=== PATIENT | male | born 1945 | race Caucasian/White ===

== ENCOUNTER → 2017-03-25 | Outpatient (CLI) | payer BC, OTHER ==
[~2017-03-25] MED LIST: ASPEC81 PO; TIOTCAP INH
[2017-03-25 10:04] LABS: BLOOD UREA NITROGEN 12 mg/dl (7-18); BUN/CREATININE RATIO 16.8 (10-20); CALCIUM 8.8 mg/dl (8.5-10.1); CARBON DIOXIDE 25 mmol/L (21-32); CHLORIDE 96 mmol/L (98-107); CREATININE 0.74 mg/dl (0.60-1.40); GLUCOSE 101 mg/dl (70-99); POTASSIUM 4.1 mmol/L (3.5-5.1); SODIUM 127 mmol/L (136-145)
[2017-03-25 10:09] LABS: CHOLESTEROL 218 mg/dl (0-200); CHOLESTEROL/HDL RATIO 1.8; HDL CHOLESTEROL 118 mg/dl; LDL CHOLESTEROL CALCULATED 93 mg/dl; TRIGLYCERIDES 37 mg/dl (0-150); VERY LOW DENSITY LIPOPROT CALC 7 mg/dl
== END | disposition home or self-care (01) ==
LOC: C.LAB 06:52
PROVIDERS: ATTEND Family Medicine
DX: I10 Essential (primary) hypertension (principal); N40.1 Benign prostatic hyperplasia with lower urinary tract symptoms; N13.8 Other obstructive and reflux uropathy

== ENCOUNTER → 2017-04-08 | Outpatient (CLI) | payer BC ==
[2017-04-08 09:59] LABS: BLOOD UREA NITROGEN 10 mg/dl (7-18); BUN/CREATININE RATIO 13.8 (10-20); CALCIUM 8.9 mg/dl (8.5-10.1); CARBON DIOXIDE 24 mmol/L (21-32); CHLORIDE 96 mmol/L (98-107); CREATININE 0.74 mg/dl (0.60-1.40); GLUCOSE 104 mg/dl (70-99); POTASSIUM 4.2 mmol/L (3.5-5.1); SODIUM 129 mmol/L (136-145)
== END | disposition home or self-care (01) ==
LOC: C.LAB 06:57
PROVIDERS: ATTEND Family Medicine
DX: E87.1 Hypo-osmolality and hyponatremia (principal)

== ENCOUNTER → 2017-04-16 | Outpatient (CLI) | payer BC ==
--- NOTE | 2017-04-16 17:14 | DIAGNOSTIC IMAGING REPORT ---
L UPPER EXT JOINT WITHOUT CLINICAL HISTORY: 71 years-old Male presenting with LEFT SHOULDER PAIN. TECHNIQUE: Multisequence, multiplanar MR imaging of the left shoulder was performed without the use of intravenous contrast. IV contrast: None. COMPARISON: None. FINDINGS: Localizer images: 4.5 cm ovoid T2 hyperintense lesion within the left trapezius. Multilobular minimally complex T2 hyperintense, T1 hypointense lesion within the left trapezius muscle. There is a small focus of an transit T1 hyperintensity inferiorly within this lesion. This measures 4.3 x 3.1 x 3.6 cm. This approaches the acromioclavicular joint. Bony edema noted at the acromioclavicular joint where there is significant degenerative change and inferior bony spurring. Secondary to superior subluxation of the humeral head there is complete effacement of the acromiohumeral interval with contouring of the acromion. Prominent inferior osteophyte at the humeral head in contact with the central glenoid. Extensive articular cartilage abnormality of both the superior glenoid and humeral head. The labrum is diffusely abnormal along the superior, anterior, and inferior portions. Relative preservation of the posterior labrum. Few intra-articular loose bodies may be present. Complete tears of the supraspinatus and infraspinatus tendons with significant retraction. Moderate fatty atrophy of the supraspinatus and severe fatty atrophy of the infraspinatus. Full-thickness tear without retraction of the teres minor suspected with moderate fatty atrophy. Severe fatty atrophy with complete tear of the supraspinatus also suspected. Medial displacement of the long head of the biceps tendon secondary to disruption of the transverse ligament portion of the of scapularis tendon. Short head of biceps tendon intact. Evidence of a small shoulder joint effusion with synovitis. IMPRESSION: 1. Multilobular mildly complex cystic appearing collection within the left trapezius muscle which approaches the left acromioclavicular joint. Differential considerations include ganglion cyst/synovial cyst as well as intramuscular myxoma. This be better evaluated with contrast-enhanced MR. 2. Extensive degenerative change and edema at the acromioclavicular joint. Edema is felt to most likely be degenerative in etiology. 3. Complete rotator cuff tears of the supraspinatus, infraspinatus, and subscapularis with significant atrophy of the muscle bellies. Full-thickness tear of the teres minor also suspected with moderate fatty atrophy of the muscle belly. 4. Superior subluxation of the humeral head, evidence of complete rotator cuff tear. 5. Synovitis with shoulder joint effusion. 6. Displacement of the long head of the biceps tendon. Electronically signed by: Johny Pelayo M.D. 04/16/2017 5:12 PM Dictated Date/Time: 04/16/2017 5:03 PM
== END | disposition home or self-care (01) ==
LOC: C.MRIBC 15:01
PROVIDERS: ATTEND Orthopaedic Surgery Sports Medicine
DX: M25.512 Pain in left shoulder (principal)

== ENCOUNTER → 2017-04-22 | Outpatient (CLI) | payer BC, OTHER ==
[~2017-04-22] MED LIST changes: +AMLO5TAB3 PO; +ASPI81TA28 PO; +CRG3125 PO; +FURO-85 PO; +IBUP1TAB51 PO; +OFLO0.3S OP; +PRED1SUS3 OPL; +SPRIN/30 INH; +TAMS0.4C38 PO; +TRIA1SPR4; +TRMCR515 TOP; +ketorolac
--- NOTE | 2017-04-22 08:51 | DIAGNOSTIC IMAGING REPORT ---
CHEST 2 VIEWS ROUTINE CLINICAL HISTORY: 71 years-old Male presenting with HYPONATREMIA, COPD, ?MASS;E87.1, J44.9. TECHNIQUE: PA and lateral views of the chest were obtained. COMPARISON: 11/26/2010. FINDINGS: Median sternotomy wires and prosthetic aortic valve new from prior. Atherosclerosis of aortic arch. Cardiac silhouette normal in size. Mildly prominent lung markings though no focal infiltrate is apparent. Apparent added density in the lung bases likely overlapping soft tissue structures. Mild bronchial wall thickening suggested. No pleural effusion or pneumothorax. Osseous structures normal. Upper abdomen normal. IMPRESSION: 1. Bronchial wall thickening could suggest congestive change versus bronchitis/bronchiolitis. 2. Given the limitations of radiography, if there is continuing clinical concern for a mass as queried, chest CT should be obtained. 3. Prominent lung markings could relate to underlying chronic lung disease. Electronically signed by: Johny Pelayo M.D. 04/22/2017 8:50 AM Dictated Date/Time: 04/22/2017 8:48 AM
[2017-04-22 09:38] LABS: BLOOD UREA NITROGEN 15 mg/dl (7-18); CALCIUM 9.4 mg/dl (8.5-10.1); CARBON DIOXIDE 25 mmol/L (21-32); CREATININE 0.79 mg/dl (0.60-1.40); GLUCOSE 119 mg/dl (70-99); POTASSIUM 4.4 mmol/L (3.5-5.1); SODIUM 130 mmol/L (136-145)
[2017-04-22 09:41] LABS: OSMOLALITY,URINE 516 mOms/kg (500-800)
[2017-04-22 09:43] LABS: SODIUM RANDOM URINE 80 mEq/L
== END | disposition home or self-care (01) ==
LOC: C.RAD 08:07
PROVIDERS: ATTEND Family Medicine
DX: J98.8 Other specified respiratory disorders (principal); E87.1 Hypo-osmolality and hyponatremia; J44.9 Chronic obstructive pulmonary disease, unspecified

== ENCOUNTER → 2017-07-09 | Outpatient (CLI) | payer BC, OTHER ==
[~2017-07-09] MED LIST changes: -AMLO5TAB3 PO; -ASPI81TA28 PO; -CRG3125 PO; -FURO-85 PO; -IBUP1TAB51 PO; -OFLO0.3S OP; -PRED1SUS3 OPL; -SPRIN/30 INH; -TAMS0.4C38 PO; -TRIA1SPR4; -TRMCR515 TOP; -ketorolac
[2017-07-09 12:20] LABS: BLOOD UREA NITROGEN 15 mg/dl (7-18); CALCIUM 9.2 mg/dl (8.5-10.1); CARBON DIOXIDE 26 mmol/L (21-32); CREATININE 0.77 mg/dl (0.60-1.40); GLUCOSE 93 mg/dl (70-99); SODIUM 133 mmol/L (136-145)
== END | disposition home or self-care (01) ==
LOC: C.LAB 09:46
PROVIDERS: ATTEND Internal Medicine
DX: E87.1 Hypo-osmolality and hyponatremia (principal)

== ENCOUNTER → 2017-07-29 | Day surgery (SDC) | payer BC, OTHER ==
[2017-07-21 07:32] VITALS: Ht 175.3 cm; Wt 79.5 kg
[~2017-07-29] VITALS: Ht 175.3 cm; Wt 79.5 kg
[~2017-07-29] MED LIST changes: +500ML BSS 0.3ML EPI 1:1000PF IRRIG ONE; +ACETAMINOPHEN 325 MG TAB PO PRN; +AMLO-110 PO; +AMVISC PLUS 0.8ML SYRINGE INT OCU ONE; -ASPEC81 PO; +ASPI81TA28 PO; +ATROPINE SULFATE 0.1 MG/ML 5ML SYR IV PRN; +BSS FLUSH ONE; +CRG3125 PO; +ENDOCOAT 0.85ML SYRINGE INT OCU ONE; +EpHEDrine SULFATE INJ 50 MG/ML AMP IV PRN; +EpINEphrine INJ 1MG/ML AMP 1 MG/ML AMP ONE; +FENTANYL CITRATE INJ 50 MCG/1 ML 2 ML VIAL IV PRN; +FURO-85 PO; +LACTATED RINGER'S 1000ML 500 ML IV SCH; +LIDOCAINE 4% OP SOLN DROP CHARGE ONE; +LIDOCAINE 4% OP SOLN DROP CHARGE OPL SCH; +LIDOCAINE HCL 1% MPF 2 ML VIAL ONE; +MIDAZOLAM HCL 1 MG/ML 2ML VIAL ONE; +MIX: 4ML BSS 1ML EPI 1:1000 PF TOP ONE; +MOXIFLOXACIN OPH SOLN PER DROP CHARGE ONE; +OFLO0.3S OP; +ONDANSETRON INJ 2 MG/ML 2 ML VIAL IV PRN; +POVIDONE-IODINE OP SOLN 30 ML BTL ONE; +PRED1SUS3 OPL; +PROPARACAINE 0.5% OP SOLN PER DROP CHARGE OPL SCH; +SPRIN/30 INH; +TAMS0.4C38 PO; -TIOTCAP INH; +TOBRAMYCIN/DEXAMETHASONE OPH OINT PER APPLN CHARGE ONE; +TRIA1SPR4; +TRMCR515 TOP; +ketorolac
--- NOTE | 2017-07-29 06:41 | History & Physical Bridge - SC ---
H&P Re-Evaluation Bridge Note: I have examined the patient, reviewed the History & Physical and in the interval since the performance of the History & Physical I have noted the following changes of clinical significance: No changes noted
[2017-07-29] MEDS: PHENYLEPHRINE HCL 2.5% OP SOLN PER DROP CHARGE OPL SCH ×3 (06:55→07:05)
[2017-07-29] MEDS: TROPICAMIDE 1% OP SOLN PER DROP CHARGE OPL SCH ×3 (06:56→07:06)
[2017-07-29] MEDS: CYCLOPENTOLATE HCL 1% OP SOLN PER DROP CHARGE OPL SCH ×3 (06:57→07:07)
[2017-07-29] MEDS: MOXIFLOXACIN OPH SOLN PER DROP CHARGE OPL SCH ×3 (06:58→07:08)
--- NOTE | 2017-07-29 07:57 | [facility] Post Operative Brief Note ---
Immediate Operative Summary Operative Date Jul 29, 2017. Pre-Operative Diagnosis Left eye cataract Post-Operative Diagnosis Same as preop Procedure(s) Performed Left Cataract Phacoemulsification With Intraocular Lens Implant Surgeon Dr. Feldman Cigar Sorter Surgeon(s) None Estimated Blood Loss 0 mL Findings Consistent with Post-Op Diagnosis Specimens None Anesthesia Type MAC Complication(s) none Disposition Accompanied Pt To Recovery: no Disposition:
--- NOTE | 2017-07-29 07:59 | [facility] Operative Report ---
Operative Report Date of Service Jul 29, 2017. Operative Report DATE OF OPERATION: 07/29/17 PREOPERATIVE DIAGNOSIS: Senile nuclear cataract, left eye POSTOPERATIVE DIAGNOSIS: Senile nuclear cataract, left eye PROCEDURE PERFORMED: Phacoemulsification with intraocular lens implantation, left eye SURGEON: Dr. Bib Feldman ANESTHESIA: Topical with 1% intracameral lidocaine and monitored anesthesia care COMPLICATIONS: None DESCRIPTION OF PROCEDURE: After positively identifying the patient both verbally and by wristband in the preoperative area, the left eye was marked as the operative eye. The patient was then brought back to the operating room by the anesthesia and nursing staff where they were given a drop of Lidocaine and betadine into the operative eye. They were then sterilely prepped and draped in the standard fashion typical for ophthalmic surgery. Steri-strips were placed along the upper eyelids to keep the lashes back, and a lid speculum was placed into the operative eye. At this point, a documented time out was performed with members of the ophthalmology, nursing, and anesthesia staffs all agreeing upon the correct patient, correct location for surgery, correct procedure, and correct type and power of intraocular lens to be implanted. The microscope was then swung into position. First, a paracentesis wound was made using a sideport blade. Then, in sequence, 1% preservative-free lidocaine followed by Endocoat viscoelastic was injected into the anterior chamber. Next , the main incision was made with a keratome blade in triplanar fashion. A sharp cystotome was introduced into the eye and used to create a tear in the anterior capsule, which was directed into a continuous curvilinear capsulorrhexis using Utrata forceps. Hydrodissection was then performed with BSS on a flat-tip cannula. Next, the phacoemulsification handpiece was introduced into the eye and used to remove the nucleus in a [id number] fashion. This was done without complication and then the irrigation-aspiration handpiece was introduced into the eye and used to remove all remaining cortical and epinuclear material. Amvisc was then injected into the anterior chamber as well as into the capsular bag and using the lens injector system, an MX60 20.5 D lens, serial number [id number], and expiration date 10/2019 was injected into the capsular bag and rotated into the correct position. Next, the irrigation- aspiration handpiece was used to remove all remaining Amvisc. BSS was used to hydrate the main wound, and then BSS was injected into the paracentesis site to reach physiologic pressure and then the main wound was checked and found to be watertight. The patient was given drops of Vigamox and Tobradex ointment into the operative eye, and then the surrounding area was cleaned and dried. A clear plastic shield was placed over the eye and the patient was then sat up and taken from the operating room by the anesthesia staff having tolerated the procedure well and suffering no complications. DISPOSITION: The patient was returned to the recovery room in stable condition. I attest to the content of the Intraoperative Record and any orders documented therein. Any exceptions are noted below.
--- NOTE | 2017-07-29 07:59 | Discharge Instructions-SurgCtr ---
Discharge Instructions Date of Service Jul 29, 2017. Visit Reason for Visit: Cataract Left Eye Discharge Discharge Diagnosis / Problem: left cataract Discharge Goals Goal(s): Decrease discomfort, Improve function Activity Recommendations Activity Limitations: as noted below Anesthesia . Post Anesthesia Instructions: If you have had General Anesthesia or IV Sedation: * Do not drive today. * Resume driving when surgeon permits. * Do not make important decisions or sign legal documents today. * Call surgeon for: 1. Temperature elevations greater than 101 degrees F. 2. Uncontrollable pain. 3. Excessive bleeding. 4. Persistent nausea and vomiting. 5. Medication intolerance (nausea, vomiting or rash). * For nausea and vomiting use only clear liquids such as: tea, soda, bouillon until nausea subsides, then gradually increase diet as tolerated. * If you have any concerns or questions, call your surgeon's office. If physician is unavailable and it is an emergency, call 911 or go to the nearest emergency room. . Instructions / Follow-Up Instructions / Follow-Up ACTIVITY RECOMMENDATIONS: * Light activities. * You may walk outside, read, watch television. * You may notice redness on the white part of the eye and some blurry vision - this is normal. MEDICATIONS: Resume previous medications unless instructed otherwise by your surgeon. Start all eye drops at 10 am today: * Eye drops (today): Prednisone - one drop in operative eye every 2 hours while awake Ofloxacin - one drop in operative eye every 2 hours while awake Ketorolac - one drop in operative eye 4 times daily SPECIAL CARE INSTRUCTIONS: * Tape plastic shield over eye to sleep at night. Call your doctor at with any concerns or problems. FOLLOW UP VISIT: Follow-up with Dr Feldman at [facility] as scheduled. Diet Recommendations Home Diet: no limitations Procedures Procedures Performed: Left Cataract Phacoemulsification With Intraocular Lens Implant Pending Studies Studies pending at discharge: no Medical Emergencies . Who to Call and When: Medical Emergencies: If at any time you feel your situation is an emergency, please call 911 immediately. . Non-Emergent Contact Non-Emergency issues call your: Surgeon . . "Provider Documentation" section prepared by Bib Feldman. .
[2017-07-29 08:01] VITALS: TEMP 36.9
[2017-07-29 08:24] VITALS: BP 134/76; PULSE 60; O2SAT 95
--- NOTE | 2017-07-29 08:27 | Anesthesia Progress Nt - [facility] ---
Anesthesia Post Op Note Date & Time Jul 29, 2017 at 08:26 Vital Signs Pain Intensity: 0 Vital Signs Past 12 Hours Date Time Temp Pulse Resp B/P (MAP) Pulse Ox O2 Delivery O2 Flow Rate FiO2 07/29/17 08:24 60 16 134/76 (95) 95 Room Air 07/29/17 08:01 36.9 89 16 124/72 (89) 95 Room Air 07/29/17 06:44 36.8 59 16 130/82 (98) 100 Room Air Notes Mental Status: alert / awake / arousable, participated in evaluation Pt Amnestic to Procedure: No Nausea / Vomiting: adequately controlled Pain: adequately controlled Airway Patency, RR, SpO2: stable & adequate BP & HR: stable & adequate Hydration State: stable & adequate Anesthetic Complications: no major complications apparent Non distressing recall as discussed preop
== END | disposition home or self-care (01) ==
LOC: X.SURG 06:28
PROVIDERS: ATTEND Ophthalmology
DX: H25.12 Age-related nuclear cataract, left eye (principal); F17.210 Nicotine dependence, cigarettes, uncomplicated; I10 Essential (primary) hypertension; I51.9 Heart disease, unspecified; Z79.82 Long term (current) use of aspirin; Z79.899 Other long term (current) drug therapy; Z96.649 Presence of unspecified artificial hip joint; Z95.4 Presence of other heart-valve replacement

== ENCOUNTER → 2017-12-09 | Outpatient (CLI) | payer BC, OTHER ==
[~2017-12-09] MED LIST changes: -500ML BSS 0.3ML EPI 1:1000PF IRRIG ONE; -ACETAMINOPHEN 325 MG TAB PO PRN; -AMLO-110 PO; +AMLO5TAB3 PO; -AMVISC PLUS 0.8ML SYRINGE INT OCU ONE; -ATROPINE SULFATE 0.1 MG/ML 5ML SYR IV PRN; -BSS FLUSH ONE; -ENDOCOAT 0.85ML SYRINGE INT OCU ONE; -EpHEDrine SULFATE INJ 50 MG/ML AMP IV PRN; -EpINEphrine INJ 1MG/ML AMP 1 MG/ML AMP ONE; -FENTANYL CITRATE INJ 50 MCG/1 ML 2 ML VIAL IV PRN; -FURO-85 PO; +IBUP1TAB51 PO; -LACTATED RINGER'S 1000ML 500 ML IV SCH; -LIDOCAINE 4% OP SOLN DROP CHARGE ONE; -LIDOCAINE 4% OP SOLN DROP CHARGE OPL SCH; -LIDOCAINE HCL 1% MPF 2 ML VIAL ONE; -MIDAZOLAM HCL 1 MG/ML 2ML VIAL ONE; -MIX: 4ML BSS 1ML EPI 1:1000 PF TOP ONE; -MOXIFLOXACIN OPH SOLN PER DROP CHARGE ONE; -OFLO0.3S OP; -ONDANSETRON INJ 2 MG/ML 2 ML VIAL IV PRN; -POVIDONE-IODINE OP SOLN 30 ML BTL ONE; -PRED1SUS3 OPL; -PROPARACAINE 0.5% OP SOLN PER DROP CHARGE OPL SCH; -TOBRAMYCIN/DEXAMETHASONE OPH OINT PER APPLN CHARGE ONE; -TRIA1SPR4; -ketorolac
[2017-12-09 11:17] LABS: BASO % 0.6 %; BASO ABS # 0.04 K/uL (0-0.2); EOS % 5.7 %; HEMATOCRIT 40.9 % (42-52); HEMOGLOBIN 14.4 g/dL (14.0-18.0); IG# 0.03 K/uL (0.00-0.02); LYMPH % 19.9 %; LYMPH ABS # 1.39 K/uL (1.2-3.4); MEAN CELL VOLUME 97.4 fL (80-100); MEAN CORPUSCULAR HEMOGLOBIN 34.3 pg (25-34); MEAN CORPUSCULAR HGB CONC 35.2 g/dl (32-36); MEAN PLATELET VOLUME 9.7 fL (7.4-10.4); MONO % 18.2 %; MONO ABS # 1.27 K/uL (0.11-0.59); NEUT % 55.2 %; NEUT ABS # 3.84 K/uL (1.4-6.5); PLATELET COUNT 251 K/uL (130-400); RED CELL DISTRIBUTION WIDTH CV 13.2 % (11.5-14.5); RED CELL DISTRIBUTION WIDTH SD 46.6 fL (36.4-46.3); WHITE BLOOD COUNT 6.97 K/uL (4.8-10.8)
[2017-12-09 11:28] LABS: PTT PATIENT 27.5 SECONDS (21.0-31.0)
--- NOTE | 2017-12-09 11:34 | DIAGNOSTIC IMAGING REPORT ---
TWO VIEW CHEST CLINICAL HISTORY: Preoperative examination. FINDINGS: PA and lateral chest radiographs are compared to study dated 04/22/2017. The PA view is degraded by patient rotation. The patient is status post midline sternotomy and aortic valve surgery. The heart is enlarged and there is atherosclerotic calcification of the thoracic aorta. The pulmonary vasculature is noncongested. Advanced emphysema and chronic interstitial thickening are similar to previous. Apical scarring is observed. No airspace consolidation or pleural effusion is identified. There is no pneumothorax. The skeletal structures are osteopenic. Degenerative change is noted in the shoulders and thoracic spine. IMPRESSION: Cardiomegaly and emphysema with no active disease in the chest. Electronically signed by: Gil Peralta M.D. 12/09/2017 11:33 AM Dictated Date/Time: 12/09/2017 11:31 AM
[2017-12-09 11:54] LABS: BLOOD UREA NITROGEN 12 mg/dl (7-18); CARBON DIOXIDE 26 mmol/L (21-32); CREATININE 0.91 mg/dl (0.60-1.40); GLUCOSE 97 mg/dl (70-99); POTASSIUM 4.7 mmol/L (3.5-5.1); SODIUM 130 mmol/L (136-145)
== END | disposition home or self-care (01) ==
LOC: C.CPL 11:30
PROVIDERS: ATTEND Orthopaedic Surgery Orthopaedic Surgery of the Spine
DX: Z01.810 Encounter for preprocedural cardiovascular examination (principal); Z01.812 Encounter for preprocedural laboratory examination; I51.7 Cardiomegaly; J43.9 Emphysema, unspecified

== ENCOUNTER 2018-09-16 04:50 | Inpatient (IN) ==
--- NOTE | 2018-09-07 16:07 | PAT Medication Instructions ---
Medication Instructions Date of Service September 07, 2018 Home Medications Spiriva with HandiHaler 1 cap INHALATION UD PRN amlodipine 5 mg PO QAM aspirin [Aspirin Low Dose] 81 mg PO QAM carvedilol 3.125 mg PO QAM tamsulosin 0.4 mg PO QAM triamcinolone acetonide 1 applic TOPICAL UD PRN ibuprofen 200 mg PO BID ASK your prescriber and surgeon aspirin [Aspirin Low Dose] 81 mg PO QAM STOP taking 24 hours before surgery triamcinolone acetonide 1 applic TOPICAL UD PRN Take morning of surgery With a small sip of water, OTHERWISE NOTHING TO EAT OR DRINK AFTER MIDNIGHT: Spiriva with HandiHaler 1 cap INHALATION UD PRN (if needed) amlodipine 5 mg PO QAM carvedilol 3.125 mg PO QAM tamsulosin 0.4 mg PO QAM Take evening before surgery Spiriva with HandiHaler 1 cap INHALATION UD PRN (if needed) Other Notes If you have any questions please call us at [phone] or [phone] or [phone] or [phone]
--- NOTE | 2018-09-08 08:44 | Anesthesiology Consultation ---
Date of Service September 08, 2018 Assessment & Plan (1) Encounter for pre-operative examination: CARDIO CLEARANCE (PHILLIP VAZQUEZ PA-C) 09/10 = "Patient remained stable from a cardiac standpoint. ...Based on his functional status without limiting cardiopulmonary symptoms, preserved LV systolic function on today's echocardiogram, appropriate bioprosthetic AVR function, and the fact that he tolerated spine surgery within the past 8 months without cardiac complicationspatient is a low to intermediate but acceptable risk to proceed with surgery as scheduled provided he take his usual doses of Coreg 3.125 mg, amlodipine 5 mg, and aspirin 81 mg a morning of surgery with sips of water. Chart Review Chart Review: Acceptable Risk for Surgery and Patient seen in Pre Admission Testing Teaching & Discussion Instructed NPO after midnight before surgery, except medications with 15 cc of water. Medication instructions provided according to the PAT guidelines. History Surgery Operation Date: 09/16/18 07:00 Proposed Procedures p Right Carotid Endarterectomy with Angioplasty - Mariano Laboy MD Height/Weight Height: 5 ft 9 in Weight: 71.4 kg Allergies Allergy/AdvReac Type Severity Reaction Status Date / Time ibuprofen AdvReac LARGE Verified 09/07/18 08:20 DOSES CAUSE ITCHING AND BLISTERS Unclassified Drugs Allergy Unknown TOBASCO Uncoded 04/28/18 07:07 SAUCE - TOO MUCH OF WILL CAUSE HIVES Medications Home Medications Medication Instructions Recorded Confirmed Last Taken Spiriva with HandiHaler 1 cap INHALATION UD PRN #0 07/21/17 09/07/18 04/27/18 amlodipine 5 mg PO QAM #0 tab 07/21/17 09/07/18 04/27/18 aspirin [Aspirin Low Dose] 81 mg PO QAM #0 07/21/17 09/07/18 04/28/18 02:30 carvedilol 3.125 mg PO QAM #0 07/21/17 09/07/18 04/27/18 tamsulosin 0.4 mg PO QAM #0 cap 07/21/17 09/07/18 04/27/18 triamcinolone acetonide 1 applic TOPICAL UD PRN 30 Days 07/29/17 09/07/18 04/27/18 #30 g ibuprofen 200 mg PO BID 09/07/18 09/07/18 Unknown Past Medical History Medical History CAD (coronary artery disease) Per cardiology 09/10, episode in 2010 with elevated troponins and "probably STEMI." Pt had cath that reportedly showed no significant blockages, though report was not available for cardio review. Carotid artery stenosis Chronic back pain Chronic hyponatremia Chronic obstructive pulmonary disease MILD, DENIES FLARE UPS. FOLLOWS WITH PCP Congenital bicuspid aortic valve s/p AVR 2010 Hypertension LVH (left ventricular hypertrophy) due to hypertensive disease Radiculopathy of lumbar region Spinal stenosis Thoracic ascending aortic aneurysm 4.5 cm per 2016 imaging Exercise / Class Metabolic Activity II 4-5 Yardwork/Stairs/Walk up hill (Denies CP or SOB with 1 FOS, does daily) Past Surgical History Surgical History Fusion of spine LUMBAR FUSION History of aortic valve replacement 2010, FOLLOWS WITH DR. RODNEY History of carpal tunnel release RIGHT History of tonsillectomy History of total hip arthroplasty BILATERAL Hx of bilateral cataract extraction Hx of cardiac catheterization no stents Past Anesthesia History No Hx of Anesthesia Complications and No Family Hx of Anesthesia Complications 01/04/18 LUMBAR FUSION @ [facility]: MAC 3, ETT 8.0, GRADE VIEW I. NO ISSUES NOTED ON RECORD. History of PONV No Hx of PONV and No Hx of Motion Sickness Social History Smoking Status: Current every day smoker tobacco type: cigarettes Smoking cigarettes per day: APPROX 1 PPD Do You Dip or Chew Tobacco: No Hx Alcohol Use: Yes Alcohol type: beer and hard liquor alcohol intake frequency: 0-2 drinks per day Alcohol Intake Frequency Comment: rum and coke 1-3 per day Hx Substance Use: No substance use type: does not use Review of Systems Pt denies any recent chest pain, shortness of breath, palpitations, cough, fever or URI. +runny nose Physical Exam Vital Signs BP: 132/77 P: 69bpm SPO2: 98% RA T: 98.3 R: 12 ENMT Mouth: + dentures and + edentulous; no chipped teeth and no loose teeth Thyromental Distance: > or= 3.5 Finger Breadths (3.5) Mallampati Class: I Neck normal visual inspection and + facial hair (short mustache); neck extension not limited Respiratory normal respiratory effort Auscultation: lungs clear to auscultation bilaterally Cardiovascular Rate/Rhythm: regular rate and regular rhythm (with occasional ectopic beats) Heart Sounds: + murmur (I/ systolic, crisp valve sounds) Vessels: + carotid bruit (R > L ) Testing Electrocardiogram Date: 09/08/18 Unusual P axis, possible ectopic atrial rhythm with PACs at 60bpm. Moderate voltage criteria for LVH, may be normal variant. Nonspecific TWA. No significant change from 12/09/17 EKG. Chest X-Ray Date: 12/09/17 Findings: + NAD and + cardiomegaly Advanced emphysema. Echocardiogram Date: 09/10/18 EF: 55-60% The left ventricular size, wall motion and systolic function are normal. Mild concentric LVH. Grade 2 diastolic dysfunction. Left atrium is mildly dilated. Bioprosthetic aortic valve is well-seated and functions normally. There is moderate to severe mitral annular calcification. There is no mitral valve s tenosis and trace mitral regurgitation. Other Testing 09/17/2015 CTA Thorax Stable dilation of Asc. Aorta at 4.5 cm Laboratory Results 09/08/18 09:02 09/08/18 09:02 Blood Type A Positive 09/08/18 09:02 Antibody Screen NEGATIVE 09/08/18 09:02
[2018-09-08 10:43] LABS: Basophils # (auto) 0.05 K/uL (0-0.2); Basophils % (auto) 0.8 %; Eosinophils # (auto) 0.34 K/uL (0-0.5); Eosinophils % (auto) 5.4 %; Hematocrit (blood only) 40.6 % (42-52); Hemoglobin 14.1 g/dL (14.0-18.0); Immature Granulocytes # (auto) 0.01 K/uL (0.00-0.02); Immature Granulocytes % (auto) 0.2 %; Lymphocytes # (auto) 1.35 K/uL (1.2-3.4); Lymphocytes % (auto) 21.6 %; Mean Corpuscular Hgb Conc 34.7 g/dL (32-36); Mean Corpuscular Volume 97.6 fL (80-100); Mean Platelet Volume 9.5 fL (7.4-10.4); Monocytes # (auto) 0.93 K/uL (0.11-0.59); Monocytes % (auto) 14.9 %; Neutrophils # (auto) 3.58 K/uL (1.4-6.5); Neutrophils % (auto) 57.1 %; Platelet Count 229 K/uL (130-400); RDW Coefficient of Variation 13.1 % (11.5-14.5); RDW Standard Deviation 46.9 fL (36.4-46.3); Red Blood Count 4.16 M/uL (4.7-6.1); White Blood Count 6.26 K/uL (4.8-10.8)
[2018-09-08 10:50] LABS: BUN Creatinine Ratio 17.7 (10-20); Calcium 9.3 mg/dl (8.5-10.1); Creatinine Clr Calc Pharmacy 92.9 ml/min; Est GFR (African American) 108.3; Est GFR (Non-African American) 93.5; Potassium 4.7 mmol/L (3.5-5.1)
[2018-09-16] MEDS ORDERED: LR 15ML/HR IV SCH (06:00)
--- NOTE | 2018-09-16 06:18 | History & Physical Bridge Note ---
Date of Service September 16, 2018 History & Physical Bridge Note I have examined the patient, reviewed the History & Physical and in the interval since the performance of the History & Physical I have noted the following changes of clinical significance: no changes noted pt marked all questions answered SO at bedside
[2018-09-16] MEDS ORDERED: fentaNYL citrate 100 MCG/2 ML VIAL ONE (06:45)
[2018-09-16] MEDS ORDERED: HEPARIN (PORCINE) 1000 UNIT/ML 10 ML (CATH LAB USE ONLY) ONE (06:46)
[2018-09-16] MEDS ORDERED: LIDOCAINE/EPINEPHRINE 1% 20 ML VIAL ONE (06:46)
[2018-09-16] MEDS ORDERED: BACITRACIN INJ 50,000 UNIT VIAL ONE (06:46)
[2018-09-16] MEDS ORDERED: ATROPINE SULFATE 0.1 MG/ML 10ML SYR IV PRN (06:48)
[2018-09-16] MEDS ORDERED: ONDANSETRON INJ 2 MG/ML 2 ML VIAL IV PRN ×2 (06:48→09:16)
[2018-09-16] MEDS ORDERED: ePHEDrine sulfate 50 MG/ML AMP IV PRN (06:48)
[2018-09-16] MEDS ORDERED: fentaNYL citrate 100 MCG/2 ML VIAL IV PRN (06:48)
[2018-09-16] MEDS ORDERED: CEFAZOLIN 250 MG/ML 1 GM VIAL ONE (07:09)
[2018-09-16] MEDS ORDERED: HEPARIN SOD (PORCINE) 1000 UNIT/ML 10 ML VIAL ONE (08:11)
[2018-09-16] MEDS ORDERED: DEXAMETHASONE SOD INJ 4 MG/ML VIAL ONE (08:11)
[2018-09-16] MEDS ORDERED: LIDOCAINE HCL 2% 2 ML VIAL/AMP(20MG/ML) INFIL ONE (08:11)
[2018-09-16] MEDS ORDERED: NITROGLYCERIN 5 MG/ML 10 ML VIAL ONE (08:11)
[2018-09-16] MEDS ORDERED: PROPOFOL IV EMULSION 10 MG/ML 20 ML VIAL IV ONE (08:11)
[2018-09-16] MEDS ORDERED: PHENYLEPHRINE HCL 10 MG/ML VIAL ONE (08:11)
[2018-09-16] MEDS ORDERED: ePHEDrine sulfate 50 MG/ML SYR ONE (08:11)
[2018-09-16] MEDS ORDERED: ONDANSETRON INJ 2 MG/ML 2 ML VIAL ONE (08:11)
[2018-09-16] MEDS ORDERED: ROCURONIUM BROMIDE 10 MG/ML 5 ML VIAL ONE (08:11)
[2018-09-16] MEDS ORDERED: PROTAMINE SULFATE 10 MG/ML 5 ML VIAL ONE (08:52)
--- NOTE | 2018-09-16 09:03 | Post Operative Brief Note ---
Immediate Post Op Note v1 Date of Surgery September 16, 2018 Pre & Post Diagnosis Operation Date: 09/16/18 07:00 Pre-Op Diagnosis: Right Carotid Stenosis Post-Op Diagnosis: Right Carotid Stenosis Procedure Operation Date: 09/16/18 07:00 Actual Procedures p Right Carotid Endarterectomy with Angioplasty(Right) - Mariano lubin MD Surgeon Mariano Laboy MD Night Time Babysitter 0 Estimated Blood Loss 150 Findings Consistent with Post-Op Diagnosis Drains Abilio Drain
[2018-09-16] MEDS ORDERED: MoRPHine SULFATE 4 MG/ML 1 ML CARP\\VIAL IV PRN (09:16)
[2018-09-16] MEDS ORDERED: MoRPHine SULFATE 2 MG/ML CARP IV PRN ×2 (09:16)
[2018-09-16] MEDS ORDERED: OXYCODONE/ACETAMINOPHEN 5mg/325mg TAB PO PRN ×2 (09:25)
[2018-09-16] MEDS ORDERED: ALBUTEROL HFA INHALER 8.5 GM ONE (09:26)
[2018-09-16] MEDS ORDERED: NITROGLYCERIN/D5W 100MCG/ML 250 ML IV SCH (09:30)
--- NOTE | 2018-09-16 09:39 | Operative Report ---
Post Operative Report Pre & Post Diagnosis Operation Date: 09/16/18 07:00 Pre-Op Diagnosis: Right Carotid Stenosis Post-Op Diagnosis: Right Carotid Stenosis Procedure Operation Date: 09/16/18 07:00 Actual Procedures p Right Carotid Endarterectomy with Angioplasty(Right) - Mariano Laboy MD The patient was brought into the operating theater general endotracheal ane sthesia roll placed underneath the shoulders right neck and chest was prepped with an scrub solution properly draped systemic antibiotics given a timeout was had patient was identified 1% Xylocaine with epinephrine was used to infiltrate anterior of the sternocleido's muscle and incision was made about 3 inches long deepened to subcutaneous tissue staying medial to the edge of the sternocleido's muscle some prominent subcutaneous veins were doubly ligated with 2-0 silk were able then to identify the facial vein that was low riding mobilized that doubly ligated and divided dissected down the carotid and common carotid came in first significant amount of scar tissue appreciated in the area we were able then encircle it with a vessel loop loosely we were doing this the patient actually became bradycardic we are well away from the carotid body or bifurcation we at this point continue dissection cephalad to the point that we needed to enlarge the incision the corroborant carotid body was quite thickened significant amount of disease was appreciated the superior thyroid was encircled with 2 oh Eder tied with silk external thyroid of the external carotid was then encircled with a vessel loop the hypoglossal nerve was identified and avoided on the disease extended approximately an inch or so from the bifurcation we able to identify the internal carotid which was free of any systemic disease in these by her dissection prior minimal moving around the carotid body we injected lidocaine in the area we never had any further problems with bradycardia the suspensory ligament was divided ligated with 2-0 silk systemic heparinization was given with 8000 units of heparin allowed to effect approximately 5 minutes while he waited for that we prepped on the side a bovine graft for a patch we clamped the internal carotid first then the external and the common arteriotomy in the common carotid was made prior to opening up the carotid artery the vessel loop was encircled loosely around the common and the internal carotid into space and the possibility may need a shunt at the carotid once open was extended up to the internal carotid area prior to that with significant hardening and very near total occlusion of the internal carotid at its takeoff plane of dissection circular fibers were obtained just the bifurcation where we able to elevate and develop an endarterectomy site and did an inversion endarterectomy for the external carotid and the internal carotid went on a taper quite nicely I took the bulldog clamp off the internal carotid actually had a significant backbleeding therefore at this point I elected not to shunt the endarterectomy site was checked for any loose debris and appeared quite free we flushed the common external this point the bovine patch was brought onto the field and we started your anastomosis or lay down at the toe where our initial sutures need to be replaced which we did with another 6 oh was brought up and parachuted down circumferentially we held the patch loosely by stay sutures of 5-0 silk on both side we continued circumferentially to tied to suture the graft the graft prior to completely closing down we were able to place a Ishaan and a 4 bakes dilator taken off the bulldog clamp and the internal carotid passing dilator without any problem actually excellent backbleeding was appreciated we control the backbleeding with a DeBakey forcep we flushed out the common external and then suctioned out the endarterectomy site and tied down the the patch few bleeders were all circumferentially were identified on the suture line and they were individually be sutured with 6-0 Prolene suture once the area appears satisfactory we had opened up the external carotid no further bleeding was appreciated along the past and the common carotid was open again hemostasis was satisfactory and less the internal carotid was open was able to check distal to the total of the patch and it appeared to be free of any thrill the operative site was checked hemostasis appeared slightly oozing therefore I reverted reversed with 25 mg of protamine a Abilio drain was brought in with the 2 heads of sternocleido and placed along carotid enterectomy side wound was closed with 2-0 Vicryl interrupted sutures aureliano for skin edges dressing was applied procedure was tolerated well by the patient estimated blood loss 150 cc he woke up neurologically intact addendumCat THOMSON present throughout the procedure helped with the exposure traction suture manipulation and wound closure Surgeon Mariano Laboy MD Engagement Quality Consultant 0 Estimated Blood Loss 150 Findings Consistent with Post-Op Diagnosis Specimens plaque Description of Procedure merda I attest to the content of the Intraoperative Record and any orders documented therein. Any exceptions are noted below.
--- NOTE | 2018-09-16 09:58 | Anesthesiology Progress Note ---
Date of Service September 16, 2018 Anesthesia Post Procedure Vital Signs Vital Signs: Temp Pulse Pulse Resp BP BP BP 09/16/18 09:46 64 15 126/64 09/16/18 09:45 62 16 09/16/18 09:41 63 14 09/16/18 09:40 64 15 131/70 09/16/18 09:35 63 17 129/70 09/16/18 09:30 63 9 L 131/71 09/16/18 09:26 68 16 118/76 09/16/18 09:20 61 9 L 128/68 09/16/18 09:16 98.2 F 71 16 128/73 121/46 L 09/16/18 05:30 98.2 F 69 20 110/73 Pulse Ox 09/16/18 09:46 94 09/16/18 09:45 91 09/16/18 09:41 92 09/16/18 09:40 93 09/16/18 09:35 98 09/16/18 09:30 96 09/16/18 09:26 98 09/16/18 09:20 97 09/16/18 09:16 97 09/16/18 05:30 98 Transfer of Care Handoff Completed per policy Notes Mental Status: alert / awake / arousable and participated in evaluation Patient Amnestic to Procedure: Yes Nausea / Vomiting: adequately controlled Pain: adequately controlled Airway Patency, RR, SpO2: stable & adequate BP & HR: stable & adequate Hydration State: stable & adequate Anesthetic Complications: no major complications apparent and Pt Satisfied with anesthetic care
--- NOTE | 2018-09-16 11:43 | Critical Care Consultation ---
Date of Consultation September 16, 2018 Assessment & Plan (1) Admitted to intensive care unit: Reason Critically Ill: s/p Right Carotid Endarterectomy with Angioplasty NEURO ICU CAM NEGATIVE No other acute concerns CV HTN Cont on Amlodipine Has been normotensive CAD Cont on ASA 81, Carvedilol 3.125 mg daily RESP COPD Cont Spiriva No other acute concerns at present Sating well on 2L NC, will try RA trials ABD/GI Tolerating Liquid Diet No other acute concerns at present RENAL/ Sodium 133 Cont IVF with LR No other concerns for lytes at present Will cont trend with daily labs BPH Cont Tamsulosin .4mg Daily ID No concern for infectious etiology at present Cont trend fever curve HEME Stable H/H. No acute concerns Cont trend daily DVT Prophylaxis: Heparin, SCD's Full Code Dispo: ICU. Likely D/C home tomorrow Supervising Physician Co-Signing Physician Notes Dr. Stevenson was resident physician during care of patient. I separately evaluated patient for clayton portions of the history and the exam. I was present during the critical portion of medical decision making, and I discussed the case with the resident. I generally agree with the findings and plan. Patient without complaints, anticipate routine postoperative course. History of Present Illness Attending Physician: Mariano Laboy MD 72 y/o M with PMH COPD, CAD, HTN, Chronic Back Pain , and 4.5 cm Thoracic Ascending Aortic Aneurysm s/p Aortic Valve replacement (2010) presents to ICU s/p Right Carotid Endarterectomy with Angioplasty 09/16. At present, pt denies any CP, SOB, dyspnea, palpitations, syncope or near syncope feelings. No other acute concerns or complaints. Allergies Allergy/AdvReac Type Severity Reaction Status Date / Time ibuprofen AdvReac LARGE Verified 09/16/18 05:28 DOSES CAUSE ITCHING AND BLISTERS Unclassified Drugs Allergy Unknown TOBASCO Uncoded 09/16/18 05:28 SAUCE - TOO MUCH OF WILL CAUSE HIVES Home Medications Home Medications Medication Instructions Recorded Confirmed Type Spiriva with HandiHaler 1 cap INHALATION UD PRN #0 07/21/17 09/16/18 History amlodipine 5 mg PO QAM #0 tab 07/21/17 09/16/18 History aspirin [Aspirin Low Dose] 81 mg PO QAM #0 07/21/17 09/16/18 History carvedilol 3.125 mg PO QAM #0 07/21/17 09/16/18 History tamsulosin 0.4 mg PO QAM #0 cap 07/21/17 09/16/18 History triamcinolone acetonide 1 applic TOPICAL UD PRN 30 Days 07/29/17 09/16/18 History #30 g ibuprofen 200 mg PO BID 09/07/18 09/16/18 History Patient History Medical History CAD (coronary artery disease) Per cardiology 09/10, episode in 2010 with elevated troponins and "probably STEMI." Pt had cath that reportedly showed no significant blockages, though report was not available for cardio review. Carotid artery stenosis Chronic back pain Chronic hyponatremia Chronic obstructive pulmonary disease MILD, DENIES FLARE UPS. FOLLOWS WITH PCP Congenital bicuspid aortic valve s/p AVR 2010 Hypertension LVH (left ventricular hypertrophy) due to hypertensive disease Radiculopathy of lumbar region Spinal stenosis Thoracic ascending aortic aneurysm 4.5 cm per 2015 imaging Surgical History Fusion of spine LUMBAR FUSION History of aortic valve replacement 2010, FOLLOWS WITH DR. RODNEY History of carpal tunnel release RIGHT History of tonsillectomy History of total hip arthroplasty BILATERAL Hx of bilateral cataract extraction Hx of cardiac catheterization no stents Social History Preferred Language: British Communication Ability: Effective Animal Care Assistant Required: No Beliefs That Will Affect Care: None Current Living Situation: Spouse Other Information That Helps Us Care for You: No Feels Safe at Home: Yes Safety Concerns: Feels Safe At This Time Smoking Status: Current every day smoker Tobacco Type: cigarettes Cigarettes Per Day: APPROX 1 PPD Do You Dip or Chew Tobacco: No Second Hand Exposure: No Tobacco Cessation Education Requested by Patient: No Hx Alcohol Use: Yes Alcohol type: beer and hard liquor Hx Substance Use: No Review of Systems Review of Systems: All systems reviewed & are unremarkable except as noted in HPI & below Physical Exam 2 Constitutional: WD/WN, vitals as above Eyes: PERRL, conjunctivae normal, anicteric sclerae ENMT: external ear and nose normal, oropharynx normal Neck: Bandage on R side, nondraining Respiratory: normal respiratory effort, lungs clear to auscultation Cardiovascular: RRR, no murmur, no edema Gastrointestinal (Abdomen): normal bowel sounds, soft, nontender, no hepatospl enomegaly Skin: no rashes, warm and dry Psychiatric: A+Ox3, euthymic affect Results & Data Vital Signs (Past 12 Hours) Vital Signs Temp Pulse Pulse Resp BP BP BP 09/16/18 11:01 66 14 134/75 09/16/18 11:00 62 21 09/16/18 10:55 67 15 131/86 09/16/18 10:50 67 18 130/74 09/16/18 10:45 65 17 139/74 09/16/18 10:40 63 12 130/67 09/16/18 10:35 62 18 133/74 09/16/18 10:30 64 16 138/71 09/16/18 10:25 63 16 139/73 09/16/18 10:20 65 16 139/92 09/16/18 10:15 62 15 141/76 H 09/16/18 10:13 64 16 124/80 09/16/18 10:11 57 L 12 09/16/18 10:10 64 18 09/16/18 10:06 67 13 129/74 09/16/18 10:05 63 23 09/16/18 10:01 64 15 122/71 09/16/18 10:00 63 19 09/16/18 09:55 36.8 C 63 16 123/78 09/16/18 09:51 63 14 123/71 09/16/18 09:50 61 18 09/16/18 09:46 64 15 126/64 09/16/18 09:45 62 16 09/16/18 09:41 63 14 09/16/18 09:40 64 15 131/70 09/16/18 09:35 63 17 129/70 09/16/18 09:30 63 9 L 131/71 09/16/18 09:26 68 16 118/76 09/16/18 09:20 61 9 L 128/68 09/16/18 09:16 36.8 C 71 16 128/73 121/46 L 09/16/18 05:30 36.8 C 69 20 110/73 Pulse Ox 09/16/18 11:01 94 09/16/18 11:00 94 09/16/18 10:55 93 09/16/18 10:50 96 09/16/18 10:45 96 09/16/18 10:40 95 09/16/18 10:35 93 09/16/18 10:30 93 09/16/18 10:25 95 09/16/18 10:20 94 09/16/18 10:15 93 09/16/18 10:13 94 09/16/18 10:11 94 09/16/18 10:10 91 09/16/18 10:06 94 09/16/18 10:05 95 09/16/18 10:01 93 09/16/18 10:00 94 09/16/18 09:55 95 09/16/18 09:51 95 09/16/18 09:50 95 09/16/18 09:46 94 09/16/18 09:45 91 09/16/18 09:41 92 09/16/18 09:40 93 09/16/18 09:35 98 09/16/18 09:30 96 09/16/18 09:26 98 09/16/18 09:20 97 09/16/18 09:16 97 09/16/18 05:30 98 Medications Administered Current Inpatient Medications Amlodipine Besylate (Norvasc) 5 mg PO QAM [facility] Stop: 10/17/18 08:59 Carvedilol (Coreg) 3.125 mg PO QAM [facility] Stop: 10/17/18 08:59 Heparin Sodium (Porcine) (Heparin Sodium (Porcine)) 5,000 units SQ Q8 [facility] Stop: 10/16/18 13:59 Lactated Ringer's (Lr) 1,000 mls @ 15 mls/hr IV .Q24H [facility] Stop: 09/17/18 05:59 Last Infusion: 09/16/18 06:57 Dose: Infused Documented by: Lactated Ringer's (Lr) 1,000 mls @ 100 mls/hr IV .Q10H [facility] Stop: 10/16/18 11:14 Nitroglycerin/Dextrose (Nitroglycerin/D5w 100 Mcg/Ml) 250 mls @ 0 mls/hr IV .Q0M [facility]; Protocol Stop: 10/16/18 09:29 Morphine Sulfate (Morphine Sulfate) 2 mg IV Q3H PRN PRN Reason: MODERATE Pain (Scale 4,5,6) Stop: 09/30/18 09:15 Morphine Sulfate (Morphine Sulfate) 3 mg IV Q3H PRN PRN Reason: SEVERE Pain (Scale 7,8,9,10) Stop: 09/30/18 09:15 Morphine Sulfate (Morphine Sulfate) 1 mg IV Q3H PRN PRN Reason: MILD Pain (Scale 1,2,3) Stop: 09/30/18 09:15 Ondansetron HCl (Zofran) 4 mg IV Q4H PRN PRN Reason: Nausea And Vomiting Stop: 10/16/18 09:15 Oxycodone/Acetaminophen (Percocet 5mg/325mg) 2 tab PO Q4H PRN PRN Reason: Pain (scale 6-10) Stop: 09/19/18 09:24 Oxycodone/Acetaminophen (Percocet 5mg/325mg) 1 tab PO Q4H PRN PRN Reason: Pain (scale 1-5) Stop: 09/19/18 09:24 Tamsulosin HCl (Flomax) [facility] [place] Stop: 10/17/18 08:59 Resident Activity Tracking Resident Involvement: Resident Care Provided Care Provided: Adult Hospital Medicine
[2018-09-16 12:04] LABS: Basophils # (auto) 0.01 K/uL (0-0.2); Basophils % (auto) 0.1 %; Eosinophils # (auto) 0.01 K/uL (0-0.5); Eosinophils % (auto) 0.1 %; Hematocrit (blood only) 39.9 % (42-52); Hemoglobin 14.4 g/dL (14.0-18.0); Immature Granulocytes # (auto) 0.03 K/uL (0.00-0.02); Immature Granulocytes % (auto) 0.2 %; Lymphocytes # (auto) 0.42 K/uL (1.2-3.4); Lymphocytes % (auto) 3.5 %; Mean Corpuscular Hgb Conc 36.1 g/dL (32-36); Mean Corpuscular Volume 95.5 fL (80-100); Mean Platelet Volume 9.5 fL (7.4-10.4); Monocytes # (auto) 0.41 K/uL (0.11-0.59); Monocytes % (auto) 3.4 %; Neutrophils # (auto) 11.13 K/uL (1.4-6.5); Neutrophils % (auto) 92.7 %; Platelet Count 200 K/uL (130-400); RDW Standard Deviation 45.2 fL (36.4-46.3); Red Blood Count 4.18 M/uL (4.7-6.1); White Blood Count 12.01 K/uL (4.8-10.8)
[2018-09-16 12:13] LABS: Prothrombin Time 10.4 Seconds (9.0-12.0)
[2018-09-16 12:24] LABS: BUN Creatinine Ratio 14.4 (10-20); Calcium 8.4 mg/dl (8.5-10.1); Creatinine Clr Calc Pharmacy 106.4 ml/min; Est GFR (African American) 116.5; Est GFR (Non-African American) 100.5
[2018-09-16] MEDS: LACTATED RINGER'S 1,000 ML IV SCH ×2 (12:54→21:13)
[2018-09-16] MEDS: HEPARIN SOD 5,000 UNIT/0.5 ML VIAL SQ SCH ×2 (15:06→21:13)
[2018-09-17] MEDS: HEPARIN SOD 5,000 UNIT/0.5 ML VIAL SQ SCH (05:03)
--- NOTE | 2018-09-17 07:26 | Surgery Progress Note ---
Date of Service September 17, 2018 Assessment & Plan (1) Carotid stenosis: POD 1 CEA BP stable grover removed seen with ok for d/c Subjective no complaints, tolerating diet, voiding ok Physical Exam Neck: incision clean, dry, minimal grover drainage, NV intact Results & Data Vital Signs (Past 12 Hours) Vital Signs Temp Pulse Pulse Resp BP BP Pulse Ox 09/17/18 06:00 64 16 153/83 H 155/69 H 97 09/17/18 05:00 66 12 142/98 H 163/73 H 97 09/17/18 04:00 36.7 C 65 19 152/80 H 152/65 H 93 09/17/18 03:00 64 20 146/74 H 158/68 H 96 09/17/18 02:00 65 19 173/105 H 151/68 H 97 09/17/18 01:00 63 16 147/75 H 142/58 H 100 09/17/18 00:00 36.6 C 66 15 148/70 H 147/61 H 98 09/16/18 23:14 63 09/16/18 23:00 69 17 148/70 H 146/58 H 97 09/16/18 22:00 66 18 138/71 131/54 L 93 09/16/18 21:00 71 16 132/70 128/51 L 96 09/16/18 20:00 36.9 C 71 18 130/70 127/55 L 92
[2018-09-17] MEDS: LACTATED RINGER'S 1,000 ML IV SCH (07:45)
--- NOTE | 2018-09-17 07:54 | Critical Care Progress Note ---
Date of Service September 17, 2018 Assessment & Plan (1) Admitted to intensive care unit: Reason Critically Ill: s/p Right Carotid Endarterectomy with Angioplasty NEURO ICU CAM NEGATIVE No other acute concerns CV HTN Cont on Amlodipine Has been normotensive CAD Cont on ASA 81, Carvedilol 3.125 mg, Atorvastatin 40 mg daily RESP COPD Cont Spiriva No other acute concerns at present Sating well on RA ABD/GI Tolerating Heart Healthy Diet No other acute concerns at present RENAL/ No concerns for lytes at present BPH Cont Tamsulosin .4mg Daily ID No concern for infectious etiology at present Cont trend fever curve HEME Stable H/H. No acute concerns DVT Prophylaxis: Heparin, SCD's Full Code Dispo: Stable for D/C home today Supervising Physician Co-Signing Physician Notes Dr. Stevenson was resident physician during care of patient. I separately evaluated patient for clayton portions of the history and the exam. I was present during the critical portion of medical decision making, and I discussed the case with the resident. I generally agree with the findings and plan. Patient stable for discharge home per general surgery Subjective 72 y/o M found in bed this AM in NAD. Reports no acute overnight events. Denies any pain. Ready for d/c. Tolerating PO intake. No issues voiding. No other acute concerns or complaints. F/u appt with Dr. Laboy has been made already. Review of Systems Review of Systems: All systems reviewed & are unremarkable except as noted in HPI & below Physical Exam Constitutional: WD/WN, vitals as above Eyes: PERRL, conjunctivae normal, anicteric sclerae ENMT: external ear and nose normal, oropharynx normal Neck: R sided aureliano in place, intact, nondraining Respiratory: normal respiratory effort, lungs clear to auscultation Cardiovascular: RRR, no murmur, no edema Gastrointestinal (Abdomen): normal bowel sounds, soft, nontender, no hepatosplenomegaly Skin: no rashes, warm and dry Psychiatric: A+Ox3, euthymic affect Results & Data Vital Signs (Past 12 Hours) Vital Signs Temp Pulse Pulse Resp BP BP Pulse Ox 09/17/18 07:50 36.7 C 64 16 153/83 H 155/69 H 97 09/17/18 06:00 64 16 153/83 H 155/69 H 97 09/17/18 05:00 66 12 142/98 H 163/73 H 97 09/17/18 04:00 36.7 C 65 19 152/80 H 152/65 H 93 09/17/18 03:00 64 20 146/74 H 158/68 H 96 09/17/18 02:00 65 19 173/105 H 151/68 H 97 09/17/18 01:00 63 16 147/75 H 142/58 H 100 09/17/18 00:00 36.6 C 66 15 148/70 H 147/61 H 98 09/16/18 23:14 63 09/16/18 23:00 69 17 148/70 H 146/58 H 97 09/16/18 22:00 66 18 138/71 131/54 L 93 09/16/18 21:00 71 16 132/70 128/51 L 96 09/16/18 20:00 36.9 C 71 18 130/70 127/55 L 92 Laboratory Results Laboratory Results - last 24 hr 09/16/18 09/16/18 09/16/18 11:30 11:53 11:55 WBC RBC Hgb Hct MCV MCH MCHC RDW Std Deviation RDW Coeff of Telma Plt Count MPV Immature Gran % (Auto) Neut % (Auto) Lymph % (Auto) [place] % (Auto) Eos % (Auto) Baso % (Auto) Immature Gran # (Auto) Neut # (Auto) Lymph # (Auto) [place] # (Auto) Eos # (Auto) Baso # (Auto) PT 10.4 INR 1.0 Sodium Potassium Chloride Carbon Dioxide Anion Gap BUN Creatinine Est Cr Clr Drug Dosing Est GFR ( Amer) Est GFR (Non-Af Amer) BUN/Creatinine Ratio Glucose POC Glucose 100 H Calcium Nasal Screen MRSA (PCR) Negative Hepatitis C Ab Screen 09/16/18 09/16/18 09/16/18 11:57 11:57 19:26 WBC 12.01 H RBC 4.18 L Hgb 14.4 Hct 39.9 L MCV 95.5 MCH 34.4 H MCHC 36.1 H RDW Std Deviation 45.2 RDW Coeff of Telma 13.0 Plt Count 200 MPV 9.5 Immature Gran % (Auto) 0.2 Neut % (Auto) 92.7 Lymph % (Auto) 3.5 [place] % (Auto) 3.4 Eos % (Auto) 0.1 Baso % (Auto) 0.1 Immature Gran # (Auto) 0.03 H Neut # (Auto) 11.13 H Lymph # (Auto) 0.42 L [place] # (Auto) 0.41 Eos # (Auto) 0.01 Baso # (Auto) 0.01 PT INR Sodium 133 L Potassium 4.0 Chloride 102 Carbon Dioxide 24 Anion Gap 7.0 BUN 9 Creatinine 0.62 Est Cr Clr Drug Dosing 106.4 Est GFR ( Amer) 116.5 Est GFR (Non-Af Amer) 100.5 BUN/Creatinine Ratio 14.4 Glucose 104 H POC Glucose 141 H Calcium 8.4 L Nasal Screen MRSA (PCR) Hepatitis C Ab Screen 09/17/18 09/17/18 04:13 04:16 WBC RBC Hgb Hct MCV MCH MCHC RDW Std Deviation RDW Coeff of Telma Plt Count MPV Immature Gran % (Auto) Neut % (Auto) Lymph % (Auto) [place] % (Auto) Eos % (Auto) Baso % (Auto) Immature Gran # (Auto) Neut # (Auto) Lymph # (Auto) [place] # (Auto) Eos # (Auto) Baso # (Auto) PT INR Sodium Potassium Chloride Carbon Dioxide Anion Gap BUN Creatinine Est Cr Clr Drug Dosing Est GFR ( Amer) Est GFR (Non-Af Amer) BUN/Creatinine Ratio Glucose POC Glucose 116 H Calcium Nasal Screen MRSA (PCR) Hepatitis C Ab Screen Neg Medications Administered Current Inpatient Medications [facility] [place]: 10/17/18 08:59 Last Admin: 09/17/18 08:17 Dose: 5 mg Documented by: Atorvastatin Calcium (Lipitor) 40 mg PO QAM [facility] Stop: 10/17/18 08:59 Last Admin: 09/17/18 08:18 Dose: Not Given Documented by: Carvedilol (Coreg) [facility] [place]: 10/17/18 08:59 Last Admin: 09/17/18 08:17 Dose: 3.125 mg Documented by: Heparin Sodium (Porcine) (Heparin Sodium (Porcine)) 5,000 units SQ Q8 [facility] Stop: 10/16/18 13:59 Last Admin: 09/17/18 05:03 Dose: 5,000 units Documented by: Lactated Ringer's (Lr) 1,000 mls @ 100 mls/hr IV .Q10H [facility] Stop: 10/16/18 11:14 Last Infusion: 09/17/18 07:45 Dose: Infused Documented by: Nitroglycerin/Dextrose (Nitroglycerin/D5w 100 Mcg/Ml) 250 mls @ 0 mls/hr IV .Q0M [facility]; Protocol Stop: 10/16/18 09:29 Morphine Sulfate (Morphine Sulfate) 2 mg IV Q3H PRN PRN Reason: MODERATE Pain (Scale 4,5,6) Stop: 09/30/18 09:15 Morphine Sulfate (Morphine Sulfate) 3 mg IV Q3H PRN PRN Reason: SEVERE Pain (Scale 7,8,9,10) Stop: 09/30/18 09:15 Morphine Sulfate (Morphine Sulfate) 1 mg IV Q3H PRN PRN Reason: MILD Pain (Scale 1,2,3) Stop: 09/30/18 09:15 Ondansetron HCl (Zofran) 4 mg IV Q4H PRN PRN Reason: Nausea And Vomiting Stop: 10/16/18 09:15 Oxycodone/Acetaminophen (Percocet 5mg/325mg) 2 tab PO Q4H PRN PRN Reason: Pain (scale 6-10) Stop: 09/19/18 09:24 Oxycodone/Acetaminophen (Percocet 5mg/325mg) 1 tab PO Q4H PRN PRN Reason: Pain (scale 1-5) Stop: 09/19/18 09:24 Tamsulosin HCl (Flomax) [facility] [place]: 10/17/18 08:59 Last Admin: 09/17/18 08:17 Dose: 0.4 mg Documented by: Resident Activity Tracking Resident Involvement: Resident Care Provided Care Provided: Adult Hospital Medicine
[2018-09-17] MEDS ORDERED: TAMSULOSIN HCL 0.4 MG CAP PO SCH (09:00)
[2018-09-17] MEDS ORDERED: CARVEDILOL 3.125 MG TAB PO SCH (09:00)
[2018-09-17] MEDS ORDERED: ATORVASTATIN 40 MG TAB PO SCH (09:00)
[2018-09-17] MEDS ORDERED: AMLODIPINE BESYLATE 5 MG TAB PO SCH (09:00)
--- NOTE | 2018-09-17 09:31 | Anesthesiology Progress Note ---
Date of Service September 17, 2018 Anesthesia Post Procedure Vital Signs Vital Signs: Temp Pulse Pulse Resp BP BP BP 09/17/18 08:02 76 23 09/17/18 08:01 77 23 135/78 09/17/18 08:00 75 23 150/88 H 09/17/18 07:50 36.7 C 64 16 153/83 H 155/69 H 09/17/18 07:00 72 33 H 150/88 H 09/17/18 06:00 64 16 153/83 H 155/69 H 09/17/18 05:00 66 12 142/98 H 163/73 H 09/17/18 04:00 36.7 C 65 19 152/80 H 152/65 H 09/17/18 03:00 64 20 146/74 H 158/68 H 09/17/18 02:00 65 19 173/105 H 151/68 H 09/17/18 01:00 63 16 147/75 H 142/58 H 09/17/18 00:00 36.6 C 66 15 148/70 H 147/61 H 09/16/18 23:14 63 09/16/18 23:00 69 17 148/70 H 146/58 H 09/16/18 22:00 66 18 138/71 131/54 L 09/16/18 21:00 71 16 132/70 128/51 L 09/16/18 20:00 36.9 C 71 18 130/70 127/55 L 09/16/18 19:00 74 16 123/75 129/59 L 09/16/18 18:00 72 18 140/76 09/16/18 17:30 77 25 H 09/16/18 17:00 81 24 142/86 H 09/16/18 16:30 36.7 C 70 24 09/16/18 16:00 72 17 136/72 09/16/18 15:30 69 12 09/16/18 15:00 68 22 132/75 09/16/18 14:45 66 21 09/16/18 14:30 71 22 09/16/18 14:00 66 18 121/75 09/16/18 13:00 67 17 140/73 09/16/18 12:00 70 19 124/78 09/16/18 11:52 66 17 129/78 09/16/18 11:05 36.9 C 67 17 135/74 05 11:01 66 14 134/75 09/16/18 11:00 62 21 09/16/18 10:55 67 15 131/86 09/16/18 10:50 67 18 130/74 05 10:45 65 17 139/74 09/16/18 10:40 63 12 130/67 09/16/18 10:35 62 18 133/74 09/16/18 10:30 64 16 138/71 09/16/18 10:25 63 16 139/73 09/16/18 10:20 65 16 139/92 09/16/18 10:15 62 15 141/76 H 09/16/18 10:13 64 16 124/80 09/16/18 10:11 57 L 12 09/16/18 10:10 64 18 09/16/18 10:06 67 13 129/74 09/16/18 10:05 63 23 09/16/18 10:01 64 15 122/71 09/16/18 10:00 63 19 09/16/18 09:55 36.8 C 63 16 123/78 09/16/18 09:51 63 14 123/71 09/16/18 09:50 61 18 09/16/18 09:46 64 15 126/64 09/16/18 09:45 62 16 09/16/18 09:41 63 14 09/16/18 09:40 64 15 131/70 09/16/18 09:35 63 17 129/70 Pulse Ox 09/17/18 08:02 09/17/18 08:01 09/17/18 08:00 94 09/17/18 07:50 97 09/17/18 07:00 93 09/17/18 06:00 97 09/17/18 05:00 97 09/17/18 04:00 93 09/17/18 03:00 96 09/17/18 02:00 97 09/17/18 01:00 100 09/17/18 00:00 98 09/16/18 23:14 09/16/18 23:00 97 09/16/18 22:00 93 09/16/18 21:00 96 09/16/18 20:00 92 09/16/18 19:00 95 09/16/18 18:00 96 09/16/18 17:30 96 09/16/18 17:00 94 09/16/18 16:30 96 09/16/18 16:00 95 09/16/18 15:30 96 09/16/18 15:00 98 09/16/18 14:45 97 09/16/18 14:30 95 09/16/18 14:00 94 09/16/18 13:00 95 09/16/18 12:00 96 09/16/18 11:52 93 09/16/18 11:05 94 09/16/18 11:01 94 09/16/18 11:00 94 09/16/18 10:55 93 09/16/18 10:50 96 09/16/18 10:45 96 09/16/18 10:40 95 09/16/18 10:35 93 09/16/18 10:30 93 09/16/18 10:25 95 09/16/18 10:20 94 09/16/18 10:15 93 09/16/18 10:13 94 09/16/18 10:11 94 09/16/18 10:10 91 09/16/18 10:06 94 09/16/18 10:05 95 09/16/18 10:01 93 09/16/18 10:00 94 09/16/18 09:55 95 09/16/18 09:51 95 09/16/18 09:50 95 09/16/18 09:46 94 09/16/18 09:45 91 09/16/18 09:41 92 09/16/18 09:40 93 09/16/18 09:35 98 Pain Intensity Right Neck: Pain Intensity: 1 Notes Mental Status: alert / awake / arousable Patient Amnestic to Procedure: Yes Nausea / Vomiting: adequately controlled Pain: adequately controlled Airway Patency, RR, SpO2: stable & adequate BP & HR: stable & adequate Hydration State: stable & adequate Anesthetic Complications: no major complications apparent
--- NOTE | 2018-09-17 14:03 | Discharge Summary ---
Date of Service September 17, 2018 Principal Diagnosis Right carotid stenosis Discharge Exam Neck incision clean and dry Neurologic PERRL, EOMI, accommodation nl, no face palsy, no dysarthria Discharge Data Allergies Allergy/AdvReac Type Severity Reaction Status Date / Time ibuprofen AdvReac LARGE Verified 09/16/18 05:28 DOSES CAUSE ITCHING AND BLISTERS Unclassified Drugs Allergy Unknown TOBASCO Uncoded 09/16/18 05:28 SAUCE - TOO MUCH OF WILL CAUSE HIVES Consultations 09/16/18 09:25 Consult Sewing Supervisor Routine Procedures Performed Operation Date: 09/16/18 07:00 Actual Procedures p Right Carotid Endarterectomy with Angioplasty(Right) - Mariano Laboy MD Ordered Studies 09/16/18 06:16 US guide vascular access Stat Hospital Course (1) Carotid stenosis: 72 y/o male with right carotid stenosis taken to the operating room for endarterectomy. The procedure was well-tolerated, he was transferred to ICU for routine monitoring. His blood pressure remained stable overnight. [place] drain was removed the next morning. Neurovascular exam remained normal. He was stable for discharge on POD 1. Total Time Total Time Spent Total Time Spent (In Minutes): 15 Discharge Plan Discharge Items Patient Disposition: Home - Self-Care Reason For Visit: Carotid Stenosis Discharge Diagnosis: carotid endarterectomy Discharge Goals: Improve disease control Activity: As commented below Bathing: No limitations Driving/Machine Use Comment: Do not drive for 1 week Non-emergency contact: Surgeon Call non-emergency contact if: you have any medication questions, your pain is not controlled, you have a fever, your temperature is above 101.5 and your wound has increased drainage Follow-up/Referrals: Mariano Laboy MD [Surgeon] - (In 1 week, call if you do not have an appt) PCP,NO [Primary Care Provider] - Diet: Regular Addtl Provider Instructions: Resume all home meidcations Prescriptions: New oxycodone-acetaminophen [Percocet] 5-325 mg tablet 1 - 2 tab PO Q4H PRN (Reason: pain) Qty: 10 RF: 0 Continued amlodipine 5 mg Tablet 5 mg PO QAM Qty: 0 RF: 0 aspirin [Aspirin Low Dose] 81 mg Tablet,Delayed Release (Dr/Ec) 81 mg PO QAM Qty: 0 RF: 0 carvedilol 3.125 mg Tablet 3.125 mg PO QAM Qty: 0 RF: 0 Spiriva with HandiHaler 18 mcg Capsule, W/Inhalation Device 1 cap INHALATION UD PRN (Reason: SOB) Qty: 0 RF: 0 tamsulosin 0.4 mg Capsule 0.4 mg PO QAM Qty: 0 RF: 0 triamcinolone acetonide 0.1 % Ointment 1 applic TOPICAL UD PRN (Reason: ANKLES) 30 Days Qty: 30 RF: 0 ibuprofen 200 mg Capsule 200 mg PO BID RF: 0 Stand-Alone Forms: [facility] Discharge Orders: Discharge Order (Routine); Ordered 09/17/18 Ordered By: Jordan Lemons Jr Admission Data Admit Date/Time: 09/16/18 09:18 Attending Provider: Mariano Laboy Admit Provider: Mariano Laboy Primary Care Provider: PCP,NO Other Providers: Gil Lezama ; Al Davenport ; Kevin Haley ; Tesfaye Murrieta ; Consuelo Paula ; Allen Tucker ; Bryce Ballesteros ; Adrian Dowling ; Jack Reyes ; Mekhi Chris ; Ronald Moreira Service: Surgical Services Other Interventions: Discharge Summary Assessment (RN) Last Done: 09/17/18 07:50 DC Date/Time DO NOT enter until pt leaves facility: 09/17/18 09:33
== END 2018-09-17 09:33 | disposition home or self-care (01) | DRG 39 ==
LOC: ASU 04:50 → 1E 09:18

== ENCOUNTER 2018-11-04 04:54 | Inpatient (IN) ==
--- NOTE | 2018-11-01 14:14 | Anesthesiology Consultation ---
Date of Service November 01, 2018 Assessment & Plan (1) Encounter for pre-operative examination: S/P L CEA 09/16 = MAC #3, ETT 7.5, grade view II, atraumatic DVL x 1. Pt kait down to HR 20. Atropine 2.5mg given. Surgeon aware, case stopped. Dr Geller called to room. HR increased 50-60s. Surgery continued. At case end, 6 puffs albuterol given via ETT. Moving all extremeties. Tongue slightly to R, following commands. Suctioned, extubated. Transferred to ICU for routine observation. Procedure well-tolerated, vitals stable. Chart Review Chart Review: Acceptable Risk for Surgery and Patient NOT seen in Pre Admission Testing History Surgery Operation Date: 11/04/18 11:45 Proposed Procedures p Left Carotid Endarterectomy - Mariano Laboy MD Height/Weight Height: 5 ft 9 in Weight: 71.4 kg Allergies Allergy/AdvReac Type Severity Reaction Status Date / Time ibuprofen AdvReac LARGE Verified 09/16/18 05:28 DOSES CAUSE ITCHING AND BLISTERS Unclassified Drugs Allergy Unknown TOBASCO Uncoded 09/16/18 05:28 SAUCE - TOO MUCH OF WILL CAUSE HIVES Medications Home Medications Medication Instructions Recorded Confirmed Last Taken Spiriva with HandiHaler 1 cap INHALATION UD PRN #0 07/21/17 09/16/18 09/02/18 amlodipine 5 mg PO QAM #0 tab 07/21/17 09/16/18 09/16/18 02:45 aspirin [Aspirin Low Dose] 81 mg PO QAM #0 07/21/17 09/16/18 09/16/18 03:45 carvedilol 3.125 mg PO QAM #0 07/21/17 09/16/18 09/16/18 03:45 tamsulosin 0.4 mg PO QAM #0 cap 07/21/17 09/16/18 09/16/18 03:45 triamcinolone acetonide 1 applic TOPICAL UD PRN 30 Days 07/29/17 09/16/18 09/02/18 #30 g ibuprofen 200 mg PO BID 09/07/18 09/16/18 09/15/18 11:00 oxycodone-acetaminophen [Percocet] 1 - 2 tab PO Q4H PRN #10 tab 09/17/18 Unknown Past Medical History Medical History CAD (coronary artery disease) Per cardiology 09/10, episode in 2010 with elevated troponins and "probably STEMI." Pt had cath that reportedly showed no significant blockages, though r eport was not available for cardio review. Carotid artery stenosis s/p R CEA 09/16/18 Chronic back pain Chronic hyponatremia Chronic obstructive pulmonary disease MILD, DENIES FLARE UPS. FOLLOWS WITH PCP Congenital bicuspid aortic valve s/p AVR 2010 Hypertension LVH (left ventricular hypertrophy) due to hypertensive disease Radiculopathy of lumbar region Spinal stenosis Thoracic ascending aortic aneurysm 4.5 cm per 2016 imaging Past Surgical History Surgical History Fusion of spine LUMBAR FUSION H/O carotid endarterectomy 09/16/18 [facility] History of aortic valve replacement 2010, FOLLOWS WITH DR. RODNEY History of carpal tunnel release RIGHT History of tonsillectomy History of total hip arthroplasty BILATERAL Hx of bilateral cataract extraction Hx of cardiac catheterization no stents Past Anesthesia History L CEA 09/16 = MAC #3, ETT 7.5, grade view II, atraumatic DVL x 1. Pt kait down to HR 20. Atropine 2.5mg given. Surgeon aware, case stopped. Dr Geller called to room. HR increased 50-60s. Surgery continued. At case end, 6 puffs albuterol given via ETT. Moving all extremeties. Tongue slightly to R, following commands. Suctioned, extubated. Social History Smoking Status: Current every day smoker tobacco type: cigarettes Smoking cigarettes per day: APPROX 1 PPD Hx Alcohol Use: Yes Alcohol type: beer and hard liquor alcohol intake frequency: 0-2 drinks per day Hx Substance Use: No substance use type: does not use Testing Laboratory Results 10/27/18 WBC: 6.89 H/H: 13.9/40.2 PLATELETS: 214 SODIUM: 133 POTASSIUM: 3.7 CHLORIDE: 100 CO2: 26 BUN: 14 CREATININE: 0.76 GLUCOSE: 119 Electrocardiogram Date: 09/08/18 Unusual P axis, possible ectopic atrial rhythm with PACs at 60bpm. Moderate voltage criteria for LVH, may be normal variant. Nonspecific TWA. No significant change from 12/09/17 EKG. Chest X-Ray Date: 12/09/17 Findings: + NAD and + cardiomegaly Advanced emphysema. Echocardiogram Date: 09/10/18 EF: 55-60% The left ventricular size, wall motion and systolic function are normal. Mild concentric LVH. Grade 2 diastolic dysfunction. Left atrium is mildly dilated. Bioprosthetic aortic valve is well-seated and functions normally. There is moderate to severe mitral annular calcification. There is no mitral valve stenosis and trace mitral regurgitation. Other Testing 09/17/2015 CTA Thorax Stable dilation of Asc. Aorta at 4.5 cm
[2018-11-04] MEDS ORDERED: LR 15ML/HR IV SCH (06:00)
[2018-11-04] MEDS ORDERED: DEXAMETHASONE SOD INJ 4 MG/ML VIAL ONE (06:13)
[2018-11-04] MEDS ORDERED: ROCURONIUM BROMIDE 10 MG/ML 5 ML VIAL ONE (06:13)
[2018-11-04] MEDS ORDERED: GLYCOPYRROLATE 0.2 MG/ML VIAL ONE ×2 (06:13→07:43)
[2018-11-04] MEDS ORDERED: ONDANSETRON INJ 2 MG/ML 2 ML VIAL ONE (06:13)
[2018-11-04] MEDS ORDERED: NEOSTIGMINE METHYLSULFATE 5 MG/5 ML SYR ONE (06:13)
[2018-11-04] MEDS ORDERED: LIDOCAINE HCL 2% 2 ML VIAL/AMP(20MG/ML) INFIL ONE (06:13)
[2018-11-04] MEDS ORDERED: PROPOFOL IV EMULSION 10 MG/ML 20 ML VIAL IV ONE (06:13)
[2018-11-04] MEDS ORDERED: fentaNYL citrate 100 MCG/2 ML VIAL ONE (06:13)
--- NOTE | 2018-11-04 06:14 | History & Physical Bridge Note ---
Date of Service November 04, 2018 History & Physical Bridge Note I have examined the patient, reviewed the History & Physical and in the interval since the performance of the History & Physical I have noted the following changes of clinical significance: no changes noted SO at bedside all questions answered pt marked admit order written
[2018-11-04] MEDS ORDERED: HEPARIN (PORCINE) 1000 UNIT/ML 10 ML (CATH LAB USE ONLY) ONE (06:34)
[2018-11-04] MEDS ORDERED: LIDOCAINE/EPINEPHRINE 1% 20 ML VIAL ONE (06:34)
[2018-11-04] MEDS ORDERED: BACITRACIN INJ 50,000 UNIT VIAL ONE (06:35)
[2018-11-04] MEDS ORDERED: CEFAZOLIN 250 MG/ML 1 GM VIAL ONE (07:20)
[2018-11-04] MEDS ORDERED: CEFAZOLIN 2000MG 2,000 MG/15 ML SYR IV ONE (07:44)
[2018-11-04] MEDS ORDERED: NITROGLYCERIN/D5W 100 MCG/ML BTL ONE (07:58)
[2018-11-04] MEDS ORDERED: HEPARIN SOD (PORCINE) 1000 UNIT/ML 10 ML VIAL ONE (07:58)
[2018-11-04] MEDS ORDERED: PHENYLEPHRINE HCL 10 MG/ML VIAL ONE (07:58)
[2018-11-04] MEDS ORDERED: PROTAMINE SULFATE 10 MG/ML 5 ML VIAL ONE (08:46)
[2018-11-04] MEDS ORDERED: ATROPINE SULFATE 0.1 MG/ML 10ML SYR IV PRN (08:53)
[2018-11-04] MEDS ORDERED: HYDROmorphone INJ 1 MG/ML SYRINGE IV PRN (08:53)
[2018-11-04] MEDS ORDERED: ONDANSETRON INJ 2 MG/ML 2 ML VIAL IV PRN (08:53)
[2018-11-04] MEDS ORDERED: LABETALOL HCL IV 5 MG/ML 20ML IV PRN (08:53)
--- NOTE | 2018-11-04 08:56 | Post Operative Brief Note ---
Immediate Post Op Note v1 Date of Surgery November 04, 2018 Pre & Post Diagnosis Operation Date: 11/04/18 07:00 Pre-Op Diagnosis: Left Carotid Stenosis Post-Op Diagnosis: Left Carotid Stenosis Procedure Operation Date: 11/04/18 07:00 Actual Procedures p Left Carotid Endarterectomy(Left) - Mariano Laboy MD Surgeon Mariano Laboy MD Women'S Ministry Director B Cristo THOMSON Estimated Blood Loss 50 Findings Consistent with Post-Op Diagnosis Drains [place] Drain
--- NOTE | 2018-11-04 09:33 | Operative Report ---
Post Operative Report Pre & Post Diagnosis Operation Date: 11/04/18 07:00 Pre-Op Diagnosis: Left Carotid Stenosis Post-Op Diagnosis: Left Carotid Stenosis Procedure Operation Date: 11/04/18 07:00 Actual Procedures p Left Carotid Endarterectomy with Bovine Patch(Left) - Mariano Laboy MD The patient was brought into the operating theater under general endotracheal anesthesia supine position roll points transversely beneath the shoulders had rotated to the right systemic antibiotics given left neck and upper chest was prepped Betadine solution and prep and properly draped a timeout was had patient identified 1% Xylocaine with epi was used to infiltrate the subcu anterior to the sternocleidomastoid muscle and incision was made about 3 inches long deepened through subcutaneous tissue retracting the sternocleido's laterally dissecting down retracting the internal jugular laterally on the carotid, carotid was encountered first and was encircled loosely with a vessel loop dissection was carried out more cephalad where the facial vein was identified divided doubly ligated the internal carotid the external carotid was visualized first inferior thyroid artery was encircled with 2-0 silk Eder the external carotid was elevated over vessel loop dissection internal carotid was taking up actually most of disease is right at the takeoff of this we dissected up higher the plane dissection was very well-defined and located in the end of disease we identified the hypoglossal nerve actually was some difficulty identifying since patient bifurcation was low in the hypoglossal was a very high once we identified we encircled that with a vessel loop. This point systemic antibiotics was given with 8000 units of heparin while we are waiting for the effects of the heparin we divided the suspensory ligament and doubly ligated we prepped the bovine patch once sufficient heparinization effect was about 5 minutes was taken with clamped the internal carotid first with a bulldog clamp and the external common with a regular clamp and arteriotomy common carotid was made extending up towards the internal which we could not really find any true lumen for the Robbins scissors once we broke through the lesion was well- circumscribed and probably within a centimeter and a half from the takeoff of the internal carotid the rest the plane of dissection was easily beyond that we can see it intima there was free of any disease we started on the circular fibers to completing an endarterectomy and started in the common carotid there is an inversion endarterectomy the external carotid then to get up the internal carotid where the plaque came off nicely and the inflow was adherent took off the bed bulldog clamp and the patient had almost pulsatile backbleeding. We at this point and flushed the common carotid and the external irrigated the operative site free of any debris the patch was brought on the field we parachuted down the toe circumferentially went around we used some stay sutures on the patch and on the vessel I had a 5:00 and 9 o'clock position to try to keep the patch from pain to tight when we are doing the medial aspect of the patch the suture broke therefore we continue with another suture and tied the 2 ends together similarly we controlled on the other side. The suture also broke on approximately the 5 o'clock position we had enough length at that we instrument time once we get finished it prior to taken down the patch we placed the bakes dilator #4 went into the internal carotid area control of backbleeding which was excellent with a DeBakey forcep and we flush the external and the common suction was placed in the operative field and suctioned out the endarterectomy site the suture was tied we then put a few more interrupted basurto ture proximally and distal to the suture that we have not to we have placed the external carotid clamp there was really no bleeding from the suture line any significant I placed 25-gauge needle in the patch to free any trap there we took the common carotid clamp off and there was one small suture bleed that we controlled with another interrupted 6-0 Prolene suture flow was reestablished to the internal carotid without any difficulty there was no bruits appreciated distal to the patch heparin was reversed with 40 mg of protamine which by the time that was completed the area of quite hemostatic and then elected to drain the endarterectomy OpSite with 1/4 inch Rosalia drain was brought into the field with between the 2 heads of sternocleido attached to skin edge with 2-0 silk the wound was closed multiple layer 302 0 Vicryl aureliano for skin edges dressing was applied procedure was tolerated well by the patient estimated blood loss 50 cc at the end of procedure the patient was alert and neurologically intact pollyendNader THOMSON was present throughout the procedure and help with exposure traction on suture wound closure Surgeon Mariano Laboy MD Capacitor Assembler Garrett THOMSON Estimated Blood Loss 50 Findings Consistent with Post-Op Diagnosis Specimens plaque left car Description of Procedure viola I attest to the content of the Intraoperative Record and any orders documented therein. Any exceptions are noted below.
--- NOTE | 2018-11-04 10:04 | Anesthesiology Progress Note ---
Date of Service November 04, 2018 Anesthesia Post Procedure Vital Signs Vital Signs: Temp Pulse Pulse Resp BP BP Pulse Ox 11/04/18 09:50 36.7 C 66 19 133/59 L 142/75 H 92 11/04/18 09:40 61 16 131/58 L 134/72 95 11/04/18 09:30 63 16 137/59 L 135/72 94 11/04/18 09:20 36.2 C L 83 18 160/85 H 94 11/04/18 05:34 36.6 C 68 20 138/76 95 Transfer of Care Handoff Completed per policy Notes Mental Status: alert / awake / arousable Patient Amnestic to Procedure: Yes Nausea / Vomiting: adequately controlled Pain: adequately controlled Airway Patency, RR, SpO2: stable & adequate BP & HR: stable & adequate Hydration State: stable & adequate Anesthetic Complications: no major complications apparent
[2018-11-04] MEDS ORDERED: ACETAMINOPHEN 325 MG TAB PO PRN (10:31)
[2018-11-04] MEDS ORDERED: TIOTROPIUM BROMIDE 5 PUFF/90 MCG INH INH PRN (10:31)
[2018-11-04] MEDS ORDERED: MoRPHine SULFATE 2 MG/ML CARP IV PRN (10:31)
[2018-11-04] MEDS: NITROGLYCERIN/D5W 100MCG/ML 250 ML IV SCH (15:10)
[2018-11-04] MEDS: LACTATED RINGER'S 1,000 ML IV SCH (15:17)
[2018-11-04] MEDS ORDERED: LABETALOL HCL IV 5 MG/ML 20ML IV STA (17:50)
--- NOTE | 2018-11-04 19:16 | Critical Care Consultation ---
Date of Consultation November 04, 2018 Assessment & Plan (1) Carotid stenosis: Reason Critically Ill: 73-year-old male presents postoperatively from the OR for left carotid endarterectomy. Neuro - [facility] ICU: Negative Carotid stenosisstatus post left carotid endarterectomy 11/04, right carotid en darterectomy 09/12 -Continue ASA and statin therapy -Monitor site for swelling/erythema routinely -Routine neuro exam -Continue BP monitoring with a line -Follow with surgical team for recs Cardiac - HTNcontinue amlodipine and Coreg -Maintain normotension, monitor with diana CADcontinue ASA and statin Respiratory - COPDcontinue home Spiriva Maintains oxygen saturation on room air GI - Tolerating heart healthy diet RENAL/LYTES - Stable, monitor with routine BMPs\ Continue IVF with LR - Voids without issue, continue tamsulosin ENDO - Euglycemic, ICU hyperglycemia protocol HEME - EBL 50 mL from surgery H&H stable, routine CBCs ID - No suspected infection LINES/IV ACCESS - PIVs, arterial line DVT PROPHYLAXIS - SCDs, hold anticoagulation considering recent surgery I have personally spent 35 minutes of critical care time in the direct management of this patient. This is a life/limb threatening event. This includes time spent evaluating patient, direct bedside care, chart review, placing orders, interpretation of diagnostic studies, discussion with consultants, patient, and family members, as well as other required patient management activities. This time is exclusive of all separately billable procedures, and teaching time and separate from and in addition to any other critical care service time. Thank you for allowing us to participate in the care of this patient. Please refer to my attending physician's documentation for any further recommendations. (2) COPD (chronic obstructive pulmonary disease): (3) Admitted to intensive care unit: (4) CAD (coronary artery disease): (5) Hypertension: Supervising Physician Co-Signing Physician Notes I agree with the evaluation and assessment of Nevin GAINES History of Present Illness Attending Physician: Mariano Laboy MD History of Present Illness Mr. Jeter is a 73-year-old male with past medical history COPD, CAD, hypertension, chronic back pain, AVR, and bilateral carotid stenosis with previous right carotid endarterectomy 09/12 who now presents postoperatively for left carotid endarterectomy. Patient reports mild pain and stiffness at surgical site with movement. He denies changes in mentation or vision, dizziness or lightheadedness, chest pain, palpitations, shortness of breath, wheezing, nausea vomiting, muscle weakness. Patient is sitting in chair and appears appropriate and comfortable. He reports that he has walked 2 laps around the ICU and has eaten at this time. He denies pain or difficulty with swallowing and diet was advanced. There is no notable swelling or erythema at surgical site and incision appears approximated. Patient will remain in ICU overnight considering postoperative status with multiple comorbidities. Allergies Allergy/AdvReac Type Severity Reaction Status Date / Time ibuprofen AdvReac Intermediate LARGE Verified 11/04/18 05:27 DOSES CAUSE ITCHING AND BLISTERS Unclassified Drugs Allergy Mild TOBASCO Uncoded 11/04/18 05:27 SAUCE - TOO MUCH OF WILL CAUSE HIVES Home Medications Home Medications Medication Instructions Recorded Confirmed Type Spiriva with HandiHaler 1 cap INHALATION UD PRN #0 07/21/17 11/04/18 History amlodipine 5 mg PO QAM #0 tab 07/21/17 11/04/18 History aspirin [Aspirin Low Dose] 81 mg PO QAM #0 07/21/17 11/04/18 History carvedilol 3.125 mg PO QAM #0 07/21/17 11/04/18 History tamsulosin 0.4 mg PO QAM #0 cap 07/21/17 11/04/18 History triamcinolone acetonide 1 applic TOPICAL UD PRN 30 Days 07/29/17 11/04/18 History #30 g ibuprofen 200 mg PO BID PRN 09/07/18 11/04/18 History oxycodone-acetaminophen [Percocet] 1 - 2 tab PO Q4H PRN #10 tab 09/17/18 11/04/18 Rx atorvastatin 40 mg PO PM 11/01/18 11/04/18 History oxycodone-acetaminophen [Percocet] 1 - 2 tab PO Q4H PRN #10 tab 11/05/18 Rx Patient History Social History Preferred Language: [place] Communication Ability: Effective 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 Beliefs That Will Affect Care: None Current Living Situation: Spouse Other Information That Helps Us Care for You: No Feels Safe at Home: Yes Safety Concerns: Feels Safe At This Time Smoking Status: Current every day smoker Tobacco Type: cigarettes Cigarettes Per Day: APPROX 1 PPD Do You Dip or Chew Tobacco: No Second Hand Exposure: No Tobacco Cessation Education Requested by Patient: No Hx Alcohol Use: Yes Alcohol type: beer and hard liquor Hx Substance Use: No Review of Systems Review of Systems: All systems reviewed & are unremarkable except as noted in HPI & below Physical Exam Constitutional: WD/WN, vitals as above Eyes: PERRL, conjunctivae normal, anicteric sclerae ENMT: external ear and nose normal, oropharynx normal Neck: trachea midline, no thyromegaly Surgical incision of the left anterior neck appears well approximated with aureliano and Abilio drain Respiratory: normal respiratory effort, lungs clear to auscultation no labored breathing Cardiovascular: RRR, no murmur, no edema Rate/Rhythm: regular rate and regular rhythm Gastrointestinal (Abdomen): normal bowel sounds, soft, nontender, no hepatos plenomegaly Skin: no rashes, warm and dry Neurologic: PERRL, EOMI, accommodation nl, no face palsy, no dysarthria Psychiatric: A+Ox3, euthymic affect Genitourinary: Voids without hesitancy Results & Data Vital Signs (Past 12 Hours) Vital Signs Temp Pulse Pulse Resp BP BP BP 11/04/18 18:00 87 17 179/104 H 11/04/18 17:46 79 20 168/94 H 11/04/18 17:13 105 H 21 160/114 H 11/04/18 17:00 87 20 11/04/18 16:39 78 16 174/107 H 11/04/18 16:01 100 H 19 172/145 H 11/04/18 16:00 36.6 C 80 21 11/04/18 15:01 73 18 137/104 H 11/04/18 15:00 75 18 11/04/18 14:01 78 16 154/107 H 11/04/18 14:00 77 21 11/04/18 13:00 77 15 148/85 H 11/04/18 12:24 81 16 132/75 11/04/18 12:02 78 15 132/75 11/04/18 12:00 82 17 11/04/18 11:00 67 16 143/86 H 11/04/18 10:30 36.6 C 67 13 11/04/18 10:25 65 17 11/04/18 10:24 69 16 120/77 11/04/18 10:10 60 16 128/55 L 124/74 11/04/18 10:00 63 19 131/58 L 120/74 11/04/18 09:50 36.7 C 66 19 133/59 L 142/75 H 11/04/18 09:40 61 16 131/58 L 134/72 11/04/18 09:30 63 16 137/59 L 135/72 11/04/18 09:20 36.2 C L 83 18 160/85 H Pulse Ox 11/04/18 18:00 96 11/04/18 17:46 95 11/04/18 17:13 94 11/04/18 17:00 94 11/04/18 16:39 97 11/04/18 16:01 93 11/04/18 16:00 94 11/04/18 15:01 92 11/04/18 15:00 93 11/04/18 14:01 92 11/04/18 14:00 92 11/04/18 13:00 97 11/04/18 12:24 96 11/04/18 12:02 96 11/04/18 12:00 96 11/04/18 11:00 95 11/04/18 10:30 92 11/04/18 10:25 89 L 11/04/18 10:24 11/04/18 10:10 94 11/04/18 10:00 93 11/04/18 09:50 92 11/04/18 09:40 95 11/04/18 09:30 94 11/04/18 09:20 94 PG Care Time/CCT Total # of Minutes Spent Total Time Spent with Patient: Total time spent is greater than 50% in coordination of care (as documented) at patient's floor/unit and/or counseling patient: Critical Care Time: Yes Total Critical Care Time: 35
[2018-11-04] MEDS ORDERED: ATORVASTATIN 40 MG TAB PO SCH (21:00)
[2018-11-04] MEDS: OXYCODONE/ACETAMINOPHEN 5mg/325mg TAB PO PRN (21:28)
[2018-11-05] MEDS: LACTATED RINGER'S 1,000 ML IV SCH (03:38)
[2018-11-05 04:51] LABS: Basophils # (auto) 0.02 K/uL (0-0.2); Basophils % (auto) 0.2 %; Eosinophils # (auto) 0.02 K/uL (0-0.5); Eosinophils % (auto) 0.2 %; Hematocrit (blood only) 39.4 % (42-52); Immature Granulocytes # (auto) 0.04 K/uL (0.00-0.02); Immature Granulocytes % (auto) 0.3 %; Lymphocytes # (auto) 1.47 K/uL (1.2-3.4); Lymphocytes % (auto) 11.5 %; Mean Corpuscular Hgb Conc 35.5 g/dL (32-36); Mean Corpuscular Volume 96.1 fL (80-100); Mean Platelet Volume 9.6 fL (7.4-10.4); Monocytes # (auto) 1.54 K/uL (0.11-0.59); Neutrophils # (auto) 9.71 K/uL (1.4-6.5); Neutrophils % (auto) 75.8 %; Platelet Count 199 K/uL (130-400); RDW Coefficient of Variation 12.7 % (11.5-14.5); RDW Standard Deviation 44.5 fL (36.4-46.3)
[2018-11-05 05:18] LABS: BUN Creatinine Ratio 11.5 (10-20); Calcium 8.7 mg/dl (8.5-10.1); Creatinine Clr Calc Pharmacy 105.7 ml/min; Est GFR (African American) 116.5; Est GFR (Non-African American) 100.5; Potassium 3.8 mmol/L (3.5-5.1)
[2018-11-05] MEDS: NITROGLYCERIN/D5W 100MCG/ML 250 ML IV SCH (07:24)
[2018-11-05] MEDS: OXYCODONE/ACETAMINOPHEN 5mg/325mg TAB PO PRN (07:26)
--- NOTE | 2018-11-05 07:56 | Surgery Progress Note ---
Date of Service November 05, 2018 Assessment & Plan (1) Carotid stenosis: POD 1 left CEA BP 140s overnight, 168 this AM will recheck after morning meds, likely d/c later Subjective no complaints, ready to go home Physical Exam Neck: minimal grover drainage, incision dry, tongue midline, neuro intact Results & Data Vital Signs (Past 12 Hours) Vital Signs Temp Pulse Resp BP Pulse Ox 11/05/18 06:00 77 20 168/94 H 94 11/05/18 04:00 36.8 C 66 15 140/68 97 11/05/18 02:00 67 17 143/77 H 96 11/05/18 00:00 36.8 C 67 14 147/77 H 97 11/04/18 22:00 69 14 148/84 H 98 11/04/18 20:00 36.7 C 66 17 154/78 H 95
--- NOTE | 2018-11-05 08:23 | Critical Care Progress Note ---
Date of Service November 05, 2018 Assessment & Plan (1) Admitted to intensive care unit: Reason Critically Ill: 73-year-old male presents postoperatively from the OR for left carotid endarterectomy. Neuro - [facility] ICU: Negative -No acute concerns Carotid stenosisstatus post left carotid endarterectomy 11/04, right carotid endarterectomy 09/12 -Continue ASA and statin therapy -Monitor site for swelling/erythema routinely -Routine neuro exam -Follow with surgical team for recs Cardiac - -HTNcontinue amlodipine and Coreg -CADcontinue ASA and statin Respiratory - -COPDcontinue home Spiriva -Maintains oxygen saturation on room air GI - -Tolerating heart healthy diet RENAL/LYTES - -Stable, monitor with routine BMPs -dc'd IVF - -Voids without issue, continue tamsulosin ENDO - -Euglycemic, ICU hyperglycemia protocol HEME - -EBL 50 mL from surgery -H&H stable, no concern for acute bleeding ID - No concern for infectious etiology LINES/IV ACCESS - PIVs, arterial line removed DVT PROPHYLAXIS- SCDs, hold anticoagulation considering recent surgery Full Code Dispo: Stable for d/c home today Supervising Physician Co-Signing Physician Notes Dr. Stevenson was resident physician during care of patient. I separately evaluated patient for [place] portions of the history and the exam. I was present during the critical portion of medical decision making, and I discussed the case with the resident. I generally agree with the findings and plan. Patient was discussed in multidisciplinary rounds, seen by general surgery and discharge later today. Subjective 73 y/o M found in bed this AM resting comfortably in NAD. No reported acute overnight events. Tolerating PO intake. No issues voiding. Denies pain. Ready for d/c home today. No other acute concerns or complaints. Review of Systems Review of Systems: All systems reviewed & are unremarkable except as noted in HPI & below Physical Exam Constitutional: WD/WN, vitals as above Eyes: PERRL, conjunctivae normal, anicteric sclerae Neck: surgical incision of L anterior neck intact with aureliano, no d/c Respiratory: normal respiratory effort, lungs clear to auscultation Cardiovascular: RRR, no murmur, no edema Gastrointestinal (Abdomen): normal bowel sounds, soft, nontender, no hepatosplenomegaly Skin: no rashes, warm and dry Psychiatric: A+Ox3, euthymic affect Results & Data Vital Signs (Past 12 Hours) Vital Signs Temp Pulse Resp BP Pulse Ox 11/05/18 08:00 36.8 C 11/05/18 06:00 77 20 168/94 H 94 11/05/18 04:00 36.8 C 66 15 140/68 97 11/05/18 02:00 67 17 143/77 H 96 11/05/18 00:00 36.8 C 67 14 147/77 H 97 11/04/18 22:00 69 14 148/84 H 98 Laboratory Results Laboratory Results - last 24 hr 11/04/18 11/04/18 11/05/18 11:12 22:24 04:41 WBC 12.80 H RBC 4.10 L Hgb 14.0 Hct 39.4 L MCV 96.1 MCH 34.1 H MCHC 35.5 RDW Std Deviation 44.5 RDW Coeff of Telma 12.7 Plt Count 199 MPV 9.6 Immature Gran % (Auto) 0.3 Neut % (Auto) 75.8 Lymph % (Auto) 11.5 [place] % (Auto) 12.0 Eos % (Auto) 0.2 Baso % (Auto) 0.2 Immature Gran # (Auto) 0.04 H Neut # (Auto) 9.71 H Lymph # (Auto) 1.47 [place] # (Auto) 1.54 H Eos # (Auto) 0.02 Baso # (Auto) 0.02 Sodium Potassium Chloride Carbon Dioxide Anion Gap BUN Creatinine Est Cr Clr Drug Dosing Est GFR ( Amer) Est GFR (Non-Af Amer) BUN/Creatinine Ratio Glucose POC Glucose 132 H Calcium Nasal Screen MRSA (PCR) Negative 11/05/18 04:41 WBC RBC Hgb Hct MCV MCH MCHC RDW Std Deviation RDW Coeff of Telma Plt Count MPV Immature Gran % (Auto) Neut % (Auto) Lymph % (Auto) [place] % (Auto) Eos % (Auto) Baso % (Auto) Immature Gran # (Auto) Neut # (Auto) Lymph # (Auto) [place] # (Auto) Eos # (Auto) Baso # (Auto) Sodium 129 L Potassium 3.8 Chloride 97 L Carbon Dioxide 26 Anion Gap 6.0 BUN 7 Creatinine 0.61 Est Cr Clr Drug Dosing 105.7 Est GFR ( Amer) 116.5 Est GFR (Non-Af Amer) 100.5 BUN/Creatinine Ratio 11.5 Glucose 107 H POC Glucose Calcium 8.7 Nasal Screen MRSA (PCR) Medications Administered Current Inpatient Medications Acetaminophen (Tylenol) 650 mg PO Q4H PRN PRN Reason: Mild Pain, Tem>101, Headache Stop: 12/04/18 10:30 Amlodipine Besylate ([facility]) [facility] Stop[facility] 12/05/18 08:59 Last Admin: 11/05/18 07:27 Dose: 5 mg Documented by: Aspirin (Ecotrin Ectab) 81 [facility] Stop: 12/05/18 08:59 Last Admin: 11/05/18 07:27 Dose: 81 mg Documented by: Atorvastatin Calcium (Lipitor) 40 mg PO PM COUNTS INCLUDE 234 BEDS AT [facility] Stop: 12/04/18 20:59 Last Admin: 11/04/18 19:54 Dose: 40 mg Documented by: Carvedilol (Coreg) 3.125 [facility] Stop: 12/05/18 08:59 Last Admin: 11/05/18 07:27 Dose: 3.125 mg Documented by: Nitroglycerin/Dextrose (Nitroglycerin/D5w 100 Mcg/Ml) 250 mls @ 3 mls/hr IV .Q24H COUNTS INCLUDE 234 BEDS AT THE [facility]; Protocol Stop: 12/04/18 10:30 Last Admin: 11/05/18 07:24 Dose: Not Given Documented by: Morphine Sulfate (Morphine Sulfate) 2 mg IV Q1H PRN PRN Reason: Pain Stop: 11/18/18 10:30 Oxycodone/Acetaminophen (Percocet 5mg/325mg) 1 tab PO Q4H PRN PRN Reason: Pain Stop: 11/18/18 10:30 Last Admin: 11/05/18 07:26 Dose: 1 tab Documented by: Tamsulosin HCl (Flomax) 0.4 mg [facility] Stop: 12/05/18 08:59 Last Admin: 11/05/18 07:27 Dose: 0.4 mg Documented by: Tiotropium [place] (Spiriva) 1 puffs INH UD PRN PRN Reason: Shortness Of Breath Stop: 12/04/18 10:30 Resident Activity Tracking Resident Involvement: Resident Care Provided Care Provided: Adult [facility]
[2018-11-05] MEDS ORDERED: CARVEDILOL 3.125 MG TAB PO SCH (09:00)
[2018-11-05] MEDS ORDERED: TAMSULOSIN HCL 0.4 MG CAP PO SCH (09:00)
[2018-11-05] MEDS ORDERED: AMLODIPINE BESYLATE 5 MG TAB PO SCH (09:00)
[2018-11-05] MEDS ORDERED: ASPIRIN 81 MG ECTAB PO SCH (09:00)
--- NOTE | 2018-11-05 14:18 | Anesthesiology Progress Note ---
Date of Service November 05, 2018 Anesthesia Post Procedure Vital Signs Vital Signs: Temp Pulse Pulse Resp BP BP BP 11/05/18 12:00 36.8 C 70 18 143/84 H 11/05/18 11:00 68 19 126/72 11/05/18 10:11 69 20 133/79 11/05/18 09:00 69 18 121/79 11/05/18 08:23 36.8 C 81 17 147/93 H 123/97 11/05/18 08:00 36.8 C 81 17 147/93 H 123/97 11/05/18 07:00 79 17 150/73 H 11/05/18 06:00 77 20 168/94 H 11/05/18 04:00 36.8 C 66 15 140/68 11/05/18 02:00 67 17 143/77 H 11/05/18 00:00 36.8 C 67 14 147/77 H 11/04/18 22:00 69 14 148/84 H 11/04/18 20:00 36.7 C 66 17 154/78 H 11/04/18 18:00 87 17 179/104 H 11/04/18 17:46 79 20 168/94 H 11/04/18 17:13 105 H 21 160/114 H 11/04/18 17:00 87 20 11/04/18 16:39 78 16 174/107 H 11/04/18 16:01 100 H 19 172/145 H 11/04/18 16:00 36.6 C 80 21 11/04/18 15:01 73 18 137/104 H 11/04/18 15:00 75 18 Pulse Ox 11/05/18 12:00 95 11/05/18 11:00 94 11/05/18 10:11 93 11/05/18 09:00 95 11/05/18 08:23 93 11/05/18 08:00 93 11/05/18 07:00 93 11/05/18 06:00 94 11/05/18 04:00 97 11/05/18 02:00 96 11/05/18 00:00 97 11/04/18 22:00 98 11/04/18 20:00 95 11/04/18 18:00 96 11/04/18 17:46 95 11/04/18 17:13 94 11/04/18 17:00 94 11/04/18 16:39 97 11/04/18 16:01 93 11/04/18 16:00 94 11/04/18 15:01 92 11/04/18 15:00 93 Notes Mental Status: alert / awake / arousable Patient Amnestic to Procedure: Yes Nausea / Vomiting: adequately controlled Pain: adequately controlled Airway Patency, RR, SpO2: stable & adequate BP & HR: stable & adequate Hydration State: stable & adequate Anesthetic Complications: no major complications apparent and Pt Satisfied with anesthetic care
--- NOTE | 2018-11-09 09:31 | Discharge Summary ---
Date of Service November 09, 2018 Principal Diagnosis Left carotid stenosis Discharge Exam Neck incision clean and dry Neurologic PERRL, EOMI, accommodation nl, no face palsy, no dysarthria Discharge Data Allergies Allergy/AdvReac Type Severity Reaction Status Date / Time ibuprofen AdvReac Intermediate LARGE Verified 11/04/18 05:27 DOSES CAUSE ITCHING AND BLISTERS Unclassified Drugs Allergy Mild TOBASCO Uncoded 11/04/18 05:27 SAUCE - TOO MUCH OF WILL CAUSE HIVES Consultations 11/04/18 10:31 Consult Military Police Officer Routine Procedures Performed Operation Date: 11/04/18 07:00 Actual Procedures p Left Carotid Endarterectomy with Bovine Patch(Left) - Mariano Laboy MD Hospital Course (1) Carotid stenosis: 73 y/o male with left carotid stenosis was taken to the OR for endarterectomy. The procedure was well tolerated and he was transferred to ICU routinely for blood pressure monitoring. His BP remained stable overnight. He was tolerating diet and did not have any neurologic deficits. [place] drain was removed from the incision and he was stable for discharge. Total Time Total Time Spent Total Time Spent (In Minutes): 15 Discharge Plan Discharge Items Patient Disposition: Home - Self-Care Reason For Visit: Carotid Stenosis Discharge Diagnosis: carotid endarterectomy Discharge Goals: Improve disease control Activity: As commented below Bathing: No limitations Driving/Machine Use Comment: no driving for 1 week Non-emergency contact: Surgeon Call non-emergency contact if: you have any medication questions, your pain is not controlled, you have a fever, your temperature is above 101.5, your wound has increased redness and your wound has increased drainage Follow-up/Referrals: Mariano Laboy MD [Surgeon] - (in 1 week as planned, call if you have any questions) Jordan Resendiz MD [Primary Care Provider] - Diet: Regular Addtl Provider Instructions: Prescriptions: New oxycodone-acetaminophen [Percocet] 5-325 mg tablet 1 - 2 tab PO Q4H PRN (Reason: pain) Qty: 10 RF: 0 Continued amlodipine 5 mg Tablet 5 mg PO QAM Qty: 0 RF: 0 aspirin [Aspirin Low Dose] 81 mg Tablet,Delayed Release (Dr/Ec) 81 mg PO QAM Qty: 0 RF: 0 carvedilol 3.125 mg Tablet 3.125 mg PO QAM Qty: 0 RF: 0 Spiriva with HandiHaler 18 mcg Capsule, W/Inhalation Device 1 cap INHALATION UD PRN (Reason: SOB) Qty: 0 RF: 0 tamsulosin 0.4 mg Capsule 0.4 mg PO QAM Qty: 0 RF: 0 triamcinolone acetonide 0.1 % Ointment 1 applic TOPICAL UD PRN (Reason: ANKLES) 30 Days Qty: 30 RF: 0 ibuprofen 200 mg Capsule 200 mg PO BID PRN (Reason: Pain) RF: 0 oxycodone-acetaminophen [Percocet] 5-325 mg tablet 1 - 2 tab PO Q4H PRN (Reason: pain) Qty: 10 RF: 0 atorvastatin 40 mg Tablet 40 mg PO PM RF: 0 Stand-Alone Forms: [facility], [facility]–1983 Discharge Orders: Discharge Order (Routine); Ordered 11/05/18 Ordered By: Jordan Lemons Jr Admission Data Admit Date/Time: 11/04/18 09:11 Attending Provider: Mariano Laboy Admit Provider: Mariano Laboy Primary Care Provider: Jordan Resendiz Other Providers: Al Davenport Service: Intensive Care Unit Other Interventions: Discharge Summary Assessment (RN) Last Done: 11/05/18 08:23 DC Date/Time DO NOT enter until pt leaves facility: 11/05/18 13:49
== END 2018-11-05 13:49 | disposition home or self-care (01) | DRG 39 ==
LOC: ASU 04:54 → 1E 09:11

== ENCOUNTER 2024-04-07 16:25 | Inpatient (IN) ==
--- NOTE | 2024-04-07 17:00 | Emergency Department Note ---
Impression & Plan Fluid overload, A-fib, Anticoagulant long-term use ED Provider Note Provider: Papa Roque MD CHIEF COMPLAINT: Swelling HISTORY OF PRESENT ILLNESS: Patient is a 78-year-old gentleman past medical history of CAD, A-fib on Eliquis, hypertension, COPD, aortic valve replacement, and fall December. T8 compression fracture due to rib fractures presenting here referred from the outpatient office today. Patient states over the last about 6 weeks has had increased swelling starting in his feet and now worsening up through the groin and abdomen and his left arm. No new falls. Denies significant chest pain but still a little bit of back pain. Has had some dyspnea on exertion but denies feeling particular short of breath at rest. Sleeping through the downstairs in a recliner. No use of diuretics.. Has been eating and drinking okay. No fevers reported or congestion. Went to her primary care doctor's office today and referred here with concerns for fluid overload. Has not had episode like this in the past. Denies syncope. States compliance with his home medication including Eliquis. PAST MEDICAL HISTORY: As noted above MEDICATIONS: Occasions includes Eliquis SOCIAL HISTORY:lives at home with PHYSICAL EXAM: GENERAL: alert and oriented in no acute distress on stretcher, daughters at bedside. Head: normocephalic and atraumatic EYES: No injection, discharge or icterus. EOMI. NECK: Trachea midline. ENT: Mucous membranes pink and moist. LUNGS: Airway patent. No retractions slight tachypnea/work of breathing. Breath sounds diminished in the bases with crackles. HEART: Irregular rate and rhythm. No chest wall tenderness ABDOMEN: Soft and non-tender, without guarding or rebound. No evidence of edema of the pelvis and scrotum on exam without erythremia. SKIN: Acyanotic some scattered contusions of the upper extremities, warm, dry. Duoneb on sacral decub noted. EXTREMITIES: 3+ edema the bilateral lower extremities through the thighs; these are mildly tender but not red, weeping, or with wound noted. LUE with 2+ swelling but non tender. RUE without noteable swelling. NEUROLOGICAL: No focal deficits. No aphasia. No facial droop or slurred speech. Normal strength and tone in the extremities. Sensation to gross touch normal. EK bpm atrial fibrillation. No ST segment elevation with her lateral T wave inversions. CONTINUOUS CARDIAC MONITORING: was ordered and showed a heart rate of 90s-110s bpm in atrial fibrillation Patient's laboratory studies and imaging reviewed. Differential includes Reactive airway disease, pneumonia, pneumothorax, COPD, CHF, infections, cardiac ischemia, pulmonary embolism, musculoskeletal, gastrointestinal, as well as other pathologies. IMPRESSION/MEDICAL DECISION MAKING: Patient is anticoagulated secondary. Does not seem to be in significant RVR. If you have are noted to chest pain. Had an event during the fall several months ago but none since. Doing well and had a question fluid overload. X-ray obtained as well as BNP is in blood work. 15 deep vertebrae that are reasonable and anticoagulation will. No large open wounds notable for bili of 1 extremities with some contusion in the emergency room patient had a small sacral decubitus ulcer. No fevers reported. Doubt this represents COVID flu RSV. Not currently on treatment with diuretics. 1 view chest x-ray here evidence of significant bilateral pulmonary edema as well as some effusion. CBC here without significant anemia or leukocytosis. Normal platelet count. No significant electrolyte abnormality signs of acute renal dysfunction. No concerning transaminitis. Troponin mildly elevated 121 with a BNP of over 3000. Seems grossly fluid overloaded. Does not seem to be in A-fib RVR. Given an IV dose of Lasix here. Respiratory viral panel negative. Discussed with patient and daughter's findings of fluid overload. Given the significant amount shortness of breath he is having with his shortness of breath with exertion, discussed doing for monitor diuresis. Again started on IV Lasix here today. Patient agreeable to stay for further care here in the hospitalist team was contacted. DIAGNOSIS: Fluid overload, pulmonary edema, atrial fibrillation with long-term anticoagulation DISPOSITION: Hospitalist will evaluate Patient was agreeable with this plan. Past Med/Surg History Problem List (Updated 04/07/24 @ 20:58 by Pietro Eddy DO) Acute heart failure with mildly reduced ejection fraction (HFmrEF, 41-49%) HFrEF (heart failure with reduced ejection fraction) CHF exacerbation Anticoagulant long-term use (Acute) A-fib (Acute) Fluid overload (Acute) Compression fracture of T8 vertebra Cardiomyopathy Thoracic ascending aortic aneurysm 4.5 cm per 2016 imaging Atrial fibrillation (Chronic) History of aortic valve replacement 2010, FOLLOWS WITH DR. RODNEY Allergic rhinitis (Chronic) Carotid artery stenosis (Chronic) s/p R CEA 09/16/18 CAD (coronary artery disease) (Chronic) Per cardiology 09/10, episode in 2010 with elevated troponins and "probably STEMI." Pt had cath that reportedly showed no significant blockages, though report was not available for cardio review. Hypercholesterolemia (Chronic) Hypertension (Chronic) COPD (chronic obstructive pulmonary disease) (Chronic) Medical History PAF (paroxysmal atrial fibrillation) Congenital bicuspid aortic valve s/p AVR 2010 LVH (left ventricular hypertrophy) due to hypertensive disease Chronic hyponatremia Radiculopathy of lumbar region Spinal stenosis Chronic back pain Hypertension Chronic obstructive pulmonary disease MILD, DENIES FLARE UPS. FOLLOWS WITH PCP Surgical History History of lumbar fusion H/O carotid endarterectomy (11/04/18) H/O carotid endarterectomy Fusion of spine Hx of cardiac catheterization Hx of bilateral cataract extraction History of total hip arthroplasty History of carpal tunnel release History of tonsillectomy Family History Brother Prostate cancer Father Myocardial infarction Other Cancer No family history of adverse response to anesthesia No family history of bleeding disorder Denies family history of Ovarian cancer Breast cancer Colorectal cancer Social History Smoking Status: Current every day smoker Tobacco Type: Cigarettes Age Started Using Tobacco: 18; packs per day: 0.5; Cigarettes Per Day: 3/4th pack a day; Second Hand Exposure: No; Do You Dip or Chew Tobacco: No; Hx Alcohol Use: Yes Alcohol type: hard liquor Alcohol Intake Frequency: 4 or More x per/Week Hx Substance Use: No Preferred Language: Malay Communication Ability: Effective Visual Impairment: No Limitations Hearing Ability: Use of Hearing Aid Hydraulic Press Tender Required: No Beliefs That Will Affect Care: None marital status: Current Living Situation: Spouse 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[employer] 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 Safe at Home: Yes Childhood Exposure to Second-Hand Smoke: Yes Diet: regular Diet Comment: regular Dental Care, Regularly: No Physical Activity Frequency: Does not Exercise Seatbelt Use: always Sunscreen Use: No Assistive Devices: Cane, Denture - Upper, Denture - Lower and Walker Allergies Allergies Allergy/AdvReac Type Severity Reaction Status Date / Time bee venom protein (honey bee) Allergy Severe swelling Verified 04/07/24 15:32 ibuprofen AdvReac Intermediate LARGE Verified 04/07/24 15:32 DOSES CAUSE ITCHING AND BLISTERS Unclassified Drugs Allergy Mild TOBASCO Uncoded 04/07/24 15:32 SAUCE - TOO MUCH OF WILL CAUSE HIVES Home Meds Home Medications Medication Instructions Recorded Confirmed mecobalamin (vitamin B12) 1,000 1,000 mcg sublingual QAM 09/30/21 04/07/24 mcg disintegrating tablet,sublingual oxycodone 5 mg tablet 5 mg PO Q4H PRN pain 02/08/24 04/07/24 atorvastatin 40 mg tablet 40 mg PO QAM 04/07/24 04/07/24 fluticasone 250 mcg-salmeterol 50 1 ea inhalation BID 04/07/24 04/07/24 mcg/dose blistr powdr for inhalation Previous Rx's Medication Instructions Recorded triamcinolone acetonide 0.1 % 1 applic topical UD PRN ANKLES 30 12/01/23 topical ointment days #30 grams tamsulosin 0.4 mg capsule 0.4 mg PO QAM #90 caps 01/13/24 carvedilol 6.25 mg tablet 6.25 mg PO BID #180 tabs 02/11/24 apixaban 5 mg tablet 5 mg PO BID #180 tabs 03/07/24 Results & Data (ED) Vital Signs Vital Signs - 24 hr 04/07/24 16:30 04/07/24 16:43 04/07/24 16:43 Pulse Rate Pulse Rate [Apical] 94 H Pulse Rate from SpO2 Sensor Pulse Rhythm [Apical] Regular Pulse Strength [Apical] Normal Respiratory Rate 18 24 Respiratory Effort / Characteristics Non-Labored Respiratory Depth Normal Blood Pressure 94/63 L Blood Pressure [Right Arm] 96/70 L Blood Pressure Mean 73 Blood Pressure Mean [Right Arm] 78 Pulse Oximetry 95 Oxygen Delivery Method Room Air Room Air Sepsis Recent Fever Within 48 Hours No Sepsis New/Unexplained Change in Mental Status N/A Sepsis Action Taken by Nursing No Action Required 04/07/24 18:25 04/07/24 19:02 04/07/24 20:11 Pulse Rate 100 H 91 H Pulse Rate [Apical] 90 Pulse Rate from SpO2 Sensor 109 H Pulse Rhythm [Apical] Irregular Pulse Strength [Apical] Respiratory Rate 22 19 20 Respiratory Effort / Characteristics Non-Labored Respiratory Depth Normal Blood Pressure 106/86 119/87 Blood Pressure [Right Arm] 115/82 Blood Pressure Mean 95 97 Blood Pressure Mean [Right Arm] 93 Pulse Oximetry 92 91 95 Oxygen Delivery Method Room Air Sepsis Recent Fever Within 48 Hours Sepsis New/Unexplained Change in Mental Status Sepsis Action Taken by Nursing Laboratory Data 04/07/24 17:00 04/07/24 17:00 Lab Results 04/07/24 04/07/24 04/07/24 Range/Units 16:50 17:00 18:43 WBC 7.45 (4.8-10.8) K/ul RBC 4.40 L (4.70-6.10) M/uL Hgb 15.0 (14.0-18.0) g/dl Hct 46.1 (42.0-52.0) % MCV 104.8 H (80.0-100.0) fL MCH 34.1 H (25.0-34.0) pg MCHC 32.5 (32.0-36.0) g/dL RDW Std Deviation 56.2 H (36.4-46.3) fL RDW Coeff of Telma 14.6 H (11.5-14.5) % Plt Count 135 (130-400) K/uL MPV 10.3 (9.4-12.4) fL Immature Gran % (Auto) 0.4 % Neut % (Auto) 68.0 % Lymph % (Auto) 21.3 % Hemphill % (Auto) 9.1 % Eos % (Auto) 0.5 % Baso % (Auto) 0.7 % Neut # (Auto) 5.06 (1.40-6.50) K/uL Lymph # (Auto) 1.59 (1.20-3.40) K/uL Hemphill # (Auto) 0.68 H (0.11-0.59) K/uL Eos # (Auto) 0.04 (0.00-0.50) K/uL Baso # (Auto) 0.05 (0.00-0.20) K/uL Immature Gran # (Auto) 0.03 (0.01-0.20) K/uL PT 12.4 H (9.0-12.0) Seconds INR 1.2 H (0.9-1.1) APTT 32 H (21-31) Seconds PTT Ratio 1.2 Sodium 135 L (136-145) mmol/L Potassium 4.1 (3.5-5.1) mmol/L Chloride 101 (98-107) mmol/L Carbon Dioxide 25 (21-32) mmol/L Anion Gap 9 (3-11) BUN 17 (6-23) mg/dl Creatinine 0.93 (0.6-1.4) mg/dl Est Cr Clr Drug Dosing 66.8 ml/min eGFR 85.10 BUN/Creatinine Ratio 18.3 (10-20) Glucose 74 (70-99(Fasting)) mg/dl Calcium 8.9 (8.6-10.3) mg/dl Magnesium 1.8 (1.7-2.4) mg/dl Total Bilirubin 0.8 (0.2-1.0) mg/dl AST 25 (13-39) U/L ALT 14 (7-52) U/L Alkaline Phosphatase 111 H (34-104) U/L Troponin I High Sens 121.7 H* 107.6 H* (0-20) pg/ml B-Natriuretic Peptide 3081 H (0-100) pg/ml Total Protein 7.3 (6.0-8.3) gm/dl Albumin 3.4 (3.4-5.0) gm/dl Globulin 3.9 (2.5-4.0) gm/dl Albumin/Globulin Ratio 0.9 (0.9-2) Adenovirus (PCR) Not Detected (NotDetected) B. pertussis DNA (PCR) Not Detected (NotDetected) B.parapertussis DNA PCR Not Detected (NotDetected) C. pneumoniae DNA (PCR) Not Detected (NotDetected) Coronavirus OC43 (PCR) Not Detected (NotDetected) Coronavirus HKU1 (PCR) Not Detected (NotDetected) Coronavirus 229E (PCR) Not Detected (NotDetected) SARS-CoV-2 (PCR) Not Detected (NotDetected) Coronavirus NL63 (PCR) Not Detected (NotDetected) Human Metapneumovir PCR Not Detected (NotDetected) Influenza Type A (PCR) Not Detected (NotDetected) Influenza Type B (PCR) Not Detected (NotDetected) M. pneumoniae (PCR) Not Detected (NotDetected) Parainfluenza 1 (PCR) Not Detected (NotDetected) Parainfluenza 2 (PCR) Not Detected (NotDetected) Parainfluenza 3 (PCR) Not Detected (NotDetected) Parainfluenza 4 (PCR) Not Detected (NotDetected) RSV (PCR) Not Detected (NotDetected) Entero/Rhino (PCR) Not Detected (NotDetected) Administered Medications Acetaminophen (Acetaminophen 325 Mg Tab) 650 mg PO Q4H PRN PRN Reason: Pain or Fever Stop: 05/07/24 22:41 Last Admin: 04/07/24 23:08 Dose: 650 mg Documented By: CRISS Apixaban (Apixaban 5 Mg Tablet) 5 mg PO BID [facility] Stop: 05/07/24 22:41 Last Admin: 04/07/24 23:10 Dose: Not Given Documented By: CRISS Carvedilol (Carvedilol 6.25 Mg Tab) 6.25 mg PO BID [facility] Stop: 05/07/24 22:41 Last Admin: 04/07/24 23:09 Dose: 6.25 mg Documented By: CRISS Discontinued Medications Furosemide (Furosemide 40 Mg/4 Ml Vial) 40 mg IV ONE ONE Stop: 04/07/24 17:45 Last Admin: 04/07/24 17:59 Dose: 40 mg Documented By: HB Imaging Data Radiologist's Impression: Chest X-Ray 04/07/24 16:36 EXAM: Radiograph of the Chest 1 View INDICATION: Dyspnea. TECHNIQUE: Frontal view of the chest. COMPARISON: 01/16/2024 FINDINGS: Lungs and pleural spaces: Worsening CHF on fibrosis with increasing confluent infiltrates in the lung bases and small pleural effusions. No pneumothorax. Heart: Stable large cardiac shadow. Mediastinum: Normal contour. Bones/joints: No fracture, erosion or dislocation. Soft tissues: No abnormality noted. No radiopaque foreign body noted. Upper abdomen: No abnormality noted. IMPRESSION: 1. Worsening CHF on fibrosis. 2. Increased basilar infiltrates which could reflect pneumonia, mucous plugging and compressive atelectasis. ACT 112: Negative or not required by law. Electronically signed by Rachel Collazo 04-07-2024 5:56 PM Discharge Plan Visit Data Chief Complaint: Abnormal Labs/Diagnostic Testing Stated Complaint: RETAINING FLUID, CHEST XRAY, LABS ED Provider: Papa Roque Discharge Problem: Fluid overload, A-fib, Anticoagulant long-term use Patient Disposition: Being Evaluated by Hospitalist Discharge Instructions Interventions: ED Discharge Assessment Last Done: 04/07/24 22:14
[2024-04-07 17:17] LABS: Basophils # (auto) 0.05 K/uL (0.00-0.20); Basophils % (auto) 0.7 %; Eosinophils # (auto) 0.04 K/uL (0.00-0.50); Eosinophils % (auto) 0.5 %; Hematocrit (blood only) 46.1 % (42.0-52.0); Immature Granulocytes # (auto) 0.03 K/uL (0.01-0.20); Immature Granulocytes % (auto) 0.4 %; Lymphocytes # (auto) 1.59 K/uL (1.20-3.40); Lymphocytes % (auto) 21.3 %; Mean Corpuscular Hemoglobin 34.1 pg (25.0-34.0); Mean Corpuscular Hgb Conc 32.5 g/dL (32.0-36.0); Mean Corpuscular Volume 104.8 fL (80.0-100.0); Mean Platelet Volume 10.3 fL (9.4-12.4); Monocytes # (auto) 0.68 K/uL (0.11-0.59); Monocytes % (auto) 9.1 %; Neutrophils # (auto) 5.06 K/uL (1.40-6.50); Platelet Count 135 K/uL (130-400); RDW Coefficient of Variation 14.6 % (11.5-14.5); RDW Standard Deviation 56.2 fL (36.4-46.3); White Blood Count 7.45 K/ul (4.8-10.8)
[2024-04-07 17:33] LABS: Albumin Globulin Ratio 0.9 (0.9-2); Albumin Level 3.4 gm/dl (3.4-5.0); BUN Creatinine Ratio 18.3 (10-20); Bilirubin,Total 0.8 mg/dl (0.2-1.0); Calcium 8.9 mg/dl (8.6-10.3); Creatinine Clr Calc Pharmacy 66.8 ml/min; Globulin 3.9 gm/dl (2.5-4.0); Magnesium 1.8 mg/dl (1.7-2.4); Potassium 4.1 mmol/L (3.5-5.1); Total Protein 7.3 gm/dl (6.0-8.3)
[2024-04-07 17:42] LABS: Troponin I High Sensitivity 121.7 pg/ml (0-20)
[2024-04-07 17:47] LABS: INR 1.2 (0.9-1.1); Partial Thromboplastin Ratio 1.2; Partial Thromboplastin Time 32 Seconds (21-31); Prothrombin Time 12.4 Seconds (9.0-12.0)
[2024-04-07 17:59] LABS: Adenovirus PCR Not Detected (NotDetected); Bordetella parapertussis PCR Not Detected (NotDetected); Bordetella pertussis PCR Not Detected (NotDetected); Chlamydia pneumoniae PCR Not Detected (NotDetected); Coronavirus 229E PCR Not Detected (NotDetected); Coronavirus CoV-2 (COVID19)PCR Not Detected (NotDetected); Coronavirus HKU1 PCR Not Detected (NotDetected); Coronavirus NL63 PCR Not Detected (NotDetected); Coronavirus OC43PCR Not Detected (NotDetected); Human Metapneumovirus PCR Not Detected (NotDetected); Influenza A PCR Not Detected (NotDetected); Influenza B PCR Not Detected (NotDetected); Mycoplasma pneumoniae PCR Not Detected (NotDetected); Parainfluenza Virus 1 PCR Not Detected (NotDetected); Parainfluenza Virus 2 PCR Not Detected (NotDetected); Parainfluenza Virus 3 PCR Not Detected (NotDetected); Parainfluenza Virus 4 PCR Not Detected (NotDetected); Respiratory Syncytial VirusPCR Not Detected (NotDetected); Rhinovirus/Enterovirus PCR Not Detected (NotDetected)
[2024-04-07] MEDS: FUROSEMIDE 40 MG/4 ML VIAL IV ONE (17:59)
--- NOTE | 2024-04-07 18:09 | XRay Report ---
EXAM: Radiograph of the Chest 1 View INDICATION: Dyspnea. TECHNIQUE: Frontal view of the chest. COMPARISON: 01/16/2024 FINDINGS: Lungs and pleural spaces: Worsening CHF on fibrosis with increasing confluent infiltrates in the lung bases and small pleural effusions. No pneumothorax. Heart: Stable large cardiac shadow. Mediastinum: Normal contour. Bones/joints: No fracture, erosion or dislocation. Soft tissues: No abnormality noted. No radiopaque foreign body noted. Upper abdomen: No abnormality noted. IMPRESSION: 1. Worsening CHF on fibrosis. 2. Increased basilar infiltrates which could reflect pneumonia, mucous plugging and compressive atelectasis. ACT 112: Negative or not required by law. Electronically signed by Rachel Collazo 04-07-2024 5:56 PM
--- NOTE | 2024-04-07 18:16 | History & Physical Report ---
Date of Service April 07, 2024 Assessment & Plan (1) A-fib: (2) Fluid overload: (3) CAD (coronary artery disease): (4) Acute heart failure with mildly reduced ejection fraction (HFmrEF, 41-49%): Plan Acute heart failure with mildly reduced EF/fluid overload - Patient with increased peripheral edema, SOB on exertion, and weight gain for past 5-6 weeks - CXR:Worsening CHF/fibrosis, basilar infiltrates and small pleural effusions - BNP: 3081; aortic valve replacement reported to be well seated in Echo 10/2023, Echo 12/2023: EF ->40-44%; significant RV systolic dysfunction - IV Lasix 40mg x1 given in ED - Daily weights, strict I/Os - Salt restricted diet - HF potentially due to consistent A-fib with RVR; has been on Eliquis anticoagulation daily for the past 4 weeks - Continue Lasix 40mg IV Qam Paroxysmal A-fib/CAD - Per cardiology 09/10, episode in 2010 with elevated troponin and "probable STEMI." Pt had cath that reportedly showed no significant blockages, though report was not available for cardio review. - EKG: A-fib with RVR, T-wave abnormality potential lateral ischemia - High sensitivity troponin: 121.7 peak -> 107.6 - No acute chest symptoms - Continue home medications Eliquis 5mg and carvedilol 6.25 mg PO BID COPD - Continue Fluticasone propion-salmeterol inhaler therapy - Goal O2 saturation: 88-92%, supplement if desats History of Present Illness Primary Care Provider: Parish Link, III, YAMINI Goss Steffany is a 78 y/o M with a past medical history of CAD,p. a-fib on eliquis, COPD, HTN, Fall in January arriving in the ED after being seen by his primary care provider where he was found to be in an acute CHF exacerbation with volume overload and 34 pound weight gain in the past 1.5 months. Patient recently sustained a fall in December and had L. ribs 6-10 fracture, pneumothorax, T8 compression fracture and T12 spinal epidural hematoma, non compressive. Patient was life flighted to [facility] [place] the time from [facility] due to desaturations in the 60s only improved to 80 on 15L via non-rebreather mask. Patient progressed well and was transitioned to acute rehabilitation for 1 week, and then moved home with PT home services and nursing services. Today patient endorses shortness of breath, weight gain, and lower extremity edema worsened in the past 5-6 weeks. Patient complains of increased swelling primarily, and feels that his SOB at rest has been stable, but when exerting himself the SOB has worsened. Patient does endorse long smoking history, with approximately 1/2 pack daily for the past 40 years. No chest pain, palpitations, chest tightness, cough, wheeze, abdominal pain, nausea, vomiting, dizziness, blurred vision, Allergies Allergy/AdvReac Type Severity Reaction Status Date / Time bee venom protein (honey bee) Allergy Severe swelling Verified 04/07/24 15:32 ibuprofen AdvReac Intermediate LARGE Verified 04/07/24 15:32 DOSES CAUSE ITCHING AND BLISTERS Unclassified Drugs Allergy Mild TOBASCO Uncoded 04/07/24 15:32 SAUCE - TOO MUCH OF WILL CAUSE HIVES Home Medications Medication Instructions Recorded Confirmed Type mecobalamin (vitamin B12) 1,000 1,000 mcg sublingual QAM 09/30/21 04/07/24 History mcg disintegrating tablet,sublingual triamcinolone acetonide 0.1 % 1 applic topical UD PRN ANKLES 30 12/01/23 04/07/24 Rx topical ointment days #30 grams tamsulosin 0.4 mg capsule 0.4 mg PO QAM #90 caps 01/13/24 04/07/24 Rx oxycodone 5 mg tablet 5 mg PO Q4H PRN pain 02/08/24 04/07/24 History carvedilol 6.25 mg tablet 6.25 mg PO BID #180 tabs 02/11/24 04/07/24 Rx apixaban 5 mg tablet 5 mg PO BID #180 tabs 03/07/24 04/07/24 Rx atorvastatin 40 mg tablet 40 mg PO QAM 04/07/24 04/07/24 History fluticasone 250 mcg-salmeterol 50 1 ea inhalation BID 04/07/24 04/07/24 History mcg/dose blistr powdr for inhalation Past Med/Surg History Problem List (Updated 04/08/24 @ 12:18 by Noah Blount MD) Hypotension S/P aortic valve replacement with bioprosthetic valve (2010) PAF (paroxysmal atrial fibrillation) Acute heart failure with mildly reduced ejection fraction (HFmrEF, 41-49%) HFrEF (heart failure with reduced ejection fraction) CHF exacerbation Anticoagulant long-term use (Acute) A-fib (Acute) Fluid overload (Acute) Compression fracture of T8 vertebra Cardiomyopathy Thoracic ascending aortic aneurysm 4.5 cm per 2016 imaging Atrial fibrillation (Chronic) Allergic rhinitis (Chronic) CAD (coronary artery disease) (Chronic) Per cardiology 09/10, episode in 2010 with elevated troponins and "probably STEMI." Pt had cath that reportedly showed no significant blockages, though report was not available for cardio review. Hypercholesterolemia (Chronic) Hypertension (Chronic) COPD (chronic obstructive pulmonary disease) (Chronic) Medical History (Updated 04/08/24 @ 12:18 by Noah Blount MD) Carotid artery stenosis s/p R CEA 09/16/18 Congenital bicuspid aortic valve s/p AVR 2010 LVH (left ventricular hypertrophy) due to hypertensive disease Chronic hyponatremia Radiculopathy of lumbar region Spinal stenosis Chronic back pain Hypertension Chronic obstructive pulmonary disease MILD, DENIES FLARE UPS. FOLLOWS WITH PCP Surgical History (Updated 04/08/24 @ 12:18 by Noah Blount MD) History of lumbar fusion H/O carotid endarterectomy (11/04/18) Left Carotid Endarterectomy with Bovine Patch(Left) - Mariano Laboy MD 11/04/18 H/O carotid endarterectomy 09/16/18 [facility] Fusion of spine LUMBAR FUSION Hx of cardiac catheterization no stents Hx of bilateral cataract extraction History of total hip arthroplasty BILATERAL History of carpal tunnel release RIGHT History of tonsillectomy Family History Brother Prostate cancer Father Myocardial infarction Other Cancer No family history of adverse response to anesthesia No family history of bleeding disorder Denies family history of Ovarian cancer Breast cancer Colorectal cancer Social History Smoking Status: Current every day smoker Tobacco Type: Cigarettes Age Started Using Tobacco: 18; packs per day: 0.5; Cigarettes Per Day: 3/4th pack a day; Second Hand Exposure: No; Do You Dip or Chew Tobacco: No; Hx Alcohol Use: Yes Alcohol type: hard liquor Alcohol Intake Frequency: 4 or More x per/Week Hx Substance Use: No Preferred Language: Hungarian Communication Ability: Effective Visual Impairment: No Limitations Hearing Ability: Use of Hearing Aid Polishing Pad Mounter Required: No Beliefs That Will Affect Care: None marital status: Current Living Situation: Spouse 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 Skin: warm, dry, intact HEENT: NC/AT, anicteric sclera, conjunctiva without injection, moist mucus membranes. Heart: +S1/S2, regular, no m/r/g Lungs: equal air entry bilaterally, no rales/rhonchi/wheezes Abd: +BS, soft, NT/ND Ext: warm, no clubbing/cyanosis or edema, Pedrito's neg. Neuro: nonfocal, speech intact, no facial droop, moving all extremities. Results & Data Results & Data Vital Signs (Past 12 Hours) Vital Signs Pulse Resp BP BP Pulse Ox O2 Del Method 04/07/24 16:43 Room Air 04/07/24 16:43 94 H 24 96/70 L 95 Room Air 04/07/24 16:30 18 94/63 L Supervising Physician Co-Signing Physician Notes I personally saw and examined the patient. I independently reviewed the labs, EKG, imaging, problem list, medication list, past medical history and family history. I verified all clayton points and agree with Dr Pietro Eddy DO with the following exceptions and/or additions: 78 year old male presents to the ER with shortness of breath and bilateral leg swelling O/E HS increased rate, irregular rhythm, no murmurs, Chest bibasal crackles, no wheezing, Abdo SNT A/P Acute HFmrEF - Suspect due to uncontrolled atrial fibrillation which he appears to have been in for some time. Likely would do better in NSR and on anticoa gulation for the last 4 weeks consistently but will defer decision regarding better rate control vs. rhythm to cardiology, Lasix 40mg IV daily, Strict I&Os, daily weights Resident Activity Tracking Resident Involvement: Resident Care Provided Care Provided: Adult Hospital Medicine (3) CAD (coronary artery disease) Associated angina: without angina Coronary Disease-Associated Artery/Lesion type: [place] artery [place] vs. transplanted heart: [place] heart Qualified Code(s): I25.10 - Atherosclerotic heart disease of [place] coronary artery without angina pectoris
--- NOTE | 2024-04-07 21:36 | Billing Data ---
Date of Service April 07, 2024 Coding Level of Care Code 70578 INT INP/OBS CARE
[2024-04-07 21:59] LABS: Appearance Urine Clear (Clear); Bacteria Urine Automated None Seen (None Seen); Bilirubin Urine Negative (Negative); Blood Urine Negative (Negative); Color Urine Yellow; Epithelial Cell Urine Auto 0-2 /hpf (0-2); Glucose Urine UA Negative (Negative); Ketones Urine Negative (Negative); Leukocyte Esterase Urine Negative (Negative); Nitrite Urine Negative (Negative); Protein Urine Trace (Negative); RBC Urine Automated 0-2 /hpf (0-2); Specific Gravity Urine 1.008 (1.000-1.030); Urobilinogen Urine Negative (Negative); WBC Urine Automated 0-5 /hpf (0-5)
[2024-04-07 22:31] LABS: Creatinine Urine Random 23.4 mg/dl; Protein Creatinine Ratio Urine 1.2 (0-0.2); Total Protein Urine Random 28.7 mg/dl (0-11.9)
[2024-04-07] MEDS: ACETAMINOPHEN 325 MG TAB PO PRN (23:08)
[2024-04-07] MEDS: carvediloL 6.25 MG TAB PO SCH (23:09)
[2024-04-07] MEDS: APIXABAN 5 MG TABLET PO SCH (23:10)
[2024-04-07] MEDS: oxyCODONE HCL IR 5 MG TAB (IMMEDIATE RELEASE) PO STA (23:27)
--- NOTE | 2024-04-08 07:52 | Hospitalist Progress Note ---
Date of Service April 08, 2024 Assessment & Plan (1) Acute heart failure with mildly reduced ejection fraction (HFmrEF, 41-49%): (2) PAF (paroxysmal atrial fibrillation): (3) Fluid overload: (4) CAD (coronary artery disease): (5) COPD (chronic obstructive pulmonary disease): Plan 78 y/o man with HFmEF and PAF, bioprosthetic AVR, CAD admitted with heart failure exacerbation Acute on chronic HFmEF, right sided heart failure, anasarca 12/2023: EF ->40-44%; significant RV systolic dysfunction Paroxysmal Afib, Afib with RVR - rates 90-125 overnight CAD - angiogram 2010 nonobstructive by secondhand report. Carotid stenosis. 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, reviewed last outpatient notes 01/2024 Ongoing tobacco smoking - counseled cessation 04/08 and he is precontemplative. ordered prn nicotine patch CXR suggestive of pulmonary fibrosis - Continue Fluticasone-salmeterol inhaler therapy - Goal O2 saturation: 88-92% DVT ppx - continue apixaban Admission and Anticipated Discharge Date Admission Date: April 07, 2024 Subjective remains severely edematous, states peeing a lot, shortness of breath is "okay" maybe slightly better has no intention to quit smoking Physical Exam 2 Physical Exam: PHYSICAL EXAMINATION Last 24h vital signs reviewed, see documentation in flowsheet General: comfortable appearing, no distress, sitting in bed awake HEENT: Normocephalic, atraumatic, pupils round and equal, sclerae anicteric, no conjunctival injection, moist mucus membranes Lungs: Normal respiratory effort, nonlabored. bilateral wheezing and fine crackles Heart: irregularly irregular, systolic murmur Abdomen: Soft, nontender, nondistended. Bowel sounds present. Extremities: Warm, dry, well-perfused. anasarca x 4 extremities, left upper extremity more than right upper extremity Neuro: Alert and oriented x 4, face symmetric, moves 4 extremities well Psych: Normal affect and behavior Results & Data Results & Data Vital Signs (Past 12 Hours) Vital Signs Temp Pulse Pulse Resp BP BP BP 04/08/24 07:40 98.1 F 106 H 20 106/66 04/08/24 02:42 97.7 F 112 H 17 131/99 04/07/24 23:17 98.1 F 119 H 17 122/98 04/07/24 22:43 98.1 F 125 H 22 122/98 04/07/24 22:33 107 H 04/07/24 22:30 04/07/24 22:00 90 22 97/63 L 04/07/24 22:00 127 H 04/07/24 20:30 107 H 14 114/82 04/07/24 20:11 91 H 20 119/87 Pulse Ox O2 Del Method O2 Flow Rate 04/08/24 07:40 90 Nasal Cannula 3 04/08/24 02:42 97 Nasal Cannula 2.0 04/07/24 23:17 94 Room Air 2.0 04/07/24 22:43 95 Nasal Cannula 2 04/07/24 22:33 04/07/24 22:30 Nasal Cannula 2 04/07/24 22:00 95 Room Air 04/07/24 22:00 04/07/24 20:30 90 04/07/24 20:11 95 Laboratory Results 04/07/24 17:00 04/08/24 08:03 PG Care Time/CCT Total # of Minutes Spent Total Time Spent with Patient: Total time spent is greater than 50% in coordination of care (as documented) at patient's floor/unit and/or counseling patient: Coding Level of Care Code 91688 SUB INP/OBS CARE 3/50MIN Diagnoses Acute heart failure with mildly reduced ejection fraction (HFmrEF, 41-49%) I50.21 PAF (paroxysmal atrial fibrillation) I48.0 Fluid overload E87.70 Coronary artery disease involving [place] coronary artery of [place] heart without angina pectoris I25.10 Associated angina: without angina Coronary Disease-Associated Artery/Lesion type: [place] artery [place] vs. transplanted heart: [place] heart Chronic obstructive pulmonary disease, unspecified COPD type J44.9 COPD type: unspecified COPD (4) CAD (coronary artery disease) Associated angina: without angina Coronary Disease-Associated Artery/Lesion type: [place] artery [place] vs. transplanted heart: [place] heart Qualified Code(s): I25.10 - Atherosclerotic heart disease of [place] coronary artery without angina pectoris (5) COPD (chronic obstructive pulmonary disease) COPD type: unspecified COPD Qualified Code(s): J44.9 - Chronic obstructive pulmonary disease, unspecified
[2024-04-08] MEDS: FUROSEMIDE 40 MG/4 ML VIAL IV ONE (07:55)
[2024-04-08] MEDS: ATORVASTATIN 40 MG TAB PO SCH (07:59)
[2024-04-08] MEDS: TAMSULOSIN HCL 0.4 MG CAP PO SCH (07:59)
[2024-04-08] MEDS: FLUTICASONE/VILANTEROL 100/25MCG 14 PUFFS/INHALER INH SCH (08:02)
--- NOTE | 2024-04-08 08:49 | Electrocardiogram Report ---
Test Reason : Blood Pressure : */* mmHG Vent. Rate : 108 BPM Atrial Rate : * BPM P-R Int : * ms QRS Dur : 100 ms QT Int : 348 ms P-R-T Axes : * -14 187 degrees QTcB Int : 466 ms Atrial fibrillation with rapid ventricular response Incomplete right bundle branch block Diffuse Nonspecific T wave abnormality Abnormal ECG When compared with ECG of 16-Jan-2024 16:58, No significant change Confirmed by Noah Blount ([id number]) on 04/08/2024 8:49:07 AM Referred By: [facility] Confirmed By: Noah Blount
[2024-04-08 08:57] LABS: Calcium 8.2 mg/dl (8.6-10.3); Creatinine Clr Calc Pharmacy 66.1 ml/min; Magnesium 1.7 mg/dl (1.7-2.4); Potassium 3.7 mmol/L (3.5-5.1)
[2024-04-08] MEDS ORDERED: NICOTINE 21 MG/24 HR TDSY TD PRN (10:24)
[2024-04-08] MEDS: MAGNESIUM SULFATE / D5W 1 GM/100 ML BAG IV SCH (11:15)
[2024-04-08] MEDS: POTASSIUM CHLORIDE CRTAB 20 MEQ TABCR PO SCH (11:19)
--- NOTE | 2024-04-08 12:20 | Cardiology Consultation ---
Date of Consultation April 08, 2024 Assessment & Plan (1) Acute heart failure with mildly reduced ejection fraction (HFmrEF, 41-49%): (2) Hypotension: (3) PAF (paroxysmal atrial fibrillation): (4) S/P aortic valve replacement with bioprosthetic valve: (5) CAD (coronary artery disease): (6) Cardiomyopathy: Plan 78-year-old man with complex cardiac history admitted with HFmrEF and atrial tachydysrhythmia. Clinically he is volume overloaded but he is not significantly distressed, given borderline hypotension would slow the rate of diuresis by decreasing IV furosemide to once daily and would discontinue his carvedilol. In place of carvedilol would initiate metoprolol to tartrate 25 mg p.o. every 8 hours for rate control, will have less hypotensive effect but would put hold orders for rate less than 60 bpm or SBP less than 90 mmHg. Rhythm is not persistent atrial fibrillation, but appears to be sinus with runs of atrial fibrillation or atrial tachycardia. Nonetheless, rate control and anticoagulation would be management for either. Continue apixaban for anticoagulation. His CAD was nonobstructive at remote cath, minimal but flat troponin curve and lack of anginal type symptoms weighs against ongoing myocardial ischemia. Treatment is optimization of hemodynamics and volume unloading. His bioprosthetic aortic valve was functioning well on echocardiogram earlier this year, no indication of dysfunction currently. Dr. Hastings will be covering the weekend, please contact him if patient's clinical status changes or additional cardiology questions arise. History of Present Illness Reason for Consultation: afib, CHF Requesting Physician: Lashay Sanders MD Attending Physician: Lashay Sanders MD History of Present Illness 78-year-old man followed by Dr. Rivas with CAD (nonobstructive by cath 2010), bioprosthetic AVR 2010, paroxysmal atrial fibrillation (apixaban/carvedilol), mildly dilated ascending aorta (4.3 cm 2023), cerebrovascular disease (bilateral endarterectomy 2018), who presents with mild congestive heart failure and atrial fibrillation with rapid ventricular response. Patient sustained a major fall December 2023 with multiple rib fractures, spinal epidural hematoma, life flighted to [facility], spent time at rehab hospital, ultimately home with home health services. He was seen by his PCP [facility] for a wellness visit and found to have evidence of congestive heart failure and tachycardia, sent to ER and admitted. He has noted decreased exercise tolerance, significant weight gain weight gain (over 30 pounds), and progressive leg edema. No orthopnea or PND. No chest pain, subjective palpitations, orthostatic lightheadedness, presyncope, or syncope. At the time my evaluation this morning he was comfortable. He slept well last night. He denied any current dyspnea, chest pain, or palpitations. Telemetry shows periods of sinus rhythm with multiple and sustained atrial runs/atrial fibrillation vs atrial tachycardia. Heart rate varies between 80 to 130 bpm. Allergies Allergy/AdvReac Type Severity Reaction Status Date / Time bee venom protein (honey bee) Allergy Severe swelling Verified 04/07/24 15:32 ibuprofen AdvReac Intermediate LARGE Verified 04/07/24 15:32 DOSES CAUSE ITCHING AND BLISTERS Unclassified Drugs Allergy Mild TOBASCO Uncoded 04/07/24 15:32 SAUCE - TOO MUCH OF WILL CAUSE HIVES Home Medications Medication Instructions Recorded Confirmed Type mecobalamin (vitamin B12) 1,000 1,000 mcg sublingual QAM 09/30/21 04/07/24 History mcg disintegrating tablet,sublingual triamcinolone acetonide 0.1 % 1 applic topical UD PRN ANKLES 30 12/01/23 04/07/24 Rx topical ointment days #30 grams tamsulosin 0.4 mg capsule 0.4 mg PO QAM #90 caps 01/13/24 04/07/24 Rx oxycodone 5 mg tablet 5 mg PO Q4H PRN pain 02/08/24 04/07/24 History carvedilol 6.25 mg tablet 6.25 mg PO BID #180 tabs 02/11/24 04/07/24 Rx apixaban 5 mg tablet 5 mg PO BID #180 tabs 03/07/24 04/07/24 Rx atorvastatin 40 mg tablet 40 mg PO QAM 04/07/24 04/07/24 History fluticasone 250 mcg-salmeterol 50 1 ea inhalation BID 04/07/24 04/07/24 History mcg/dose blistr powdr for inhalation Patient History Medical History (Updated 04/08/24 @ 12:18 by Noah Blount MD) Carotid artery stenosis s/p R CEA 09/16/18 Congenital bicuspid aortic valve s/p AVR 2010 LVH (left ventricular hypertrophy) due to hypertensive disease Chronic hyponatremia Radiculopathy of lumbar region Spinal stenosis Chronic back pain Hypertension Chronic obstructive pulmonary disease MILD, DENIES FLARE UPS. FOLLOWS WITH PCP Surgical History (Updated 04/08/24 @ 12:18 by Noah Blount MD) History of lumbar fusion H/O carotid endarterectomy (11/04/18) Left Carotid Endarterectomy with Bovine Patch(Left) - Mariano Laboy MD 11/04/18 H/O carotid endarterectomy 09/16/18 [facility] Fusion of spine LUMBAR FUSION Hx of cardiac catheterization no stents Hx of bilateral cataract extraction History of total hip arthroplasty BILATERAL History of carpal tunnel release RIGHT History of tonsillectomy Family History Brother Prostate cancer Father Myocardial infarction Other Cancer No family history of adverse response to anesthesia No family history of bleeding disorder Denies family history of Ovarian cancer Breast cancer Colorectal cancer Social History Smoking Status: Current every day smoker Tobacco Type: Cigarettes Age Started Using Tobacco: 18; packs per day: 0.5; Cigarettes Per Day: 3/4th pack a day; Second Hand Exposure: No; Do You Dip or Chew Tobacco: No; Hx Alcohol Use: Yes Alcohol type: hard liquor Alcohol Intake Frequency: 4 or More x per/Week Hx Substance Use: No Preferred Language: Albanian Communication Ability: Effective Visual Impairment: No Limitations Hearing Ability: Use of Hearing Aid Software Test Manager Required: No Beliefs That Will Affect Care: None marital status: Current Living Situation: Spouse current occupational status: retired current occupation: [employer] Feels Safe at Home: Yes Childhood Exposure to Second-Hand Smoke: Yes Diet: regular Diet Comment: regular Dental Care, Regularly: No Physical Activity Frequency: Does not Exercise Seatbelt Use: always Sunscreen Use: No Assistive Devices: Cane, Denture - Upper, Denture - Lower and Walker Physical Exam Physical Exam: Elderly white male who appears quite comfortable. Afebrile. BP 95/53 mmHg. Pulse 100 bpm and irregular. Respirations 18 unlabored. Skin: no ecchymoses or generalized lesions. HEENT: unremarkable. Neck: JVP just above the clavicle at 90 degrees, no carotid bruits. Lungs: Mildly decreased breath sounds but generally clear. Cardiac:ir regular rhythm, normal S1-2, no murmur. Abdomen: benign. Extremities: 1-2+ pretibial edema, pulses intact. Neurologic: normal affect and conversation, nonfocal. Results & Data Laboratory Results Normal CBC. Normal electrolytes (potassium 3.7, magnesium 1.7), BUN 16, creatinine 0.94. Troponin 121 and 107. Diagnostic Findings Chest x-ray showed chronic fibrotic changes with superimposed basilar infiltrates and increased vasculature consistent with mild congestion. Echocardiogram done at [facility] December 2023 showed mildly reduced LVEF (40-44%) with large septal/inferior/posterior wall motion areas of hypokinesis. Some RV dysfunction was suggested but visualization was limited. Echocardiogram October 2023 showed EF 40% with mild global hypokinesis, normal gradient for bioprosthetic valve, mild to moderate mitral regurgitation mildly dilated ascending aorta (4.3 cm). PG Care Time/CCT Total # of Minutes Spent Total Time Spent with Patient: Total time spent is greater than 50% in coordination of care (as documented) at patient's floor/unit and/or counseling patient: Coding Level of Care Code 73812 IN/OBS CONSULT LVL 5,80M Diagnoses Acute heart failure with mildly reduced ejection fraction (HFmrEF, 41-49%) I50.21 Hypotension I95.9 PAF (paroxysmal atrial fibrillation) I48.0 S/P aortic valve replacement with bioprosthetic valve Z95.3 Coronary artery disease involving [place] coronary artery of [place] heart without angina pectoris I25.10 Associated angina: without angina Coronary Disease-Associated Artery/Lesion type: [place] artery [place] vs. transplanted heart: [place] heart Cardiomyopathy, unspecified type I42.9 Cardiomyopathy type: unspecified (5) CAD (coronary artery disease) Associated angina: without angina Coronary Disease-Associated Artery/Lesion type: [place] artery [place] vs. transplanted heart: [place] heart Qualified Code(s): I25.10 - Atherosclerotic heart disease of [place] coronary artery without angina pectoris (6) Cardiomyopathy Cardiomyopathy type: unspecified Qualified Code(s): I42.9 - Cardiomyopathy, unspecified
[2024-04-08] MEDS ORDERED: FUROSEMIDE 40 MG/4 ML VIAL IV SCH (17:00)
[2024-04-08] MEDS: METOPROLOL TARTRATE 25 MG TAB PO SCH (19:50)
[2024-04-09 07:39] LABS: BUN Creatinine Ratio 17.4 (10-20); Calcium 8.2 mg/dl (8.6-10.3); Creatinine Clr Calc Pharmacy 67.3 ml/min
[2024-04-09] MEDS: FUROSEMIDE 40 MG/4 ML VIAL IV SCH (08:58)
--- NOTE | 2024-04-09 13:58 | Hospitalist Progress Note ---
<Statement entered by Lashay Sanders MD - 04/09/24 16:04> I have reviewed vital signs, chart notes, labs and imaging. I have also discussed the management of the patient with the LUPE and I agree with the exam findings documented in the history and physical examination and the documented assessment and plan unless otherwise stated below. Making slow progress but remains volume overloaded will benefit from continued active diuresis with IV Lasix Date of Service April 09, 2024 Assessment & Plan (1) Acute heart failure with mildly reduced ejection fraction (HFmrEF, 41-49%): Plan: Acute heart failure with mildly reduced EF/fluid overload - Patient with increased peripheral edema, SOB on exertion, and weight gain for past 5-6 weeks. He reports a 34 lb weight gain over the past few months. - CXR:Worsening CHF/fibrosis, basilar infiltrates and small pleural effusions - BNP: 3081; aortic valve replacement reported to be well seated in Echo 10/2023, Echo 12/2023: EF ->40-44%; significant RV systolic dysfunction - IV Lasix 40mg x1 given in ED - Daily weights, strict I/Os - Salt restricted diet - HF potentially due to consistent A-fib with RVR; has been on Eliquis anticoagulation daily for the past 4 weeks - Cardiology consult - appreciate recs. IV lasix once daily and d/c carvedilol. Initiate metoprolol tartrate 25mg PO q8 hours - hold for rate less than 60 or SBP less than 90mmhg. Continue apixaban. - Narciso CRUZ (2) A-fib: Plan: Paroxysmal A-fib/CAD - Per cardiology 09/10, episode in 2010 with elevated troponin and "probable STEMI." Pt had cath that reportedly showed no significant blockages, though report was not available for cardio review. - EKG: A-fib with RVR, T-wave abnormality potential lateral ischemia - High sensitivity troponin: 121.7 peak -> 107.6 - No acute chest symptoms - Continue home medications Eliquis 5mg and metoprolol per cardiology. (3) Fluid overload: Plan: See #1 (4) CAD (coronary artery disease): (5) COPD (chronic obstructive pulmonary disease): Plan: COPD COPD, followed by Dr. Lawson - [facility] Ongoing tobacco smoking Prn nicotine patch CXR suggestive of pulmonary fibrosis - Continue Fluticasone-salmeterol inhaler therapy - Goal O2 saturation: 88-92% Plan DVT ppx - continue apixaban Admission and Anticipated Discharge Date Admission Date: April 07, 2024 Subjective Wolfgang reports that he is feeling well today. He continues with severe edema, denies shortness of breath today. States he would like to go home when ready. Review of Systems Constitutional: no fever and no chills Respiratory: no cough and no dyspnea Cardiovascular: + edema; no chest pain Gastrointestinal: no abdominal pain, no nausea and no vomiting Genitourinary: no difficulty urinating Physical Exam Constitutional: no acute distress Respiratory: normal respiratory effort; no respiratory distress Auscultation: + diminished lung sounds (bilateral bases) Cardiovascular: Rate/Rhythm: regular rate and regular rhythm Extremities: + edema (Bilateral lower extremities, L upper extremity. ) Gastrointestinal (Abdomen): Inspection/Auscultation: normal bowel sounds Percussion/Palpation: abdomen soft; abdomen nontender Psychiatric: A+Ox3, euthymic affect Results & Data Results & Data Vital Signs (Past 12 Hours) Vital Signs Temp Pulse Pulse Resp BP BP Pulse Ox 04/09/24 11:14 36.5 C 63 18 107/69 93 04/09/24 08:56 18 93 04/09/24 08:55 04/09/24 07:08 36.5 C 98 H 16 105/74 90 04/09/24 06:10 82 110/67 04/09/24 05:12 98 H 04/09/24 03:25 36.6 C 98 H 18 104/63 92 O2 Del Method O2 Flow Rate 04/09/24 11:14 Nasal Cannula 5 04/09/24 08:56 Nasal Cannula 5 04/09/24 08:55 Nasal Cannula 04/09/24 07:08 Nasal Cannula 5 04/09/24 06:10 04/09/24 05:12 04/09/24 03:25 Nasal Cannula 5 PG Care Time/CCT Total # of Minutes Spent Total Time Spent with Patient: Total time spent is greater than 50% in coordination of care (as documented) at patient's floor/unit and/or counseling patient: Coding [place] [address] SUB INP/OBS CARE 2/35MIN Patient Type Established History Expanded Problem Focused Exam Expanded Problem Focused Medical Decision Making Moderate Complexity Diagnoses Acute heart failure with mildly reduced ejection fraction (HFmrEF, 41-49%) I50.21 A-fib I48.91 Fluid overload E87.70 Coronary artery disease involving [place] coronary artery of [place] heart without angina pectoris I25.10 Coronary Disease-Associated Artery/Lesion type: [place] artery [place] vs. transplanted heart: [place] heart Associated angina: without angina Chronic obstructive pulmonary disease, unspecified COPD type J44.9 COPD type: unspecified COPD (4) CAD (coronary artery disease) Coronary Disease-Associated Artery/Lesion type: [place] artery [place] vs. transplanted heart: [place] heart Associated angina: without angina Qualified Code(s): I25.10 - Atherosclerotic heart disease of [place] coronary artery without angina pectoris (5) COPD (chronic obstructive pulmonary disease) COPD type: unspecified COPD Qualified Code(s): J44.9 - Chronic obstructive pulmonary disease, unspecified
[2024-04-09 17:38] LABS: BUN Creatinine Ratio 16.3 (10-20); Creatinine Clr Calc Pharmacy 59.5 ml/min; Magnesium 1.9 mg/dl (1.7-2.4); Potassium 4.2 mmol/L (3.5-5.1)
--- NOTE | 2024-04-09 18:19 | Communication Note ---
Date of Service: April 09, 2024 Wolfgang's RN made me aware of a 12 beat run of vtach and then another 3 beat run, patient was feeling well and asymptomatic. BMP and Mag repeated, no si gnificant changes, Mag WNL. Instructed to continue to monitor.
[2024-04-10 06:22] LABS: BUN Creatinine Ratio 20.9 (10-20); Calcium 8.1 mg/dl (8.6-10.3); Creatinine Clr Calc Pharmacy 70.6 ml/min; Magnesium 1.9 mg/dl (1.7-2.4); Potassium 4.2 mmol/L (3.5-5.1)
--- NOTE | 2024-04-10 10:38 | XRay Report ---
XR chest 1V portable CLINICAL HISTORY: CHF exacerbation, chest congestion COMPARISON STUDY: Chest CT January 16, 2024. Chest radiograph April 07, 2024. FINDINGS: Status post median sternotomy and aortic valve replacement. Cardiomegaly is again noted. Th ere is no pneumothorax. Pulmonary edema has slightly progressed. Small bilateral pleural effusions nolen ve slightly increased. Bibasilar opacities have also increased. There is underlying emphysema. Severe degenerative changes within the shoulders are incidentally noted. IMPRESSION: 1. Cardiomegaly with progression of pulmonary edema and small bilateral pleural effusions. 2. Increase in associated bibasilar opacities. 3. Emphysema. ACT 112: Negative or not required by law. Electronically signed by: Ritesh Osorio M.D. 04/10/2024 10:36 AM
--- NOTE | 2024-04-10 12:44 | Hospitalist Progress Note ---
<Statement entered by Lashay Sanders MD - 04/10/24 16:52> I have reviewed vital signs, chart notes, labs and imaging. I have personally seen, evaluated and examined the patient. I have also discussed the management of the patient with the LUPE and I agree with the exam findings documented in the history and physical examination and the documented assessment and plan unless otherwise stated below. Mr. Ibrahim remains fluid overloaded with coarse sounds and wheezing bilaterally on lung exam, JVD D and significant lower extremity edema all the way up to his thighs this morning mildly hypotensive heart rates up in the 120s, reviewed with Dr. Espino thinks this is MAT rather than A-fib reduce metoprolol to 25 mg twice daily, split furosemide to 20 mg IV twice d aily, starting spironolactone in a.m., heart failure program referral made Date of Service April 10, 2024 Assessment & Plan (1) Acute heart failure with mildly reduced ejection fraction (HFmrEF, 41-49%): Plan: Acute heart failure with mildly reduced EF/fluid overload - CXR repeated today: cardiomegaly with progression of pulmonary edema and small bilateral pleural effusions, increase in associated bibasilar opacities, emphysema. - BNP: 3081; aortic valve replacement reported to be well seated in Echo 10/2023, Echo 12/2023: EF ->40-44%; significant RV systolic dysfunction - IV Lasix 20mg BID - Daily weights, strict I/Os - Salt restricted diet - HF potentially due to consistent A-fib with RVR; has been on Eliquis anticoagulation daily for the past 4 weeks - Cardiology consult: Significantly hypervolemic on exam. Continue diuresis. Would try to attain at least 1-2 net negative fluid balance per day. Start spironolactone 25 mg daily tomorrow. Consider SGLT2 inhibitor if no contraindication. If blood pressure allows after further diuresis, suggest Entresto. On discharge, recommend metoprolol succinate in place of metoprolol tartrate. Recommend heart failure program. Low-sodium diet, less than 2000 mg daily. Daily weights and strict I's and O's while hospitalized. - Narciso CRUZ (2) A-fib: Plan: Paroxysmal A-fib/CAD - Per cardiology 09/10, episode in 2010 with elevated troponin and "probable STEMI." Pt had cath that reportedly showed no significant blockages, though report was not available for cardio review. - EKG: A-fib with RVR, T-wave abnormality potential lateral ischemia - High sensitivity troponin: 121.7 peak -> 107.6 - No acute chest symptoms - Continue home medications Eliquis 5mg - Cardiology consult: Multifocal atrial tachycardia: Based on telemetry reviewed today, there are multiple P wave morphologies, suggesting multifocal atrial tachycardia. He has significant lung disease and therefore is at risk of such. No obvious atrial fibrillation noted on my review but rather multifocal atrial tachycardia or simply sinus rhythm with frequent PACs and atrial runs. Increase metoprolol to 25 mg twice daily. According to records, he has a history of A-fib and is on anticoagulation therapy. 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 (3) Fluid overload: Plan: See #1 (4) CAD (coronary artery disease): (5) COPD (chronic obstructive pulmonary disease): Plan: COPD, followed by Dr. Lulu Han's [facility] Ongoing tobacco smoking Prn nicotine patch CXR suggestive of pulmonary fibrosis - Continue Fluticasone-salmeterol inhaler therapy - Goal O2 saturation: 88-92% (6) Chronic back pain: Plan: Take Oxycodone sparingly when outpatient. [place] 5/325 mg x1. Plan DVT ppx - continue apixaban Admission and Anticipated Discharge Date Admission Date: April 07, 2024 Subjective Wolfgang reports that he is feeling well today. He continues with severe edema, denies shortness of breath today. States he would like to go home when ready. His wifes birthday is on Thursday, and he would like to be with her for that. Reports swelling continues to improve. Review of Systems Constitutional: no fever and no chills Respiratory: no cough and no dyspnea Cardiovascular: + edema; no chest pain Gastrointestinal: no abdominal pain, no nausea and no vomiting Genitourinary: no difficulty urinating Physical Exam Constitutional: no acute distress Respiratory: normal respiratory effort; no respiratory distress Cardiovascular: Rate/Rhythm: regular rate and regular rhythm Vessels: + JVD Extremities: + edema (Bilateral lower extremities, L upper extremity. ) Gastrointestinal (Abdomen): Inspection/Auscultation: normal bowel sounds Percussion/Palpation: abdomen soft; abdomen nontender Psychiatric: A+Ox3, euthymic affect Results & Data Results & Data Vital Signs (Past 12 Hours) Vital Signs Temp Pulse Pulse Resp BP BP Pulse Ox 04/10/24 11:36 36.8 C 61 20 92/60 L 94 04/10/24 09:42 04/10/24 08:38 36.4 C L 120 H 20 98/70 L 91 04/10/24 07:26 115 H 04/10/24 06:12 75 110/62 04/10/24 02:51 36.7 C 92 H 20 119/84 92 O2 Del Method O2 Flow Rate 04/10/24 11:36 Nasal Cannula 5 04/10/24 09:42 Nasal Cannula 4.5 04/10/24 08:38 Nasal Cannula 5 04/10/24 07:26 04/10/24 06:12 04/10/24 02:51 Nasal Cannula 5 Diagnostic Findings Chest X-Ray 04/10/24 09:46 XR chest 1V portable CLINICAL HISTORY: CHF exacerbation, chest congestion COMPARISON STUDY: Chest CT January 16, 2024. Chest radiograph April 07, 2024. FINDINGS: Status post median sternotomy and aortic valve replacement. Cardiomegaly is again noted. There is no pneumothorax. Pulmonary edema has slightly progressed. Small bilateral pleural effusions have slightly increased. Bibasilar opacities have also increased. There is underlying emphysema. Severe degenerative changes within the shoulders are incidentally noted. IMPRESSION: 1. Cardiomegaly with progression of pulmonary edema and small bilateral pleural effusions. 2. Increase in associated bibasilar opacities. 3. Emphysema. ACT 112: Negative or not required by law. Electronically signed by: Ritesh Osorio M.D. 04/10/2024 10:36 AM PG Care Time/CCT Total # of Minutes Spent Total Time Spent with Patient: Total time spent is greater than 50% in coordination of care (as documented) at patient's floor/unit and/or counseling patient: Coding [place] [address] SUB INP/OBS CARE 2/35MIN Patient Type Established Medical Decision Making Moderate Complexity Diagnoses Acute heart failure with mildly reduced ejection fraction (HFmrEF, 41-49%) I50.21 A-fib I48.91 Fluid overload E87.70 Coronary artery disease involving [place] coronary artery of [place] heart without angina pectoris I25.10 Associated angina: without angina Coronary Disease-Associated Artery/Lesion type: [place] artery [place] vs. transplanted heart: [place] heart Chronic obstructive pulmonary disease, unspecified COPD type J44.9 COPD type: unspecified COPD Chronic back pain M54.9; G89.29 (4) CAD (coronary artery disease) Associated angina: without angina Coronary Disease-Associated Artery/Lesion type: [place] artery [place] vs. transplanted heart: [place] heart Qualified Code(s): I25.10 - Atherosclerotic heart disease of [place] coronary artery without angina pectoris (5) COPD (chronic obstructive pulmonary disease) COPD type: unspecified COPD Qualified Code(s): J44.9 - Chronic obstructive pulmonary disease, unspecified
[2024-04-10] MEDS: HYDROCODONE/ACETAMOPHEN 5/325MG TAB PO ONE (13:09)
--- NOTE | 2024-04-10 13:28 | Cardiology Progress Note ---
Date of Service April 10, 2024 Assessment & Plan (1) Acute heart failure with mildly reduced ejection fraction (HFmrEF, 41-49%): (2) S/P aortic valve replacement with bioprosthetic valve: (3) Anticoagulant long-term use: (4) Multifocal atrial tachycardia: (5) Cardiomyopathy: (6) CAD (coronary artery disease): (7) PAF (paroxysmal atrial fibrillation): (8) Thoracic ascending aortic aneurysm: Plan ASSESSMENT/PLAN: 1. Acute heart failure with mildly reduced EF: Significantly hypervolemic on exam. Continue diuresis. Would try to attain at least 1-2 net negative fluid balance per day. Start spironolactone 25 mg daily tomorrow. Consider SGLT2 inhibitor if no contraindication. If blood pressure allows after further diuresis, suggest Entresto. On discharge, recommend metoprolol succinate in place of metoprolol tartrate. Recommend heart failure program. Low-sodium diet, less than 2000 mg daily. Daily weights and strict I's and O's while hospitalized. 2. Multifocal atrial tachycardia: Based on telemetry reviewed today, there are multiple P wave morphologies, suggesting multifocal atrial tachycardia. He has significant lung disease and therefore is at risk of such. No obvious atrial fibrillation noted on my review but rather multifocal atrial tachycardia or simply sinus rhythm with frequent PACs and atrial runs. Increase metoprolol to 25 mg twice daily. 3. Paroxysmal atrial fibrillation: According to records, he has a history of A- fib and is on anticoagulation therapy. 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 4. Cardiomyopathy: Has had 2 echoes in the past 5 months, both reporting reduced LV systolic function in the 40 to 45% range. Optimize medical therapy. Can consider ischemic evaluation once improved. Continue to follow with Dr. Rivas to help outline his plan of care. 5. CAD: Reportedly nonobstructive. Risk factor modification. 6. Thoracic ascending aortic aneurysm: As per records. Avoid strenuous lifting for which the Valsalva maneuver is required. Continue beta-karol. Annual surveillance. 7. Aortic valve replacement: Underwent bioprosthetic aortic valve replacement in 2010. Has had 2 echoes performed in the previous 5 months. Monitor with surveillance echo annually given that his aortic valve replacement is beyond 10 years. SBE prophylaxis for dental procedures. 8. Disposition: Dr. Rivas will resume his cardiology care tomorrow. Plan of care communicated with Dr. Sanders of the primary hospitalist service. Admission and Anticipated Discharge Date Admission Date: April 07, 2024 Subjective I was asked today by Dr. Sanders of the primary hospitalist service to evaluate Mr. Ibrahim given mild hypotension, elevated heart rates at times, and hypervolemia. He was alone in his hospital room. His breathing has improved. He denies shortness of breath but is on supplemental oxygen. He denies chest pain, syncope, near syncope, or bleeding. He believes that his lower extremity edema is improving. He wishes to be discharged in the next day or so as his 's birthday is on 04/12/2022. Physical Exam Physical Exam: Gen.: No acute distress. Alert. HEENT: Anicteric sclera. Neck: Mild JVD. Cardiac: Regular with frequent ectopy. Normal S1-S2. No murmurs, rubs, or gallops. Pulmonary: Decreased breath sounds, but otherwise clear to auscultation bilaterally without wheezes, rales, or rhonchi. Abdomen: Soft, nontender, nondistended, with normoactive bowel sounds. No bruits noted. Pitting edema noted. Extremities: 2+ radial pulses bilaterally. 2+ bilateral lower extremity pitting edema to the abdomen. No cyanosis. Results & Data Vital Signs (Past 12 Hours) Vital Signs Temp Pulse Pulse Resp BP BP Pulse Ox 04/10/24 11:36 36.8 C 61 20 92/60 L 94 04/10/24 09:42 04/10/24 08:38 36.4 C L 120 H 20 98/70 L 91 04/10/24 07:26 115 H 04/10/24 06:12 75 110/62 04/10/24 02:51 36.7 C 92 H 20 119/84 92 O2 Del Method O2 Flow Rate 04/10/24 11:36 Nasal Cannula 5 04/10/24 09:42 Nasal Cannula 4.5 04/10/24 08:38 Nasal Cannula 5 04/10/24 07:26 04/10/24 06:12 04/10/24 02:51 Nasal Cannula 5 Intake & Output 04/08/24 04/09/24 04/10/24 04/11/24 06:59 06:59 06:59 06:59 Intake Total 900.833 / 900.833 800 / 800 Output Total 650 / 650 1999 / 1949 Balance -650 / -650 -1099.167 / -1099.167 -1150 / -1150 Weight 181 lb 14.102 oz 180 lb 8.937 oz 173 lb 4.533 oz Laboratory Results Laboratory Results - last 24 hr 04/09/24 04/10/24 16:25 05:32 Sodium 134 L 134 L Potassium 4.2 4.2 Chloride 99 100 Carbon Dioxide 30 30 Anion Gap 5 4 BUN 17 18 Creatinine 1.04 0.86 Est Cr Clr Drug Dosing 59.5 70.6 eGFR 74.42 89.74 BUN/Creatinine Ratio 16.3 20.9 H Glucose 113 H 99 Calcium 8.0 L 8.1 L Magnesium 1.9 1.9 Diagnostic Findings Telemetry personally reviewed: P waves are noted, often with at least 3 morphologies, suggesting multifocal atrial tachycardia and when not tachycardic, wandering atrial pacemaker versus sinus rhythm with frequent supraventricular ectopic complexes. Labs reviewed from 04/10/2024 and notable for stable renal function, normal pot assium, mild hyponatremia, normal magnesium. ECG personally reviewed from 04/07/2024: Sinus rhythm with atrial runs versus multifocal atrial tachycardia. Incomplete RBBB. Nonspecific T wave abnorma lity. Echo 01/19/2024: EF 40-44%. Large sized septal, inferior, posterior wall motion abnormality with hypokinesis. Limited echo. Notes reviewed. Medications Administered Current Inpatient Medications Acetaminophen (Acetaminophen 325 Mg Tab) 650 mg PO Q4H PRN PRN Reason: Pain or Fever Stop: 05/07/24 22:41 Last Admin: 04/10/24 12:32 Dose: 650 mg Apixaban (Apixaban 5 Mg Tablet) 5 mg PO BID [facility] Stop: 05/07/24 22:41 Last Admin: 04/10/24 08:12 Dose: 5 mg Atorvastatin Calcium (Atorvastatin 40 Mg Tab) 40 mg PO QAM [facility] Stop: 05/08/24 08:59 Last Admin: 04/10/24 08:12 Dose: 40 mg Carvedilol (Carvedilol 6.25 Mg Tab) 6.25 mg PO BID [facility] Stop: 05/07/24 22:41 Last Admin: 04/08/24 07:59 Dose: 6.25 mg Fluticasone/Vilanterol (Fluticasone/Vilanterol 100/25mcg 14 Puffs/Inhaler) 1 puffs INH DAILY [facility] Stop: 05/08/24 08:59 Last Admin: 04/10/24 08:11 Dose: 1 puffs Furosemide (Furosemide Inj 20 Mg/2 Ml Vial) 20 mg IV [id number] [facility] Stop: 05/10/24 08:59 Metoprolol Tartrate (Metoprolol Tartrate 25 Mg Tab) 12.5 mg PO Q8H [facility] Stop: 05/10/24 12:59 Miscellaneous (Remove Nicoderm Patch) 1 each N/A DAILY@0859 [facility] Stop: 05/09/24 08:58 Last Admin: 04/10/24 08:08 Dose: Not Given Nicotine (Nicotine 21 Mg/24 Hr Tdsy) 1 patch TD QAM PRN PRN Reason: nicotine withdrawal Stop: 05/09/24 08:59 Potassium Chloride (Potassium Chloride Crtab 20 Meq Tabcr) 40 meq PO QAM [facility] Stop: 05/08/24 10:29 Last Admin: 04/10/24 08:12 Dose: 40 meq Tamsulosin HCl (Tamsulosin Hcl 0.4 Mg Cap) 0.4 mg PO QAM [facility] Stop: 05/08/24 08:59 Last Admin: 04/10/24 08:12 Dose: 0.4 mg PG Care Time/CCT Total # of Minutes Spent Total Time Spent with Patient: Total time spent is greater than 50% in coordination of care (as documented) at patient's floor/unit and/or counseling patient: Coding Level of Care Code 32614 SUB INP/OBS CARE 3/50MIN Diagnoses Acute heart failure with mildly reduced ejection fraction (HFmrEF, 41-49%) I5 0.21 S/P aortic valve replacement with bioprosthetic valve Z95.3 Anticoagulant long-term use Z79.01 Multifocal atrial tachycardia I47.19 Cardiomyopathy, unspecified type I42.9 Cardiomyopathy type: unspecified Coronary artery disease involving [place] coronary artery of [place] heart without angina pectoris I25.10 Coronary Disease-Associated Artery/Lesion type: [place] artery [place] vs. transplanted heart: [place] heart Associated angina: without angina PAF (paroxysmal atrial fibrillation) I48.0 Aneurysm of ascending aorta without rupture I71.21 Presence of rupture: without rupture (5) Cardiomyopathy Cardiomyopathy type: unspecified Qualified Code(s): I42.9 - Cardiomyopathy, unspecified (6) CAD (coronary artery disease) Coronary Disease-Associated Artery/Lesion type: [place] artery [place] vs. transplanted heart: [place] heart Associated angina: without angina Qualified Code(s): I25.10 - Atherosclerotic heart disease of [place] coronary artery without angina pectoris (8) Thoracic ascending aortic aneurysm Presence of rupture: without rupture Qualified Code(s): I71.21 - Aneurysm of the ascending aorta, without rupture
[2024-04-10] MEDS: METOPROLOL TARTRATE 25 MG TAB PO SCH ×2 (13:39→22:25)
[2024-04-10] MEDS: MAGNESIUM SULFATE / D5W 1 GM/100 ML BAG IV ONE (21:30)
[2024-04-11 07:28] LABS: BUN Creatinine Ratio 24.7 (10-20); Calcium 8.2 mg/dl (8.6-10.3); Creatinine Clr Calc Pharmacy 78.5 ml/min; Magnesium 1.9 mg/dl (1.7-2.4); Potassium 4.4 mmol/L (3.5-5.1)
[2024-04-11] MEDS: FUROSEMIDE INJ 20 MG/2 ML VIAL IV SCH (07:42)
[2024-04-11] MEDS: SPIRONOLACTONE 25 MG TAB PO SCH (07:43)
--- NOTE | 2024-04-11 17:11 | Hospitalist Progress Note ---
Date of Service April 11, 2024 Assessment & Plan (1) Acute heart failure with mildly reduced ejection fraction (HFmrEF, 41-49%): Plan: Acute heart failure with mildly reduced EF/fluid overload - CXR repeated 04/10: cardiomegaly with progression of pulmonary edema and small bilateral pleural effusions, increase in associated bibasilar opacities, emphysema. - BNP: 3081; aortic valve replacement reported to be well seated in Echo 10/2023, Echo 12/2023: EF ->40-44%; significant RV systolic dysfunction - IV Lasix 20mg BID - spironolactone 25 mg started today - Daily weights, strict I/Os - Salt restricted diet - potassium replacement Remains very volume overloaded 04/11 but diuresis has needed to be very slow because of marginal blood pressures. Down 11# for admission. Will benefit from entresto and SGLT-2 but BP currently too low to tolerate CHF program referral was made (2) A-fib: Plan: Paroxysmal A-fib, MAT, CAD - Per cardiology 09/10, episode in 2010 with elevated troponin and "probable STEMI." Pt had cath that reportedly showed no significant blockages, though report was not available for cardio review. - EKG: A-fib with RVR, T-wave abnormality potential lateral ischemia - High sensitivity troponin: 121.7 peak -> 107.6 - No acute chest symptoms - Continue home medications Eliquis 5mg - Per Dr. Hastings 04/10: "Multifocal atrial tachycardia: Based on telemetry reviewed today, there are multiple P wave morphologies, suggesting multifocal atrial tachycardia. He has significant lung disease and therefore is at risk of such. No obvious atrial fibrillation noted on my review but rather multifocal atrial tachycardia or simply sinus rhythm with frequent PACs and atrial runs. Increase metoprolol to 25 mg twice daily. According to records, he has a history of A-fib and is on anticoagulation therapy. 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 Lawson - [facility] Ongoing tobacco smoking Prn nicotine patch CXR suggestive of pulmonary fibrosis - Continue Fluticasone-salmeterol inhaler therapy - Goal O2 saturation: 88-92% - Probably not in exacerbation, I think this is all heart failure (5) Chronic back pain: Plan: Take Oxycodone sparingly when outpatient. [place] 5/325 mg x1. Plan Mild hyponatremia Na 132 related to CHF and diuretics DVT ppx - continue apixaban Admission and Anticipated Discharge Date Admission Date: April 07, 2024 Subjective shortness of breath unchanged and on 5L O2 edema has improved a lot especially LUE Physical Exam 2 Physical Exam: PHYSICAL EXAMINATION Last 24h vital signs reviewed, see documentation in flowsheet General: awake alert lying in bed HEENT: Normocephalic, atraumatic, pupils round and equal, sclerae anicteric, no conjunctival injection, moist mucus membranes Lungs: normal WOB, bilateral scattered coarse sounds and crackles, diminished both bases Heart: irregularly irregular, systolic murmur, JVP 15cm Abdomen: Soft, nontender, nondistended. Bowel sounds present. Extremities: Warm, dry, well-perfused. anasarca x 4 extremities, left upper extremity more than right upper extremity. LUE especially has improved a lot Neuro: Alert and oriented x 4, face symmetric, moves 4 extremities well Psych: Normal affect and behavior Results & Data Results & Data Vital Signs (Past 12 Hours) Vital Signs Temp Pulse Pulse Resp BP Pulse Ox O2 Del Method 04/11/24 15:24 97.9 F 83 18 98/66 L 90 Nasal Cannula 04/11/24 14:00 127 H 04/11/24 11:30 97.5 F L 76 18 115/59 L 90 Nasal Cannula 04/11/24 07:46 98.1 F 110 H 20 127/83 90 Nasal Cannula 04/11/24 07:15 Nasal Cannula 04/11/24 07:08 107 H O2 Flow Rate 04/11/24 15:24 5 04/11/24 14:00 04/11/24 11:30 5 04/11/24 07:46 5 04/11/24 07:15 5 04/11/24 07:08 Laboratory Results 04/07/24 17:00 04/11/24 06:32 PG Care Time/CCT Total # of Minutes Spent Total Time Spent with Patient: Total time spent is greater than 50% in coordination of care (as documented) at patient's floor/unit and/or counseling patient: Coding Level of Care Code 12795 SUB INP/OBS CARE 2/35MIN Diagnoses Acute heart failure with mildly reduced ejection fraction (HFmrEF, 41-49%) I50.21 A-fib I48.91 Coronary artery disease involving [place] coronary artery of [place] heart without angina pectoris I25.10 Coronary Disease-Associated Artery/Lesion type: [place] artery [place] vs. transplanted heart: [place] heart Associated angina: without angina Chronic obstructive pulmonary disease, unspecified COPD type J44.9 COPD type: unspecified COPD Chronic back pain M54.9; G89.29 (3) CAD (coronary artery disease) Coronary Disease-Associated Artery/Lesion type: [place] artery [place] vs. transplanted heart: [place] heart Associated angina: without angina Qualified Code(s): I25.10 - Atherosclerotic heart disease of [place] coronary artery without angina pectoris (4) COPD (chronic obstructive pulmonary disease) COPD type: unspecified COPD Qualified Code(s): J44.9 - Chronic obstructive pulmonary disease, unspecified
--- NOTE | 2024-04-11 18:38 | Cardiology Progress Note ---
Date of Service April 11, 2024 Assessment & Plan (1) Acute heart failure with mildly reduced ejection fraction (HFmrEF, 41-49%): (2) S/P aortic valve replacement with bioprosthetic valve: (3) Anticoagulant long-term use: (4) Multifocal atrial tachycardia: (5) Cardiomyopathy: (6) CAD (coronary artery disease): (7) PAF (paroxysmal atrial fibrillation): (8) Thoracic ascending aortic aneurysm: Plan ASSESSMENT/PLAN: 1. Acute heart failure with mildly reduced EF: Significantly hypervolemic on exam. Continue diuresis. Would try to attain at least 1-2 net negative fluid balance per day. Continue spironolactone (new). Consider SGLT2 inhibitor if no contraindication. If blood pressure allows after further diuresis, suggest Entresto. On discharge, recommend metoprolol succinate in place of metoprolol tartrate. Recommend heart failure program. Low-sodium diet, less than 2000 mg daily. Daily weights and strict I's and O's while hospitalized. 2. Multifocal atrial tachycardia: Based on telemetry reviewed today, there are multiple P wave morphologies, suggesting multifocal atrial tachycardia. He has significant lung disease and therefore is at risk of such. No obvious atrial fibrillation noted on my review but rather multifocal atrial tachycardia or simply sinus rhythm with frequent PACs and atrial runs. Continue metoprolol to 25 mg twice daily. 3. Paroxysmal atrial fibrillation: According to records, he has a history of A- fib and is on anticoagulation therapy. As per his primary pump rebuilder. 4. Cardiomyopathy: Has had 2 echoes in the past 5 months, both reporting reduced LV systolic function in the 40 to 45% range. Optimize medical therapy. Can consider ischemic evaluation once improved. Continue to follow with Dr. Rivsa to help outline his plan of care. 5. CAD: Reportedly nonobstructive. Risk factor modification. 6. Thoracic ascending aortic aneurysm: As per records. Avoid strenuous lifting for which the Valsalva maneuver is required. Continue beta-karol. Annual surveillance. 7. Aortic valve replacement: Underwent bioprosthetic aortic valve replacement in 2010. Has had 2 echoes performed in the previous 5 months. Monitor with surveillance echo annually given that his aortic valve replacement is beyond 10 years. SBE prophylaxis for dental procedures. 8. Disposition: Dr. Rivas will resume his cardiology care tomorrow (he was unavailable today). Plan of care communicated with Dr. Sanders of the primary hospitalist service. Admission and Anticipated Discharge Date Admission Date: April 07, 2024 Subjective Patient seen earlier this evening. He denies shortness of breath but is still on 5 L of supplemental oxygen. He believes that his edema is improving. He denies chest pain. He denies syncope, near syncope. He was unaccompanied. Physical Exam Physical Exam: Gen.: No acute distress. Alert. HEENT: Anicteric sclera. Neck: Mild JVD. Cardiac: Regular with ectopy. Normal S1-S2. No murmurs, rubs, or gallops. Pulmonary: Decreased breath sounds, but otherwise clear to auscultation bilaterally without wheezes, rales, or rhonchi. Abdomen: Soft, nontender, nondistended, with normoactive bowel sounds. No bruits noted. Extremities: 2+ radial pulses bilaterally. 1+ bilateral lower extremity pitting edema to the hips. No cyanosis. Results & Data Vital Signs (Past 12 Hours) Vital Signs Temp Pulse Pulse Resp BP Pulse Ox O2 Del Method 04/11/24 15:24 36.6 C 83 18 98/66 L 90 Nasal Cannula 04/11/24 14:00 127 H 04/11/24 11:30 36.4 C L 76 18 115/59 L 90 Nasal Cannula 04/11/24 07:46 36.7 C 110 H 20 127/83 90 Nasal Cannula 04/11/24 07:15 Nasal Cannula 04/11/24 07:08 107 H O2 Flow Rate 04/11/24 15:24 5 04/11/24 14:00 04/11/24 11:30 5 04/11/24 07:46 5 04/11/24 07:15 5 04/11/24 07:08 Intake & Output 04/09/24 04/10/24 04/11/24 04/12/24 06:59 06:59 06:59 06:59 Intake Total 900.833 / 900.833 800 / 800 1240 / 1240 480 / 480 Output Total 1999 / 2099 500 / 500 Balance -1099.167 / -1099.167 -1150 / -1150 -860 / -860 -20 / -20 Weight 180 lb 8.937 oz 173 lb 4.533 oz 171 lb 4.787 oz Laboratory Results Laboratory Results - last 24 hr 04/11/24 06:32 Sodium 132 L Potassium 4.4 Chloride 98 Carbon Dioxide 29 Anion Gap 5 BUN 19 Creatinine 0.77 Est Cr Clr Drug Dosing 78.5 eGFR 92.78 BUN/Creatinine Ratio 24.7 H Glucose 96 Calcium 8.2 L Magnesium 1.9 Diagnostic Findings Telemetry personally reviewed: Sinus rhythm with PACs versus multifocal atrial tachycardia at times. Heart rate mostly in the 90s to 100s when telemetry reviewed this morning. Labs reviewed from 04/11/2024: Stable renal function, normal potassium, mild hyponatremia. Medications Administered Current Inpatient Medications Acetaminophen (Acetaminophen 325 Mg Tab) 650 mg PO Q4H PRN PRN Reason: Pain or Fever Stop: 05/07/24 22:41 Last Admin: 04/11/24 08:23 Dose: 650 mg Apixaban (Apixaban 5 Mg Tablet) 5 mg PO BID [facility] Stop: 05/07/24 22:41 Last Admin: 04/11/24 07:41 Dose: 5 mg Atorvastatin Calcium (Atorvastatin 40 Mg Tab) 40 mg PO QAM [facility] Stop: 05/08/24 08:59 Last Admin: 04/11/24 07:42 Dose: 40 mg Fluticasone/Vilanterol (Fluticasone/Vilanterol 100/25mcg 14 Puffs/Inhaler) 1 puffs INH DAILY [facility] Stop: 05/08/24 08:59 Last Admin: 04/11/24 07:42 Dose: 1 puffs Furosemide (Furosemide Inj 20 Mg/2 Ml Vial) 20 mg IV BID17 [facility] Stop: 05/10/24 08:59 Last Admin: 04/11/24 16:56 Dose: 20 mg Metoprolol Tartrate (Metoprolol Tartrate 25 Mg Tab) 25 mg PO BID [facility] Stop: 05/10/24 20:59 Last Admin: 04/11/24 07:44 Dose: 25 mg Miscellaneous (Remove Nicoderm Patch) 1 each N/A DAILY@0859 [facility] Stop: 05/09/24 08:58 Last Admin: 04/11/24 07:41 Dose: Not Given Nicotine (Nicotine 21 Mg/24 Hr Tdsy) 1 patch TD QAM PRN PRN Reason: nicotine withdrawal Stop: 05/09/24 08:59 Potassium Chloride (Potassium Chloride Crtab 20 Meq Tabcr) 40 meq PO QAM [facility] Stop: 05/08/24 10:29 Last Admin: 04/11/24 07:45 Dose: 40 meq Spironolactone (Spironolactone 25 Mg Tab) 25 mg PO QAM [facility] Stop: 05/11/24 08:59 Last Admin: 04/11/24 07:43 Dose: 25 mg Tamsulosin HCl (Tamsulosin Hcl 0.4 Mg Cap) 0.4 mg PO QAM [facility] Stop: 05/08/24 08:59 Last Admin: 04/11/24 07:41 Dose: 0.4 mg PG Care Time/CCT Total # of Minutes Spent Total Time Spent with Patient: Total time spent is greater than 50% in coordination of care (as documented) at patient's floor/unit and/or counseling patient: Coding Level of Care Code 15076 SUB INP/OBS CARE 3/50MIN Diagnoses Acute heart failure with mildly reduced ejection fraction (HFmrEF, 41-49%) I50.21 S/P aortic valve replacement with bioprosthetic valve Z95.3 Anticoagulant long-term use Z79.01 Multifocal atrial tachycardia I47.19 Cardiomyopathy, unspecified type I42.9 Cardiomyopathy type: unspecified Coronary artery disease involving [place] coronary artery of [place] heart without angina pectoris I25.10 Coronary Disease-Associated Artery/Lesion type: [place] artery [place] vs. transplanted heart: [place] heart Associated angina: without angina PAF (paroxysmal atrial fibrillation) I48.0 Aneurysm of ascending aorta without rupture I71.21 Presence of rupture: without rupture (5) Cardiomyopathy Cardiomyopathy type: unspecified Qualified Code(s): I42.9 - Cardiomyopathy, unspecified (6) CAD (coronary artery disease) Coronary Disease-Associated Artery/Lesion type: [place] artery [place] vs. transplanted heart: [place] heart Associated angina: without angina Qualified Code(s): I25.10 - Atherosclerotic heart disease of [place] coronary artery without angina pectoris (8) Thoracic ascending aortic aneurysm Presence of rupture: without rupture Qualified Code(s): I71.21 - Aneurysm of the ascending aorta, without rupture
[2024-04-12 06:58] LABS: BUN Creatinine Ratio 29.9 (10-20); Calcium 8.2 mg/dl (8.6-10.3); Creatinine Clr Calc Pharmacy 89.9 ml/min; Magnesium 1.8 mg/dl (1.7-2.4); Potassium 4.6 mmol/L (3.5-5.1)
--- NOTE | 2024-04-12 15:16 | Hospitalist Progress Note ---
Date of Service April 12, 2024 Assessment & Plan (1) Acute on chronic systolic heart failure: Plan: Echo 10/2023 and Echo 12/2023: EF 40-45% along with significant RV systolic dysfunction remains decompensated despite twice daily IV lasix will give an additional 20mg of IV lasix this evening mild cardiomyopathy 2nd to uncontrolled a.fib? other? AVR on most recent echo shows intact valve function thus valvular disease is not the cause of his cardiomyopathy cont diuresis cont beta karol ideally should be on Entresto but BPs right now will not allow cont aldactone see plans for a.fib Rx appreciate cardiology assistance (2) A-fib: Plan: despite metoprolol BID his rate control remains very poor we do not have much room for titration of metoprolol due to low or low-normal BPs could consider digoxin could consider rhythm control strategy as it appears that his LV dysfunction started in the last year when he developed a.fib I discussed his care with Dr R[place] [facility] [place] plan is to institute amiodarone IV in the hopes of chemical cardioversion to NSR of note - he is on Eliquis chronically and takes such consistently will move patient from med/tele to PCU to start amiodarone bolus/drip cont Eliquis cont BB (3) CAD (coronary artery disease): Plan: cath 2010 (by report) with minimal irregularities? will try to find report in [employer] cont statin cont BB (4) COPD (chronic obstructive pulmonary disease): Plan: followed by Dr. Lulu Han's [facility] Pulmonology Ongoing tobacco smoking Continue Fluticasone-salmeterol inhaler therapy CT chest 12/2023 without PF/ILD (5) Chronic back pain: Plan: Take Oxycodone prn (6) S/P aortic valve replacement with bioprosthetic valve: Plan: last echo 2023 with intact valve function (7) Hyponatremia: Plan: Na today 131 He has hyponatremia chronically in the low 130s dating back to at least 2017 check a TSH in the am check BMP am Plan DVT ppx - continue apixaban BID PT, OT when able left message for pt's daughter, Loli Germain, on her voicemail this evening Admission and Anticipated Discharge Date Admission Date: April 07, 2024 Subjective patient lying in bed comfortably denied dyspnea at rest has had minimal activity today so he can't say if he is dyspneic with moving denies chest pain denies cough was not in good spirits today tele - a.fib, rates consistently >100 Review of Systems Review of Systems: gen - no fevers; eating well cv - no orthopnea; edema of arms/legs improving GI - no nausea/emesis Physical Exam Physical Exam: gen - laying in bed comfortably, NAD neck - JVD to the jaw mouth - MMM heart - irregularly irregular, tachy, s1 s2, no obvious murmur lungs - diffuse fine rales about 1/2 [address] up back, decreased BS bases, no increased work of breathing abd - soft NT ND BS+ ext - <1+ edema b/l legs; edema of arms, modestly worse on left psych - alert, oriented Results & Data Results & Data Vital Signs (Past 12 Hours) Vital Signs Temp Pulse Pulse Resp BP Pulse Ox O2 Del Method 04/12/24 14:49 114 H 04/12/24 11:39 36.9 C 110 H 17 122/87 90 Nasal Cannula 04/12/24 11:33 Nasal Cannula 04/12/24 08:40 36.5 C 110 H 18 131/85 90 Nasal Cannula 04/12/24 04:30 36.8 C 105 H 18 116/86 90 Nasal Cannula O2 Flow Rate 04/12/24 14:49 04/12/24 11:39 5 04/12/24 11:33 5 04/12/24 08:40 5 04/12/24 04:30 5 Laboratory Results Laboratory Results - last 24 hr 04/12/24 05:53 Sodium 131 L Potassium 4.6 Chloride 98 Carbon Dioxide 28 Anion Gap 5 BUN 20 Creatinine 0.67 Est Cr Clr Drug Dosing 89.9 eGFR 96.77 BUN/Creatinine Ratio 29.9 H Glucose 95 Calcium 8.2 L Magnesium 1.8 PG Care Time/CCT Total # of Minutes Spent Total Time Spent with Patient: Total time spent is greater than 50% in coordination of care (as documented) at patient's floor/unit and/or counseling patient: Coding Level of Care Code 28925 SUB INP/OBS CARE 3/50MIN Diagnoses Acute on chronic systolic heart failure I50.23 A-fib I48.91 Coronary artery disease involving [place] coronary artery of [place] heart without angina pectoris I25.10 Associated angina: without angina Coronary Disease-Associated Artery/Lesion type: [place] artery [place] vs. transplanted heart: [place] heart Chronic obstructive pulmonary disease, unspecified COPD type J44.9 COPD type: unspecified COPD Chronic back pain M54.9; G89.29 S/P aortic valve replacement with bioprosthetic valve Z95.3 Hyponatremia E87.1 (3) CAD (coronary artery disease) Associated angina: without angina Coronary Disease-Associated Artery/Lesion type: [place] artery [place] vs. transplanted heart: [place] heart Qualified Code(s): I25.10 - Atherosclerotic heart disease of [place] coronary artery without angina pectoris (4) COPD (chronic obstructive pulmonary disease) COPD type: unspecified COPD Qualified Code(s): J44.9 - Chronic obstructive pulmonary disease, unspecified
--- NOTE | 2024-04-12 15:36 | Cardiology Progress Note ---
Date of Service April 12, 2024 Assessment & Plan (1) PAF (paroxysmal atrial fibrillation): Plan: -Ventricular response remains elevated. -Blood pressure remained limits increasing dose of metoprolol -Would undertake a trial of intravenous amiodarone -Continue Eliquis 5 Mg twice daily. Admission and Anticipated Discharge Date Admission Date: April 07, 2024 Subjective The patient is resting comfortably at bedside chair without complaints of palpitations, dyspnea, or chest pain. Physical Exam Physical Exam: In general is well-developed well-nourished white male in no acute distress. HEENT exam is negative. Neck is supple with full carotid upstrokes. No carotid bruits. No jugular venous distention. Well-healed scar seen bilaterally. Cardiovascular exam reveals an irregularly irregular rhythm. 1/6 basal systolic ejection murmur is noted. No S3. Lungs are clear without rales, rhonchi, or wheezes. Abdomen is soft nontender without bruits. Extremities reveal intact radial artery pulses bilaterally. There is 1-2+ pretibial edema. Results & Data Vital Signs (Past 12 Hours) Vital Signs Temp Pulse Pulse Resp BP Pulse Ox O2 Del Method 04/12/24 14:49 114 H 04/12/24 11:39 36.9 C 110 H 17 122/87 90 Nasal Cannula 04/12/24 11:33 Nasal Cannula 04/12/24 08:40 36.5 C 110 H 18 131/85 90 Nasal Cannula 04/12/24 04:30 36.8 C 105 H 18 116/86 90 Nasal Cannula O2 Flow Rate 04/12/24 14:49 04/12/24 11:39 5 04/12/24 11:33 5 04/12/24 08:40 5 04/12/24 04:30 5 Diagnostic Findings gambling monitor notes atrial fibrillation with a rapid ventricular response. PG Care Time/CCT Total # of Minutes Spent Total Time Spent with Patient: Total time spent is greater than 50% in coordination of care (as documented) at patient's floor/unit and/or counseling patient: Coding Level of Care Code 97918 SUB INP/OBS CARE 3/50MIN Diagnoses PAF (paroxysmal atrial fibrillation) I48.0
[2024-04-12] MEDS: FUROSEMIDE INJ 20 MG/2 ML VIAL IV ONE (17:22)
[2024-04-12] MEDS ORDERED: STAT IV Infusion **Titration per Protocol STA (17:29)
[2024-04-12] MEDS ORDERED: AMIODARONE IV BOLUS & DRIP IV STA (17:29)
[2024-04-12] MEDS: AMIODARONE / D5W 150 MG/100 ML BAG IV ONE (17:56)
[2024-04-12] MEDS ORDERED: 0.2 MICRON FILTER SET 1 EACH IV ONE (18:00)
[2024-04-12] MEDS: AMIODARONE / D5W 360 MG/200 ML BAG IV ONE (18:10)
[2024-04-12] MEDS: AMIODARONE / D5W 360 MG/200 ML BAG IV SCH (23:33)
[2024-04-13 05:55] LABS: HCO3 VBG 29 mmol/L; Oxygen Saturation VBG 89.1 %; PCO2 VBG 45 mmHg (38-50); PO2 VBG 56 mmHg; pH VBG 7.42 (7.36-7.41)
[2024-04-13 06:19] LABS: BUN Creatinine Ratio 26.7 (10-20); Calcium 7.9 mg/dl (8.6-10.3); Creatinine Clr Calc Pharmacy 80.3 ml/min; Potassium 4.6 mmol/L (3.5-5.1)
[2024-04-13 06:34] LABS: Thyroid Stimulating Hormone 11.721 uIu/ml (0.300-4.500)
[2024-04-13 07:09] LABS: T4 Free Thyroxine 1.04 ng/dl (0.61-1.60)
--- NOTE | 2024-04-13 09:42 | CT Scan Report ---
CT chest diagnostic wo con CLINICAL HISTORY: known COPD, resp failure; CHF? ILD/PF? TECHNIQUE: Multidetector row helical CT of the chest was performed. Coronal and sagittal reformations were obtained. Automated dose lowering techniques and/or adjustment according to patient size were u tilized for this exam. CT DOSE: 729.27 mGy.cm Comparison: Comparison is made to CT chest 01/16/2024 FINDINGS: Lungs and pleura: Emphysema is seen with new consolidation. Moderate bilateral pleural effusions are seen with underlying atelectasis. Heart and pericardium: Cardiomegaly is seen with biatrial enlargement. Aortic calcifications are seen . Vessels: Severe atherosclerotic changes in the aorta and coronary arteries. Pulmonary trunk measures 37 mm. Mediastinum and winnie: Mediastinal lymph nodes measure up to 12 mm in diameter. Chest wall and lower neck: Unremarkable. Abdomen: Unremarkable. Bones: Degenerative changes of the thoracic spine. Subacute left rib fractures are seen. IMPRESSION: 1. Moderate bilateral pleural effusions with underlying atelectasis. There is superimposed consolida tion which may represent aspiration, pneumonia, or less likely alveolar edema. Mediastinal lymphadeno raoul is likely reactive. 2. Cardiomegaly and pulmonary hypertension. 3. Emphysema. ACT 112: Negative or not required by law. Electronically signed by: Maco Cleveland M.D. 04/13/2024 9:41 AM
[2024-04-13] MEDS: LEVOTHYROXINE SODIUM 50 MCG TABLET PO SCH (14:54)
[2024-04-13] MEDS: BUMETANIDE 0.5 MG in SYRINGE 0 ML IV SCH (16:53)
--- NOTE | 2024-04-13 19:19 | Hospitalist Progress Note ---
Date of Service April 13, 2024 Assessment & Plan (1) Acute on chronic systolic heart failure: Plan: Echo 10/2023 and Echo 12/2023: EF 40-45% along with significant RV systolic dysfunction cardiomyopathy 2nd to uncontrolled a.fib? other? AVR on most recent echo shows intact valve function thus valvular disease is not the cause of his cardiomyopathy cont diuresis but try bumex 0.5mg BID in [place] of lasix BID cont beta karol ideally should be on Entresto but BPs right now will not allow cont aldactone see plans for a.fib Rx see discussion re: pleural effusions appreciate cardiology assistance (2) A-fib: Plan: rhythm control strategy was pursued yesterday with amiodarone infusion it appears that his LV dysfunction started in the last year when he developed a.fib thus, maintaining NSR may allow LV function to improve he converted to NSR overnight on the amio drip will continue the drip until tomorrow morning, then transition to po amio then cont Eliquis cont BB (3) CAD (coronary artery disease): Plan: cath 2010 (by report) with minimal irregularities? will try to find report in [employer] cont statin cont BB (4) COPD (chronic obstructive pulmonary disease): Plan: followed by Dr. Lulu Han's [facility] Pulmonology Ongoing tobacco smoking Continue Fluticasone-salmeterol inhaler therapy CT chest 12/2023 without PF/ILD CT chest again today without ILD and evidence of CHF wheezing on exam - suspect more so due to pulmonary edema rather than COPD (5) Chronic back pain: Plan: Take Oxycodone prn (6) S/P aortic valve replacement with bioprosthetic valve: Plan: last echo 2023 with intact valve function (7) Hyponatremia: Plan: Na today 129 He has hyponatremia chronically in the low 130s dating back to at least 2017 hypothyroidism, CHF, etc all likely contributing recheck BMP am (8) Hypothyroidism: Plan: patient with normal FT4 but TSH elevated at 11 in light of his cardiac issues and his chronic hyponatremia replacement would likely help him thus, start synthroid 50mcg daily with repeat TSH in 6 weeks as outpatient (9) Pleural effusion: Plan: moderate b/l effusions 2nd to decompensated CHF - as seen on chest CT today these bear watching as we have now been diuresing for nearly a week and his effusions remain poor candidate for intervention given his Eliquis usage [id number] cont to diurese and observe carefully Plan DVT ppx - continue apixaban BID PT, OT updated pt's daughter, Loli Germain, this evening Admission and Anticipated Discharge Date Admission Date: April 07, 2024 Subjective converted to NSR overnight on amiodarone infusion patient lying in bed comfortably during the visit reports minimal cough reports no dyspnea at rest he is mainly concerned about when he might get home anxious to get home has not been out of bed much eating well Review of Systems Review of Systems: cv - no orthopnea; edema continues to improve pulm - no dyspnea at rest Physical Exam Physical Exam: gen - laying in bed comfortably, NAD neck - JVD improved mouth - MMM heart - RRR, s1 s2, no obvious murmur lungs - fine rales bases improved; decreased BS bases remain; no increased work of breathing; + wheezes b/l today abd - soft NT ND BS+ ext - trace-<1+ edema b/l legs; edema of arms, modestly worse on left - again improved psych - alert, oriented Results & Data Results & Data Vital Signs (Past 12 Hours) Vital Signs Temp Pulse Pulse Pulse Resp BP Pulse Ox 04/13/24 15:35 36.9 C 76 18 115/71 94 04/13/24 14:07 66 04/13/24 11:51 36.3 C L 65 18 117/79 93 04/13/24 08:10 86 89 L 04/13/24 08:00 04/13/24 07:48 36.5 C 87 20 108/69 87 L O2 Del Method O2 Flow Rate 04/13/24 15:35 Nasal Cannula 4 04/13/24 14:07 04/13/24 11:51 Nasal Cannula 4 04/13/24 08:10 High Flow Nasal Cannula 7 04/13/24 08:00 High Flow Nasal Cannula 7 04/13/24 07:48 Nasal Cannula 7 Laboratory Results Laboratory Results - last 24 hr 04/13/24 05:45 VBG pH 7.42 H VBG pCO2 45 VBG pO2 56 VBG HCO3 29 VBG O2 Saturation 89.1 VBG Base Excess 4.0 Sodium 129 L Potassium 4.6 Chloride 95 L Carbon Dioxide 30 Anion Gap 4 BUN 20 Creatinine 0.75 Est Cr Clr Drug Dosing 80.3 eGFR 93.53 BUN/Creatinine Ratio 26.7 H Glucose 126 H Calcium 7.9 L TSH 11.721 H Free T4 1.04 PG Care Time/CCT Total # of Minutes Spent Total Time Spent with Patient: Total time spent is greater than 50% in coordination of care (as documented) at patient's floor/unit and/or counseling patient: Coding Level of Care Code 61021 SUB INP/OBS CARE 3/50MIN Diagnoses Acute on chronic systolic heart failure I50.23 A-fib I48.91 Coronary artery disease involving [place] coronary artery of [place] heart without angina pectoris I25.10 Associated angina: without angina Coronary Disease-Associated Artery/Lesion type: [place] artery [place] vs. transplanted heart: [place] heart Chronic obstructive pulmonary disease, unspecified COPD type J44.9 COPD type: unspecified COPD Chronic back pain M54.9; G89.29 S/P aortic valve replacement with bioprosthetic valve Z95.3 Hyponatremia E87.1 Hypothyroidism E03.9 Pleural effusion J90 (3) CAD (coronary artery disease) Associated angina: without angina Coronary Disease-Associated Artery/Lesion type: [place] artery [place] vs. transplanted heart: [place] heart Qualified Code(s): I25.10 - Atherosclerotic heart disease of [place] coronary artery without angina pectoris (4) COPD (chronic obstructive pulmonary disease) COPD type: unspecified COPD Qualified Code(s): J44.9 - Chronic obstructive pulmonary disease, unspecified
[2024-04-14 07:56] LABS: BUN Creatinine Ratio 20.5 (10-20); Calcium 8.4 mg/dl (8.6-10.3); Creatinine Clr Calc Pharmacy 77.8 ml/min; Potassium 4.8 mmol/L (3.5-5.1)
[2024-04-14] MEDS: AMIODARONE 200 MG TAB PO SCH (09:27)
--- NOTE | 2024-04-14 21:02 | Hospitalist Progress Note ---
Date of Service April 14, 2024 Assessment & Plan (1) Acute on chronic systolic heart failure: Plan: Improving Echo 10/2023 and Echo 12/2023: EF 40-45% along with significant RV systolic dysfunction cardiomyopathy 2nd to uncontrolled a.fib? other? AVR on most recent echo shows intact valve function thus valvular disease is not the cause of his cardiomyopathy cont diuresis w/ bumex 0.5mg BID in [place] of lasix BID cont beta karol ideally should be on Entresto but BPs right now will not allow cont aldactone see plans for a.fib Rx see discussion re: pleural effusions appreciate cardiology assistance (2) A-fib: Plan: rhythm control strategy was pursued with amiodarone infusion it appears that his LV dysfunction started in the last year when he developed a.fib thus, maintaining NSR may allow LV function to improve he converted to NSR on the amio drip will stop the drip this am and convert to PO amio 200mg BID cont Eliquis cont BB (3) CAD (coronary artery disease): Plan: cath 2010 (by report) with minimal irregularities? will try to find report in [employer] cont statin cont BB (4) COPD (chronic obstructive pulmonary disease): Plan: followed by Dr. Lulu Han's [facility] Ongoing tobacco smoking Continue Fluticasone-salmeterol inhaler therapy CT chest 12/2023 without PF/ILD CT chest again today without ILD and evidence of CHF wheezing on exam - suspect more so due to pulmonary edema rather than COPD (5) Chronic back pain: Plan: Take Oxycodone prn (6) S/P aortic valve replacement with bioprosthetic valve: Plan: last echo 2023 with intact valve function (7) Hyponatremia: Plan: Na today 129 He has hyponatremia chronically in the low 130s dating back to at least 2017 hypothyroidism, CHF, etc all likely contributing recheck BMP am (8) Hypothyroidism: Plan: patient with normal FT4 but TSH elevated at 11 in light of his cardiac issues and his chronic hyponatremia replacement would likely help him thus, start synthroid 50mcg daily with repeat TSH in 6 weeks as outpatient (9) Pleural effusion: Plan: moderate b/l effusions 2nd to decompensated CHF - as seen on chest CT this admission hopefully these will improve with diuresis poor candidate for intervention given his Eliquis usage observe carefully Plan DVT ppx - continue apixaban BID PT, OT updated pt's daughter, Loli Germain, yesterday evening updated his other daughter at bedside today Admission and Anticipated Discharge Date Admission Date: April 07, 2024 Subjective pt w/o complaints asks when he can go home daughter at bedside denies any dyspnea at rest minimal cough minimal activity outside of the bed; only getting to commode to have BMs, etc encouraged him to work with PT/OT tele overnight; no a.fib; wandering atrial pacemaker, pacs, nsr Review of Systems Review of Systems: CV - no chest pain pulm - no dyspnea; no sputum; some wheezing GI - no N/V/pain Physical Exam Physical Exam: gen - laying in bed comfortably, NAD neck - JVD improved/nearly resolved mouth - MMM heart - RRR, s1 s2, no obvious murmur lungs - fine rales bases - minimal; decreased BS bases; b/l wheezes; no increased work of breathing abd - soft NT ND BS+ ext - NO edema b/l legs; edema of arms, modestly worse on left - resolving psych - alert, oriented Results & Data Results & Data Vital Signs (Past 12 Hours) Vital Signs Temp Pulse Resp BP BP Pulse Ox O2 Del Method 04/14/24 20:04 36.3 C L 89 18 92/58 L 93 High Flow Nasal Cannula 04/14/24 15:37 93/60 L 04/14/24 15:25 36.7 C 81 18 84/53 L 91 Nasal Cannula 04/14/24 11:47 36.2 C L 79 18 107/67 91 Nasal Cannula O2 Flow Rate 04/14/24 20:04 04/14/24 15:37 04/14/24 15:25 6 04/14/24 11:47 8 Laboratory Results Laboratory Results - last 24 hr 04/14/24 04/14/24 05:38 Unknown Sodium 129 L Potassium 4.8 Chloride 94 L Carbon Dioxide 30 Anion Gap 5 BUN 16 Creatinine 0.78 Est Cr Clr Drug Dosing 77.8 eGFR 92.42 BUN/Creatinine Ratio 20.5 H Glucose 92 Calcium 8.4 L Urine Osmolality 554 Ur Random Sodium 105 PG Care Time/CCT Total # of Minutes Spent Total Time Spent with Patient: Total time spent is greater than 50% in coordination of care (as documented) at patient's floor/unit and/or counseling patient: Coding Level of Care Code 85738 SUB INP/OBS CARE MIN Diagnoses Acute on chronic systolic heart failure I50.23 A-fib I48.91 Coronary artery disease involving [place] coronary artery of [place] heart without angina pectoris I25.10 Associated angina: without angina Coronary Disease-Associated Artery/Lesion type: [place] artery [place] vs. transplanted heart: [place] heart Chronic obstructive pulmonary disease, unspecified COPD type J44.9 COPD type: unspecified COPD Chronic back pain M54.9; G89.29 S/P aortic valve replacement with bioprosthetic valve Z95.3 Hyponatremia E87.1 Hypothyroidism E03.9 Pleural effusion J90 (3) CAD (coronary artery disease) Associated angina: without angina Coronary Disease-Associated Artery/Lesion type: [place] artery [place] vs. transplanted heart: [place] heart Qualified Code(s): I25.10 - Atherosclerotic heart disease of [place] coronary artery without angina pectoris (4) COPD (chronic obstructive pulmonary disease) COPD type: unspecified COPD Qualified Code(s): J44.9 - Chronic obstructive pulmonary disease, unspecified
[2024-04-15 06:39] LABS: BUN Creatinine Ratio 21.9 (10-20); Calcium 8.3 mg/dl (8.6-10.3); Creatinine Clr Calc Pharmacy 74.9 ml/min; Magnesium 1.7 mg/dl (1.7-2.4); Potassium 4.3 mmol/L (3.5-5.1)
--- NOTE | 2024-04-15 17:19 | XRay Report ---
EXAM: Radiographs of the Chest 2 Views INDICATION: Hypoxia. TECHNIQUE: Frontal and lateral views of the chest. COMPARISON: 04/13/2024 FINDINGS: Lungs and pleural spaces: Stable diffuse interstitial and airspace infiltrates most confluent in the lung bases with small basilar pleural effusions. No pneumothorax. Heart: Stable large cardiac shadow. Mediastinum: Normal contour. Bones/joints: Degenerative changes noted throughout the spine and both shoulders. No lytic or blastic lesions noted. IMPRESSION: Stable extensive interstitial and airspace infiltrates. Consider CHF and pneumonia. ACT 112: Negative or not required by law. Electronically signed by Rachel Collazo 04-15-2024 5:19 PM
--- NOTE | 2024-04-15 19:23 | Hospitalist Progress Note ---
Date of Service April 15, 2024 Assessment & Plan (1) Acute on chronic systolic heart failure: Plan: Improving Weight is down ~15# since admission BUN & Cr remain stable however, after tonight's bumex dose, place it on hold pending AM labs tomorrow Echo 10/2023 and Echo 12/2023: EF 40-45% along with significant RV systolic dysfunction cardiomyopathy 2nd to uncontrolled a.fib? other? AVR on most recent echo shows intact valve function thus valvular disease is not the cause of his cardiomyopathy cont diuresis w/ bumex 0.5mg BID in [place] of lasix BID cont beta karol ideally should be on Entresto but BPs right now will not allow cont aldactone see plans for a.fib Rx see discussion re: pleural effusions appreciate cardiology assistance (2) A-fib: Plan: rhythm control strategy was pursued with amiodarone infusion it appears that his LV dysfunction started in the last year when he developed a.fib thus, maintaining NSR may allow LV function to improve he converted to NSR on the amio drip and is now on PO amio 200mg BID cont Eliquis cont BB (3) CAD (coronary artery disease): Plan: cath 2010 (by report) with minimal irregularities? will try to find report in [facility] cont statin cont BB (4) COPD (chronic obstructive pulmonary disease): Plan: followed by Dr. Lulu Han's [facility] Pul[facility] Ongoing tobacco smoking Continue Fluticasone-salmeterol inhaler therapy CT chest 12/2023 without PF/ILD CT chest this admission without ILD and evidence of CHF along with mod sized pleural effusions no evidence of COPD exacerbation (5) Chronic back pain: Plan: Take Oxycodone prn (6) S/P aortic valve replacement with bioprosthetic valve: Plan: last echo 2023 with intact valve function (7) Hyponatremia: Plan: Na today 130 & stable He has hyponatremia chronically in the low 130s dating back to at least 2017 hypothyroidism, CHF, etc all likely contributing recheck BMP am for stability (8) Hypothyroidism: Plan: patient with normal FT4 but TSH elevated at 11 in light of his cardiac issues and his chronic hyponatremia replacement would likely help him thus, start synthroid 50mcg daily with repeat TSH in 6 weeks as outpatient (9) Pleural effusion: Plan: moderate b/l effusions 2nd to decompensated CHF - as seen on chest CT this admission hopefully these will improve with diuresis poor candidate for intervention given his Eliquis usage repeat x-ray today - effusions perhaps have decreased in size since prior imaging observe carefully (10) Hypoxia: Plan: thought 2nd to decompensated CHF despite aggressive diuresis he has had no significant change in O2 requirement still requiring 5-7 L NC O2 despite loss of 15# of weight COPD could be contributing ongoing effusions could be contributing will d/w pulmonary tomorrow cont diuresis Plan DVT ppx - continue apixaban BID PT, OT updated pt's daughters (x 2) this week by phone or in person left message for Loli Germain (daughter) this evening on voicemail Admission and Anticipated Discharge Date Admission Date: April 07, 2024 Subjective patient w/o any new complaints again asks about going home denies dyspnea edema of arms improved eating well mild cough only tele - wandering atrial pacemaker/NSR/PACs; no a.fib still requiring 5-7 L NC O2 Review of Systems Review of Systems: cv - no orthopnea, no PND, no cp pulm - no sputum GI - no N/V Physical Exam Physical Exam: gen - laying in bed comfortably, NAD neck - JVD improved but not resolved mouth - MMM heart - RRR, s1 s2, no obvious murmur lungs - fine rales bases; decreased BS bases; b/l wheezes; no increased work of breathing abd - soft NT ND BS+ ext - NO edema b/l legs; no edema RUE; minimal residual edema LUE psych - alert, oriented x 3 Results & Data Results & Data Vital Signs (Past 12 Hours) Vital Signs Temp Pulse Pulse Resp BP BP Pulse Ox 04/15/24 15:29 36.8 C 77 19 97/62 L 94/59 L 91 04/15/24 13:00 72 04/15/24 12:16 36.6 C 69 18 96/65 L 95 04/15/24 08:18 36.6 C 109 H 21 103/68 90 O2 Del Method O2 Flow Rate 04/15/24 15:29 High Flow Nasal Cannula 7 04/15/24 13:00 04/15/24 12:16 Nasal Cannula 7 04/15/24 08:18 Nasal Cannula 7 Laboratory Results Laboratory Results - last 24 hr 04/15/24 05:36 Sodium 130 L Potassium 4.3 Chloride 94 L Carbon Dioxide 33 H Anion Gap 3 BUN 16 Creatinine 0.73 Est Cr Clr Drug Dosing 74.9 eGFR 94.29 BUN/Creatinine Ratio 21.9 H Glucose 96 Calcium 8.3 L Magnesium 1.7 Diagnostic Findings Chest X-Ray 04/15/24 16:23 EXAM: Radiographs of the Chest 2 Views INDICATION: Hypoxia. TECHNIQUE: Frontal and lateral views of the chest. COMPARISON: 04/13/2024 FINDINGS: Lungs and pleural spaces: Stable diffuse interstitial and airspace infiltrates most confluent in the lung bases with small basilar pleural effusions. No pneumothorax. Heart: Stable large cardiac shadow. Mediastinum: Normal contour. Bones/joints: Degenerative changes noted throughout the spine and both shoulders. No lytic or blastic lesions noted. IMPRESSION: Stable extensive interstitial and airspace infiltrates. Consider CHF and pneumonia. ACT 112: Negative or not required by law. Electronically signed by Rachel Collazo 04-15-2024 5:19 PM PG Care Time/CCT Total # of Minutes Spent Total Time Spent with Patient: Total time spent is greater than 50% in coordination of care (as documented) at patient's floor/unit and/or counseling patient: Coding Level of Care Code 96794 SUB INP/OBS CARE 2/35MIN Diagnoses Acute on chronic systolic heart failure I50.23 A-fib I48.91 Coronary artery disease involving [place] coronary artery of [place] heart without angina pectoris I25.10 Associated angina: without angina Coronary Disease-Associated Artery/Lesion type: [place] artery [place] vs. transplanted heart: [place] heart Chronic obstructive pulmonary disease, unspecified COPD type J44.9 COPD type: unspecified COPD Chronic back pain M54.9; G89.29 S/P aortic valve replacement with bioprosthetic valve Z95.3 Hyponatremia E87.1 Hypothyroidism E03.9 Pleural effusion J90 Hypoxia R09.02 (3) CAD (coronary artery disease) Associated angina: without angina Coronary Disease-Associated Artery/Lesion type: [place] artery [place] vs. transplanted heart: [place] heart Qualified Code(s): I25.10 - Atherosclerotic heart disease of [place] coronary artery without angina pectoris (4) COPD (chronic obstructive pulmonary disease) COPD type: unspecified COPD Qualified Code(s): J44.9 - Chronic obstructive pulmonary disease, unspecified
[2024-04-16 07:46] LABS: Hematocrit (blood only) 36.7 % (42.0-52.0); Hemoglobin 12.3 g/dl (14.0-18.0); Mean Corpuscular Hemoglobin 33.2 pg (25.0-34.0); Mean Corpuscular Hgb Conc 33.5 g/dL (32.0-36.0); Mean Corpuscular Volume 98.9 fL (80.0-100.0); Mean Platelet Volume 10.6 fL (9.4-12.4); Platelet Count 141 K/uL (130-400); RDW Coefficient of Variation 13.1 % (11.5-14.5); RDW Standard Deviation 48.1 fL (36.4-46.3); Red Blood Count 3.71 M/uL (4.70-6.10)
[2024-04-16 08:08] LABS: BUN Creatinine Ratio 22.5 (10-20); C Reactive Protein 2.3 mg/dl (0-0.5); Calcium 8.3 mg/dl (8.6-10.3); Creatinine Clr Calc Pharmacy 83.3 ml/min; Potassium 4.3 mmol/L (3.5-5.1)
--- NOTE | 2024-04-16 18:21 | Hospitalist Progress Note ---
Date of Service April 16, 2024 Assessment & Plan (1) Acute on chronic systolic heart failure: Plan: Improving Weight is down ~15# since admission BUN & Cr again stable on BMP today Echo 10/2023 and Echo 12/2023: EF 40-45% along with significant RV systolic dysfun ction cardiomyopathy 2nd to uncontrolled a.fib? other? AVR on most recent echo shows intact valve function thus valvular disease is not the cause of his cardiomyopathy cont diuresis w/ bumex 0.5mg BID in [place] of lasix BID cont beta karol ideally should be on Entresto defer for now cont aldactone see plans for a.fib Rx see discussion re: pleural effusions appreciate cardiology assistance will diurese until we see rise in Creatinine (2) A-fib: Plan: rhythm control strategy was pursued with amiodarone infusion earlier this week it appears that his LV dysfunction started in the last year when he developed a.fib thus, maintaining NSR may allow LV function to improve over time he converted to NSR on the amio drip earlier this week and is now on PO amio 200mg BID cont Eliquis cont BB (3) CAD (coronary artery disease): Plan: cath 2010 (by report) with minimal irregularities? cont statin cont BB (4) COPD (chronic obstructive pulmonary disease): Plan: followed by Dr. Lulu Han's [facility] Ongoing tobacco smoking Continue Fluticasone-salmeterol inhaler therapy CT chest 12/2023 without PF/ILD CT chest this admission without ILD and evidence of CHF along with mod sized pleural effusions no evidence of COPD exacerbation (5) Chronic back pain: Plan: Oxycodone prn (6) S/P aortic valve replacement with bioprosthetic valve: Plan: last echo 2023 with intact valve function (7) Hyponatremia: Plan: Na today 130 -- stable, at baseline He has hyponatremia chronically in the low 130s dating back to at least 2017 hypothyroidism, CHF, etc all likely contributing recheck BMP am for stability (8) Hypothyroidism: Plan: patient with normal FT4 but TSH elevated at 11 in light of his cardiac issues and his chronic hyponatremia replacement would likely help him thus, start synthroid 50mcg daily with repeat TSH in 6 weeks as outpatient (9) Pleural effusion: Plan: moderate b/l effusions 2nd to decompensated CHF - as seen on chest CT this admission hopefully these will improve with diuresis poor candidate for intervention given his Eliquis usage repeat x-ray 04/15 - effusions modestly improved cont diuresis observe (10) Hypoxia: Plan: thought 2nd to decompensated CHF despite aggressive diuresis he has had no significant change in O2 requirement still requiring 5-7 L NC O2 despite loss of 15# of weight I was able to cut him to 4 L with sats of 92% on such cont to wean as tolerating if after diuresis is complete - if he still has O2 requirement - COPD could be contributing cont diuresis will need formal 2-step ambulatory O2 test day of discharge Plan DVT ppx - continue apixaban BID cont PT, OT; I have encouraged him MULTIPLE Times this week to work with PT as he has been quite sedentary during this prolonged stay I am concerned he is not going to be able to be strong enough to return home by report he is his 's primary caregiver but I doubt he could do such at this moment in time updated pt's daughters (x 2) this week by phone or in person Admission and Anticipated Discharge Date Admission Date: April 07, 2024 Subjective was on 7 L NC O2 during the visit I turned him down to 5 L -- sats stayed 92% turned him down to 4 L -- sats stayed 92% he offers no complaints other than wanting to go home denies any dyspnea or other pulmonary symptoms eating well +BM this am has been sitting in the chair today while watching [employer] football game Review of Systems Review of Systems: tele - no a.fib cv - no cp, no orthopnea, LUE edema nearly resolved pulm - minimal cough GI - no abd pain or N/V Physical Exam Physical Exam: gen - laying in recliner chair comfortably, NAD neck - JVD just above the clavicle mouth - MMM heart - irregular, s1 s2, no obvious murmur lungs - fine rales bases only - minimal; decreased BS bases but airation HAS improved last 48 hours; no wheezes today; no increased work of breathing abd - soft NT ND BS+ ext - NO edema b/l legs; LUE edema resolved psych - alert, oriented x 3 Results & Data Results & Data Vital Signs (Past 12 Hours) Vital Signs Temp Pulse Pulse Resp BP Pulse Ox O2 Del Method 04/16/24 15:48 64 04/16/24 15:33 36.5 C 70 19 96/55 L 90 High Flow Nasal Cannula 04/16/24 11:19 36.4 C L 63 19 102/62 90 High Flow Nasal Cannula 04/16/24 08:00 High Flow Nasal Cannula 04/16/24 07:52 36.6 C 113 H 19 117/72 91 High Flow Nasal Cannula O2 Flow Rate 04/16/24 15:48 04/16/24 15:33 7 04/16/24 11:19 7 04/16/24 08:00 7 04/16/24 07:52 7 Laboratory Results Laboratory Results - last 24 hr 04/16/24 07:29 WBC 6.90 RBC 3.71 L Hgb 12.3 L Hct 36.7 L MCV 98.9 MCH 33.2 MCHC 33.5 RDW Std Deviation 48.1 H RDW Coeff of Telma 13.1 Plt Count 141 MPV 10.6 ESR 37 H Sodium 130 L Potassium 4.3 Chloride 93 L Carbon Dioxide 33 H Anion Gap 4 BUN 16 Creatinine 0.71 Est Cr Clr Drug Dosing 83.3 eGFR 95.09 BUN/Creatinine Ratio 22.5 H Glucose 97 Calcium 8.3 L C-Reactive Protein 2.30 H PG Care Time/CCT Total # of Minutes Spent Total Time Spent with Patient: Total time spent is greater than 50% in coordination of care (as documented) at patient's floor/unit and/or counseling patient: Coding Level of Care Code 32731 SUB INP/OBS CARE 2/35MIN Diagnoses Acute on chronic systolic heart failure I50.23 A-fib I48.91 Coronary artery disease involving [place] coronary artery of [place] heart without angina pectoris I25.10 Associated angina: without angina Coronary Disease-Associated Artery/Lesion type: [place] artery [place] vs. transplanted heart: [place] heart Chronic obstructive pulmonary disease, unspecified COPD type J44.9 COPD type: unspecified COPD Chronic back pain M54.9; G89.29 S/P aortic valve replacement with bioprosthetic valve Z95.3 Hyponatremia E87.1 Hypothyroidism E03.9 Pleural effusion J90 Hypoxia R09.02 (3) CAD (coronary artery disease) Associated angina: without angina Coronary Disease-Associated Artery/Lesion type: [place] artery [place] vs. transplanted heart: [place] heart Qualified Code(s): I25.10 - Atherosclerotic heart disease of [place] coronary artery without angina pectoris (4) COPD (chronic obstructive pulmonary disease) COPD type: unspecified COPD Qualified Code(s): J44.9 - Chronic obstructive pulmonary disease, unspecified
[2024-04-17 06:50] LABS: BUN Creatinine Ratio 23.1 (10-20); Calcium 8.3 mg/dl (8.6-10.3); Creatinine Clr Calc Pharmacy 90.9 ml/min; Magnesium 1.7 mg/dl (1.7-2.4); Potassium 4.2 mmol/L (3.5-5.1)
[2024-04-17] MEDS: BUMETANIDE 0.5 MG in SYRINGE 0 ML IV ONE (09:58)
--- NOTE | 2024-04-17 15:59 | Hospitalist Progress Note ---
Date of Service April 17, 2024 Assessment & Plan (1) Acute on chronic systolic heart failure: Plan: Improving about 9kg net negative since admission BUN & Cr again stable on BMP today but UOP has slowed and Na level 128 today Echo 10/2023 and Echo 12/2023: EF 40-45% along with significant RV systolic dysfunction cardiomyopathy 2nd to uncontrolled a.fib? other? AVR on most recent echo shows intact valve function thus valvular disease is not the cause of his cardiomyopathy cont diuresis w/ bumex 0.5mg BID in [place]is[place] of lasix BID did give extra 0.5mg of bumex this am but no significant diuresis from such will stop bumex after today's doses cont beta karol ideally should be on Entresto -- defer for now cont aldactone see plans for a.fib Rx see discussion re: pleural effusions appreciate cardiology assistance may be approaching euvolemia (2) A-fib: Plan: rhythm control strategy was pursued with amiodarone infusion earlier this week it appears that his LV dysfunction started in the last year when he developed a.fib thus, maintaining NSR may allow LV function to improve over time he converted to NSR on the amio drip earlier this week and is now on PO amio 200mg BID cont Eliquis cont BB (3) CAD (coronary artery disease): Plan: cath 2010 at [facility] - I cannot find a report in old or [employer] but old cardiology notes state "no significant blockages" cont statin cont BB (4) COPD (chronic obstructive pulmonary disease): Plan: followed by Dr. Lulu Han's [facility] Pulmonology Ongoing tobacco smoking Continue Fluticasone-salmeterol inhaler therapy CT chest 12/2023 without PF/ILD CT chest this admission without ILD and evidence of CHF along with mod sized pleural effusions no evidence of COPD exacerbation (5) Chronic back pain: Plan: Oxycodone prn (6) S/P aortic valve replacement with bioprosthetic valve: Plan: last echo 2023 with intact valve function 2011 - AVR at [facility] (7) Hyponatremia: Plan: Na today 128 He has hyponatremia chronically in the low 130s dating back to at least 2017 hypothyroidism, CHF, etc all likely contributing recheck BMP am for stability suspect we are close to euvolemia or even slightly volume contracted with dropping Na level (8) Hypothyroidism: Plan: patient with normal FT4 but TSH elevated at 11 in light of his cardiac issues and his chronic hyponatremia replacement would likely help him thus, start synthroid 50mcg daily with repeat TSH in 6 weeks as outpatient (9) Pleural effusion: Plan: moderate b/l effusions 2nd to decompensated CHF - as seen on chest CT this admission hopefully these will improve with diuresis poor candidate for intervention given his Eliquis usage repeat x-ray 04/15 - effusions modestly improved observe (10) Hypoxia: Plan: thought 2nd to decompensated CHF despite aggressive diuresis he has had no significant change in O2 requirement still requiring 5L NC O2 today despite loss of ~15# of weight cont to wean as tolerating if after diuresis is complete - if he still has O2 requirement - COPD could be contributing cont diuresis will need formal 2-step ambulatory O2 test day of discharge Plan DVT ppx - continue apixaban BID cont PT, OT; I have encouraged him MULTIPLE Times this week to work with PT as he has been quite sedentary during this prolonged stay I am concerned he is not going to be able to be strong enough to return home by report he is his 's primary caregiver but I doubt he could do such at this moment in time updated pt's daughters (x 2) this week by phone or in person Admission and Anticipated Discharge Date Admission Date: April 07, 2024 Subjective no events overnight anxious to go home remains on 5 L NC O2 UOP has slowed in the last 12 hours despite diuresis denies all pulmonary symptoms eating/drinking well tele - no a.fib; wandering atrial pacemaker, PACs Review of Systems Review of Systems: cv - no orthopnea; edema x 4 limbs resolved pulm - no dyspnea Physical Exam Physical Exam: gen - laying in bed, NAD neck - JVD just above the clavicle - maybe slightly better mouth - MMM heart - irregular, s1 s2, no murmur lungs - minimal fine rales bases only; decreased BS bases but airation cont to improve ; mild scattered end-exp wheezes; no increased work of breathing abd - soft NT ND BS+ ext - no edema b/l legs; LUE edema resolved; no edema right arm psych - alert, oriented x 3 Results & Data Results & Data Vital Signs (Past 12 Hours) Vital Signs Temp Pulse Resp BP BP Pulse Ox O2 Del Method 04/17/24 15:03 36.6 C 69 19 105/66 91 Nasal Cannula 04/17/24 12:15 Nasal Cannula 04/17/24 11:07 36.7 C 75 20 100/61 90 High Flow Nasal Cannula 04/17/24 10:18 High Flow Nasal Cannula 04/17/24 07:18 36.6 C 73 19 114/71 91 High Flow Nasal Cannula O2 Flow Rate 04/17/24 15:03 5 04/17/24 12:15 5 04/17/24 11:07 5 04/17/24 10:18 5 04/17/24 07:18 5 Laboratory Results Laboratory Results - last 24 hr 04/17/24 06:07 Sodium 128 L Potassium 4.2 Chloride 92 L Carbon Dioxide 33 H Anion Gap 3 BUN 15 Creatinine 0.65 Est Cr Clr Drug Dosing 90.9 eGFR 97.66 BUN/Creatinine Ratio 23.1 H Glucose 95 Calcium 8.3 L Magnesium 1.7 PG Care Time/CCT Total # of Minutes Spent Total Time Spent with Patient: Total time spent is greater than 50% in coordination of care (as documented) at patient's floor/unit and/or counseling patient: Coding Level of Care Code 76973 SUB INP/OBS CARE 2/35MIN Diagnoses Acute on chronic systolic heart failure I50.23 A-fib I48.91 Coronary artery disease involving [place] coronary artery of [place] heart without angina pectoris I25.10 Associated angina: without angina Coronary Disease-Associated Artery/Lesion type: [place] artery [place] vs. transplanted heart: [place] heart Chronic obstructive pulmonary disease, unspecified COPD type J44.9 COPD type: unspecified COPD Chronic back pain M54.9; G89.29 S/P aortic valve replacement with bioprosthetic valve Z95.3 Hyponatremia E87.1 Hypothyroidism E03.9 Pleural effusion J90 Hypoxia R09.02 (3) CAD (coronary artery disease) Associated angina: without angina Coronary Disease-Associated Artery/Lesion type: [place] artery [place] vs. transplanted heart: [place] heart Qualified Code(s): I25.10 - Atherosclerotic heart disease of [place] coronary artery without angina pectoris (4) COPD (chronic obstructive pulmonary disease) COPD type: unspecified COPD Qualified Code(s): J44.9 - Chronic obstructive pulmonary disease, unspecified
[2024-04-18 06:41] LABS: BUN Creatinine Ratio 27.9 (10-20); Calcium 8.5 mg/dl (8.6-10.3); Creatinine Clr Calc Pharmacy 89.6 ml/min
[2024-04-18] MEDS: BUMETANIDE 1 MG in SYRINGE 0 ML IV ONE ×2 (08:59→17:32)
--- NOTE | 2024-04-18 11:18 | Hospitalist Progress Note ---
Date of Service April 18, 2024 Assessment & Plan (1) Acute on chronic systolic heart failure: Plan: Improving, but still with significant O2 requirement (5 to 7 L via NC) about 9-10kg net negative since admission BUN & Cr again stable on BMP today; Na level 128 - was same yesterday Echo 10/2023 and Echo 12/2023: EF 40-45% along with significant RV systolic dysfunction cardiomyopathy 2nd to uncontrolled a.fib? AVR on most recent echo shows intact valve function thus valvular disease is not the cause of his cardiomyopathy cont beta karol ideally should be on Entresto but defer for now cont aldactone see plans for a.fib Rx see discussion re: pleural effusions with respect to diuretics -- try 1mg of bumex this am and 1mg this evening recheck labs in am if labs tomorrow are stable then cont forward with bumex 1mg BID (2) A-fib: Plan: rhythm control strategy was pursued with amiodarone infusion it appears that his LV dysfunction started in the last year when he developed a.fib thus, maintaining NSR may allow LV function to improve over time he converted to NSR on the amio drip last week and is now on PO amio 200mg BID plan 200mg BID x 7-10 days, then perhaps 200mg daily thereafter cont Eliquis cont BB (3) CAD (coronary artery disease): Plan: cath 2010 at [facility] - I cannot find a report in old or new [employer] but old cardiology notes state "no significant blockages" cont statin cont BB (4) COPD (chronic obstructive pulmonary disease): Plan: followed by Dr. Lawson - Priscilla Han's [facility] Pulmonology Ongoing tobacco smoking Is on Fluticasone-salmeterol inhaler therapy at baseline CT chest 12/2023 without PF/ILD CT chest this admission without ILD and evidence of CHF along with mod sized pleural effusions suspect his COPD is contributing to his high NC O2 requirements wheezing has worsened last few days he is coughing and is congested sent sputum cx added duonebs QID added mucinex BID corresponded with Dr Cowart from [facility] Pulm - I have consulted him for any other recs to help with weaning his O2 are effusions large enough to tap? or simply cont diuresis? appreciate his recommendations (5) Chronic back pain: Plan: Oxycodone prn no issues (6) S/P aortic valve replacement with bioprosthetic valve: Plan: last echo 2023 with intact valve function 2010 - AVR at [facility] (7) Hyponatremia: Plan: Na today 128; was 128 yesterday He has hyponatremia chronically in the low 130s dating back to at least 2016 hypothyroidism, CHF, etc all likely contributing recheck BMP am for stability (8) Hypothyroidism: Plan: patient with normal FT4 but TSH elevated at 11 in light of his cardiac issues and his chronic hyponatremia replacement would likely help him thus, started synthroid 50mcg daily with repeat TSH in 6 weeks as outpatient (9) Pleural effusion: Plan: moderate b/l effusions 2nd to decompensated CHF - as seen on chest CT this admission hopefully these will improve with diuresis poor candidate for intervention given his Eliquis usage repeat x-ray 04/15 - effusions modestly improved observe; cont diuresis (10) Hypoxia: Plan: thought 2nd to decompensated CHF despite aggressive diuresis he has had no significant change in O2 requirement still requiring 5-7L NC O2 today despite loss of ~20# of weight since admit cont to wean as tolerated if after diuresis is complete - if he still has O2 requirement - COPD could be contributing cont diuresis will need formal 2-step ambulatory O2 test day of discharge appreciate pulmonary recs from Dr Cowart Plan DVT ppx - continue apixaban BID cont PT, OT; I have encouraged him MULTIPLE Times this week to work with PT as he has been quite sedentary during this prolonged stay I am concerned he is not going to be able to be strong enough to return home by report he is his 's primary caregiver but I doubt he could do such at this moment in time updated pt's daughters (x 2) this week by phone or in person left message for his daughter, Ms Germain, this evening on her voicemail; quickly reviewed care plan, quickly voiced my concerns her father will need rehab post- d/c Admission and Anticipated Discharge Date Admission Date: April 07, 2024 Subjective staff report that early this am his o2 sats were low 80s respiratory called; had to be placed on 7 liters despite the above he had no dyspnea/symptoms patient resting in bed during my visit upset about still being in the hospital during my visit I was able to reduce the O2 to 5 L -- sats stayed about 90% he reports increased cough with sputum production today feels congested tele - no a.fib Review of Systems Review of Systems: gen - no fevers; +weakness cv - no chest pain, no orthopnea; edema resolved pulm - cough, congestion, wheezes - but no dyspnea GI - no abd pain or N/V Physical Exam Physical Exam: gen - laying in bed, NAD neck - JVD just above the clavicle mouth - MMM heart - irregular, s1 s2, no murmur lungs - minimal fine rales bases only; decreased BS bases; exp wheezes b/l; no increased work of breathing; coughing at times during the visit abd - soft NT ND BS+ ext - no edema b/l legs; LUE edema resolved; no edema right arm psych - alert, oriented x 3 Results & Data Results & Data Vital Signs (Past 12 Hours) Vital Signs Temp Pulse Resp BP BP Pulse Ox O2 Del Method 04/18/24 08:04 36.7 C 83 19 100/64 84 L High Flow Nasal Cannula 04/18/24 03:06 36.6 C 70 18 103/65 93 High Flow Nasal Cannula 04/17/24 23:23 36.7 C 59 L 20 100/64 95 High Flow Nasal Cannula O2 Flow Rate 04/18/24 08:04 7 04/18/24 03:06 5 04/17/24 23:23 5 Laboratory Results Laboratory Results - last 24 hr 04/18/24 05:42 Sodium 128 L Potassium 4.0 Chloride 91 L Carbon Dioxide 33 H Anion Gap 4 BUN 17 Creatinine 0.61 Est Cr Clr Drug Dosing 89.6 eGFR 99.55 BUN/Creatinine Ratio 27.9 H Glucose 93 Calcium 8.5 L PG Care Time/CCT Total # of Minutes Spent Total Time Spent with Patient: Total time spent is greater than 50% in coordination of care (as documented) at patient's floor/unit and/or counseling patient: Coding Level of Care Code 20547 SUB INP/OBS CARE 2/35MIN Diagnoses Acute on chronic systolic heart failure I50.23 A-fib I48.91 Coronary artery disease involving [place] coronary artery of [place] heart without angina pectoris I25.10 Associated angina: without angina Coronary Disease-Associated Artery/Lesion type: [place] artery [place] vs. transplanted heart: [place] heart Chronic obstructive pulmonary disease, unspecified COPD type J44.9 COPD type: unspecified COPD Chronic back pain M54.9; G89.29 S/P aortic valve replacement with bioprosthetic valve Z95.3 Hyponatremia E87.1 Hypothyroidism E03.9 Pleural effusion J90 Hypoxia R09.02 (3) CAD (coronary artery disease) Associated angina: without angina Coronary Disease-Associated Artery/Lesion type: [place] artery [place] vs. transplanted heart: [place] heart Qualified Code(s): I25.10 - Atherosclerotic heart disease of [place] coronary artery without angina pectoris (4) COPD (chronic obstructive pulmonary disease) COPD type: unspecified COPD Qualified Code(s): J44.9 - Chronic obstructive pulmonary disease, unspecified
[2024-04-18] MEDS: ALBUT/IPRATROP 3MG/0.5MG NEB 3 ML VIAL NEB SCH (11:32)
[2024-04-18] MEDS ORDERED: ALBUT/IPRATROP 3MG/0.5MG NEB 3 ML VIAL NEB PRN (11:47)
--- NOTE | 2024-04-18 11:50 | Pulmonary Consultation ---
Date of Consultation April 18, 2024 Assessment & Plan (1) Pleural effusion: (2) Acute on chronic systolic heart failure: (3) HFrEF (heart failure with reduced ejection fraction): (4) COPD (chronic obstructive pulmonary disease): COPD type: unspecified COPD Qualified Code(s): J44.9 - Chronic obstructive pulmonary disease, unspecified (5) Acute respiratory failure with hypoxia: Plan CT chest 04/13/2024 personally reviewed: Centrilobular emphysema appreciated bilaterally Interlobular thickening appreciated in the upper lobes Bilateral pleural effusion moderate in amount with dependent atelectasis bilateral lower lobes Cardiomegaly Minimal mediastinal lymphadenopathy 2D echo 01/19/2024: EF 40-45%, RV not well-visualized with severe systolic dysfunction --Acute hypoxic respiratory failure Likely secondary to HFpEF Respiratory BioFire negative for everything on 04/07/2024 BNP 3081 --COPD with emphysema Not on any inhalers at home Would recommend patient to be on Stiolto or Anoro on discharge Plan: In/out: -9.4 L since coming to the hospital Latest chest x-ray still shows bilateral pleural effusion, R>L. Would recommend to continue with diuresis I do think is going to benefit from BiPAP nightly and as needed shortness of breath. Try to keep O2 saturation between 88-90% Case was discussed with primary team Please note the above document was generated using voice recognition software. It may contain grammatical, syntax or spelling errors.Any formal questions or concerns about the content, text or information contained within the body of this dictation should be directly addressed to the provider for clarification. History of Present Illness Attending Physician: Srini Licona MD History of Present Illness 78-year-old male present to the hospital because of shortness of breath Past medical history: A-fib on Eliquis, hypertension Pulmonary consulted for persistent hypoxia At the time of examination patient was not in any respiratory distress He was actually sleeping. He got upset when I woke him up to ask some questions. He was saturating 90-91% on 4-5 L nasal cannula Denied any chest pain. He stated that he is feeling much better compared to when he came to the hospital Denied any chest tightness, occasional cough with clear phlegm. 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 No family history of asthma Allergies Allergy/AdvReac Type Severity Reaction Status Date / Time bee venom protein (honey bee) Allergy Severe swelling Verified 04/07/24 15:32 ibuprofen AdvReac Intermediate LARGE Verified 04/07/24 15:32 DOSES CAUSE ITCHING AND BLISTERS Unclassified Drugs Allergy Mild TOBASCO Uncoded 04/07/24 15:32 SAUCE - TOO MUCH OF WILL CAUSE HIVES Home Medications Medication Instructions Recorded Confirmed Type mecobalamin (vitamin B12) 1,000 1,000 mcg sublingual QAM 09/30/21 04/07/24 History mcg disintegrating tablet,sublingual triamcinolone acetonide 0.1 % 1 applic topical UD PRN ANKLES 30 12/01/23 04/07/24 Rx topical ointment days #30 grams tamsulosin 0.4 mg capsule 0.4 mg PO QAM #90 caps 01/13/24 04/07/24 Rx oxycodone 5 mg tablet 5 mg PO Q4H PRN pain 02/08/24 04/07/24 History carvedilol 6.25 mg tablet 6.25 mg PO BID #180 tabs 02/11/24 04/07/24 Rx apixaban 5 mg tablet 5 mg PO BID #180 tabs 03/07/24 04/07/24 Rx atorvastatin 40 mg tablet 40 mg PO QAM 04/07/24 04/07/24 History fluticasone 250 mcg-salmeterol 50 1 ea inhalation BID 04/07/24 04/07/24 History mcg/dose blistr powdr for inhalation Patient History Medical History (Updated 04/18/24 @ 17:44 by Ann Cowart MD, [facility]) Carotid artery stenosis s/p R CEA 09/16/18 Congenital bicuspid aortic valve s/p AVR 2010 LVH (left ventricular hypertrophy) due to hypertensive disease Chronic hyponatremia Radiculopathy of lumbar region Spinal stenosis Chronic back pain Hypertension Chronic obstructive pulmonary disease MILD, DENIES FLARE UPS. FOLLOWS WITH PCP Surgical History (Updated 04/08/24 @ 12:18 by Noah Blount MD) History of lumbar fusion H/O carotid endarterectomy (11/04/18) Left Carotid Endarterectomy with Bovine Patch(Left) - Mariano Laboy MD 11/04/18 H/O carotid endarterectomy 09/16/18 [facility] Fusion of spine LUMBAR FUSION Hx of cardiac catheterization no stents Hx of bilateral cataract extraction History of total hip arthroplasty BILATERAL History of carpal tunnel release RIGHT History of tonsillectomy Family History Brother Prostate cancer Father Myocardial infarction Other Cancer No family history of adverse response to anesthesia No family history of bleeding disorder Denies family history of Ovarian cancer Breast cancer Colorectal cancer Social History Smoking Status: Current every day smoker Tobacco Type: Cigarettes Age Started Using Tobacco: 18; packs per day: 0.5; Cigarettes Per Day: 3/4th pack a day; Second Hand Exposure: No; Do You Dip or Chew Tobacco: No; Hx Alcohol Use: Yes Alcohol type: hard liquor Alcohol Intake Frequency: 4 or More x per/Week Hx Substance Use: No Preferred Language: Occitan Communication Ability: Effective Visual Impairment: No Limitations Hearing Ability: Use of Hearing Aid Sterile Tech Required: No Beliefs That Will Affect Care: None marital status: Current Living Situation: Spouse 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 Feels Safe at Home: Yes Childhood Exposure to Second-Hand Smoke: Yes Diet: regular Diet Comment: regular Dental Care, Regularly: No Physical Activity Frequency: Does not Exercise Seatbelt Use: always Sunscreen Use: No Assistive Devices: Cane and Walker Review of Systems 2 Review of Systems: All systems reviewed & are unremarkable except as noted in HPI & below Physical Exam 2 Physical Exam: Constitutional: No acute distress HEENT: EOMI, PERRLA Respiratory system: Decreased air entry bilaterally, no wheeze, rhonchi, positive crackles bilateral lower lobes CVS: S1-S2 positive, no murmurs or gallops Abdomen: Soft, nontender, nondistended, positive bowel sounds x4 Extremities: +2 pulses bilaterally radialis/ dorsalis pedis, no cyanosis, +1 pitting edema bilateral lower extremity Neuro: Awake alert oriented x3 Psych: Normal mood and affect G/U: positive Tse Skin: no rashes, warm and dry Lymphatic: no cervical or axillary lymphadenopathy Results & Data Results & Data Vital Signs (Past 12 Hours) Vital Signs Temp Pulse Resp BP BP Pulse Ox O2 Del Method 04/18/24 11:34 74 20 93 Nasal Cannula 04/18/24 11:22 36.5 C 76 20 100/70 92 High Flow Nasal Cannula 04/18/24 08:04 36.7 C 83 19 100/64 84 L High Flow Nasal Cannula 04/18/24 03:06 36.6 C 70 18 103/65 93 High Flow Nasal Cannula O2 Flow Rate 04/18/24 11:34 5 04/18/24 11:22 5 04/18/24 08:04 7 04/18/24 03:06 5 Laboratory Results 04/16/24 07:29 04/18/24 05:42 PG Care Time/CCT Total # of Minutes Spent Total Time Spent with Patient: Total time spent is greater than 50% in coordination of care (as documented) at patient's floor/unit and/or counseling patient: Coding Level of Care Code 12363 INT INP/OBS CARE 3/75MIN Diagnoses Pleural effusion J90 Acute on chronic systolic heart failure I50.23 HFrEF (heart failure with reduced ejection fraction) I50.20 Chronic obstructive pulmonary disease, unspecified COPD type J44.9 COPD type: unspecified COPD Acute respiratory failure with hypoxia J96.01
[2024-04-18] MEDS: guaiFENesin 600 MG TABCR PO SCH (13:09)
[2024-04-18] MEDS: FORMOTEROL 20 MCG/2 ML VIAL INH SCH (19:50)
[2024-04-18] MEDS: BUDESONIDE 0.5 MG/2 ML VIAL (PULMICORT) NEB SCH (19:50)
[2024-04-19 07:43] LABS: BUN Creatinine Ratio 30.3 (10-20); Calcium 8.4 mg/dl (8.6-10.3); Creatinine Clr Calc Pharmacy 82.8 ml/min; Magnesium 1.7 mg/dl (1.7-2.4); Potassium 3.7 mmol/L (3.5-5.1)
[2024-04-19] MEDS: UMECLIDINIUM BROMIDE 62.5MCG/BLISTER 7 PUFFS/INHALER INH SCH (07:55)
--- NOTE | 2024-04-19 08:03 | Pulmonology Progress Note ---
Date of Service April 19, 2024 Assessment & Plan (1) Pleural effusion: (2) Acute on chronic systolic heart failure: (3) HFrEF (heart failure with reduced ejection fraction): (4) COPD (chronic obstructive pulmonary disease): COPD type: unspecified COPD Qualified Code(s): J44.9 - Chronic obstructive pulmonary disease, unspecified (5) Acute respiratory failure with hypoxia: Plan CT chest 04/13/2024 personally reviewed: Centrilobular emphysema appreciated bilaterally Interlobular thickening appreciated in the upper lobes Bilateral pleural effusion moderate in amount with dependent atelectasis bilateral lower lobes Cardiomegaly Minimal mediastinal lymphadenopathy 2D echo 01/19/2024: EF 40-45%, RV not well-visualized with severe systolic dysfunction --Acute hypoxic respiratory failure Likely secondary to HFpEF Respiratory BioFire negative for everything on 04/07/2024 BNP 3081 --COPD with emphysema Not on any inhalers at home Would recommend patient to be on Stiolto or Anoro on discharge Plan: In/out: -11 L since coming to the hospital Recommend to continue with diuresis I do think patient is going to benefit from BiPAP but he is refusing to use it. Try to keep O2 saturation between 88-90% Case was discussed with RN at bedside Please note the above document was generated using voice recognition software. It may contain grammatical, syntax or spelling errors.Any formal questions or concerns about the content, text or information contained within the body of this dictation should be directly addressed to the provider for clarification. Admission and Anticipated Discharge Date Admission Date: April 07, 2024 Subjective Patient seen and examined. No acute distress, no adverse events overnight Saturating 7% 5 L cannula, I went down to 3 L He stated he is feeling much better, shortness of breath is improved Occasional cough with clear phlegm. Denies any hemoptysis No chest pain Fair appetite, no nausea or vomiting Was asking if he could go home Patient unfortunate refused to use BiPAP Review of Systems 2 Review of Systems: All systems reviewed & are unremarkable except as noted in Subjective Physical Exam 2 Physical Exam: Constitutional: No acute distress HEENT: EOMI, PERRLA Respiratory system: Decreased air entry bilaterally, no wheeze, rhonchi, positive crackles bilateral lower lobes CVS: S1-S2 positive, positive 3 out of 6 systolic murmur appreciated best at apex, irregular Abdomen: Soft, nontender, nondistended, positive bowel sounds x4 Extremities: +2 pulses bilaterally radialis/ dorsalis pedis, no cyanosis, +1 pitting edema bilateral lower extremity Neuro: Awake alert oriented x3 Psych: Normal mood and affect G/U: positive Tse Skin: no rashes, warm and dry Lymphatic: no cervical or axillary lymphadenopathy Results & Data Results & Data Vital Signs (Past 12 Hours) Vital Signs Temp Pulse Pulse Resp BP BP Pulse Ox 04/19/24 06:55 66 18 92 04/19/24 02:35 36.7 C 62 18 106/78 96 04/19/24 00:00 57 L 04/18/24 22:48 36.6 C 59 L 18 91/60 L 94 O2 Del Method O2 Flow Rate 04/19/24 06:55 Nasal Cannula 5 04/19/24 02:35 High Flow Nasal Cannula 04/19/24 00:00 04/18/24 22:48 High Flow Nasal Cannula Laboratory Results 04/16/24 07:29 04/19/24 06:22 PG Care Time/CCT Total # of Minutes Spent Total Time Spent with Patient: Total time spent is greater than 50% in coordination of care (as documented) at patient's floor/unit and/or counseling patient: Coding Level of Care Code 78987 SUB INP/OBS CARE 3/50MIN Diagnoses Pleural effusion J90 Acute on chronic systolic heart failure I50.23 HFrEF (heart failure with reduced ejection fraction) I50.20 Chronic obstructive pulmonary disease, unspecified COPD type J44.9 COPD type: unspecified COPD Acute respiratory failure with hypoxia J96.01
--- NOTE | 2024-04-19 09:43 | XRay Report ---
XR chest 1V portable CLINICAL HISTORY: f/u TECHNIQUE: Single frontal radiograph of the chest was obtained. Comparison: Comparison is made to chest radiograph 04/15/2024 FINDINGS: Median sternotomy wires are unchanged. Cardiomegaly is noted. Stable interstitial and airspace opacit ies. Small bilateral pleural effusions are seen. IMPRESSION: Redemonstration of interstitial and airspace opacities. Stable small bilateral pleural effusions. ACT 112: Negative or not required by law. Electronically signed by: Maco Cleveland M.D. 04/19/2024 9:42 AM
[2024-04-19] MEDS: POTASSIUM CHLORIDE CRTAB 20 MEQ TABCR PO STA (09:56)
[2024-04-19] MEDS: MAGNESIUM SULFATE / D5W 1 GM/100 ML BAG IV SCH (09:56)
[2024-04-19] MEDS: BUMETANIDE 1 MG in SYRINGE 0 ML IV ONE (09:59)
--- NOTE | 2024-04-19 15:30 | Hospitalist Progress Note ---
Date of Service April 19, 2024 Assessment & Plan (1) Acute on chronic systolic heart failure: Plan: Improving, but still with significant O2 requirement (5 to 7 L via NC) about 9-10kg net negative since admission BUN & Cr again stable on BMP today; Na level 128 - was same yesterday Echo 10/2023 and Echo 12/2023: EF 40-45% along with significant RV systolic dysfunction cardiomyopathy 2nd to uncontrolled a.fib? AVR on most recent echo shows intact valve function thus valvular disease is not the cause of his cardiomyopathy cont beta karol ideally should be on Entresto but defer for now cont aldactone see plans for a.fib Rx see discussion re: pleural effusions For 04/19 remains volume overloaded but much nearer to euvolemia -replaced potassium -replaced borderline magnesium IV -bumex 1 mg IV in AM and 0.5 mg in afternoon (BP 90s/50s, asymptomatic) -wean O2 with sat goal 88-92% (2) A-fib: Plan: rhythm control strategy was pursued with amiodarone infusion it appears that his LV dysfunction started in the last year when he developed a.fib thus, maintaining NSR may allow LV function to improve over time he converted to NSR on the amio drip last week and is now on PO amio 200mg BID plan 200mg BID x 7-10 days, then perhaps 200mg daily thereafter cont Eliquis cont BB (3) CAD (coronary artery disease): Plan: cath 2010 at [facility] - I cannot find a report in old or new [facility] but old cardiology notes state "no significant blockages" cont statin cont BB (4) COPD (chronic obstructive pulmonary disease): Plan: followed by Dr. Lawson - [facility] Ongoing tobacco smoking Is on Fluticasone-salmeterol inhaler therapy at baseline CT chest 12/2023 without PF/ILD CT chest this admission without ILD and evidence of CHF along with mod sized pleural effusions suspect his COPD is contributing to his high NC O2 requirements wheezing has worsened last few days he is coughing and is congested sent sputum cx - prelim normal karoline added duonebs QID added mucinex BID reviewed recs in Dr. Cowart's note - thinks hypoxia is primarily HF, continue diuresis -would benefit from Bipap but he's refusing -rec Stiolto or Anoro inh on discharge (5) Chronic back pain: Plan: Oxycodone prn no issues (6) S/P aortic valve replacement with bioprosthetic valve: Plan: last echo 2023 with intact valve function 2010 [place] [facility] (7) Hyponatremia: Plan: Na today 128; was 128 yesterday He has hyponatremia chronically in the low 130s dating back to at least 2017 hypothyroidism, CHF, etc all likely contributing hyponatremia stable 04/20. AM BMP ordered (8) Hypothyroidism: Plan: patient with normal FT4 but TSH elevated at 11 in light of his cardiac issues and his chronic hyponatremia replacement would likely help him thus, started synthroid 50mcg daily with repeat TSH in 6 weeks as outpatient (9) Pleural effusion: Plan: moderate b/l effusions 2nd to decompensated CHF - as seen on chest CT this admission hopefully these will improve with diuresis poor candidate for intervention given his Eliquis usage repeat x-ray 04/15 - effusions modestly improved observe; cont diuresis (10) Hypoxia: Plan: thought 2nd to decompensated CHF despite aggressive diuresis he has had no significant change in O2 requirement still requiring 5-7L NC O2 today despite loss of ~20# of weight since admit cont to wean as tolerated if after diuresis is complete - if he still has O2 requirement - COPD could be contributing cont diuresis will need formal 2-step ambulatory O2 test day of discharge appreciate pulmonary recs from Dr Cowart Plan DVT ppx - continue apixaban BID cont PT, OT; I have encouraged him MULTIPLE Times this week to work with PT as he has been quite sedentary during this prolonged stay I am concerned he is not going to be able to be strong enough to return home by report he is his 's primary caregiver but I doubt he could do such at this moment in time updated pt's daughters (x 2) this week by phone or in person left message for his daughter, Ms Germain, this evening on her voicemail; quickly reviewed care plan, quickly voiced my concerns her father will need rehab post- d/c Admission and Anticipated Discharge Date Admission Date: April 07, 2024 Subjective Wants to go home, acknowledges swelling getting better. Feels he can do diuretics at home. On 3L O2 this AM and BP borderline so I encouraged him to stay put a few more days Physical Exam 2 Physical Exam: PHYSICAL EXAMINATION Last 24h vital signs reviewed, see documentation in flowsheet General: alert sitting in bed HEENT: Normocephalic, atraumatic, pupils round and equal, sclerae anicteric, no conjunctival injection, moist mucus membranes Lungs: nonlabored, scattered coarse sounds exp wheeze bilaterally Heart: irregularly irregular, systolic murmur, JVP 10-12 cm Abdomen: Soft, nontender, nondistended. Bowel sounds present. Extremities: Warm, dry, well-perfused. Anasarca resolved. LE edema 1+ symmetric Neuro: Alert and oriented x 4, face symmetric, moves 4 extremities well Psych: Normal affect and behavior Results & Data Results & Data Vital Signs (Past 12 Hours) Vital Signs Temp Pulse Resp BP BP Pulse Ox O2 Del Method 04/19/24 14:57 62 22 91/55 L 90 Nasal Cannula 04/19/24 11:05 97.3 F L 57 L 18 85/55 L 92 Nasal Cannula 04/19/24 08:10 97.9 F 78 18 118/72 90 Nasal Cannula 04/19/24 06:55 66 18 92 Nasal Cannula O2 Flow Rate 04/19/24 14:57 4 04/19/24 11:05 3 04/19/24 08:10 5 04/19/24 06:55 5 Laboratory Results 04/16/24 07:29 04/19/24 06:22 PG Care Time/CCT Total # of Minutes Spent Total Time Spent with Patient: Total time spent is greater than 50% in coordination of care (as documented) at patient's floor/unit and/or counseling patient: Coding Level of Care Code 45872 SUB INP/OBS CARE 2/35MIN Diagnoses Acute on chronic systolic heart failure I50.23 A-fib I48.91 Coronary artery disease involving [place] coronary artery of [place] heart without angina pectoris I25.10 Coronary Disease-Associated Artery/Lesion type: [place] artery [place] vs. transplanted heart: [place] heart Associated angina: without angina Chronic obstructive pulmonary disease, unspecified COPD type J44.9 COPD type: unspecified COPD Chronic back pain M54.9; G89.29 S/P aortic valve replacement with bioprosthetic valve Z95.3 Hyponatremia E87.1 Hypothyroidism E03.9 Pleural effusion J90 Hypoxia R09.02 (3) CAD (coronary artery disease) Coronary Disease-Associated Artery/Lesion type: [place] artery [place] vs. transplanted heart: [place] heart Associated angina: without angina Qualified Code(s): I25.10 - Atherosclerotic heart disease of [place] coronary artery without angina pectoris (4) COPD (chronic obstructive pulmonary disease) COPD type: unspecified COPD Qualified Code(s): J44.9 - Chronic obstructive pulmonary disease, unspecified
[2024-04-19] MEDS: BUMETANIDE 0.5 MG in SYRINGE 0 ML IV SCH (17:43)
--- NOTE | 2024-04-20 08:46 | XRay Report ---
EXAM: XR chest 1V portable CLINICAL HISTORY: Follow up. TECHNIQUE: An X-ray image of the chest is obtained using an AP projection. COMPARISON: CR dated 04/15/2024. FINDINGS: Pulmonary Parenchyma: Bilateral lower zone heterogenous air space opacifications with coarse interstitial markings and cystic areas suggestive of bronchiectasis. No pneumothorax. Bilateral blunted costophrenic angles suggestive of small pleural effusions. Heart and Mediastinum: Cardiomegaly. No mediastinal widening. Bilateral perihilar congestion. Bony Thorax: Thoracic spondylosis and degenerative changes in bilateral glenohumeral joints. Soft Tissues: Midline sternotomy sutures. IMPRESSION: 1. Unchanged bilateral lower zone heterogenous air space opacifications with coarse interstitial markings and cystic areas suggestive of bronchiectasis. 2. Bilateral blunted costophrenic angles suggestive of mild pleural effusions with interval slight regression on the right side. 3. Cardiomegaly. Electronically signed by Juan Miguel Malone 04-20-2024 08:46 AM
--- NOTE | 2024-04-20 09:48 | Pulmonology Progress Note ---
Date of Service April 20, 2024 Assessment & Plan (1) Pleural effusion: (2) Acute on chronic systolic heart failure: (3) HFrEF (heart failure with reduced ejection fraction): (4) COPD (chronic obstructive pulmonary disease): COPD type: unspecified COPD Qualified Code(s): J44.9 - Chronic obstructive pulmonary disease, unspecified (5) Acute respiratory failure with hypoxia: Plan CT chest 04/13/2024 personally reviewed: Centrilobular emphysema appreciated bilaterally Interlobular thickening appreciated in the upper lobes Bilateral pleural effusion moderate in amount with dependent atelectasis bilateral lower lobes Cardiomegaly Minimal mediastinal lymphadenopathy 2D echo 01/19/2024: EF 40-45%, RV not well-visualized with severe systolic dysfunction --Acute hypoxic respiratory failure Likely secondary to HFpEF Respiratory BioFire negative for everything on 04/07/2024 BNP 3081 --COPD with emphysema Not on any inhalers at home Would recommend patient to be on Stiolto or Anoro on discharge Plan: In/out: -11.5 L since coming to the hospital Chest x-ray from today shows improvement in bilateral opacities, minimal blunting of bilateral costophrenic angles. Recommend to continue with diuresis I do think patient is going to benefit from BiPAP but he is refusing to use it. The requirement for oxygen when he sleeping will be high because of CHF as well as probable JENNA, try to keep O2 saturation between 88-90% Case was discussed with RN and primary team No further recommendation from pulmonary perspective, will sign off Please call directly with any questions Please note the above document was generated using voice recognition software. It may contain grammatical, syntax or spelling errors.Any formal questions or concerns about the content, text or information contained within the body of this dictation should be directly addressed to the provider for clarification. Admission and Anticipated Discharge Date Admission Date: April 07, 2024 Subjective Patient seen and examined at bedside. No acute distress, no adverse events overnight Patient sister was in the room at the time of examination He was saturating 94% on 5 L, I went down to 3 L. He has been diuresing well, fair appetite Coughing up clear phlegm. No nausea vomiting, fair appetite Review of Systems 2 Review of Systems: All systems reviewed & are unremarkable except as noted in Subjective Physical Exam 2 Physical Exam: Constitutional: No acute distress HEENT: EOMI, PERRLA Respiratory system: Decreased air entry bilaterally, no wheeze, rhonchi, positive crackles bilateral lower lobes CVS: S1-S2 positive, positive 3 out of 6 systolic murmur appreciated best at apex, irregular Abdomen: Soft, nontender, nondistended, positive bowel sounds x4 Extremities: +2 pulses bilaterally radialis/ dorsalis pedis, no cyanosis, +1 pitting edema bilateral lower extremity Neuro: Awake alert oriented x3 Psych: Normal mood and affect G/U: positive Tse Skin: no rashes, warm and dry Lymphatic: no cervical or axillary lymphadenopathy Results & Data Results & Data Vital Signs (Past 12 Hours) Vital Signs Temp Pulse Pulse Resp BP Pulse Ox O2 Del Method 04/20/24 08:18 36.4 C L 62 20 121/79 6 L High Flow Nasal Cannula 04/20/24 02:10 36.5 C 65 18 117/66 91 Nasal Cannula 04/19/24 22:19 63 O2 Flow Rate 04/20/24 08:18 5 04/20/24 02:10 5 04/19/24 22:19 Laboratory Results 04/16/24 07:29 PG Care Time/CCT Total # of Minutes Spent Total Time Spent with Patient: Total time spent is greater than 50% in coordination of care (as documented) at patient's floor/unit and/or counseling patient: Coding Level of Care Code 83108 SUB INP/OBS CARE 2/35MIN Diagnoses Pleural effusion J90 Acute on chronic systolic heart failure I50.23 HFrEF (heart failure with reduced ejection fraction) I50.20 Chronic obstructive pulmonary disease, unspecified COPD type J44.9 COPD type: unspecified COPD Acute respiratory failure with hypoxia J96.01
[2024-04-20 09:52] LABS: Calcium 8.4 mg/dl (8.6-10.3); Creatinine Clr Calc Pharmacy 86.8 ml/min; Potassium 4.7 mmol/L (3.5-5.1)
[2024-04-20] MEDS: SODIUM CHLORIDE 1 GM TABLET PO SCH (14:47)
--- NOTE | 2024-04-20 16:03 | Hospitalist Progress Note ---
Date of Service April 20, 2024 Assessment & Plan (1) Acute on chronic systolic heart failure: Plan: Improved NC O2 requirement finally down to 3 L (from peak ~7 L) 10+kg weight loss since admission BUN & Cr again stable but Na level now 126 Echo 10/2023 and Echo 12/2023: EF 40-45% along with significant RV systolic dysfunction cardiomyopathy 2nd to uncontrolled a.fib? AVR on most recent echo shows intact valve function thus valvular disease is not the cause of his cardiomyopathy cont beta karol - convert to meto succ tomorrow am ideally should be on Entresto but defer for now cont aldactone see plans for a.fib Rx see discussion re: pleural effusions with worsening sodium level and, despite 2 doses of IV bumex yesterday & no significant change in weight, suspect we are at euvolemia thus, no diuretics today repeat labs in am (2) A-fib: Plan: rhythm control strategy was pursued with amiodarone infusion it appears that his LV dysfunction started in the last year when he developed a.fib thus, maintaining NSR may allow LV function to improve over time he converted to NSR on the amio drip last week and is now on PO amio 200mg BID plan 200mg BID x 7-10 days, then perhaps 200mg daily thereafter cont Eliquis cont BB (3) CAD (coronary artery disease): Plan: cath 2010 at [facility] - I cannot find a report in old or [facility] but old cardiology notes state "no significant blockages" cont statin cont BB (4) COPD (chronic obstructive pulmonary disease): Plan: followed by Dr. Lawson - chidi [facility] Pulmonology Ongoing tobacco smoking Is on Fluticasone-salmeterol inhaler therapy at baseline CT chest 12/2023 without PF/ILD CT chest this admission without ILD and evidence of CHF along with mod sized pleural effusions COPD could be contributing to his NC O2 requirements sputum cx negative appreciate Dr. Cowart's consultation - he believes most of the hypoxia is primarily CHF Dr Cowart recommends Bipap but he's refusing such Dr Cowart also advising Stiolto or Anoro inhaler on discharge (5) Chronic back pain: Plan: Oxycodone prn no issues (6) S/P aortic valve replacement with bioprosthetic valve: Plan: last echo 2023 with intact valve function 2011 - AVR at [facility] (7) Hyponatremia: Plan: Na 126 today in the face of diuresis stop bumex today would give 3 doses of NaCL 1gm each then stop - this is not ideal, but would not use tolvaptan or other means to improve the sodium level repeat BMP am He does have h/o hyponatremia chronically in the low 130s dating back to at least 2017 hypothyroidism, CHF, etc all likely contributing (8) Hypothyroidism: Plan: patient with normal FT4 but TSH elevated at 11 in light of his cardiac issues and his chronic hyponatremia replacement would likely help him thus, started synthroid 50mcg daily with repeat TSH in 6 weeks as outpatient (9) Pleural effusion: Plan: moderate b/l effusions on CT and cxr but they are improving with diuresis poor candidate for intervention given his Eliquis usage cont to observe (10) Hypoxia: Plan: thought 2nd to decompensated CHF can't rule out underlying COPD contributing as well finally weaned to 3 L from max of 7 L this admission cont to wean as tolerated cont diuresis will need formal 2-step ambulatory O2 test day of discharge appreciate pulmonary recs from Dr Cowart Plan DVT ppx - continue apixaban BID cont PT, OT; I have encouraged him MULTIPLE Times this week to work with PT as he has been quite sedentary during this prolonged stay I am concerned he is not going to be able to be strong enough to return home Concerned that he won't be able to ascend the 8 steps he has in order to use his home bathroom by report he is his 's primary caregiver but I doubt he could do such at this moment in time updated pt's daughters (x 2) this past week by phone or in person left message for Loli Germain, daughter, on voice mail 04/18 and 04/20 Admission and Anticipated Discharge Date Admission Date: April 07, 2024 Subjective tele - a.fib no complaints today minimal cough just occasional sputum denies any dyspnea at rest states "I want to go home on Thursday" he reports walking up 8 steps at home to get to his bathroom when I told him I was concerned about his weakness he said "he would be fine" mentioned rehab again to him eating/drinking well Review of Systems Review of Systems: cv - no cp, no edema pulm - no wheezing today GI - no abd pain Physical Exam Physical Exam: gen - laying in bed, NAD neck - JVD just above resolved mouth - MMM heart - irregular, s1 s2, no murmur lungs - scant fine rales bases only; improving airation b/l bases; no wheezes today; no increased work of breathing abd - soft NT ND BS+ ext - no edema b/l legs; no arm edema; pulses b/l feet 2+ psych - alert, oriented x 3 Results & Data Results & Data Vital Signs (Past 12 Hours) Vital Signs Temp Pulse Pulse Resp BP Pulse Ox O2 Del Method 04/20/24 11:47 36.4 C L 59 L 21 105/67 90 High Flow Nasal Cannula 04/20/24 08:18 36.4 C L 62 20 121/79 6 L High Flow Nasal Cannula 04/20/24 08:00 62 04/20/24 08:00 High Flow Nasal Cannula O2 Flow Rate 04/20/24 11:47 3 04/20/24 08:18 5 04/20/24 08:00 04/20/24 08:00 3 Laboratory Results Laboratory Results - last 24 hr 04/20/24 09:17 Sodium 126 L Potassium 4.7 D Chloride 91 L Carbon Dioxide 31 Anion Gap 4 BUN 17 Creatinine 0.63 Est Cr Clr Drug Dosing 86.8 eGFR 98.58 BUN/Creatinine Ratio 27.0 H Glucose 136 H Calcium 8.4 L Diagnostic Findings Chest X-Ray 04/20/24 07:00 EXAM: XR chest 1V portable CLINICAL HISTORY: Follow up. TECHNIQUE: An X-ray image of the chest is obtained using an AP projection. COMPARISON: dated 04/15/2024. FINDINGS: Pulmonary Parenchyma: Bilateral lower zone heterogenous air space opacifications with coarse interstitial markings and cystic areas suggestive of bronchiectasis. No pneumothorax. Bilateral blunted costophrenic angles suggestive of small pleural effusions. Heart and Mediastinum: Cardiomegaly. No mediastinal widening. Bilateral perihilar congestion. Bony Thorax: Thoracic spondylosis and degenerative changes in bilateral glenohumeral joints. Soft Tissues: Midline sternotomy sutures. IMPRESSION: 1. Unchanged bilateral lower zone heterogenous air space opacifications with coarse interstitial markings and cystic areas suggestive of bronchiectasis. 2. Bilateral blunted costophrenic angles suggestive of mild pleural effusions with interval slight regression on the right side. 3. Cardiomegaly. Electronically signed by Juan Miguel Malone 04-20-2024 08:46 AM PG Care Time/CCT Total # of Minutes Spent Total Time Spent with Patient: Total time spent is greater than 50% in coordination of care (as documented) at patient's floor/unit and/or counseling patient: Coding Level of Care Code 90377 SUB INP/OBS CARE 2/35MIN Diagnoses Acute on chronic systolic heart failure I50.23 A-fib I48.91 Coronary artery disease involving [place] coronary artery of [place] heart without angina pectoris I25.10 Coronary Disease-Associated Artery/Lesion type: [place] artery [place] vs. transplanted heart: [place] heart Associated angina: without angina Chronic obstructive pulmonary disease, unspecified COPD type J44.9 COPD type: unspecified COPD Chronic back pain M54.9; G89.29 S/P aortic valve replacement with bioprosthetic valve Z95.3 Hyponatremia E87.1 Hypothyroidism E03.9 Pleural effusion J90 Hypoxia R09.02 (3) CAD (coronary artery disease) Coronary Disease-Associated Artery/Lesion type: [place] artery [place] vs. transplanted heart: [place] heart Associated angina: without angina Qualified Code(s): I25.10 - Atherosclerotic heart disease of [place] coronary artery without angina pectoris (4) COPD (chronic obstructive pulmonary disease) COPD type: unspecified COPD Qualified Code(s): J44.9 - Chronic obstructive pulmonary disease, unspecified
[2024-04-21] MEDS: METOPROLOL SUCC 25MG EXT REL TAB PO SCH (08:18)
[2024-04-21 09:05] LABS: BUN Creatinine Ratio 22.9 (10-20); Calcium 8.3 mg/dl (8.6-10.3); Potassium 3.9 mmol/L (3.5-5.1)
[2024-04-21 11:04] VITALS: BP 99/62; PULSE 63; RESP 18; TEMP 97.7; O2SAT 93
--- NOTE | 2024-04-21 12:28 | Discharge Summary ---
Discharge Summary Date of Service April 21, 2024 Principal Dx & Hospital Course #1 = Principal Diagnosis (1) Acute on chronic systolic heart failure: 78 y/o man who recently was diagnosed with afib and started treatment as outpatient, admitted with heart failure exacerbation and onset of severe anasarca and hypoxia Diuresed >10 pounds this admission, leg edema significantly improved, is euvolemic to intravascularly dry and no longer has dyspnea though remains hypoxic Has required home O2 in the past and seems to have element of chronic hypoxia. Pleural effusions and COPD are also contributing. Pace of diuresis was limited by baseline hypotension and hyponatremia. 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 Cardiology consulted this admission. Home meds: carvedilol changed to metoprolol succinate lasix 20 mg daily and spironolactone started not on JAIRO/ARB/ARNI or SGLT-2 yet because of hypotension, deferred to outpatient setting Made referral for follow up with heart failure clinic, has appt with Dr. Rivas soon in April (2) A-fib: He had tachycardia with afib and also MAT this admission Rate control with AV alok karol was limited by hypotension Eventually started on amiodarone Continue apixaban (3) CAD (coronary artery disease): cath 2011 at [facility] - I cannot find a report in old or [facility] but old cardiology notes state "no significant blockages" cont statin cont BB (4) COPD (chronic obstructive pulmonary disease): followed by Dr. Lawson - Prisc[facility] Pulmonology Ongoing tobacco smoking Is on Fluticasone-salmeterol inhaler therapy at baseline Crackles and hypoxia persisted despite diuresis CT chest 12/2023 without PF/ILD CT chest this admission without ILD and evidence of CHF along with mod sized pleural effusions COPD could be contributing to his NC O2 requirements sputum cx negative Dr. Cowart consulted - he believes most of the hypoxia is primarily CHF Dr Cowart recommends Bipap but he's refusing such Strongly advised smoking cessation (5) Chronic back pain: Oxycodone prn no issues (6) S/P aortic valve replacement with bioprosthetic valve: last echo 2023 with intact valve function 2010 - AVR at [facility] (7) Hyponatremia: He has longstanding chronic hyponatremia in low 130s. 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 as well as hyponatremia related to CHF with hyper and hypovolemia Became more hyponatremic with active diuresis, this will probably improve a little with home diet and relatively lower diuretics dose -continue diuretics, mild fluid restriction -please check BMP on next follow up -he is asymptomatic -would benefit from protein supplement (8) Hypothyroidism: patient with normal FT4 but TSH elevated at 11 in light of his cardiac issues and his chronic hyponatremia replacement would likely help him thus, started synthroid 50mcg daily with repeat TSH in 6 weeks as outpatient (9) Pleural effusion: moderate b/l effusions on CT and cxr but they are improving with diuresis poor candidate for intervention given his Eliquis usage cont to observe (10) Hypoxia: Components of CHF, pleural effusions, COPD Arranged home O2 with 3L at rest and 6L with activity Plan He refused PT and OT and didn't get up much out of bed. My colleague advised him strongly that he may need rehab stay and to participate in PT OT. He refused this and emphatically wished to return home. Discussed risk of falls and being unable to get up his stairs. Today he told me he got up and walked to nurses station with his walker without difficulty and is sitting up in the chair, thinks his strength is at his normal baseline. Notes For Next Care Provider Please check BMP on follow up Repeat TSH in 6 weeks Repeat CXR to follow pleural effusions if remaining significantly hypoxic Medication Changes From Visit Carvedilol changed to metoprolol succinate Diuretics are new Amiodarone is new Levothyroxine added Admission HPI Per Admitting Provider Wolfgang Jeter is a 78 y/o M with a past medical history of CAD,p. a-fib on eliquis, COPD, HTN, Fall in January arriving in the ED after being seen by his primary care provider where he was found to be in an acute CHF exacerbation with volume overload and 34 pound weight gain in the past 1.5 months. Patient recently sustained a fall in December and had L. ribs 6-10 fracture, pneumothorax, T8 compression fracture and T12 spinal epidural hematoma, non compressive. Patient was life flighted to [facility] at the time from [facility] due to desaturations in the 60s only improved to 80 on 15L via non-rebreather mask. Patient progressed well and was transitioned to acute rehabilitation for 1 week, and then moved home with PT home services and nursing services. Today patient endorses shortness of breath, weight gain, and lower extremity edema worsened in the past 5-6 weeks. Patient complains of increased swelling primarily, and feels that his SOB at rest has been stable, but when exerting himself the SOB has worsened. Patient does endorse long smoking history, with approximately 1/2 pack daily for the past 40 years. No chest pain, palpitations, chest tightness, cough, wheeze, abdominal pain, nausea, vomiting, dizziness, blurred vision, Discharge Exam PHYSICAL EXAMINATION Last 24h vital signs reviewed, see documentation in flowsheet General: sitting up in chair HEENT: Normocephalic, atraumatic, pupils round and equal, sclerae anicteric, no conjunctival injection, moist mucus membranes Lungs: nonlabored, diminished in bases no wheezing Heart: irregularly irregular, systolic murmur, no JVD Abdomen: Soft, nontender, nondistended. Bowel sounds present. Extremities: Warm, dry, well-perfused. Anasarca resolved. LE edema 1+ symmetric - improved last 48h Neuro: Alert and oriented x 4, face symmetric, moves 4 extremities well Psych: Normal affect and behavior Discharge Plan Discharge Items Patient Disposition: Home - Self-Care Reason For Visit: CHF EXACERBATION Discharge Diagnosis: Acute on chronic systolic heart failure, hypoxia Activity: Resume your previous activity Non-emergency contact: Primary Care Provider and Sewer Line Photo Inspector Call non-emergency contact if: you have any medication questions, your symptoms worsen and you have a fever Follow-up/Referrals: Parish Link III, CRNP [Primary Care Provider] - 04/28/24 1:00 pm (Hospital follow up on April 28 at 1 pm) Alfreda Burch PA-C [Physician Airveyor Operator] - 04/18/24 2:00 pm Diet: Low Sodium (2gm) Addtl Attending Provider Instructions: You were treated for heart failure exacerbation (fluid overload related to low heart squeeze) This was treated with diuretics You were evaluated by: restaurant cook, hand lens polisher You have COPD as well, however, the main cause of low oxygen is the heart failure -Dr. Cowart recommended a control inhaler Amiodarone to control high heart rates, continue apixaban Metoprolol, furosemide, spironolactone to help control heart failure Stay on a low salt diet - water follows salt so you'll swell up and have trouble breathing if you eat too much salt Don't over-drink fluids - max 2L per day or you'll retain too much fluid Weigh yourself every morning (see below) Follow up in heart failure clinic - this appt will be rescheduled to within 1-2 weeks of now Follow up with Dr. Rivas in April as scheduled You have mildly low thyroid function - we started thyroid replacement with levothyroxine because it could help with your cardiac issues Use your home oxygen - 3L at rest and nighttime, 6L with activity DO NOT SMOKE around oxygen equipment or while wearing O2 - this can cause severe mendes and fires We strongly advise quitting smoking. Quitting now will help keep your lungs from getting worse It was a pleasure taking care of you in the hospital, Lashay Sanders MD Addtl Bone Crusher Provider Instructions: Call your Primary Care doctor if any of the following symptoms or problems start or get worse: * Shortness of breath or difficulty breathing * Wake up at night short of breath * Chest pain * Cough * Swelling of your hands, feet, or legs * More fatigued or tired with your normal activity * Palpitations - sudden fast heart beats WEIGHT * Weigh yourself every morning after using the bathroom. * Use the same scale. * Wear the same amount of clothing. * Write your weight down on a chart. * Call your Primary Care doctor if you gain more than 2-3 pounds in 1-2 days. MEDICATIONS * Use this discharge instruction sheet for medication instructions. * Take your medications at the time your doctor ordered. * Do not skip a dose of your medicines. * If you miss a dose of medicine, take it as soon as possible, but DO NOT DOUBLE A DOSE. * Read your medicine information when you get home. * Know all of the side effects of your medicine. If in doubt, ask your pharmacist * Call your Primary Care doctor's office if you have any side effects. * Be sure all of your doctors know what medicine and herbs you take (including cold, flu, and herbal medicine). Take the following with you to your follow-up doctor appointments: * Weight Chart * Medication List * List of questions Do not drink excessive alcohol, beer or wine. Pending Studies at Discharge: No Stand-Alone Forms: My [facility], Smoking Cessation Medications and DC Order Prescriptions: New amiodarone 200 mg Tablet 200 mg PO BIDM Qty: 40 0RF Rx Instructions: 1 tab twice a day for ten days then decrease to 1 tab a day metoprolol succinate 25 mg Tablet Extended Release 24 Hr 25 mg PO QAM Qty: 30 0RF spironolactone 25 mg Tablet 25 mg PO QAM Qty: 30 0RF furosemide 20 mg tablet 20 mg PO DAILY Qty: 30 0RF levothyroxine [Synthroid] 50 mcg Tablet 50 mcg PO DAILYBB Qty: 30 0RF Continued triamcinolone acetonide 0.1 % ointment 1 applic TOPICAL UD PRN (Reason: ANKLES) 30 Days Qty: 30 1RF tamsulosin 0.4 mg capsule 0.4 mg PO QAM Qty: 90 3RF apixaban 5 mg tablet 5 mg PO BID Qty: 180 3RF Hold Instructions: PER SUNDAY DC MEDLIST-ADVISED TO F/U W/ PCP WHEN OK TO RESUME mecobalamin (vitamin B12) 1,000 mcg tablet,disintegrating 1,000 mcg sublingual QAM Rx Instructions: place tablet under tongue and allow to dissolve for at least30 secs before swallowing oxycodone 5 mg tablet 5 mg PO Q4H PRN (Reason: pain) Patient Comments: CONFIRMED W/ PT AND ON [facility] MED LIST 02/08/24 fluticasone propion-salmeterol 250-50 mcg/dose blister with device 1 ea INHALATION BID atorvastatin 40 mg tablet 40 mg PO QAM Discontinued carvedilol 6.25 mg tablet 6.25 mg PO BID Qty: 180 3RF Discharge Orders: Discharge Order- CHF (Routine); Ordered 04/21/24 Ordered By: Lashay Karimi/Other Patient Handouts: Spironolactone Oral Tablet, Amiodarone Oral Tablet, Furosemide Oral Tablet, Metoprolol Oral Tablet, Heart Failure Dc Admission Data Admit Date/Time: 04/07/24 20:18 Attending Provider: Lashay Sanders Admit Provider: Pietro Eddy Primary Care Provider: Parish Link III Other Providers: [facility] Fax; Srini Garay; Jose Díaz; Alfreda Burch; Ann Cowart Other Interventions: Discharge Summary Assessment (RN) Last Done: 04/21/24 11:58 Hospital Stay Data Consultations 04/07/24 17:49 ED Decision to Admit Stat 04/07/24 22:42 Consult Cardiology Routine 04/10/24 15:18 [facility] CHF Program Referral Routine 04/18/24 11:12 Consult Pulmonology Routine Diagnostic Imagining Performed 04/13/24 07:52 CT chest diagnostic wo con Routine Pending Results Patient Have Any Pending Studies at Discharge: No Discharge Instructions Given to Patient (Per Discharging Provider) You were treated for heart failure exacerbation (fluid overload related to low heart squeeze) This was treated with diuretics You were evaluated by: restaurant cook, hand lens polisher You have COPD as well, however, the main cause of low oxygen is the heart failure -Dr. Cowart recommended a control inhaler Amiodarone to control high heart rates, continue apixaban Metoprolol, furosemide, spironolactone to help control heart failure Stay on a low salt diet - water follows salt so you'll swell up and have trouble breathing if you eat too much salt Don't over-drink fluids - max 2L per day or you'll retain too much fluid Weigh yourself every morning (see below) Follow up in heart failure clinic - this appt will be rescheduled to within 1-2 weeks of now Follow up with Dr. Rivas in April as scheduled You have mildly low thyroid function - we started thyroid replacement with levothyroxine because it could help with your cardiac issues Use your home oxygen - 3L at rest and nighttime, 6L with activity DO NOT SMOKE around oxygen equipment or while wearing O2 - this can cause severe mendes and fires We strongly advise quitting smoking. Quitting now will help keep your lungs from getting worse It was a pleasure taking care of you in the hospital, Lashay Sanders MD Total Time Total Time Spent Total Time Spent (In Minutes): I personally spent: 45 minutes today on clinical care activities including: reviewing chart notes and vital signs reviewing labs reviewing studies discussion with hospice home care coordinator, arranging home oxygen, making referrals examining and counseling the patient writing orders writing prescriptions, discharge instructions documentation Coding Level of Care Code 47911 INP/OBS DISCH >30 MIN Diagnoses Acute on chronic systolic heart failure I50.23 A-fib I48.91 Coronary artery disease involving [place] coronary artery of [place] heart without angina pectoris I25.10 Associated angina: without angina Coronary Disease-Associated Artery/Lesion type: [place] artery [place] vs. transplanted heart: [place] heart Chronic obstructive pulmonary disease, unspecified COPD type J44.9 COPD type: unspecified COPD Chronic back pain M54.9; G89.29 S/P aortic valve replacement with bioprosthetic valve Z95.3 Hyponatremia E87.1 Hypothyroidism E03.9 Pleural effusion J90 Hypoxia R09.02
== END 2024-04-21 13:57 | disposition home health service (06) | DRG 291 ==
LOC: ED 16:25 → 2E 20:18 → SUATTDRO 20:18 → 2E 22:14 → 2N 04-08 13:43 → 2S 04-12 17:23

== ENCOUNTER 2024-05-27 15:47 | Inpatient (IN) ==
--- NOTE | 2024-05-27 16:30 | Emergency Department Note ---
Impression & Plan Fall from standing, Non-ST elevation NC (NSTEMI), Elevated CK, Acute hypokalemia ED Provider Note HISTORY OF PRESENT ILLNESS: Patient is a 78-year-old male presenting after a fall from standing. Patient reports he has been using his walker as instructed by physical therapy. He states that he was walking with his walker when the walker seem to go off in a different direction and he got tripped up. He reports he fell onto his right side. He states he was unable to get up secondary to how he awkwardly fell. He denies any pain complaints on arrival to the ER. He was down on the ground for 6 hours before daughter came to check on him and found him down. Daughter called 911. Patient is on Eliquis. He denies striking his head or loss of consciousness. He denies any headache, changes in vision, new numbness or tingling or weakness in extremities. He denies any chest pain, shortness of breath or lightheadedness prior to his fall. He denies any current chest pain or shortness of breath. Denies any abdominal pain. He states that he fell earlier in the week again secondary to his walker. He states that he does sometimes ambulate with a cane at home and "gets around better with that." ROS: as above PHYSICAL EXAM: Constitutional: Patient appears in no acute distress. HENT: Head: Normocephalic and atraumatic. Eyes: EOMI, PERRL Mouth/Throat: Mucous membranes moist. Neck: Trachea midline. Neck supple. No midline cervical spine tenderness to palpation. Cardiovascular: RRR, No murmurs, rubs or gallops. Intact distal pulses. Pulmonary/Chest: No respiratory distress. Breath sounds clear and equal bilaterally. No wheezes or rales. No chest wall tenderness to palpation. Abdominal: Abdomen soft, no tenderness, rebound or guarding. Musculoskeletal: No edema, tenderness or deformity noted. Patient is able to straight leg raise bilaterally. He is noted to have a skin tear to his right elbow. Skin: Warm and dry. Psychiatric: Appropriate mood and affect for situation. Neurological: Alert and keenly responsive. CN II-XII grossly intact, moving all extremities equally and fully. MDM: - Vitals signs stable. - History obtained via patient. History as above. - Chronic conditions affecting care: carotid artery stenosis; HTN; COPD; CAD; HLD; cardiomyopathy; hypothyroidism - Differential diagnoses include, but are not limited to: dysrhythmia; electrolyte abnormality; ACS; intracranial hemorrhage; pneumonia; pneumothorax - Order placed for continuous cardiac monitoring. At this time, monitor showed rate of 67 bpm with normal sinus rhythm, per my interpretation. - External medical records reviewed. Discharge summary dated 04/21/2024 was reviewed. Patient was admitted to hospital for acute on chronic CHF. - EKG interpreted by myself showed normal sinus rhythm. Rate 65 bpm. QT 510. No acute ischemic changes. However, noted to have some T wave inversions in V2 and V3. - Laboratory workup interpreted by myself showed normal WBC; hypokalemia (K 3.4); elevated BUN (25); hypocalcemia (Ca 8.4); elevated total bilirubin (1.5); elevated troponin (438.7); elevated CK (289) - CXR negative for pneumonia, per my interpretation - Xray pelvis negative for acute fracture - CT head wo contrast negative for acute intracranial pathology - CT cervical spine wo contrast negative for acute injury - Patient has no complaints in the ER, and is not complaining of chest pain. Repeat troponin persistently elevated at 439.5. The patient is having no complaints of chest pain, he has never had a troponin is elevated before and has a previous cardiac history. Will admit to hospitalist service. - Discussion was had with medical case manager about patient's case and need for admission - Hospitalist consulted for admission - Patient admitted to [facility] hospitalist service for further evaluation and management. ASSESSMENT AND PLAN: Diagnosis: fall from standing; NSTEMI; elevated CK; acute hypokalemia Plan: Admit Past Med/Surg History Problem List (Updated 05/27/24 @ 20:14 by Lara Cueva MD) Acute hypokalemia (Acute) Elevated CK (Acute) Non-ST elevation NC (NSTEMI) (Acute) Fall from standing (Acute) Hypoxia Pleural effusion Hypothyroidism Acute on chronic systolic heart failure Multifocal atrial tachycardia Hypotension S/P aortic valve replacement with bioprosthetic valve (2010) PAF (paroxysmal atrial fibrillation) Acute heart failure with mildly reduced ejection fraction (HFmrEF, 41-49%) CHF exacerbation Anticoagulant long-term use (Acute) Compression fracture of T8 vertebra Cardiomyopathy Thoracic ascending aortic aneurysm 4.5 cm per 2016 imaging Atrial fibrillation (Chronic) Allergic rhinitis (Chronic) CAD (coronary artery disease) (Chronic) Per cardiology 09/10, episode in 2010 with elevated troponins and "probably STEMI." Pt had cath that reportedly showed no significant blockages, though report was not available for cardio review. Hypercholesterolemia (Chronic) Hypertension (Chronic) COPD (chronic obstructive pulmonary disease) (Chronic) Medical History (Updated 05/27/24 @ 20:14 by Lara Cueva MD) Carotid artery stenosis s/p R CEA 09/16/18 Congenital bicuspid aortic valve s/p AVR 2010 LVH (left ventricular hypertrophy) due to hypertensive disease Chronic hyponatremia Radiculopathy of lumbar region Spinal stenosis Chronic back pain Hypertension Chronic obstructive pulmonary disease MILD, DENIES FLARE UPS. FOLLOWS WITH PCP Surgical History (Updated 05/08/24 @ 00:06 by Stephanie Cancino) History of lumbar fusion H/O carotid endarterectomy (11/04/18) Left Carotid Endarterectomy with Bovine Patch(Left) - Mariano Laboy MD 11/04/18 H/O carotid endarterectomy 09/16/18 [facility] Fusion of spine LUMBAR FUSION Hx of cardiac catheterization no stents Hx of bilateral cataract extraction History of total hip arthroplasty BILATERAL History of carpal tunnel release RIGHT History of tonsillectomy Family History Brother Prostate cancer Father Myocardial infarction Other Cancer No family history of adverse response to anesthesia No family history of bleeding disorder Denies family history of Ovarian cancer Breast cancer Colorectal cancer Social History Smoking Status: Current every day smoker Tobacco Type: Cigarettes Age Started Using Tobacco: 18; packs per day: 0.5; Cigarettes Per Day: 3/4th pack a day; Second Hand Exposure: No; Do You Dip or Chew Tobacco: No; Hx Alcohol Use: Yes Alcohol type: hard liquor Alcohol Intake Frequency: 4 or More x per/Week Hx Substance Use: No Preferred Language: Sami Communication Ability: Effective Visual Impairment: No Limitations Hearing Ability: Use of Hearing Aid Shampoo Technician Required: No Beliefs That Will Affect Care: None marital status: Current Living Situation: Spouse current occupational status: retired 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 Feels Safe at Home: Yes Childhood Exposure to Second-Hand Smoke: Yes Diet: regular Diet Comment: regular Dental Care, Regularly: No Physical Activity Frequency: Does not Exercise Seatbelt Use: always Sunscreen Use: No Assistive Devices: Cane and Walker Allergies Allergies Allergy/AdvReac Type Severity Reaction Status Date / Time bee venom protein (honey bee) Allergy Severe swelling Verified 05/20/24 10:36 pepper (genus Capsicum) Allergy Mild TOBASCO Verified 05/20/24 10:36 SAUCE - TOO MUCH OF WILL CAUSE HIVES ibuprofen AdvReac Intermediate LARGE Verified 05/20/24 10:36 DOSES CAUSE ITCHING AND BLISTERS Home Meds Home Medications Medication Instructions Recorded Confirmed mecobalamin (vitamin B12) 1,000 1,000 mcg sublingual QAM 09/30/21 05/27/24 mcg disintegrating tablet,sublingual atorvastatin 40 mg tablet 40 mg PO QAM 04/07/24 05/27/24 fluticasone 250 mcg-salmeterol 50 1 ea inhalation BID 04/07/24 05/27/24 mcg/dose blistr powdr for inhalation Previous Rx's Medication Instructions Recorded triamcinolone acetonide 0.1 % 1 applic topical UD PRN ANKLES 30 12/01/23 topical ointment days #30 grams tamsulosin 0.4 mg capsule 0.4 mg PO QAM #90 caps 01/13/24 apixaban 5 mg tablet 5 mg PO BID #180 tabs 03/07/24 oxycodone 5 mg tablet 5 mg PO Q4H PRN pain #30 tabs 04/28/24 dapagliflozin propanediol 10 mg 10 mg PO DAILY #30 tabs 05/05/24 tablet (Farxiga) metoprolol succinate 25 mg 25 mg PO QAM #90 tabs 05/05/24 tablet,extended release 24 hr amiodarone 200 mg tablet 200 mg PO DAILY #30 tabs 05/18/24 furosemide 20 mg tablet 20 mg PO DAILY PRN weight gain, 05/18/24 edema, shortness of breath #30 tabs levothyroxine 50 mcg tablet 50 mcg PO DAILYBB #30 tabs 05/18/24 (Synthroid) spironolactone 25 mg tablet 25 mg PO QAM #90 tabs 05/18/24 Results & Data (ED) Vital Signs Vital Signs - 24 hr 05/27/24 15:56 05/27/24 15:57 05/27/24 16:24 Temperature 36.9 C Temperature Source Oral Pulse Rate 69 64 61 Pulse Rate from SpO2 Sensor 61 Respiratory Rate 14 20 21 Blood Pressure 123/75 125/74 124/74 Blood Pressure Mean 91 91 90 Pulse Oximetry 93 62 L Oxygen Delivery Method Room Air Sepsis Recent Fever Within 48 Hours No Sepsis New/Unexplained Change in Mental Status No Sepsis Action Taken by Nursing No Action Required 05/27/24 16:45 05/27/24 16:54 05/27/24 17:06 Temperature Temperature Source Pulse Rate 68 70 64 Pulse Rate from SpO2 Sensor 94 H Respiratory Rate 14 20 Blood Pressure 115/59 L Blood Pressure Mean 77 Pulse Oximetry 94 Oxygen Delivery Method Sepsis Recent Fever Within 48 Hours Sepsis New/Unexplained Change in Mental Status Sepsis Action Taken by Nursing 05/27/24 18:30 05/27/24 19:21 Temperature Temperature Source Pulse Rate 73 67 Pulse Rate from SpO2 Sensor 67 63 Respiratory Rate 24 25 H Blood Pressure 99/56 L 97/60 L Blood Pressure Mean 70 72 Pulse Oximetry 97 88 L Oxygen Delivery Method Sepsis Recent Fever Within 48 Hours Sepsis New/Unexplained Change in Mental Status Sepsis Action Taken by Nursing Laboratory Data 05/27/24 17:19 05/27/24 17:19 Lab Results 05/27/24 05/27/24 Range/Units 17:19 19:07 WBC 9.08 (4.8-10.8) K/ul RBC 4.20 L (4.70-6.10) M/uL Hgb 13.5 L (14.0-18.0) g/dl Hct 40.7 L (42.0-52.0) % MCV 96.9 (80.0-100.0) fL MCH 32.1 (25.0-34.0) pg MCHC 33.2 (32.0-36.0) g/dL RDW Std Deviation 54.9 H (36.4-46.3) fL RDW Coeff of Telma 15.6 H (11.5-14.5) % Plt Count 148 (130-400) K/uL MPV 10.9 (9.4-12.4) fL Immature Gran % (Auto) 0.3 % Neut % (Auto) 76.2 % Lymph % (Auto) 14.4 % Power % (Auto) 8.7 % Eos % (Auto) 0.1 % Baso % (Auto) 0.3 % Neut # (Auto) 6.91 H (1.40-6.50) K/uL Lymph # (Auto) 1.31 (1.20-3.40) K/uL Power # (Auto) 0.79 H (0.11-0.59) K/uL Eos # (Auto) 0.01 (0.00-0.50) K/uL Baso # (Auto) 0.03 (0.00-0.20) K/uL Immature Gran # (Auto) 0.03 (0.01-0.20) K/uL Sodium 136 (136-145) mmol/L Potassium 3.4 L (3.5-5.1) mmol/L Chloride 94 L (98-107) mmol/L Carbon Dioxide 34 H (21-32) mmol/L Anion Gap 8 (3-11) BUN 25 H (6-23) mg/dl Creatinine 1.31 (0.6-1.4) mg/dl Est Cr Clr Drug Dosing 46.4 ml/min eGFR 56.41 BUN/Creatinine Ratio 19.1 (10-20) Glucose 108 H (70-99(Fasting)) mg/dl Calcium 8.4 L (8.6-10.3) mg/dl Total Bilirubin 1.5 H (0.2-1.0) mg/dl AST 24 (13-39) U/L ALT 12 (7-52) U/L Alkaline Phosphatase 107 H (34-104) U/L Total Creatine Kinase 289 H (30-223) U/L Troponin I High Sens 438.7 H* 439.5 H* (0-20) pg/ml Total Protein 7.1 (6.0-8.3) gm/dl Albumin 3.2 L (3.4-5.0) gm/dl Globulin 3.9 (2.5-4.0) gm/dl Albumin/Globulin Ratio 0.8 L (0.9-2) Imaging Data Radiologist's Impression: Cervical Spine CT 05/27/24 16:29 EXAM: CT cervical spine wo con CLINICAL HISTORY: fall from standing. TECHNIQUE: CT scan of the cervical spine was performed without the administration of intravenous contrast. Contiguous axial images were obtained from the skull base to the upper thoracic spine. Coronal and sagittal reformatted images were also reviewed. One of the following dose reduction techniques was utilized for this exam. Automated exposure control, adjustment of the mA and/or kV according to patient size, and use of iterative reconstruction. COMPARISON: Comparison is made with the prior imaging dated 01/16/2024 the current study revealed. FINDINGS: Vertebrae: Stable mild anterior slipping of C7 over D1. stable mild posterior slipping of C4 over C5. The vertebral bodies are normal in height. No evidence of acute fracture or dislocation. The cortical and trabecular bone patterns are normal. anterior marginal osteophytic lippings are seen at the opposing vertebral endplates. No signs of lytic or sclerotic lesions. Normal configuration of the posterior elements. Intervertebral Discs: Stable narrowed C4-5, C5-6 and C6-7 disc spaces No calcifications or ossifications noted within the discs. 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 Neural Foramina: The neural foramina are patent bilaterally at all levels. No evidence of foraminal narrowing or nerve root compression. Prevertebral Soft Tissues: The prevertebral soft tissues are normal in thickness without evidence of mass or abnormal fluid collection. Additional Findings: No other significant findings are noted in the visualized soft tissue structures or bony elements. IMPRESSION: Stationary course as detailed. No evidence of acute fracture or dislocation. Electronically signed by Juan Miguel Malone 05-27-2024 6:00 PM Chest X-Ray 05/27/24 16:29 EXAM: XR chest 1V portable CLINICAL HISTORY: fall from standing TECHNIQUE: An X-ray image of the chest is obtained using an AP projection. COMPARISON: CR dated 04/20/2024. FINDINGS: Pulmonary Parenchyma: Regressive course regarding the previously seen bilateral lower zone heterogenous air space opacifications with coarse interstitial markings and cystic areas. No pneumothorax. Unchanged bilateral blunted costophrenic angles suggestive of small pleural effusions. Heart and Mediastinum: Cardiomegaly. No mediastinal widening. Bilateral perihilar congestion. Bony Thorax: Thoracic spondylosis and degenerative changes in bilateral glenohumeral joints. Soft Tissues: Midline sternotomy sutures. IMPRESSION: 1. Regressive course regarding the previously seen bilateral lower zone heterogenous air space opacifications with coarse interstitial markings and cystic areas 2. Stable bilateral blunted costophrenic angles suggestive of mild pleural effusions with interval slight regression on the right side. 3. Cardiomegaly. Electronically signed by Juan Miguel Malone 05-27-2024 7:[address] 05/27/24 16:29 EXAM: CT head/brain wo con CLINICAL HISTORY: fall from standing. TECHNIQUE: Axial non-contrast CT scan of the brain was performed from the skull base to the high parietal region. One of the following dose reduction techniques were utilized for this exam: Automated exposure control, adjustment of the mA and/or kV according to patient size, use of iterative reconstruction. COMPARISON: 01/16/2024. FINDINGS: Brain Parenchyma: Accentuated bilateral deep periventricular hypodensity. No evidence of acute infarct, hemorrhage, or mass effect. Ventricular System: Mild dilatation of the supratentorial ventricular system No evidence of hydrocephalus. Subarachnoid Spaces: accentuated cortical sulci and extra-axial CSF spaces No evidence of subarachnoid hemorrhage or extra-axial fluid collections. Cerebellum and Brainstem: Prominent cerebellar folia. No masses, lesions, or areas of abnormal signal. Orbits: Normal appearance of the globes, optic nerves, and extraocular muscles. No evidence of orbital masses or abnormal signal. Bilateral cataract operation. Sinuses: Clear paranasal sinuses. No evidence of sinusitis or mucosal thickening. Mastoid Air Cells: Clear mastoid air cells. No evidence of mastoiditis. Skull: Normal skull morphology. IMPRESSION: 1. No acute head/brain abnormality. 2. Accentuated bilateral deep periventricular hypodensity.likely microvascular ischemic changes. stable. 3. Involutional brain changes. stable. Electronically signed by Juan Miguel Malone 05-27-2024 6:15 PM Pelvis X-Ray 05/27/24 16:30 EXAM: XR pelvis 1-2V routine CLINICAL HISTORY: fall from standing. TECHNIQUE: X-ray images of the pelvis were obtained in anteroposterior (AP) projection. COMPARISON: 01/16/2024 CT abdomen and pelvis is reviewed. FINDINGS: Bone Structure: Pelvic bones, including the iliac wings, ischium, pubis, and sacrum, are normal and intact. No evidence of fractures, dislocations, or significant osseous lesions. Hip Joints: Bilateral artificial hips joints replacement without evidence of prothesis loosening or breaking. Symphysis Pubis: Symphysis pubis is normal and intact. No evidence of separation or widening. Sacroiliac Joints: Sacroiliac joints appear normal and unremarkable. No evidence of sacroiliitis or significant degenerative changes. Soft Tissues: Visualized soft tissues are normal and unremarkable. No soft tissue swelling, calcifications, or masses. internal fixation of L5 and S1 with rods and screws without evidence of prothesis loosening or breaking in the limted frontal view. IMPRESSION: 1. Bilateral artificial hip joints replacement without evidence of prothesis loosening or breaking. 2. No acute osseous abnormality is seen in the pelvis. Disclaimer: A subtle bone abnormality or fracture may not be readily apparent on X-rays, thus clinical correlation and further imaging including follow-up CT, MRI, or follow-up X-rays are advised as needed. Electronically signed by Juan Miguel Malone 05-27-2024 7:07 PM Discharge Plan Visit Data Chief Complaint: Fall ED Provider: Lara Cueva Discharge Problem: Fall from standing, Non-ST elevation NC (NSTEMI), Elevated CK, Acute hypokalemia Forms Stand Alone Forms: [facility] Prescriptions Prescriptions: No Action triamcinolone acetonide 0.1 % ointment 1 applic TOPICAL UD PRN (Reason: ANKLES) 30 Days Qty: 30 1RF tamsulosin 0.4 mg capsule 0.4 mg PO QAM Qty: 90 3RF apixaban 5 mg tablet 5 mg PO BID Qty: 180 3RF Hold Instructions: PER SUNDAY [facility] MEDLIST-ADVISED TO F/U W/ PCP WHEN OK TO RESUME spironolactone 25 mg tablet 25 mg PO QAM Qty: 90 3RF levothyroxine [Synthroid] 50 mcg tablet 50 mcg PO DAILYBB Qty: 30 11RF furosemide 20 mg tablet 20 mg PO DAILY PRN (Reason: weight gain, edema, shortness of breath) Qty: 30 3RF amiodarone 200 mg tablet 200 mg PO DAILY Qty: 30 11RF Rx Instructions: 1 tab twice a day for ten days then decrease to 1 tab a day mecobalamin (vitamin B12) 1,000 mcg tablet,disintegrating 1,000 mcg sublingual QAM Rx Instructions: place tablet under tongue and allow to dissolve for at least30 secs before swallowing metoprolol succinate 25 mg tablet extended release 24 hr 25 mg PO QAM Qty: 90 3RF dapagliflozin propanediol [Farxiga] 10 mg tablet 10 mg PO DAILY Qty: 30 2RF oxycodone 5 mg tablet 5 mg PO Q4H PRN (Reason: pain) Qty: 30 0RF fluticasone propion-salmeterol 250-50 mcg/dose blister with device 1 ea INHALATION BID atorvastatin 40 mg tablet 40 mg PO QAM Referrals Referrals: Parish Link III, CRNP [Primary Care Provider] -
[2024-05-27 17:36] LABS: Basophils # (auto) 0.03 K/uL (0.00-0.20); Basophils % (auto) 0.3 %; Eosinophils # (auto) 0.01 K/uL (0.00-0.50); Eosinophils % (auto) 0.1 %; Hematocrit (blood only) 40.7 % (42.0-52.0); Hemoglobin 13.5 g/dl (14.0-18.0); Immature Granulocytes # (auto) 0.03 K/uL (0.01-0.20); Immature Granulocytes % (auto) 0.3 %; Lymphocytes # (auto) 1.31 K/uL (1.20-3.40); Lymphocytes % (auto) 14.4 %; Mean Corpuscular Hemoglobin 32.1 pg (25.0-34.0); Mean Corpuscular Hgb Conc 33.2 g/dL (32.0-36.0); Mean Corpuscular Volume 96.9 fL (80.0-100.0); Mean Platelet Volume 10.9 fL (9.4-12.4); Monocytes # (auto) 0.79 K/uL (0.11-0.59); Monocytes % (auto) 8.7 %; Neutrophils # (auto) 6.91 K/uL (1.40-6.50); Neutrophils % (auto) 76.2 %; Platelet Count 148 K/uL (130-400); RDW Coefficient of Variation 15.6 % (11.5-14.5); RDW Standard Deviation 54.9 fL (36.4-46.3); White Blood Count 9.08 K/ul (4.8-10.8)
[2024-05-27 17:48] LABS: Albumin Globulin Ratio 0.8 (0.9-2); Albumin Level 3.2 gm/dl (3.4-5.0); BUN Creatinine Ratio 19.1 (10-20); Bilirubin,Total 1.5 mg/dl (0.2-1.0); Calcium 8.4 mg/dl (8.6-10.3); Creatinine Clr Calc Pharmacy 46.4 ml/min; Globulin 3.9 gm/dl (2.5-4.0); Potassium 3.4 mmol/L (3.5-5.1); Total Protein 7.1 gm/dl (6.0-8.3)
[2024-05-27 17:57] LABS: Troponin I High Sensitivity 438.7 pg/ml (0-20)
--- NOTE | 2024-05-27 18:01 | CT Scan Report ---
EXAM: CT cervical spine wo con CLINICAL HISTORY: fall from standing. TECHNIQUE: CT scan of the cervical spine was performed without the administration of intravenous contrast. Contiguous axial images were obtained from the skull base to the upper thoracic spine. Coronal and sagittal reformatted images were also reviewed. One of the following dose reduction techniques was utilized for this exam. Automated exposure control, adjustment of the mA and/or kV according to patient size, and use of iterative reconstruction. COMPARISON: Comparison is made with the prior imaging dated 01/16/2024 the current study revealed. FINDINGS: Vertebrae: Stable mild anterior slipping of C7 over D1. stable mild posterior slipping of C4 over C5. The vertebral bodies are normal in height. No evidence of acute fracture or dislocation. The cortical and trabecular bone patterns are normal. anterior marginal osteophytic lippings are seen at the opposing vertebral endplates. No signs of lytic or sclerotic lesions. Normal configuration of the posterior elements. Intervertebral Discs: Stable narrowed C4-5, C5-6 and C6-7 disc spaces No calcifications or ossifications noted within the discs. 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 Neural Foramina: The neural foramina are patent bilaterally at all levels. No evidence of foraminal narrowing or nerve root compression. Prevertebral Soft Tissues: The prevertebral soft tissues are normal in thickness without evidence of mass or abnormal fluid collection. Additional Findings: No other significant findings are noted in the visualized soft tissue structures or bony elements. IMPRESSION: Stationary course as detailed. No evidence of acute fracture or dislocation. Electronically signed by Juan Miguel Malone 05-27-2024 6:00 PM
--- NOTE | 2024-05-27 18:16 | CT Scan Report ---
EXAM: CT head/brain wo con CLINICAL HISTORY: fall from standing. TECHNIQUE: Axial non-contrast CT scan of the brain was performed from the skull base to the high parietal region. One of the following dose reduction techniques were utilized for this exam: Automated exposure control, adjustment of the mA and/or kV according to patient size, use of iterative reconstruction. COMPARISON: 01/16/2024. FINDINGS: Brain Parenchyma: Accentuated bilateral deep periventricular hypodensity. No evidence of acute infarct, hemorrhage, or mass effect. Ventricular System: Mild dilatation of the supratentorial ventricular system No evidence of hydrocephalus. Subarachnoid Spaces: accentuated cortical sulci and extra-axial CSF spaces No evidence of subarachnoid hemorrhage or extra-axial fluid collections. Cerebellum and Brainstem: Prominent cerebellar folia. No masses, lesions, or areas of abnormal signal. Orbits: Normal appearance of the globes, optic nerves, and extraocular muscles. No evidence of orbital masses or abnormal signal. Bilateral cataract operation. Sinuses: Clear paranasal sinuses. No evidence of sinusitis or mucosal thickening. Mastoid Air Cells: Clear mastoid air cells. No evidence of mastoiditis. Skull: Normal skull morphology. IMPRESSION: 1. No acute head/brain abnormality. 2. Accentuated bilateral deep periventricular hypodensity.likely microvascular ischemic changes. stable. 3. Involutional brain changes. stable. Electronically signed by Juan Miguel Malone 05-27-2024 6:15 PM
--- NOTE | 2024-05-27 19:07 | XRay Report ---
EXAM: XR pelvis 1-2V routine CLINICAL HISTORY: fall from standing. TECHNIQUE: X-ray images of the pelvis were obtained in anteroposterior (AP) projection. COMPARISON: 01/16/2024 CT abdomen and pelvis is reviewed. FINDINGS: Bone Structure: Pelvic bones, including the iliac wings, ischium, pubis, and sacrum, are normal and intact. No evidence of fractures, dislocations, or significant osseous lesions. Hip Joints: Bilateral artificial hips joints replacement without evidence of prothesis loosening or breaking. Symphysis Pubis: Symphysis pubis is normal and intact. No evidence of separation or widening. Sacroiliac Joints: Sacroiliac joints appear normal and unremarkable. No evidence of sacroiliitis or significant degenerative changes. Soft Tissues: Visualized soft tissues are normal and unremarkable. No soft tissue swelling, calcifications, or masses. internal fixation of L5 and S1 with rods and screws without evidence of prothesis loosening or breaking in the limted frontal view. IMPRESSION: 1. Bilateral artificial hip joints replacement without evidence of prothesis loosening or breaking. 2. No acute osseous abnormality is seen in the pelvis. Disclaimer: A subtle bone abnormality or fracture may not be readily apparent on X-rays, thus clinical correlation and further imaging including follow-up CT, MRI, or follow-up X-rays are advised as needed. Electronically signed by Juan Miguel Malone 05-27-2024 7:07 PM
--- NOTE | 2024-05-27 19:08 | XRay Report ---
EXAM: XR chest 1V portable CLINICAL HISTORY: fall from standing TECHNIQUE: An X-ray image of the chest is obtained using an AP projection. COMPARISON: CR dated 04/20/2024. FINDINGS: Pulmonary Parenchyma: Regressive course regarding the previously seen bilateral lower zone heterogenous air space opacifications with coarse interstitial markings and cystic areas. No pneumothorax. Unchanged bilateral blunted costophrenic angles suggestive of small pleural effusions. Heart and Mediastinum: Cardiomegaly. No mediastinal widening. Bilateral perihilar congestion. Bony Thorax: Thoracic spondylosis and degenerative changes in bilateral glenohumeral joints. Soft Tissues: Midline sternotomy sutures. IMPRESSION: 1. Regressive course regarding the previously seen bilateral lower zone heterogenous air space opacifications with coarse interstitial markings and cystic areas 2. Stable bilateral blunted costophrenic angles suggestive of mild pleural effusions with interval slight regression on the right side. 3. Cardiomegaly. Electronically signed by Juan Miguel Malone 05-27-2024 7:07 PM
[2024-05-27] MEDS ORDERED: ALBUT/IPRATROP 3MG/0.5MG NEB 3 ML VIAL NEB PRN (20:36)
--- NOTE | 2024-05-27 20:48 | History & Physical Report ---
Date of Service May 27, 2024 Assessment & Plan (1) Multifocal pneumonia: (2) Acute kidney injury: (3) Rhabdomyolysis: (4) Acute on chronic respiratory failure with hypoxia: (5) Fall from standing: Plan The patient is a 78-year-old male with past medical history including multifocal atrial tachycardia, status post AVR with bioprosthetic valve in 2010, PAF, history of acute heart failure with HFmrEF, long-term anticoagulant use with apixaban, cardiomyopathy, thoracic ascending aortic aneurysm, hypercholesterolemia, hypertension, COPD, and CAD. He presents to the emergency department via EMS after his daughter found him having fallen on the floor about 6 hours previously. Workup in the emergency department included an elevated troponin of 4-38.7, increased creatinine to 1.31, increased CK of 289, and chest x-ray suggestive of pulmonary fibrosis and bilateral lower lobe infiltrates, right greater than left. The patient himself is able to contribute to review of systems and HPI, and reports that he feels pretty much at his baseline at this point His daughter has been concerned that he has had persistent chest congestion and coughing, including since his most recent hospitalization of 04/07-04/21/2024, for which at that time he was treated for acute on chronic systolic heart failure, atrial fibrillation, CAD and COPD exacerbation. #Acute respiratory failure with hypoxia/multifocal pneumonia- Give Solu-Medrol 60 mg IV now, then 40 mg IV every 12 hours Azithromycin 500 mg IV daily Cefepime 2 g IV every 12 hours DuoNebs every 2 hours as needed Nasal cannula oxygen, titrate to pulse ox 92-94% Sputum Gram stain and culture Chest x-ray with changes of pulmonary fibrosis, and persistent bibasilar infiltrates/possible mild effusion right greater than left #Acute kidney injury with rhabdomyolysis- Creatinine 1.31, with base 0.8 CK 289 with follow-up pending for the a.m. Troponin 438.7, with follow-up 439.5. Differential including demand ischemia versus additional evidence of rhabdomyolysis #NSTEMI/hypertension/atrial fibrillation/history of AVR with bioprosthetic valve- Troponin as noted above Continue amiodarone, apixaban The patient will be admitted to telemetry for serial cardiac enzymes, serial EKG's, cardiac rhythm monitoring and a 2-D echocardiogram with Dopplers. EKG with right bundle branch block, no sinus rhythm, and nonspecific ST T changes in lateral chest leads #Generalized deconditioning- Will need PT/OT consults #Chronic medical conditions: Hypothyroidism-continue levothyroxine B12 deficiency-continue 1000 mcg daily supplement Chronic pain syndrome-continue oxycodone BPH with LUTS-continue tamsulosin Hyperlipidemia-continue atorvastatin History of Present Illness Chief Complaint: The patient presents to the emergency department as a fall from standing, that he reports while walking with his walker, he lost control, fell sideways onto his right side, and was later found about 6 hours later by his daughter who came to check on him. He denies any injury to head or arms legs or otherwise. He was in his usual state of health prior to this happening, but his daughter reports that he has been having issues with coughing and chest congestion over the past several months. His daughter called EMS, due to concerns of patient potentially striking his head on Eliquis, and was brought to the emergency department for assessment. Primary Care Provider: Parish Link III, YAMINI The patient is a 78-year-old male with past medical history including multifocal atrial tachycardia, status post AVR with bioprosthetic valve in 2010, PAF, history of acute heart failure with HFmrEF, long-term anticoagulant use with apixaban, cardiomyopathy, thoracic ascending aortic aneurysm, hypercholesterolemia, hypertension, COPD, and CAD. He presents to the emergency department via EMS after his daughter found him having fallen on the floor about 6 hours previously. Workup in the emergency department included an elevated troponin of 4-38.7, increased creatinine to 1.31, increased CK of 289, and chest x-ray suggestive of pulmonary fibrosis and bilateral lower lobe infiltrates, right greater than left. The patient himself is able to contribute to review of systems and HPI, and reports that he feels pretty much at his baseline at this point His daughter has been concerned that he has had persistent chest congestion and coughing, including since his most recent hospitalization of 04/07-04/21/2024, for which at that time he was treated for acute on chronic systolic heart failure, atrial fibrillation, CAD and COPD exacerbation. Allergies Allergy/AdvReac Type Severity Reaction Status Date / Time bee venom protein (honey bee) Allergy Severe swelling Verified 05/20/24 10:36 pepper (genus Capsicum) Allergy Mild TOBASCO Verified 05/20/24 10:36 SAUCE - TOO MUCH OF WILL CAUSE HIVES ibuprofen AdvReac Intermediate LARGE Verified 05/20/24 10:36 DOSES CAUSE ITCHING AND BLISTERS Home Medications Medication Instructions Recorded Confirmed Type mecobalamin (vitamin B12) 1,000 1,000 mcg sublingual QAM 09/30/21 05/27/24 History mcg disintegrating tablet,sublingual triamcinolone acetonide 0.1 % 1 applic topical UD PRN ANKLES 30 12/01/23 05/27/24 Rx topical ointment days #30 grams tamsulosin 0.4 mg capsule 0.4 mg PO QAM #90 caps 01/13/24 05/27/24 Rx apixaban 5 mg tablet 5 mg PO BID #180 tabs 03/07/24 05/27/24 Rx atorvastatin 40 mg tablet 40 mg PO QAM 04/07/24 05/27/24 History fluticasone 250 mcg-salmeterol 50 1 ea inhalation BID 04/07/24 05/27/24 History mcg/dose blistr powdr for inhalation oxycodone 5 mg tablet 5 mg PO Q4H PRN pain #30 tabs 04/28/24 05/27/24 Rx dapagliflozin propanediol 10 mg 10 mg PO DAILY #30 tabs 05/05/24 05/27/24 Rx tablet (Farxiga) metoprolol succinate 25 mg 25 mg PO QAM #90 tabs 05/05/24 05/27/24 Rx tablet,extended release 24 hr amiodarone 200 mg tablet 200 mg PO DAILY #30 tabs 05/18/24 05/27/24 Rx furosemide 20 mg tablet 20 mg PO DAILY PRN weight gain, 05/18/24 05/27/24 Rx edema, shortness of breath #30 tabs levothyroxine 50 mcg tablet 50 mcg PO DAILYBB #30 tabs 05/18/24 05/27/24 Rx (Synthroid) spironolactone 25 mg tablet 25 mg PO QAM #90 tabs 05/18/24 05/27/24 Rx Past Med/Surg History Problem List (Updated 05/28/24 @ 02:19 by Scott Bowen MD) Acute on chronic respiratory failure with hypoxia Rhabdomyolysis Acute kidney injury Multifocal pneumonia Acute hypokalemia (Acute) Elevated CK (Acute) Non-ST elevation DC (NSTEMI) (Acute) Fall from standing (Acute) Hypoxia Pleural effusion Hypothyroidism Acute on chronic systolic heart failure Multifocal atrial tachycardia Hypotension S/P aortic valve replacement with bioprosthetic valve (2010) PAF (paroxysmal atrial fibrillation) Acute heart failure with mildly reduced ejection fraction (HFmrEF, 41-49%) CHF exacerbation Anticoagulant long-term use (Acute) Compression fracture of T8 vertebra Cardiomyopathy Thoracic ascending aortic aneurysm 4.5 cm per 2016 imaging Atrial fibrillation (Chronic) Allergic rhinitis (Chronic) CAD (coronary artery disease) (Chronic) Per cardiology 09/10, episode in 2010 with elevated troponins and "probably STEMI." Pt had cath that reportedly showed no significant blockages, though report was not available for cardio review. Hypercholesterolemia (Chronic) Hypertension (Chronic) COPD (chronic obstructive pulmonary disease) (Chronic) Medical History (Updated 05/28/24 @ 02:19 by Scott Bowen MD) Carotid artery stenosis s/p R CEA 09/16/18 Congenital bicuspid aortic valve s/p AVR 2010 LVH (left ventricular hypertrophy) due to hypertensive disease Chronic hyponatremia Radiculopathy of lumbar region Spinal stenosis Chronic back pain Hypertension Chronic obstructive pulmonary disease MILD, DENIES FLARE UPS. FOLLOWS WITH PCP Surgical History (Updated 05/08/24 @ 00:06 by Stephanie Cancino) History of lumbar fusion H/O carotid endarterectomy (11/04/18) Left Carotid Endarterectomy with Bovine Patch(Left) - Mariano Laboy MD 11/04/18 H/O carotid endarterectomy 09/16/18 [facility] Fusion of spine LUMBAR FUSION Hx of cardiac catheterization no stents Hx of bilateral cataract extraction History of total hip arthroplasty BILATERAL History of carpal tunnel release RIGHT History of tonsillectomy Family History Brother Prostate cancer Father Myocardial infarction Other Cancer No family history of adverse response to anesthesia No family history of bleeding disorder Denies family history of Ovarian cancer Breast cancer Colorectal cancer Social History Smoking Status: Current every day smoker Tobacco Type: Cigarettes Age Started Using Tobacco: 18; packs per day: 0.5; Cigarettes Per Day: 15; Second Hand Exposure: No; Do You Dip or Chew Tobacco: No; Hx Alcohol Use: Yes Alcohol type: hard liquor Alcohol Intake Frequency: 4 or More x per/Week Hx Substance Use: No Preferred Language: Irish Communication Ability: Effective Visual Impairment: No Limitations Hearing Ability: Use of Hearing Aid Catastrophe Claims Supervisor Required: No Beliefs That Will Affect Care: None marital status: Current Living Situation: Spouse current occupational status: retired 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 Feels Safe at Home: Yes Safety Concerns: Feels Safe At This Time Childhood Exposure to Second-Hand Smoke: Yes Diet: regular Diet Comment: regular Dental Care, Regularly: No Physical Activity Frequency: Does not Exercise Seatbelt Use: always Sunscreen Use: No Assistive Devices: Walker Review of Systems Review of Systems: The patient denies chest pain, palpitations, lower extremity swelling, sore throat, fevers, chills, sweats, weight change, fatigue, nausea, vomiting, diarrhea , constipation, abdominal pain, pelvic pain, blood in urine or stool, dysuria, urinary frequency or urgency, lightheadedness, dizziness, headache, memory loss, loss of consciousness, rash, abnormal bruising or bleeding, focal weakness, numbness or tingling in arms or legs, generalized arthralgias or myalgias, back or neck pain, or night sweats. The review of systems is otherwise negative other than for that already noted above, and at least 10 systems have been reviewed. Physical Exam Physical Exam: The patient is awake, alert and oriented 3, well developed and well nourished, normocephalic and atraumatic, lying in bed and in no acute distress. HEENT--PERRL, EOMI, mucous membranes and oropharynx dry. Neck--supple. No JVD. No bruits. Thyroid normal, trachea midline, no adenopathy. Heart--normal S1 and S2. No murmurs, rubs or gallops. Lungs--crackles at the bases bilaterally, with moist cough. No respiratory distress, no accessory muscle use. Abdomen--normal bowel sounds and soft. Nontender. Nondistended, no hernias or masses, no organomegaly. Extremities--no cyanosis or clubbing. No edema. Dermatologic--normal skin turgor, normal color, no abnormal lymph nodes, no rash. Neurologic--cranial nerves II through XII grossly intact. Rheumatologic--normal range of motion. Psychiatric--normal affect. Results & Data Results & Data Vital Signs (Past 12 Hours) Vital Signs Temp Pulse Resp BP Pulse Ox O2 Del Method 05/27/24 19:51 68 05/27/24 19:21 67 25 H 97/60 L 88 L 05/27/24 18:30 73 24 99/56 L 97 05/27/24 17:06 64 20 94 05/27/24 16:54 70 14 115/59 L 05/27/24 16:45 68 05/27/24 16:24 61 21 124/74 62 L 05/27/24 15:57 64 20 125/74 05/27/24 15:56 36.9 C 69 14 123/75 93 Room Air Laboratory Results Laboratory Results WBC 9.08 K/ul (4.8-10.8) 05/27/24 17:19 RBC 4.20 M/uL (4.70-6.10) L 05/27/24 17:19 Hgb 13.5 g/dl (14.0-18.0) L 05/27/24 17:19 Hct 40.7 % (42.0-52.0) L 05/27/24 17:19 MCV 96.9 fL (80.0-100.0) 05/27/24 17:19 MCH 32.1 pg (25.0-34.0) 05/27/24 17:19 MCHC 33.2 g/dL (32.0-36.0) 05/27/24 17:19 RDW Std Deviation 54.9 fL (36.4-46.3) H 05/27/24 17:19 RDW Coeff of Telma 15.6 % (11.5-14.5) H 05/27/24 17:19 Plt Count 148 K/uL (130-400) 05/27/24 17:19 MPV 10.9 fL (9.4-12.4) 05/27/24 17:19 Immature Gran % (Auto) 0.3 % 05/27/24 17:19 Neut % (Auto) 76.2 % 05/27/24 17:19 Lymph % (Auto) 14.4 % 05/27/24 17:19 [place] % (Auto) 8.7 % 05/27/24 17:19 Eos % (Auto) 0.1 % 05/27/24 17:19 Baso % (Auto) 0.3 % 05/27/24 17:19 Neut # (Auto) 6.91 K/uL (1.40-6.50) H 05/27/24 17:19 Lymph # (Auto) 1.31 K/uL (1.20-3.40) 05/27/24 17:19 [place] # (Auto) 0.79 K/uL (0.11-0.59) H 05/27/24 17:19 Eos # (Auto) 0.01 K/uL (0.00-0.50) 05/27/24 17:19 Baso # (Auto) 0.03 K/uL (0.00-0.20) 05/27/24 17:19 Immature Gran # (Auto) 0.03 K/uL (0.01-0.20) 05/27/24 17:19 Sodium 136 mmol/L (136-145) 05/27/24 17:19 Potassium 3.4 mmol/L (3.5-5.1) L 05/27/24 17:19 Chloride 94 mmol/L (98-107) L 05/27/24 17:19 Carbon Dioxide 34 mmol/L (21-32) H 05/27/24 17:19 Anion Gap 8 (3-11) 05/27/24 17:19 BUN 25 mg/dl (6-23) H 05/27/24 17:19 Creatinine 1.31 mg/dl (0.6-1.4) 05/27/24 17:19 Est Cr Clr Drug Dosing 46.4 ml/min 05/27/24 17:19 eGFR 56.41 05/27/24 17:19 BUN/Creatinine Ratio 19.1 (10-20) 05/27/24 17:19 Glucose 108 mg/dl (70-99(Fasting)) H 05/27/24 17:19 Calcium 8.4 mg/dl (8.6-10.3) L 05/27/24 17:19 Total Bilirubin 1.5 mg/dl (0.2-1.0) H 05/27/24 17:19 AST 24 U/L (13-39) 05/27/24 17:19 ALT 12 U/L (7-52) 05/27/24 17:19 Alkaline Phosphatase 107 U/L (34-104) H 05/27/24 17:19 Total Creatine Kinase 289 U/L (30-223) H 05/27/24 17:19 Troponin I High Sens 439.5 pg/ml (0-20) H* 05/27/24 19:07 B-Natriuretic Peptide 2476 pg/ml (0-100) H 05/27/24 20:53 Total Protein 7.1 gm/dl (6.0-8.3) 05/27/24 17:19 Albumin 3.2 gm/dl (3.4-5.0) L 05/27/24 17:19 Globulin 3.9 gm/dl (2.5-4.0) 05/27/24 17:19 Albumin/Globulin Ratio 0.8 (0.9-2) L 05/27/24 17:19 Nasal Screen MRSA (PCR) Negative (Negative) 05/27/24 21:30 Adenovirus (PCR) Not Detected (NotDetected) 05/27/24 20:11 B. pertussis DNA (PCR) Not Detected (NotDetected) 05/27/24 20:11 B.parapertussis DNA PCR Not Detected (NotDetected) 05/27/24 20:11 C. pneumoniae DNA (PCR) Not Detected (NotDetected) 05/27/24 20:11 Coronavirus OC43 (PCR) Not Detected (NotDetected) 05/27/24 20:11 Coronavirus HKU1 (PCR) Not Detected (NotDetected) 05/27/24 20:11 Coronavirus 229E (PCR) Not Detected (NotDetected) 05/27/24 20:11 SARS-CoV-2 (PCR) Not Detected (NotDetected) 05/27/24 20:11 Coronavirus NL63 (PCR) Not Detected (NotDetected) 05/27/24 20:11 Human Metapneumovir PCR Not Detected (NotDetected) 05/27/24 20:11 Influenza Type A (PCR) Not Detected (NotDetected) 05/27/24 20:11 Influenza Type B (PCR) Not Detected (NotDetected) 05/27/24 20:11 M. pneumoniae (PCR) Not Detected (NotDetected) 05/27/24 20:11 Parainfluenza 1 (PCR) Not Detected (NotDetected) 05/27/24 20:11 Parainfluenza 2 (PCR) Not Detected (NotDetected) 05/27/24 20:11 Parainfluenza 3 (PCR) Not Detected (NotDetected) 05/27/24 20:11 Parainfluenza 4 (PCR) Not Detected (NotDetected) 05/27/24 20:11 RSV (PCR) Not Detected (NotDetected) 05/27/24 20:11 Entero/Rhino (PCR) Not Detected (NotDetected) 05/27/24 20:[address] 05/27/24 16:29 EXAM: CT cervical spine wo con CLINICAL HISTORY: fall from standing. TECHNIQUE: CT scan of the cervical spine was performed without the administration of intravenous contrast. Contiguous axial images were obtained from the skull base to the upper thoracic spine. Coronal and sagittal reformatted images were also reviewed. One of the following dose reduction techniques was utilized for this exam. Automated exposure control, adjustment of the mA and/or kV according to patient size, and use of iterative reconstruction. COMPARISON: Comparison is made with the prior imaging dated 01/16/2024 the current study revealed. FINDINGS: Vertebrae: Stable mild anterior slipping of C7 over D1. stable mild posterior slipping of C4 over C5. The vertebral bodies are normal in height. No evidence of acute fracture or dislocation. The cortical and trabecular bone patterns are normal. anterior marginal osteophytic lippings are seen at the opposing vertebral endplates. No signs of lytic or sclerotic lesions. Normal configuration of the posterior elements. Intervertebral Discs: Stable narrowed C4-5, C5-6 and C6-7 disc spaces No calcifications or ossifications noted within the discs. 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 Neural Foramina: The neural foramina are patent bilaterally at all levels. No evidence of foraminal narrowing or nerve root compression. Prevertebral Soft Tissues: The prevertebral soft tissues are normal in thickness without evidence of mass or abnormal fluid collection. Additional Findings: No other significant findings are noted in the visualized soft tissue structures or bony elements. IMPRESSION: Stationary course as detailed. No evidence of acute fracture or dislocation. Electronically signed by Juan Miguel Malone 05-27-2024 6:00 PM Chest X-Ray 05/27/24 16:29 EXAM: XR chest 1V portable CLINICAL HISTORY: fall from standing TECHNIQUE: An X-ray image of the chest is obtained using an AP projection. COMPARISON: CR dated 04/20/2024. FINDINGS: Pulmonary Parenchyma: Regressive course regarding the previously seen bilateral lower zone heterogenous air space opacifications with coarse interstitial markings and cystic areas. No pneumothorax. Unchanged bilateral blunted costophrenic angles suggestive of small pleural effusions. Heart and Mediastinum: Cardiomegaly. No mediastinal widening. Bilateral perihilar congestion. Bony Thorax: Thoracic spondylosis and degenerative changes in bilateral glenohumeral joints. Soft Tissues: Midline sternotomy sutures. IMPRESSION: 1. Regressive course regarding the previously seen bilateral lower zone heterogenous air space opacifications with coarse interstitial markings and cystic areas 2. Stable bilateral blunted costophrenic angles suggestive of mild pleural effusions with interval slight regression on the right side. 3. Cardiomegaly. Electronically signed by Juan Miguel Malone 05-27-2024 7:[address] 05/27/24 16:29 EXAM: CT head/brain wo con CLINICAL HISTORY: fall from standing. TECHNIQUE: Axial non-contrast CT scan of the brain was performed from the skull base to the high parietal region. One of the following dose reduction techniques were utilized for this exam: Automated exposure control, adjustment of the mA and/or kV according to patient size, use of iterative reconstruction. COMPARISON: 01/16/2024. FINDINGS: Brain Parenchyma: Accentuated bilateral deep periventricular hypodensity. No evidence of acute infarct, hemorrhage, or mass effect. Ventricular System: Mild dilatation of the supratentorial ventricular system No evidence of hydrocephalus. Subarachnoid Spaces: accentuated cortical sulci and extra-axial CSF spaces No evidence of subarachnoid hemorrhage or extra-axial fluid collections. Cerebellum and Brainstem: Prominent cerebellar folia. No masses, lesions, or areas of abnormal signal. Orbits: Normal appearance of the globes, optic nerves, and extraocular muscles. No evidence of orbital masses or abnormal signal. Bilateral cataract operation. Sinuses: Clear paranasal sinuses. No evidence of sinusitis or mucosal thickening. Mastoid Air Cells: Clear mastoid air cells. No evidence of mastoiditis. Skull: Normal skull morphology. IMPRESSION: 1. No acute head/brain abnormality. 2. Accentuated bilateral deep periventricular hypodensity.likely microvascular ischemic changes. stable. 3. Involutional brain changes. stable. Electronically signed by Juan Miguel Malone 05-27-2024 6:15 PM Pelvis X-Ray 05/27/24 16:30 EXAM: XR pelvis 1-2V routine CLINICAL HISTORY: fall from standing. TECHNIQUE: X-ray images of the pelvis were obtained in anteroposterior (AP) projection. COMPARISON: 01/16/2024 CT abdomen and pelvis is reviewed. FINDINGS: Bone Structure: Pelvic bones, including the iliac wings, ischium, pubis, and sacrum, are normal and intact. No evidence of fractures, dislocations, or significant osseous lesions. Hip Joints: Bilateral artificial hips joints replacement without evidence of prothesis loosening or breaking. Symphysis Pubis: Symphysis pubis is normal and intact. No evidence of separation or widening. Sacroiliac Joints: Sacroiliac joints appear normal and unremarkable. No evidence of sacroiliitis or significant degenerative changes. Soft Tissues: Visualized soft tissues are normal and unremarkable. No soft tissue swelling, calcifications, or masses. internal fixation of L5 and S1 with rods and screws without evidence of prothesis loosening or breaking in the limted frontal view. IMPRESSION: 1. Bilateral artificial hip joints replacement without evidence of prothesis loosening or breaking. 2. No acute osseous abnormality is seen in the pelvis. Disclaimer: A subtle bone abnormality or fracture may not be readily apparent on X-rays, thus clinical correlation and further imaging including follow-up CT, MRI, or follow-up X-rays are advised as needed. Electronically signed by Juan Miguel Malone 05-27-2024 7:07 PM Code Status & VTE Plan Code Status Full code VTE Prophylaxis Plan VTE Prophylaxis will be ordered: Yes PG Care Time/CCT Total # of Minutes Spent Total Time Spent with Patient: Total time spent is greater than 50% in coordination of care (as documented) at patient's floor/unit and/or counseling patient: Coding Level of Care Code 62031 INT INP/OBS CARE 3/75MIN Diagnoses Multifocal pneumonia J18.9 Acute kidney injury N17.9 Rhabdomyolysis M62.82 Encounter type: initial encounter Acute on chronic respiratory failure with hypoxia J96.21 Fall from standing, initial encounter W19.XXXA Encounter type: initial encounter (3) Rhabdomyolysis Encounter type: initial encounter (5) Fall from standing Encounter type: initial encounter Qualified Code(s): W19.XXXA - Unspecified fall, initial encounter
[2024-05-27 21:05] LABS: Adenovirus PCR Not Detected (NotDetected); Bordetella parapertussis PCR Not Detected (NotDetected); Bordetella pertussis PCR Not Detected (NotDetected); Chlamydia pneumoniae PCR Not Detected (NotDetected); Coronavirus 229E PCR Not Detected (NotDetected); Coronavirus CoV-2 (COVID19)PCR Not Detected (NotDetected); Coronavirus HKU1 PCR Not Detected (NotDetected); Coronavirus NL63 PCR Not Detected (NotDetected); Coronavirus OC43PCR Not Detected (NotDetected); Human Metapneumovirus PCR Not Detected (NotDetected); Influenza A PCR Not Detected (NotDetected); Influenza B PCR Not Detected (NotDetected); Mycoplasma pneumoniae PCR Not Detected (NotDetected); Parainfluenza Virus 1 PCR Not Detected (NotDetected); Parainfluenza Virus 2 PCR Not Detected (NotDetected); Parainfluenza Virus 3 PCR Not Detected (NotDetected); Parainfluenza Virus 4 PCR Not Detected (NotDetected); Respiratory Syncytial VirusPCR Not Detected (NotDetected); Rhinovirus/Enterovirus PCR Not Detected (NotDetected)
[2024-05-27] MEDS: CEFEPIME 2000MG 2,000 MG/20 ML SYR IV SCH (21:24)
[2024-05-27] MEDS: methylPREDNISolone 125 MG/2 ML VIAL IV STA (21:24)
[2024-05-27] MEDS: SODIUM CHLORIDE 0.9% 1,000 ML IV SCH (21:25)
[2024-05-27] MEDS ORDERED: oxyCODONE HCL IR 5 MG TAB (IMMEDIATE RELEASE) PO PRN (23:13)
[2024-05-27] MEDS ORDERED: ONDANSETRON INJ 2 MG/ML 2 ML VIAL IV PRN (23:13)
[2024-05-27] MEDS ORDERED: TRIAMCINOLONE ACET 0.1% OINT 15 GM TUBE TOP PRN (23:13)
[2024-05-28] MEDS: APIXABAN 5 MG TABLET PO SCH (00:59)
[2024-05-28 05:27] LABS: Hematocrit (blood only) 33.4 % (42.0-52.0); Hemoglobin 11.3 g/dl (14.0-18.0); Immature Granulocytes # (auto) 0.02 K/uL (0.01-0.20); Immature Granulocytes % (auto) 0.4 %; Lymphocytes # (auto) 0.37 K/uL (1.20-3.40); Lymphocytes % (auto) 7.7 %; Mean Corpuscular Hemoglobin 32.4 pg (25.0-34.0); Mean Corpuscular Hgb Conc 33.8 g/dL (32.0-36.0); Mean Corpuscular Volume 95.7 fL (80.0-100.0); Mean Platelet Volume 11.1 fL (9.4-12.4); Monocytes # (auto) 0.11 K/uL (0.11-0.59); Monocytes % (auto) 2.3 %; Neutrophils # (auto) 4.31 K/uL (1.40-6.50); Neutrophils % (auto) 89.6 %; Platelet Count 128 K/uL (130-400); RDW Coefficient of Variation 15.3 % (11.5-14.5); RDW Standard Deviation 52.7 fL (36.4-46.3); Red Blood Count 3.49 M/uL (4.70-6.10); White Blood Count 4.81 K/ul (4.8-10.8)
[2024-05-28 05:50] LABS: Albumin Globulin Ratio 0.9 (0.9-2); Albumin Level 2.7 gm/dl (3.4-5.0); BUN Creatinine Ratio 21.9 (10-20); Bilirubin,Total 0.9 mg/dl (0.2-1.0); Calcium 8.3 mg/dl (8.6-10.3); Creatinine Clr Calc Pharmacy 47.5 ml/min; Globulin 3.1 gm/dl (2.5-4.0); Magnesium 1.8 mg/dl (1.7-2.4); Potassium 3.5 mmol/L (3.5-5.1); Total Protein 5.8 gm/dl (6.0-8.3); Troponin I High Sensitivity 283.4 pg/ml (0-20)
[2024-05-28 05:51] LABS: INR 1.3 (0.9-1.1); Partial Thromboplastin Ratio 1.3; Partial Thromboplastin Time 36 Seconds (21-31); Prothrombin Time 13.5 Seconds (9.0-12.0)
[2024-05-28] MEDS: LEVOTHYROXINE SODIUM 50 MCG TABLET PO SCH (06:15)
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
--- NOTE | 2024-05-28 07:20 | Electrocardiogram Report ---
Test Reason : Blood Pressure : */* mmHG Vent. Rate : 65 BPM Atrial Rate : 65 BPM P-R Int : 144 ms QRS Dur : 118 ms QT Int : 510 ms P-R-T Axes : 86 -21 226 degrees QTcB Int : 530 ms Normal sinus rhythm Incomplete right bundle branch block Diffuse Minor Nonspecific T wave abnormality Prolonged QT Abnormal ECG When compared with ECG of 07-Apr-2024 16:45, Sinus rhythm has replaced Atrial fibrillation Vent. rate has decreased by 43 bpm QT has lengthened Confirmed by Noah Blount ([id number]) on 05/28/2024 7:20:10 AM Referred By: REFERRED SELF Confirmed By: Noah Blount
[2024-05-28] MEDS ORDERED: methylPREDNISolone 10 mg/mL (For Ped Dose < 7mg) IV SCH (08:00)
[2024-05-28] MEDS: CYANOCOBALAMIN (B-12) 500 MCG TABLET PO SCH (08:38)
[2024-05-28] MEDS: FLUTICASONE/VILANTEROL 200/25MCG 14 PUFFS/INHALER INH SCH (08:39)
[2024-05-28] MEDS: TAMSULOSIN HCL 0.4 MG CAP PO SCH (08:39)
[2024-05-28] MEDS: ATORVASTATIN 40 MG TAB PO SCH (08:39)
[2024-05-28] MEDS: AMIODARONE 200 MG TAB PO SCH (08:39)
[2024-05-28] MEDS: METOPROLOL SUCC 25MG EXT REL TAB PO SCH (08:39)
[2024-05-28] MEDS: AZITHROMYCIN 500 MG in SODIUM CHLORIDE 0.9% 250 ML IV SCH (08:40)
[2024-05-28] MEDS ORDERED: AZITHROMYCIN 500 MG VIAL IV SCH (09:00)
[2024-05-28 09:49] LABS: C Reactive Protein 8.16 mg/dl (0-0.5)
[2024-05-28] MEDS: methylPREDNISolone 40 MG in SYRINGE 0 ML IV SCH (12:28)
[2024-05-28] MEDS: cefTRIAXone SODIUM 2,000 MG/50 ML BAG IV SCH (12:29)
--- NOTE | 2024-05-28 13:08 | XCELERA ---
[id number]
[2024-05-28] MEDS ORDERED: LORazepam 2 MG/1 ML VIAL IV PRN (13:51)
--- NOTE | 2024-05-28 14:06 | Pulmonary Consultation ---
Date of Consultation May 28, 2024 Assessment & Plan (1) Pleural effusion: (2) Acute on chronic systolic heart failure: (3) HFrEF (heart failure with reduced ejection fraction): (4) COPD (chronic obstructive pulmonary disease): COPD type: unspecified COPD Qualified Code(s): J44.9 - Chronic obstructive pulmonary disease, unspecified (5) Acute respiratory failure with hypoxia: (6) Pulmonary hypertension: (7) Acute on chronic respiratory failure with hypoxia: (8) Combined pulmonary fibrosis and emphysema (CPFE): Plan CT chest 04/13/2024 personally reviewed: Centrilobular emphysema appreciated bilaterally Interlobular thickening appreciated in the upper lobes Bilateral pleural effusion moderate in amount with dependent atelectasis bilateral lower lobes Cardiomegaly Minimal mediastinal lymphadenopathy 2D echo 05/28/2024: EF 50-55 %, RV moderately dilated with moderate to severe reduced function, grade 1 diastolic dysfunction, moderate MR, moderate to severe aortic stenosis moderate ME, severe TR --Acute on chronic hypoxic respiratory failure Likely secondary to HFpEF with cor pulmonale Respiratory BioFire negative for everything on 05/28/2024 Procalcitonin negative, nasal MRSA negative BNP 2276 --COPD with emphysema Patient carries a diagnosis of ILD, last CT chest which was done in March patient had bilateral pleural effusion He did have a CAT scan of the chest done in December 2023 when he had left- sided pneumothorax. Early CPFE is a possibility especially given Velcro-like crackles bilateral lower lobes On Advair 250 at home Would recommend either Stiolto or Anoro unless patient has issues with BPH and urinary retention -- Severe pulmonary hypertension Combination of type II as well as type III Recommend diuretics to keep the patient euvolemic to negative balance --S/p AVR Bioprosthetic Plan: Recommend strict in and outs Recommend patient to be kept euvolemic. Consider resuming Lasix 20 mg in the next day or 2. Chest x-ray 05/27/2024 personally reviewed: Portable film, good inspiratory effort, bilateral costophrenic and cardiophrenic angles are blunted, there is some interstitial opacities appreciated bilaterally The chest x-ray has not changed compared to multiple previous x-rays in the past Possibility of patient having pneumonia is low Patient's QTc is 530, he is already on amiodarone. Azithromycin which is also a QT prolonging medication will not be a preferred antibiotic Discontinue azithromycin, give doxycycline for 5 days instead covering for COPD DC Solu-Medrol, give prednisone 20 mg for 3 days and then stop Recommend BiPAP nightly and as needed shortness of breath. Try to keep O2 saturation between 90-92% given pulmonary hypertension Given the multiple comorbidities which the patient has, I think palliative care should be involved in patient's care to get goals of care in place Case was discussed with RN at bedside Please note the above document was generated using voice recognition software. It may contain grammatical, syntax or spelling errors.Any formal questions or concerns about the content, text or information contained within the body of this dictation should be directly addressed to the provider for clarification. History of Present Illness Attending Physician: Gerardo Garza DO History of Present Illness 78-year-old male present to the hospital for altered mental status status post fall Past medical history: A-fib on Eliquis, hypertension, COPD, CPFE, HFpEF, pulmonary hypertension Pulmonary consulted for pulmonary hypertension At the time of examination patient was resting comfortably on the bed. He was saturating 92-93% on 3 L oxygen. Respiratory rate was in the mid teens. Heart rate was in the 60s. He stated that he is feeling much better. He does have cough which has been chronic. Denies any chest congestion When he does bring up phlegm is mostly clear. Denies any hemoptysis Denies any chest congestion. 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 No family history of asthma Allergies Allergy/AdvReac Type Severity Reaction Status Date / Time bee venom protein (honey bee) Allergy Severe swelling Verified 05/20/24 10:36 pepper (genus Capsicum) Allergy Mild TOBASCO Verified 05/20/24 10:36 SAUCE - TOO MUCH OF WILL CAUSE HIVES ibuprofen AdvReac Intermediate LARGE Verified 05/20/24 10:36 DOSES CAUSE ITCHING AND BLISTERS Home Medications Medication Instructions Recorded Confirmed Type mecobalamin (vitamin B12) 1,000 1,000 mcg sublingual QAM 09/30/21 05/27/24 History mcg disintegrating tablet,sublingual triamcinolone acetonide 0.1 % 1 applic topical UD PRN ANKLES 30 12/01/23 05/27/24 Rx topical ointment days #30 grams tamsulosin 0.4 mg capsule 0.4 mg PO QAM #90 caps 01/13/24 05/27/24 Rx apixaban 5 mg tablet 5 mg PO BID #180 tabs 03/07/24 05/27/24 Rx atorvastatin 40 mg tablet 40 mg PO QAM 04/07/24 05/27/24 History fluticasone 250 mcg-salmeterol 50 1 ea inhalation BID 04/07/24 05/27/24 History mcg/dose blistr powdr for inhalation oxycodone 5 mg tablet 5 mg PO Q4H PRN pain #30 tabs 04/28/24 05/27/24 Rx dapagliflozin propanediol 10 mg 10 mg PO DAILY #30 tabs 05/05/24 05/27/24 Rx tablet (Farxiga) metoprolol succinate 25 mg 25 mg PO QAM #90 tabs 05/05/24 05/27/24 Rx tablet,extended release 24 hr amiodarone 200 mg tablet 200 mg PO DAILY #30 tabs 05/18/24 05/27/24 Rx furosemide 20 mg tablet 20 mg PO DAILY PRN weight gain, 05/18/24 05/27/24 Rx edema, shortness of breath #30 tabs levothyroxine 50 mcg tablet 50 mcg PO DAILYBB #30 tabs 05/18/24 05/27/24 Rx (Synthroid) spironolactone 25 mg tablet 25 mg PO QAM #90 tabs 05/18/24 05/27/24 Rx Patient History Medical History (Updated 05/28/24 @ 17:02 by Ann Cowart MD, [facility]) Carotid artery stenosis s/p R CEA 09/16/18 Congenital bicuspid aortic valve s/p AVR 2010 LVH (left ventricular hypertrophy) due to hypertensive disease Chronic hyponatremia Radiculopathy of lumbar region Spinal stenosis Chronic back pain Hypertension Chronic obstructive pulmonary disease MILD, DENIES FLARE UPS. FOLLOWS WITH PCP Surgical History (Updated 05/08/24 @ 00:06 by Stephanie Cancino) History of lumbar fusion H/O carotid endarterectomy (11/04/18) Left Carotid Endarterectomy with Bovine Patch(Left) - Mariano Laboy MD 11/04/18 H/O carotid endarterectomy 09/16/18 [facility] Fusion of spine LUMBAR FUSION Hx of cardiac catheterization no stents Hx of bilateral cataract extraction History of total hip arthroplasty BILATERAL History of carpal tunnel release RIGHT History of tonsillectomy Family History Brother Prostate cancer Father Myocardial infarction Other Cancer No family history of adverse response to anesthesia No family history of bleeding disorder Denies family history of Ovarian cancer Breast cancer Colorectal cancer Social History Smoking Status: Current every day smoker Tobacco Type: Cigarettes Age Started Using Tobacco: 18; packs per day: 0.5; Cigarettes Per Day: 15; Second Hand Exposure: No; Do You Dip or Chew Tobacco: No; Hx Alcohol Use: Yes Alcohol type: hard liquor Alcohol Intake Frequency: 4 or More x per/Week Hx Substance Use: No Preferred Language: Amharic Communication Ability: Effective Visual Impairment: No Limitations Hearing Ability: Use of Hearing Aid Bodywork Therapist Required: No Beliefs That Will Affect Care: None marital status: Current Living Situation: Spouse current occupational status: retired 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 Feels Safe at Home: Yes Safety Concerns: Feels Safe At This Time Childhood Exposure to Second-Hand Smoke: Yes Diet: regular Diet Comment: regular Dental Care, Regularly: No Physical Activity Frequency: Does not Exercise Seatbelt Use: always Sunscreen Use: No Assistive Devices: Walker Review of Systems 2 Review of Systems: All systems reviewed & are unremarkable except as noted in HPI & below Physical Exam 2 Physical Exam: Constitutional: No acute distress HEENT: EOMI, PERRLA Respiratory system: Decreased air entry bilaterally, no wheeze, no rhonchi, positive crackles bilateral lower lobes, questionable Velcro-like CVS: S1-S2 positive, positive 3 out of 6 systolic murmur appreciated best at apex, irregular Abdomen: Soft, nontender, nondistended, positive bowel sounds x4 Extremities: +2 pulses bilaterally radialis/ dorsalis pedis, no cyanosis, +1 pitting edema bilateral lower extremity Neuro: Awake alert oriented x3 Psych: Normal mood and affect G/U: No Tse Skin: no rashes, warm and dry Lymphatic: no cervical or axillary lymphadenopathy Results & Data Results & Data Vital Signs (Past 12 Hours) Vital Signs Temp Pulse Resp BP Pulse Ox O2 Del Method O2 Flow Rate 05/28/24 12:10 36.7 C 60 19 97/60 L 92 Nasal Cannula 4 05/28/24 11:18 Nasal Cannula 3 05/28/24 07:21 36.8 C 60 18 106/64 96 Nasal Cannula 4.0 05/28/24 03:02 36.8 C 60 16 107/64 94 Room Air Laboratory Results 05/28/24 05:03 05/28/24 05:03 PG Care Time/CCT Total # of Minutes Spent Total Time Spent with Patient: Total time spent is greater than 50% in coordination of care (as documented) at patient's floor/unit and/or counseling patient: Coding Level of Care Code 89534 INT INP/OBS CARE 375MIN Diagnoses Pleural effusion J90 Acute on chronic systolic heart failure I50.23 HFrEF (heart failure with reduced ejection fraction) I50.20 Chronic obstructive pulmonary disease, unspecified COPD type J44.9 COPD type: unspecified COPD Acute respiratory failure with hypoxia J96.01 Pulmonary hypertension I27.20 Acute on chronic respiratory failure with hypoxia J96.21 Combined pulmonary fibrosis and emphysema (CPFE) J43.9; J84.10
--- NOTE | 2024-05-28 16:05 | Billing Data ---
Date of Service May 28, 2024 Coding Level of Care Code 66527 SUB INP/OBS CARE MIN
[2024-05-28] MEDS: THIAMINE HCL 100 MG TAB PO SCH (16:42)
[2024-05-28] MEDS: FOLIC ACID 1 MG TAB PO SCH (16:42)
[2024-05-28] MEDS: DOXYCYCLINE HYCLATE 100 MG CAP PO SCH (19:45)
[2024-05-29 07:28] LABS: Basophils # (auto) 0.01 K/uL (0.00-0.20); Basophils % (auto) 0.1 %; Hematocrit (blood only) 32.8 % (42.0-52.0); Hemoglobin 11.1 g/dl (14.0-18.0); Immature Granulocytes # (auto) 0.06 K/uL (0.01-0.20); Immature Granulocytes % (auto) 0.6 %; Lymphocytes % (auto) 9.2 %; Mean Corpuscular Hemoglobin 32.5 pg (25.0-34.0); Mean Corpuscular Hgb Conc 33.8 g/dL (32.0-36.0); Mean Corpuscular Volume 95.9 fL (80.0-100.0); Mean Platelet Volume 11.1 fL (9.4-12.4); Monocytes # (auto) 0.83 K/uL (0.11-0.59); Monocytes % (auto) 7.7 %; Neutrophils # (auto) 8.94 K/uL (1.40-6.50); Neutrophils % (auto) 82.4 %; Platelet Count 122 K/uL (130-400); RDW Standard Deviation 53.1 fL (36.4-46.3); Red Blood Count 3.42 M/uL (4.70-6.10); White Blood Count 10.84 K/ul (4.8-10.8)
--- NOTE | 2024-05-29 07:28 | Hospitalist Progress Note ---
Date of Service May 29, 2024 Assessment & Plan (1) Acute on chronic respiratory failure with hypoxia: (2) Acute kidney injury: (3) Acute on chronic systolic heart failure: (4) PAF (paroxysmal atrial fibrillation): (5) Acute heart failure with mildly reduced ejection fraction (HFmrEF, 41-49%): (6) Atrial fibrillation: (7) Multifocal pneumonia: (8) Rhabdomyolysis: (9) Non-ST elevation [place] (NSTEMI): (10) Fall from standing: Plan The patient is a 78-year-old male with past medical history including multifocal atrial tachycardia, status post AVR with bioprosthetic valve in 2010, PAF, history of acute heart failure with HFmrEF, long-term anticoagulant use with apixaban, cardiomyopathy, thoracic ascending aortic aneurysm, hypercholesterolemia, hypertension, COPD, and CAD. His daughter has been concerned that he has had persistent chest congestion and coughing #Acute respiratory failure with hypoxia *D/D: Pulmonary fibrosis vs COPD vs PNE vs Pulm HTN vs heart failure s/s for long duration; Recently admitted on mid Mar for heart failure. How much Infection has contributed to his acute respiratory failure looks unclear. Labs including WBCs, Procal, CRP,: does not favor infection BioFiore/ Nasal MRSA: Neg Overall picture, Chronic heart failure, Pulmonary Fibrosis leading to pulm HTN looks more plausible for his repsi failure now. Chest XR : pulmonary fibrosis, and persistent bibasilar infiltrates/possible mild effusion right greater than left CT images from Mar reviewed: Looks Fibrosis, emphysema. h/o heavy smoking >50 Pack year. Pulm on board: Appreciate recs Azithromycin/ Solu Medrol: Held Continue Ceftriaxone/ Prednisolone Doxycycline instead of azithromycin. NC O2, Goal: 90-92%, 3L/min given fibrosis , CONSIDER PALLIATIVE CARE: Consult requested today Resume Lasix 20 mg once daily. DuoNebs every 2 hours as needed #Pulmonary HTN S/S of right sided failure. Echo(05/28/23): Suggestive of Pul HTN feature; Right Ventricular failure, Inf venocaval dilation, increased Pulmonary vascular resistance Moderate to Severe Aortic Stenosis, Severe TR. 2/2 lung fibrosis. Doubt if any medical therapy would be helpful to him Pulm rec as above #RUSSELL with rhabdomyolysis *Improving Creatinine 1.28--->1.08 today, with base 0.8 CK 289--->142 IVF stopped. Good oral intake, encouraged 50-60 ounces fluid daily. #Elevated Troponin /A Fib /history of AVR with bioprosthetic valve 2/2 acute respi failure, right heart failure, LVH Troponin elevated on ED. Trended down. No s/s of ACS, no CP, SOB EKG: nonspecific ST T changes in lateral chest leads, NSR, RBB Tele: NSR Echo : LVEF 40-44%; Large sized septal, inferior, posterior wall motion abnormality with hypokinesis of segments. Continue amiodarone, apixaban #Generalized deconditioning/ Fall Fall precautions. Pending PT/OT #Chronic medical conditions: Hypothyroidism-continue levothyroxine B12 deficiency-continue 1000 mcg daily supplement Chronic pain syndrome-continue oxycodone BPH with LUTS-continue tamsulosin Hyperlipidemia-continue atorvastatin Dispo: Will DC to home once stable. OT/PT set up at home with [facility], daughter confirmed. Admission and Anticipated Discharge Date Admission Date: May 27, 2024 Supervising Physician Co-Signing Physician Notes I personally examined the patient and verified all clayton points of history and exam, discussed case, and agree with decision making with Dr Holliday relates that he feels OK. O2 sats better with O2 on when he walks but he notes that he doesn't really feel sob. no family present. Vitals noted, in general he is awake and alert pleasant no distress. HEENT normocephalic atraumatic mu cous membranes moist. Lungs with scattered rhonchi that sounds fairly mucousy. No accessory muscle use good effort. Shortness of breath/hypoxiaseems to be predominantly chronic, sounds like there is a little bit of acuity. Unclear how much of the acuity is due to infection (but appropriate to cover with antibiotics - now doxy and ceftriaxone) how much is purely related to COPD (doxy as well as methylprednisolone as well as inhalers - was not on LAMA at home), how much might be pulmonary edema (considered further diuresis as he tolerates), and how much is chronic with undertreatment (he sounds like he is physiologically would benefit from wearing oxygen a lot more than he doeswill continue to educate on that). dr holliday hoping to be able to talk w pt and dtr together later today to help determine what his goals of care would be - somewhat difficult to have much deeper conversations with him alone as he mostly denies sx and wants to go home anticoagulated. otherwise as above Subjective Mr. Jeter was seen in his bedside today while he was having breakfast. He is is little tough to understand situation. He keeps telling that he's healthy and can go home. Tried to explain him recent Echo reports, Pulm recommendations and our plan ahead. Does not feel receptive despite trying my best. Explained him that he might need continuous Oxygen days ans night at home, he won't agree. Suggested BiPap he wont agree either. Mr. Jeter seems to be in denial to his situation and per my conversation with his daughter yesterday it sounds to be his baseline, not a new change. Called his daughter, did not receive call. Hoping she will be here at some point and we will be able to discuss further plan. Review of Systems Review of Systems: As per HPI Physical Exam Physical Exam: Constitutional: Well appearing, No acute distress HEENT: Atraumatic, Normocephalic, No conjunctival injection CVS: S1 S2 Murmur+, BL leg edema+ Respiratory: BL decreased air entry with NVBS. Coarse breath sound in bases. No increased work of breathing GI: Soft, Nondistended, Nontender, Normal Bowel sounds + MSK: No gross deformities noted Skin: Warm, Dry, Bluish discoloration of BL arms noted ? Chronic Bruising Neuro: Alert, Oriented to TPP, No Focal deficit Psych: Mood and Affect congruent, Cooperative on exam Results & Data Results & Data Vital Signs (Past 12 Hours) Vital Signs Temp Pulse Pulse Resp BP Pulse Ox O2 Del Method 05/29/24 03:39 36.7 C 79 19 129/71 100 Nasal Cannula 05/28/24 23:00 36.6 C 55 L 18 96/58 L 95 Nasal Cannula 05/28/24 22:00 61 05/28/24 20:00 Nasal Cannula O2 Flow Rate 05/29/24 03:39 3 05/28/24 23:00 3 05/28/24 22:00 05/28/24 20:00 3 Resident Activity Tracking Resident Involvement: Resident Care Provided Care Provided: Adult Hospital Medicine (6) Atrial fibrillation Atrial fibrillation type: longstanding persistent Qualified Code(s): I48.11 - Longstanding persistent atrial fibrillation (8) Rhabdomyolysis Encounter type: initial encounter (10) Fall from standing Encounter type: initial encounter Qualified Code(s): W19.XXXA - Unspecified fall, initial encounter
[2024-05-29 07:36] LABS: BUN Creatinine Ratio 27.8 (10-20); Calcium 8.6 mg/dl (8.6-10.3); Chol HDL Ratio 2.1 (0-5); Creatinine Clr Calc Pharmacy 56.3 ml/min; Potassium 3.4 mmol/L (3.5-5.1)
[2024-05-29 07:51] LABS: Thyroid Stimulating Hormone 7.848 uIu/ml (0.300-4.500)
[2024-05-29] MEDS: FUROSEMIDE 20 MG TAB PO SCH (07:51)
[2024-05-29] MEDS: predniSONE 20 MG TAB PO SCH (07:52)
[2024-05-29] MEDS: UMECLIDINIUM BROMIDE 62.5MCG/BLISTER 7 PUFFS/INHALER INH SCH (07:53)
[2024-05-29 08:26] LABS: T4 Free Thyroxine 0.99 ng/dl (0.61-1.60)
--- NOTE | 2024-05-29 12:40 | Pulmonology Progress Note ---
Date of Service May 29, 2024 Assessment & Plan (1) Pleural effusion: (2) Acute on chronic systolic heart failure: (3) HFrEF (heart failure with reduced ejection fraction): (4) COPD (chronic obstructive pulmonary disease): COPD type: unspecified COPD Qualified Code(s): J44.9 - Chronic obstructive pulmonary disease, unspecified (5) Acute respiratory failure with hypoxia: (6) Pulmonary hypertension: (7) Acute on chronic respiratory failure with hypoxia: (8) Combined pulmonary fibrosis and emphysema (CPFE): Plan CT chest 04/13/2024 personally reviewed: Centrilobular emphysema appreciated bilaterally Interlobular thickening appreciated in the upper lobes Bilateral pleural effusion moderate in amount with dependent atelectasis bilateral lower lobes Cardiomegaly Minimal mediastinal lymphadenopathy 2D echo 05/28/2024: EF 50-55 %, RV moderately dilated with moderate to severe reduced function, grade 1 diastolic dysfunction, moderate MR, moderate to severe aortic stenosis moderate IL, severe TR --Acute on chronic hypoxic respiratory failure Likely secondary to HFpEF with cor pulmonale Probability of pneumonia is low Respiratory BioFire negative for everything on 05/28/2024 Procalcitonin negative, nasal MRSA negative BNP 2276 --COPD with emphysema Patient carries a diagnosis of ILD, last CT chest which was done in March patient had bilateral pleural effusion He did have a CAT scan of the chest done in December 2023 when he had left- sided pneumothorax. Early CPFE is a possibility especially given Velcro-like crackles bilateral lower lobes On Advair 250 at home Would recommend either Stiolto or Anoro unless patient has issues with BPH and urinary retention -- Severe pulmonary hypertension Combination of type II from moderate to severe aortic stenosis as well as type III from COPD Recommend diuretics to keep the patient euvolemic to negative balance --S/p AVR Bioprosthetic Plan: Recommend strict in and outs Aim for at least negative liter on a daily basis Complete 5 days of doxycycline Prednisone 20 mg for 2 more days and then stop Recommend BiPAP nightly and as needed shortness of breath. Try to keep O2 saturation between 90-92% given pulmonary hypertension Case was discussed with RN at bedside Please note the above document was generated using voice recognition software. It may contain grammatical, syntax or spelling errors.Any formal questions or concerns about the content, text or information contained within the body of this dictation should be directly addressed to the provider for clarification. Admission and Anticipated Discharge Date Admission Date: May 27, 2024 Subjective Patient was seen and examined at bedside. No acute distress, no adverse events overnight He was saturating 89-90% on 2 L nasal cannula at rest He says he is diuresing well. Denied any nausea vomiting Fair appetite Was asking if he could go home Has been afebrile Review of Systems 2 Review of Systems: All systems reviewed & are unremarkable except as noted in Subjective Physical Exam 2 Physical Exam: Constitutional: No acute distress HEENT: EOMI, PERRLA Respiratory system: Decreased air entry bilaterally, no wheeze, no rhonchi, positive crackles bilateral lower lobes, questionable Velcro-like CVS: S1-S2 positive, positive 3 out of 6 systolic murmur appreciated best at apex, irregular Abdomen: Soft, nontender, nondistended, positive bowel sounds x4 Extremities: +2 pulses bilaterally radialis/ dorsalis pedis, no cyanosis, +1 pitting edema bilateral lower extremity Neuro: Awake alert oriented x3 Psych: Normal mood and affect G/U: No Tse Skin: no rashes, warm and dry Lymphatic: no cervical or axillary lymphadenopathy Results & Data Results & Data Vital Signs (Past 12 Hours) Vital Signs Temp Pulse Resp BP Pulse Ox O2 Del Method O2 Flow Rate 05/29/24 11:12 36.4 C L 57 L 18 119/69 90 Nasal Cannula 05/29/24 07:56 Nasal Cannula 3 05/29/24 07:36 36.7 C 56 L 16 128/73 90 Nasal Cannula 3 05/29/24 03:39 36.7 C 79 19 129/71 100 Nasal Cannula 3 Laboratory Results 05/29/24 06:46 05/29/24 06:46 PG Care Time/CCT Total # of Minutes Spent Total Time Spent with Patient: Total time spent is greater than 50% in coordination of care (as documented) at patient's floor/unit and/or counseling patient: Coding Level of Care Code 38877 SUB INP/OBS CARE 3/50MIN Diagnoses Pleural effusion J90 Acute on chronic systolic heart failure I50.23 HFrEF (heart failure with reduced ejection fraction) I50.20 Chronic obstructive pulmonary disease, unspecified COPD type J44.9 COPD type: unspecified COPD Acute respiratory failure with hypoxia J96.01 Pulmonary hypertension I27.20 Acute on chronic respiratory failure with hypoxia J96.21 Combined pulmonary fibrosis and emphysema (CPFE) J43.9; J84.10
--- NOTE | 2024-05-29 13:53 | Billing Data ---
Date of Service May 29, 2024 Coding Level of Care Code 25429 SUB INP/OBS CARE MIN
[2024-05-29] MEDS: ACETAMINOPHEN 325 MG TAB PO PRN (18:22)
[2024-05-30 08:14] LABS: Basophils # (auto) 0.01 K/uL (0.00-0.20); Basophils % (auto) 0.1 %; Eosinophils # (auto) 0.03 K/uL (0.00-0.50); Eosinophils % (auto) 0.3 %; Hematocrit (blood only) 34.9 % (42.0-52.0); Hemoglobin 11.4 g/dl (14.0-18.0); Immature Granulocytes # (auto) 0.03 K/uL (0.01-0.20); Immature Granulocytes % (auto) 0.3 %; Lymphocytes # (auto) 1.32 K/uL (1.20-3.40); Lymphocytes % (auto) 13.5 %; Mean Corpuscular Hemoglobin 31.9 pg (25.0-34.0); Mean Corpuscular Hgb Conc 32.7 g/dL (32.0-36.0); Mean Corpuscular Volume 97.8 fL (80.0-100.0); Mean Platelet Volume 10.7 fL (9.4-12.4); Monocytes # (auto) 0.89 K/uL (0.11-0.59); Monocytes % (auto) 9.1 %; Neutrophils # (auto) 7.49 K/uL (1.40-6.50); Neutrophils % (auto) 76.7 %; Platelet Count 117 K/uL (130-400); RDW Coefficient of Variation 15.1 % (11.5-14.5); RDW Standard Deviation 54.2 fL (36.4-46.3); Red Blood Count 3.57 M/uL (4.70-6.10); White Blood Count 9.77 K/ul (4.8-10.8)
--- NOTE | 2024-05-30 08:15 | Hospitalist Progress Note ---
"Date of Service May 30, 2024 Assessment & Plan (1) Fall from standing: Plan: Mr. Jeter is a 78 y/o with a PMHx of a fib on Eliquis, s/p AVR in 2010, HFmrEF with pulmonary hypertension and fibrosis, COPD, thoracic ascending aortic aneurysm, HLD, HTN, and CAD presented after an unwitnessed fall. Patient was admitted for further workup and found to have acute on chronic respiratory failure with COPD exacerbation, worsening cardiac and pulmonary function, pneumonia. Found down after about 6 hours. Initially elevated CK and RUSSELL which normalized with light hydration. No fractures or head trauma. PT/OT rec rehab - patient declines. Has home PT/OT set up. Counseled on safety tips for staying at home. Encourage alcohol cessation as this may contribute to falls. fall precautions rec life alert (2) Acute on chronic respiratory failure with hypoxia: Plan: Multifactorial with multifocal pneumonia, end stage COPD, pulmonary fibrosis, and pulmonary hypertension with right sided heart failure. Reportedly still smoking - encourage cessation. On ICS/LABA and oxygen HS. Added LAMA as well this admission. Pulmonology on board - appreciate recs. Patient was seen by palliative care and elected to change code status to DNR/DNI. Patient to follow with pulmonary on an outpatient basis. Likely end stage COPD/HFmrEF with pulmonary HTN and right sided heart failure/pulmonary fibrosis with poor prognosis. continue abx - doxy and CTX - end 2/ continue pred 20 mg QD - end 2 continue supportive care - supplemental oxygen, duonebs, IS, flutter valve, etc pulm following palliative following (3) PAF (paroxysmal atrial fibrillation): Plan: On metoprolol and amiodarone. Eliquis for anticoagulation. Continue home meds. (4) Non-ST elevation [place] (NSTEMI): Plan: Trop peaked. No cardiac symptoms. Monitor on tele (5) Acute heart failure with mildly reduced ejection fraction (HFmrEF, 41-49%): (6) Multifocal pneumonia: (7) Combined pulmonary fibrosis and emphysema (CPFE): Plan Chronic: Hypothyroidism - continue levothyroxine B12 deficiency - continue 1000 mcg daily supplement Chronic pain syndrome - continue oxycodone BPH with LUTS - continue tamsulosin Hyperlipidemia - continue atorvastatin Code status: DNR/DNI, patient with decision making capacity at this time, see palliative note for more information regarding MDM DVT ppx: Nuzhat VELAZQUEZ: HH diet, diuresis goal net neg 1L daily Dispo: PT/OT rec rehab, patient declines | likely home with home health / Admission and Anticipated Discharge Date Admission Date: May 27, 2024 Supervising Physician Co-Signing Physician Notes I also saw the patient confirmed clayton portions of the clinical history and physical examination. I agree with the impression and plan as noted in the resident documentation. Patient would like to return home. Palliative consultation for goals of care is planned for later today. He does have home oxygen but only wears at night. He does not like to wear during the day with activities as the cord comes tangled. He does look to become increasingly hypoxic with activity, so this was discussed with him today. Will review with physical therapy, but likely discharge home with services. Increasing daytime use of oxygen will help him as well. Subjective Patient seen at bedside this morning. Working with PT. Denies any new or worsening SOB. No CP or general pain. Does have oxygen at home that he uses as night while sleeping. Typically doesn't use it during the day because the tubing is a fall hazard. He does get dizzy when standing up and SOB when walking, but he typically just stops and rests until it resolves. No fevers or chills. Reports that he only fell because his walker slipped. Declines rehab. Would like to return home. Has home O2. Has home health set up. Review of Systems 2 Review of Systems: As per HPI Physical Exam 2 Physical Exam: Gen: well appearing patient in NAD HEENT: AT NC MMM Resp: coarse lung sounds throughout, mildly increased work of breathing, no obvious retractions CV: irregularly regular, holosystolic murmur, clinically well perfused Abd: non-distended MSK: no obvious deformities Skin: bruising on the bilateral upper extremities consistent with care home anticoagulation Neuro: alert and oriented Psych: appropriate mood and affect Results & Data Results & Data Vital Signs (Past 12 Hours) Vital Signs Temp Pulse Pulse Resp BP Pulse Ox O2 Del Method 05/30/24 08:05 Nasal Cannula 05/30/24 07:44 36.6 C 59 L 20 124/93 96 Nasal Cannula 05/30/24 02:29 36.5 C 50 L 19 119/73 93 Nasal Cannula 02/02/25 23:09 36.5 C 50 L 19 123/74 94 Nasal Cannula 05/29/24 22:30 Nasal Cannula 05/29/24 21:45 50 L O2 Flow Rate 05/30/24 08:05 2 05/30/24 07:44 2 05/30/24 02:29 2 05/29/24 23:09 2 05/29/24 22:30 3 05/29/24 21:45 Laboratory Results 05/30/24 07:44 05/29/24 06:46 Resident Activity Tracking Resident Involvement: Resident Care Provided Care Provided: Adult Hospital Medicine (1) Fall from standing Encounter type: initial encounter Qualified Code(s): W19.XXXA - Unspecified fall, initial encounter"
--- NOTE | 2024-05-30 09:55 | Palliative Care Consultation ---
Date of Consultation May 30, 2024 Assessment & Plan (1) Palliative care by specialist: (2) Counseling regarding advanced directives and goals of care: (3) Counseling regarding end of life decision making: (4) Encounter for assessment of healthcare decision-making capacity: Plan Met with pt at bedside, no visitors present. GOC discussion held with pt for 45min. Plan: 1. DNR/DNI status 2. 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 Palliative care will continue to follow for ongoing GOC/navigation Patient has exhibited current possession of decisional capacity based on the ability to convey understanding of personal PMHx, current medical condition, treatment options as well as the risks / benefits of those options, and ability to make decisions based on such knowledge. Hospital does not have written documentation of patient wishes concerning his chosen proxy for medical decisions. Per PA [id number], in absence of written documentation of patient wishes, pt's proxy for medical decisions would be his Joslyn Callaway ([phone]). He did express that his daughter Loli Germain ([phone]) helps to care for him and his and he would trust Loli as primary MDM proxy in event he lacks decisional capacity, Pt does not require a proxy for medical decisions at this time. 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 He shared that they have been for many years and have two daughters, 3 sons and 11 grandchildren. His daughter Loli lives less than a mile from them and helps them with grocery shopping but otherwise he is pretty independent. 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 He currently has a pretty sedentary life and mostly just watches TV with his . He shared concern that he needs to be discharged back home before his , because she is completely dependent on him for all care. Discussed code status and helped patient understand that CPR is only done after a person has and involves uncomfortable and invasive procedures that, if successful have high risk of multiple complications including but not limited to rib fractures, pneumo/hemothorax, RUSSELL, ventilator dependence, anoxic brain injury, and parts counterman/permanent cognitive and functional deficits. CPR survival: Only about 10% of patients who have [id number] sudden cardiac arrest survive to hospital discharge, with many survivors having neurologic impairment. This rate is even lower among patients with serious coexisting conditions, ie chance of survival to hospital discharge for in- hospital CPR in older people is low to moderate (15%) and decreases with age, comorbidities, performance status and frailty: for pts > 70 yo, more than half of the patients who initially survived resuscitation in the hospital before hospital discharge. The pooled survival to discharge after in-hospital CPR was 18% for patients between 70 and 79 years old, 15% for patients between 80 and 89 years old and 11% for patients of 90 years and older. (Alvarado MADERAY, Jeremy LJ, Eliza F, et al. Trends in short- and long-term survival among [id number] cardiac arrest patients alive at hospital arrival. Circulation 2014;130:1883- 1890. AND Dana C, Akiko T, Lyla R, et al. Performance of clinical risk scores to predict mortality and neurological outcome in cardiac arrest patients. Resuscitation 2019;136:21-29.) Pt expressed awareness that, although his HF has been stable for some time, his echo showed a significant decline in heart function and that "it will never get better". He shared that he would not want to be kept alive on machines "even if you could bruing n=me back". He elected DNR/DNI, given his advanced HF. History of Present Illness Reason for Consultation: goals of care Requesting Physician: Job Bhatti DO Attending Physician: Job Bhatti DO History of Present Illness Wolfgang Jeter is a 78-year-old male with PMHx including multifocal atrial tachycardia, status post AVR with bioprosthetic valve in 2010, PAF, history of acute heart failure with HFmrEF, long-term anticoagulant use with apixaban, cardiomyopathy, thoracic ascending aortic aneurysm, hypercholesterolemia, hypertension, COPD, and CAD. He presents to the emergency department via EMS after his daughter found him having fallen on the floor about 6 hours previously. Workup in the emergency department included an elevated troponin of 4-38.7, increased creatinine to 1.31, increased CK of 289, and chest x-ray suggestive of pulmonary fibrosis and bilateral lower lobe infiltrates, right greater than left. While in ED Pt reported feeling at bhis baseline per H&P. He was admitted due to his daughter's concerns that he has had persistent chest congestion and coughing, including since his most recent hospitalization of 04/07-04/21/2024, for which at that time he was treated for acute on chronic systolic heart failure, atrial fibrillation, CAD and COPD exacerbation. He has been following with outpt cardiology for management of his hypertension, hypercholesterolemia, cerebral vascular disease (bilateral endarterectomy, August and October 2018), bioprosthetic AVR (2010), paroxysmal atrial fibrillation (March 2022), mildly dilated ascending thoracic aorta (4.1 cm, August 2021, August 2022; 4.3 cm, October 2023, December 2023), chronic systolic CHF (March 2024) and his nonobstructive coronary artery disease (2010). Per cardiology outpt visit on 05/20/24: " Since his last visit, the patient has been stable. He was hospitalized April 07 through with acute on chronic systolic CHF and atrial fibrillation with a rapid ventricular response. He also demonstrated a multifocal atrial tachycardia. He responded well to intravenous diuretics and intravenous amiodarone. He was started on Eliquis as a long-term anticoagulant. He was discharged home in stable fashion.He was seen in the CHF clinic on May 05. He was told to make his Lasix as needed, however, he did not do so. He was also started on Farxiga. He is able to carry on activity of daily life with the assistance of a wheeled walker. He does not experience symptoms with his paroxysmal atrial fibrillation. He is tolerating rhythm control and long- term anticoagulation without difficulty. An echocardiogram performed back in December noted mild left ventricular systolic dysfunction with ejection fraction 40 to 45%. The bioprosthetic aortic valve is functioning properly. T he ascending thoracic aorta measured 4.3 cm in diameter. Compared with the study performed in October 2023, no significant change. " As compared to the echo done in October 2023, echo during this admission revealed worsening LV hypertrophy, from mild to moderate, Ao root dilation from mild to moderate, MVR from mild to moderate, RV from mild dysfunction to mod/severe, TVR from mild to severe, and PVR from trace to moderate. Given acute change in HFrEF, palliative care has been consulted for assistance with goals of care. Allergies Allergy/AdvReac Type Severity Reaction Status Date / Time bee venom protein (honey bee) Allergy Severe swelling Verified 05/20/24 10:36 pepper (genus Capsicum) Allergy Mild TOBASCO Verified 05/20/24 10:36 SAUCE - TOO MUCH OF WILL CAUSE HIVES ibuprofen AdvReac Intermediate LARGE Verified 05/20/24 10:36 DOSES CAUSE ITCHING AND BLISTERS Home Medications Medication Instructions Recorded Confirmed Type mecobalamin (vitamin B12) 1,000 1,000 mcg sublingual QAM 09/30/21 05/27/24 History mcg disintegrating tablet,sublingual triamcinolone acetonide 0.1 % 1 applic topical UD PRN ANKLES 30 12/01/23 05/27/24 Rx topical ointment days #30 grams tamsulosin 0.4 mg capsule 0.4 mg PO QAM #90 caps 01/13/24 05/27/24 Rx apixaban 5 mg tablet 5 mg PO BID #180 tabs 03/07/24 05/27/24 Rx atorvastatin 40 mg tablet 40 mg PO QAM 04/07/24 05/27/24 History fluticasone 250 mcg-salmeterol 50 1 ea inhalation BID 04/07/24 05/27/24 History mcg/dose blistr powdr for inhalation oxycodone 5 mg tablet 5 mg PO Q4H PRN pain #30 tabs 04/28/24 05/27/24 Rx dapagliflozin propanediol 10 mg 10 mg PO DAILY #30 tabs 05/05/24 05/27/24 Rx tablet (Farxiga) metoprolol succinate 25 mg 25 mg PO QAM #90 tabs 05/05/24 05/27/24 Rx tablet,extended release 24 hr amiodarone 200 mg tablet 200 mg PO DAILY #30 tabs 05/18/24 05/27/24 Rx furosemide 20 mg tablet 20 mg PO DAILY PRN weight gain, 05/18/24 05/27/24 Rx edema, shortness of breath #30 tabs levothyroxine 50 mcg tablet 50 mcg PO DAILYBB #30 tabs 05/18/24 05/27/24 Rx (Synthroid) spironolactone 25 mg tablet 25 mg PO QAM #90 tabs 05/18/24 05/27/24 Rx Patient History Medical History (Updated 05/30/24 @ 15:39 by YAMINI Ward) Carotid artery stenosis s/p R CEA 09/16/18 Congenital bicuspid aortic valve s/p AVR 2010 LVH (left ventricular hypertrophy) due to hypertensive disease Chronic hyponatremia Radiculopathy of lumbar region Spinal stenosis Chronic back pain Hypertension Chronic obstructive pulmonary disease MILD, DENIES FLARE UPS. FOLLOWS WITH PCP Surgical History (Updated 05/08/24 @ 00:06 by Stephanie Cancino) History of lumbar fusion H/O carotid endarterectomy (11/04/18) Left Carotid Endarterectomy with Bovine Patch(Left) - Mariano Laboy MD 11/04/18 H/O carotid endarterectomy 09/16/18 [facility] Fusion of spine LUMBAR FUSION Hx of cardiac catheterization no stents Hx of bilateral cataract extraction History of total hip arthroplasty BILATERAL History of carpal tunnel release RIGHT History of tonsillectomy Family History Brother Prostate cancer Father Myocardial infarction Other Cancer No family history of adverse response to anesthesia No family history of bleeding disorder Denies family history of Ovarian cancer Breast cancer Colorectal cancer Social History Smoking Status: Current every day smoker Tobacco Type: Cigarettes Age Started Using Tobacco: 18; packs per day: 0.5; Cigarettes Per Day: 15; Second Hand Exposure: No; Do You Dip or Chew Tobacco: No; Hx Alcohol Use: Yes Alcohol type: hard liquor Alcohol Intake Frequency: 4 or More x per/Week Hx Substance Use: No Preferred Language: Romansh Communication Ability: Effective Visual Impairment: No Limitations Hearing Ability: Use of Hearing Aid Scuba Diving Instructor Required: No Beliefs That Will Affect Care: None marital status: Current Living Situation: Spouse current occupational status: retired 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 Physical Exam Physical Exam: Constitutional: Well appearing, No acute distress HEENT: Atraumatic, Normocephalic, No conjunctival injection CVS: S1 S2 Murmur+, BL leg edema+ Respiratory: BL decreased air entry with NVBS. Coarse breath sound in bases. No increased work of breathing GI: Soft, Nondistended, Nontender, Normal Bowel sounds + MSK: No gross deformities noted Skin: Warm, Dry, Bluish discoloration of BL arms noted ? Chronic Bruising Neuro:A&O x 4 No Focal deficit Psych: Mood and Affect congruent, Cooperative on exam Results & Data Vital Signs (Past 12 Hours) Vital Signs Temp Pulse Resp BP Pulse Ox O2 Del Method O2 Flow Rate 05/30/24 08:05 Nasal Cannula 2 05/30/24 07:44 36.6 C 59 L 20 124/93 96 Nasal Cannula 2 05/30/24 02:29 36.5 C 50 L 19 119/73 93 Nasal Cannula 2 05/29/24 23:09 36.5 C 50 L 19 123/74 94 Nasal Cannula 2 05/29/24 22:30 Nasal Cannula 3 Laboratory Results Abnormal lab results 05/30/24 Range/Units 07:44 RBC 3.57 L (4.70-6.10) M/uL Hgb 11.4 L (14.0-18.0) g/dl Hct 34.9 L (42.0-52.0) % RDW Std Deviation 54.2 H (36.4-46.3) fL RDW Coeff of Telma 15.1 H (11.5-14.5) % Plt Count 117 L (130-400) K/uL Neut # (Auto) 7.49 H (1.40-6.50) K/uL [place] # (Auto) 0.89 H (0.11-0.59) K/uL Diagnostic Findings Cervical Spine CT 05/27/24 16:29 EXAM: CT cervical spine wo con CLINICAL HISTORY: fall from standing. TECHNIQUE: CT scan of the cervical spine was performed without the administration of intravenous contrast. Contiguous axial images were obtained from the skull base to the upper thoracic spine. Coronal and sagittal reformatted images were also reviewed. One of the following dose reduction techniques was utilized for this exam. Automated exposure control, adjustment of the mA and/or kV according to patient size, and use of iterative reconstruction. COMPARISON: Comparison is made with the prior imaging dated 01/16/2024 the current study revealed. FINDINGS: Vertebrae: Stable mild anterior slipping of C7 over D1. stable mild posterior slipping of C4 over C5. The vertebral bodies are normal in height. No evidence of acute fracture or dislocation. The cortical and trabecular bone patterns are normal. anterior marginal osteophytic lippings are seen at the opposing vertebral endplates. No signs of lytic or sclerotic lesions. Normal configuration of the posterior elements. Intervertebral Discs: Stable narrowed C4-5, C5-6 and C6-7 disc spaces No calcifications or ossifications noted within the discs. 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 Neural Foramina: The neural foramina are patent bilaterally at all levels. No evidence of foraminal narrowing or nerve root compression. Prevertebral Soft Tissues: The prevertebral soft tissues are normal in thickness without evidence of mass or abnormal fluid collection. Additional Findings: No other significant findings are noted in the visualized soft tissue structures or bony elements. IMPRESSION: Stationary course as detailed. No evidence of acute fracture or dislocation. Electronically signed by Juan Miguel Malone 05-27-2024 6:00 PM Chest X-Ray 05/27/24 16:29 EXAM: XR chest 1V portable CLINICAL HISTORY: fall from standing TECHNIQUE: An X-ray image of the chest is obtained using an AP projection. COMPARISON: CR dated 04/20/2024. FINDINGS: Pulmonary Parenchyma: Regressive course regarding the previously seen bilateral lower zone heterogenous air space opacifications with coarse interstitial markings and cystic areas. No pneumothorax. Unchanged bilateral blunted costophrenic angles suggestive of small pleural effusions. Heart and Mediastinum: Cardiomegaly. No mediastinal widening. Bilateral perihilar congestion. Bony Thorax: Thoracic spondylosis and degenerative changes in bilateral glenohumeral joints. Soft Tissues: Midline sternotomy sutures. IMPRESSION: 1. Regressive course regarding the previously seen bilateral lower zone heterogenous air space opacifications with coarse interstitial markings and cystic areas 2. Stable bilateral blunted costophrenic angles suggestive of mild pleural effusions with interval slight regression on the right side. 3. Cardiomegaly. Electronically signed by Juan Miguel Malone 05-27-2024 7:[address] 05/27/24 16:29 EXAM: CT head/brain wo con CLINICAL HISTORY: fall from standing. TECHNIQUE: Axial non-contrast CT scan of the brain was performed from the skull base to the high parietal region. One of the following dose reduction techniques were utilized for this exam: Automated exposure control, adjustment of the mA and/or kV according to patient size, use of iterative reconstruction. COMPARISON: 01/16/2024. FINDINGS: Brain Parenchyma: Accentuated bilateral deep periventricular hypodensity. No evidence of acute infarct, hemorrhage, or mass effect. Ventricular System: Mild dilatation of the supratentorial ventricular system No evidence of hydrocephalus. Subarachnoid Spaces: accentuated cortical sulci and extra-axial CSF spaces No evidence of subarachnoid hemorrhage or extra-axial fluid collections. Cerebellum and Brainstem: Prominent cerebellar folia. No masses, lesions, or areas of abnormal signal. Orbits: Normal appearance of the globes, optic nerves, and extraocular muscles. No evidence of orbital masses or abnormal signal. Bilateral cataract operation. Sinuses: Clear paranasal sinuses. No evidence of sinusitis or mucosal thickening. Mastoid Air Cells: Clear mastoid air cells. No evidence of mastoiditis. Skull: Normal skull morphology. IMPRESSION: 1. No acute head/brain abnormality. 2. Accentuated bilateral deep periventricular hypodensity.likely microvascular ischemic changes. stable. 3. Involutional brain changes. stable. Electronically signed by Juan Miguel Malone 05-27-2024 6:15 PM Pelvis X-Ray 05/27/24 16:30 EXAM: XR pelvis 1-2V routine CLINICAL HISTORY: fall from standing. TECHNIQUE: X-ray images of the pelvis were obtained in anteroposterior (AP) projection. COMPARISON: 01/16/2024 CT abdomen and pelvis is reviewed. FINDINGS: Bone Structure: Pelvic bones, including the iliac wings, ischium, pubis, and sacrum, are normal and intact. No evidence of fractures, dislocations, or significant osseous lesions. Hip Joints: Bilateral artificial hips joints replacement without evidence of prothesis loosening or breaking. Symphysis Pubis: Symphysis pubis is normal and intact. No evidence of separation or widening. Sacroiliac Joints: Sacroiliac joints appear normal and unremarkable. No evidence of sacroiliitis or significant degenerative changes. Soft Tissues: Visualized soft tissues are normal and unremarkable. No soft tissue swelling, calcifications, or masses. internal fixation of L5 and S1 with rods and screws without evidence of prothesis loosening or breaking in the limted frontal view. IMPRESSION: 1. Bilateral artificial hip joints replacement without evidence of prothesis loosening or breaking. 2. No acute osseous abnormality is seen in the pelvis. Disclaimer: A subtle bone abnormality or fracture may not be readily apparent on X-rays, thus clinical correlation and further imaging including follow-up CT, MRI, or follow-up X-rays are advised as needed. Electronically signed by Juan Miguel Malone 05-27-2024 7:07 PM Medications Administered Current Inpatient Medications Acetaminophen (Acetaminophen 325 Mg Tab) 650 mg PO Q4H PRN PRN Reason: Pain or Fever Stop: 06/26/24 23:12 Last Admin: 05/29/24 18:22 Dose: 650 mg Albuterol (Albut/Ipratrop 3mg/0.5mg Neb 3 Ml Vial) 3 ml NEB Q2H PRN; Protocol PRN Reason: dyspnea Stop: 06/26/24 20:35 Amiodarone HCl (Amiodarone 200 Mg Tab) 200 mg PO DAILY DESIREE Stop: 06/27/24 08:59 Last Admin: 05/30/24 08:03 Dose: 200 mg Apixaban (Apixaban 5 Mg Tablet) 5 mg PO BID DESIREE Stop: 06/26/24 23:12 Last Admin: 05/30/24 08:02 Dose: 5 mg Atorvastatin Calcium (Atorvastatin 40 Mg Tab) 40 mg PO QAM DESIREE Stop: 06/27/24 08:59 Last Admin: 05/30/24 08:02 Dose: 40 mg Cyanocobalamin (Cyanocobalamin (B-12) 500 Mcg Tablet) 1,000 mcg PO QAM DESIREE Stop: 06/27/24 08:59 Last Admin: 05/30/24 08:02 Dose: 1,000 mcg Doxycycline Hyclate (Doxycycline Hyclate 100 Mg Cap) 100 mg PO BID DESIREE Stop: 06/02/24 20:59 Last Admin: 05/30/24 08:02 Dose: 100 mg Fluticasone/Vilanterol (Fluticasone/Vilanterol 200/25mcg 14 Puffs/Inhaler) 1 puffs INH DAILY DESIREE Stop: 06/27/24 08:59 Last Admin: 05/30/24 08:01 Dose: 1 puffs Folic Acid (Folic Acid 1 Mg Tab) 1 mg PO [facility] Stop: 06/27/24 13:59 Last Admin: 05/30/24 08:02 Dose: 1 mg Furosemide (Furosemide 20 Mg Tab) [facility] Stop: 06/28/24 08:59 Last Admin: 05/30/24 08:01 Dose: 20 mg Ceftriaxone Sodium (Rocephin) 2,000 mg in 50 mls @ 100 mls/hr IV Q24H [facility] Stop: 06/02/24 12:14 Last Infusion: 05/29/24 12:54 Dose: Infused Levothyroxine Sodium (Levothyroxine Sodium 50 Mcg Tablet) [facility]: 06/27/24 06:29 Last Admin: 05/30/24 06:20 Dose: 50 mcg Lorazepam (Lorazepam 2 Mg/1 Ml Vial) 1 mg IV ONE PRN; Protocol PRN Reason: EtoH Withdrawal AWSS 6-10 Metoprolol Succinate (Metoprolol Succ 25mg Ext Rel Tab) 25 mg PO [facility] Stop: 06/27/24 08:59 Last Admin: 05/30/24 08:02 Dose: 25 mg Ondansetron HCl (Ondansetron Inj 2 Mg/Ml 2 Ml Vial) 4 mg IV Q6H PRN PRN Reason: Nausea Stop: 06/26/24 23:12 Oxycodone HCl (Oxycodone Hcl Ir 5 Mg Tab (Immediate Release)) 5 mg PO Q4H PRN PRN Reason: Moderate Pain (Scale 4, 5, 6) Stop: 06/10/24 23:12 Prednisone (Prednisone 20 Mg Tab) [address] [facility] Stop: 06/01/24 08:59 Last Admin: 05/30/24 08:03 Dose: 20 mg Tamsulosin HCl (Tamsulosin Hcl 0.4 Mg Cap) 0.4 mg PO [facility] Stop: 06/27/24 08:59 Last Admin: 05/30/24 08:02 Dose: 0.4 mg Thiamine HCl (Thiamine Hcl 100 Mg Tab) 100 mg PO [facility] Stop: 06/27/24 13:59 Last Admin: 05/30/24 08:03 Dose: 100 mg Triamcinolone Acetonide (Triamcinolone Acet 0.1% Oint 15 Gm Tube) 1 appln TOP DAILY PRN PRN Reason: ANKLES Stop: 06/26/24 23:12 Umeclidinium [place] (Umeclidinium [place] 62.5mcg/Blister 7 Puffs/Inhaler) 1 puffs INH QAM DESIREE Stop: 06/28/24 08:59 Last Admin: 05/30/24 08:02 Dose: 1 puffs PG Care Time/CCT Total # of Minutes Spent Total Time Spent with Patient: Total time spent is greater than 50% in coordination of care (as documented) at patient's floor/unit and/or counseling patient: Advanced Care Planning 93795 Advanced Care Planning 30 [place] [address] IN/OBS CONSULT LVL 3,45M Patient Type New History Expanded Problem Focused Exam Expanded Problem Focused Medical Decision Making Moderate Complexity Diagnoses Palliative care by specialist Z51.5 Counseling regarding advanced directives and goals of care Z71.89 Counseling regarding end of life decision making Z71.89 Encounter for assessment of healthcare decision-making capacity Z02.79 Additional Codes Advanced Care Planning - 53967 Advanced Care Planning 30 Min: 90899 Advanced Care Planning 30 Min ([id number])
--- NOTE | 2024-05-30 10:58 | Pulmonology Progress Note ---
Date of Service May 30, 2024 Assessment & Plan (1) Pleural effusion: Plan: Well-appearing. Does not appear to be amenable to intervention. Continue with diuresis. (2) Pulmonary hypertension: Plan: To be valvular. Agree with ongoing diuresis. Patient reports that he routinely has saturations in the 70s at home with quick rebound. This would likely be consistent with his presentation. Thankfully, he has been titrated down to 2 L nasal cannula at this time. Continue with ongoing diuresis and assess oxygen requirement prior to discharge to home. Consideration for PPV at night if tolerant. (3) Acute respiratory failure with hypoxia: Plan: Secondary to #2 (4) Acute on chronic systolic heart failure: Plan: Diuresis. (5) HFrEF (heart failure with reduced ejection fraction): (6) COPD (chronic obstructive pulmonary disease): Plan: On Advair currently. Not bronchospastic on his exam. Could be addressed or change in the outpatient setting. 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 Can follow-up with pulmonary in the outpatient setting, question utility of treatment given his severity of valvular pulmonary hypertension which needs be closely managed. Plan Thank you for allowing us to participate in the care of this patient. Pulmonary medicine will sign off at this time. Admission and Anticipated Discharge Date Admission Date: May 27, 2024 Subjective Patient seen and evaluated at bedside. He states that he has not noticed any changes in his breathing. He reports that he typically has saturations in the 70s at home which is not abnormal for him. He states that his numbers seem to recover fairly well. He appears frustrated to remain in the hospital. He offers no new complaints today. Review of Systems Review of Systems: As per subjective. Physical Exam Physical Exam: VITAL SIGNS Vital signs and nursing notes were reviewed. GENERAL 78-year-old male appearing his stated age who is in no acute distress. Communicates well with provider and answers questions appropriately. SKIN Without rashes or lesions. NOSE Midline and without cyanosis. MOUTH/OROPHARYNX Without perioral cyanosis. NECK Neck with FROM. LUNGS Chest wall evaluation demonstrates normal chest wall A:P diameter. Auscultation reveals rales bilaterally. CARDIAC RRR with S1/S2. No murmur, rubs, or gallops appreciated. PSYCH A&Ox3 and cooperates fully with examiner. Pt is very pleasant and interacts well with examiner. Results & Data Results & Data Vital Signs (Past 12 Hours) Vital Signs Temp Pulse Resp BP Pulse Ox O2 Del Method O2 Flow Rate 05/30/24 08:05 Nasal Cannula 2 05/30/24 07:44 36.6 C 59 L 20 124/93 96 Nasal Cannula 2 05/30/24 02:29 36.5 C 50 L 19 119/73 93 Nasal Cannula 2 05/29/24 23:09 36.5 C 50 L 19 123/74 94 Nasal Cannula 2 PG Care Time/CCT Total # of Minutes Spent Total Time Spent with Patient: Total time spent is greater than 50% in coordination of care (as documented) at patient's floor/unit and/or counseling patient: Coding Level of Care Code 30066 SUB INP/OBS CARE 2/35MIN Diagnoses Pleural effusion J90 Pulmonary hypertension I27.20 Acute respiratory failure with hypoxia J96.01 Acute on chronic systolic heart failure I50.23 HFrEF (heart failure with reduced ejection fraction) I50.20 Chronic obstructive pulmonary disease, unspecified COPD type J44.9 COPD type: unspecified COPD Acute on chronic respiratory failure with hypoxia J96.21 Combined pulmonary fibrosis and emphysema (CPFE) J43.9; J84.10
--- NOTE | 2024-05-30 18:17 | Communication Note ---
Date of Service: May 30, 2024 Had an extensive conversation with the patient and his family - daughter Loli and sister. Loli is primary decision maker as patient's does not have decision making capacity. Patient currently has decision making capacity. Declines rehab. Declines home PT/OT - states "I'll tell 'em to get out and then they'll clear me". Loli reports that typically she calls and schedules the PT. She notes that there are also 3 dogs at the house which are tripping hazards for Mr. Jeter. Patient has had several falls at home. Did recommend LifeAlert. Patient worried that using the LifeAlert will result in trips to the ED. Did discuss prognosis of patient. Goal is to focus on quality of life and maintain independence. Did recommend smoking cessation as that would likely improve quality of life. Patient declines - saying "I don't want to". Has been smoking for over 60 years. Currently smoking about half a pack - daughter confirms. Knows not to smoke near his oxygen tank. No interest in cessation. Patient would like to return home tomorrow. Plan to transition to PO abx and discharge home tomorrow if daughter amenable. Resident Activity Tracking Resident Involvement: Resident Care Provided Care Provided: Adult Hospital Medicine
--- NOTE | 2024-05-31 07:20 | Hospitalist Progress Note ---
"Date of Service May 31, 2024 Assessment & Plan (1) Fall from standing: Plan: Mr. Jeter is a 78 y/o with a PMHx of a fib on Eliquis, s/p AVR in 2010, HFmrEF -> HFpEF with pulmonary hypertension and fibrosis, COPD, thoracic ascending aortic aneurysm, HLD, HTN, and CAD presented after an unwitnessed fall. Patient was admitted for further workup and found to have acute on chronic respiratory failure with COPD exacerbation, worsening cardiac and pulmonary function, pneumonia. Found down after about 6 hours. Initially elevated CK and RUSSELL which normalized with light hydration. No fractures or head trauma. PT/OT rec rehab - patient declines. Has home PT/OT set up. Counseled on safety tips for staying at home. Encourage alcohol cessation as this may contribute to falls. fall precautions recommending life alert or smartwatch to call for help in case of fall (2) Acute on chronic respiratory failure with hypoxia: Plan: Multifactorial with multifocal pneumonia, end stage COPD, pulmonary fibrosis, and pulmonary hypertension with right sided heart failure. Reportedly still smoking - encourage cessation. On ICS/LABA and oxygen HS. Added LAMA as well this admission. Pulmonology on board - appreciate recs. Patient was seen by palliative care and elected to change code status to DNR/DNI. Patient to follow with pulmonary on an outpatient basis. Likely end stage COPD/HFmrEF with pul monary HTN and right sided heart failure/pulmonary fibrosis with poor prognosis. continue abx - doxy and CTX -> transition to cefdinir 300mg BID for discharge, take through 06/02/24 continue prednisone 20 mg QD - end 06/01/24 continue supportive care - supplemental oxygen, duonebs, IS, flutter valve, etc -> home O2, COPD meds, walker pulm following: recommended to continue Lasix 20mg qAM and follow up as an outpatient palliative following: POLST filled out- no tube feeds, patient desiring no CPR or intubation if cardiac arrest (3) Acute heart failure with preserved ejection fraction (HFpEF, >= 50%): Plan: per Echo on 05/28/24: EF 50-55% up from 40-45% in Dec 2023 (4) Multifocal pneumonia: (5) PAF (paroxysmal atrial fibrillation): Plan: On metoprolol and amiodarone. Eliquis for anticoagulation. Continue home meds. (6) Non-ST elevation NC (NSTEMI): Plan: Trop peaked. No cardiac symptoms. Monitor on tele (7) Combined pulmonary fibrosis and emphysema (CPFE): Plan Chronic: Hypothyroidism - continue levothyroxine B12 deficiency - continue 1000 mcg daily supplement Chronic pain syndrome - continue oxycodone BPH with LUTS - continue tamsulosin Hyperlipidemia - continue atorvastatin Code status: DNR/DNI, patient with decision making capacity at this time, see palliative note for more information regarding MDM DVT ppx: Nuzhat VELAZQUEZ: HH diet, diuresis goal net neg 1L daily Dispo: PT/OT rec rehab, patient declines | likely home with home health 05/31 Admission and Anticipated Discharge Date Admission Date: May 27, 2024 Subjective Wolfgang seen and evaluated at bedside this morning. Feeling well this AM, had just had a BM prior to encounter, no concerns. Was on 4L/min NC which was lowered to 3L/min with subjective tolerance, no SOB or cough during evaluation. Feels ready to go home with home health services, O2, and walker. Encouraged patient to follow up at CHF clinic as an outpatient, he is willing to go as long as his daughter is able to drive him. Does have oxygen at home at 3L/min that he uses as night while sleeping. Typically doesn't use it during the day because the tubing is a tripping hazard. Endorses some dizziness when standing up and SOB when walking, but he typically stops and rests until it resolves. Still no fevers or chills. Reports that he only fell because his walker slipped. Declines rehab. Would like to return home. Has home O2. Has home health set up. Physical Exam Physical Exam: Gen: A&Ox3, well appearing patient in NAD HEENT: NC/AT, moist mucus membranes Resp: coarse lung sounds throughout particularly heard on expiration, mildly increased work of breathing, no obvious retractions, no wheeze heard CV: irregularly regular, holosystolic murmur, clinically well perfused GI/Abd: +BS, soft, non-distended, nontender to palpation MSK: b/l LE erythema and coarse dry skin, 1+ pitting edema, 5/5 strength throughout Skin: bruising on the b/l upper extremities consistent with tank terminal gauger anticoagulation Neuro: no focal deficits, speech intact Psych: appropriate mood and affect Results & Data Results & Data Vital Signs (Past 12 Hours) Vital Signs Temp Pulse Pulse Resp BP Pulse Ox O2 Del Method 05/31/24 02:40 36.7 C 53 L 18 140/73 90 Nasal Cannula 05/30/24 22:46 36.8 C 55 L 18 125/70 93 Nasal Cannula 05/30/24 21:45 53 L 05/30/24 20:45 Nasal Cannula O2 Flow Rate 05/31/24 02:40 05/30/24 22:46 05/30/24 21:45 05/30/24 20:45 4 (1) Fall from standing Encounter type: initial encounter Qualified Code(s): W19.XXXA - Unspecified fall, initial encounter"
[2024-05-31 07:26] LABS: Hematocrit (blood only) 35.5 % (42.0-52.0); Hemoglobin 11.7 g/dl (14.0-18.0); Mean Corpuscular Hemoglobin 31.9 pg (25.0-34.0); Mean Corpuscular Volume 96.7 fL (80.0-100.0); Mean Platelet Volume 10.7 fL (9.4-12.4); Platelet Count 121 K/uL (130-400); RDW Coefficient of Variation 14.8 % (11.5-14.5); RDW Standard Deviation 52.3 fL (36.4-46.3); Red Blood Count 3.67 M/uL (4.70-6.10); White Blood Count 8.69 K/ul (4.8-10.8)
[2024-05-31 07:43] VITALS: O2SAT 87
[2024-05-31 07:43] LABS: BUN Creatinine Ratio 24.2 (10-20); Calcium 8.7 mg/dl (8.6-10.3); Creatinine Clr Calc Pharmacy 66.8 ml/min; Potassium 3.7 mmol/L (3.5-5.1)
--- NOTE | 2024-05-31 10:16 | Palliative Care Progress Note ---
Date of Service May 31, 2024 Assessment & Plan (1) Palliative care by specialist: (2) Counseling regarding advanced directives and goals of care: (3) Counseling regarding end of life decision making: (4) POLST (Physician Orders for Life-Sustaining Treatment): Plan Wolfgang Jeter is a 78-year-old male with PMHx including multifocal atrial tachycardia, status post AVR with bioprosthetic valve in 2010, PAF, history of acute heart failure with HFmrEF, long-term anticoagulant use with apixaban, cardiomyopathy, thoracic ascending aortic aneurysm, hypercholesterolemia, hypertension, COPD, and CAD admitted after GLF on 05/27/24. Pt is found to have acute decompensation of is HFrEF. He will likely be discharged to home today. Patient has exhibits current possession of decisional capacity based on the ability to convey understanding of personal PMHx, current medical condition, treatment options as well as the risks / benefits of those options, and ability to make decisions based on such knowledge. Hospital does not have written docum entation of patient wishes concerning his chosen proxy for medical decisions. Per PA [id number], in absence of written documentation of patient wishes, pt's proxy for medical decisions would be his Joslyn Callaway ([phone]). He did express that his daughter Loli Germain ([phone]) helps to care for him and his and he would trust Loli as primary MDM proxy in event he lacks decisional capacity, Pt does not require a proxy for medical decisions at this time. Pt shared that he is feeling "normal" and wants to be discharged to home today. He shared that he does not accept recs for Pt/OT or IPR evaluation. He shared awareness that his HF is progressing and "there is nothing left to help me or make it better'. I suggested additional resources to help at home such as HF clinic follow up, additional visits with HHC at home or assistance from outpt palliative care services for assistance with navigation as disease progresses. He is refusing additional help at home in form of additional nursing visits. He said they come monthly out only for vitals and "we just want to be left alone, we don't need more help". He is refusing PT/OT, HF clinic or outpt palliative for navigation. He shared that he does not want any additional people in his home. Pt did reinforce his goals to continue ongoing life prolonging therapies, but no resuscitation, mechanical ventilation or artificial nutrition under any circumstances. POLST form completed to reflect this, please ensure original POLST is sent home with pt. We will sign off on this patient as goals of care are clearly established for DNR/DNI but continue all other life prolonging therapies. Thank you for including Palliative Care in the management of this patient. Please call with any questions or concerns regarding this consultation. Admission and Anticipated Discharge Date Admission Date: May 27, 2024 Subjective Assessed pt at bedside, ESTEFANI. Pt A&Ox4 and pleasantly communicative. He denies any discomfort and shared that his breathing feels "normal". No visitors at bedside. He reports that his remains an inpt also but he has gotten no updates on her status. Review of Systems Review of Systems: All systems reviewed & are unremarkable except as noted in Subjective Pt states that he feels "like he always do, and I want to go home". Physical Exam Physical Exam: Constitutional: Well appearing, No acute distress HEENT: Atraumatic, Normocephalic, No conjunctival injection CVS: S1 S2 Murmur+, BL leg edema+ Respiratory: BL decreased air entry with NVBS. Coarse breath sound in bases. No increased work of breathing GI: Soft, Nondistended, Nontender, Normal Bowel sounds + MSK: No gross deformities noted Skin: Warm, Dry, Bluish discoloration of BL arms noted ? Chronic Bruising Neuro:A&O x 4 No Focal deficit Psych: Mood and Affect congruent, Cooperative on exam Results & Data Vital Signs (Past 12 Hours) Vital Signs Temp Pulse Pulse Resp BP Pulse Ox O2 Del Method 05/31/24 07:42 36.5 C 58 L 19 144/84 H 87 L Nasal Cannula 05/31/24 07:29 54 L 05/31/24 02:40 36.7 C 53 L 18 140/73 90 Nasal Cannula 05/30/24 22:46 36.8 C 55 L 18 125/70 93 Nasal Cannula O2 Flow Rate 05/31/24 07:42 4 05/31/24 07:29 05/31/24 02:40 05/30/24 22:46 Laboratory Results Abnormal lab results 05/31/24 Range/Units 06:34 RBC 3.67 L (4.70-6.10) M/uL Hgb 11.7 L (14.0-18.0) g/dl Hct 35.5 L (42.0-52.0) % RDW Std Deviation 52.3 H (36.4-46.3) fL RDW Coeff of Telma 14.8 H (11.5-14.5) % Plt Count 121 L (130-400) K/uL Sodium 133 L (136-145) mmol/L Chloride 96 L (98-107) mmol/L Carbon Dioxide 33 H (21-32) mmol/L BUN/Creatinine Ratio 24.2 H (10-20) Diagnostic Findings Cervical Spine CT 05/27/24 16:29 EXAM: CT cervical spine wo con CLINICAL HISTORY: fall from standing. TECHNIQUE: CT scan of the cervical spine was performed without the administration of intravenous contrast. Contiguous axial images were obtained from the skull base to the upper thoracic spine. Coronal and sagittal reformatted images were also reviewed. One of the following dose reduction techniques was utilized for this exam. Automated exposure control, adjustment of the mA and/or kV according to patient size, and use of iterative reconstruction. COMPARISON: Comparison is made with the prior imaging dated 01/16/2024 the current study revealed. FINDINGS: Vertebrae: Stable mild anterior slipping of C7 over D1. stable mild posterior slipping of C4 over C5. The vertebral bodies are normal in height. No evidence of acute fracture or dislocation. The cortical and trabecular bone patterns are normal. anterior marginal osteophytic lippings are seen at the opposing vertebral endplates. No signs of lytic or sclerotic lesions. Normal configuration of the posterior elements. Intervertebral Discs: Stable narrowed C4-5, C5-6 and C6-7 disc spaces No calcifications or ossifications noted within the discs. 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 Neural Foramina: The neural foramina are patent bilaterally at all levels. No evidence of foraminal narrowing or nerve root compression. Prevertebral Soft Tissues: The prevertebral soft tissues are normal in thickness without evidence of mass or abnormal fluid collection. Additional Findings: No other significant findings are noted in the visualized soft tissue structures or bony elements. IMPRESSION: Stationary course as detailed. No evidence of acute fracture or dislocation. Electronically signed by Juan Miguel Malone 05-27-2024 6:00 PM Chest X-Ray 05/27/24 16:29 EXAM: XR chest 1V portable CLINICAL HISTORY: fall from standing TECHNIQUE: An X-ray image of the chest is obtained using an AP projection. COMPARISON: CR dated 04/20/2024. FINDINGS: Pulmonary Parenchyma: Regressive course regarding the previously seen bilateral lower zone heterogenous air space opacifications with coarse interstitial markings and cystic areas. No pneumothorax. Unchanged bilateral blunted costophrenic angles suggestive of small pleural effusions. Heart and Mediastinum: Cardiomegaly. No mediastinal widening. Bilateral perihilar congestion. Bony Thorax: Thoracic spondylosis and degenerative changes in bilateral glenohumeral joints. Soft Tissues: Midline sternotomy sutures. IMPRESSION: 1. Regressive course regarding the previously seen bilateral lower zone heterogenous air space opacifications with coarse interstitial markings and cystic areas 2. Stable bilateral blunted costophrenic angles suggestive of mild pleural effusions with interval slight regression on the right side. 3. Cardiomegaly. Electronically signed by Juan Miguel Malone 05-27-2024 7:[address] 05/27/24 16:29 EXAM: CT head/brain wo con CLINICAL HISTORY: fall from standing. TECHNIQUE: Axial non-contrast CT scan of the brain was performed from the skull base to the high parietal region. One of the following dose reduction techniques were utilized for this exam: Automated exposure control, adjustment of the mA and/or kV according to patient size, use of iterative reconstruction. COMPARISON: 01/16/2024. FINDINGS: Brain Parenchyma: Accentuated bilateral deep periventricular hypodensity. No evidence of acute infarct, hemorrhage, or mass effect. Ventricular System: Mild dilatation of the supratentorial ventricular system No evidence of hydrocephalus. Subarachnoid Spaces: accentuated cortical sulci and extra-axial CSF spaces No evidence of subarachnoid hemorrhage or extra-axial fluid collections. Cerebellum and Brainstem: Prominent cerebellar folia. No masses, lesions, or areas of abnormal signal. Orbits: Normal appearance of the globes, optic nerves, and extraocular muscles. No evidence of orbital masses or abnormal signal. Bilateral cataract operation. Sinuses: Clear paranasal sinuses. No evidence of sinusitis or mucosal thickening. Mastoid Air Cells: Clear mastoid air cells. No evidence of mastoiditis. Skull: Normal skull morphology. IMPRESSION: 1. No acute head/brain abnormality. 2. Accentuated bilateral deep periventricular hypodensity.likely microvascular ischemic changes. stable. 3. Involutional brain changes. stable. Electronically signed by Juan Miguel Malone 05-27-2024 6:15 PM Pelvis X-Ray 05/27/24 16:30 EXAM: XR pelvis 1-2V routine CLINICAL HISTORY: fall from standing. TECHNIQUE: X-ray images of the pelvis were obtained in anteroposterior (AP) projection. COMPARISON: 01/16/2024 CT abdomen and pelvis is reviewed. FINDINGS: Bone Structure: Pelvic bones, including the iliac wings, ischium, pubis, and sacrum, are normal and intact. No evidence of fractures, dislocations, or significant osseous lesions. Hip Joints: Bilateral artificial hips joints replacement without evidence of prothesis loosening or breaking. Symphysis Pubis: Symphysis pubis is normal and intact. No evidence of separation or widening. Sacroiliac Joints: Sacroiliac joints appear normal and unremarkable. No evidence of sacroiliitis or significant degenerative changes. Soft Tissues: Visualized soft tissues are normal and unremarkable. No soft tissue swelling, calcifications, or masses. internal fixation of L5 and S1 with rods and screws without evidence of prothesis loosening or breaking in the limted frontal view. IMPRESSION: 1. Bilateral artificial hip joints replacement without evidence of prothesis loosening or breaking. 2. No acute osseous abnormality is seen in the pelvis. Disclaimer: A subtle bone abnormality or fracture may not be readily apparent on X-rays, thus clinical correlation and further imaging including follow-up CT, MRI, or follow-up X-rays are advised as needed. Electronically signed by Juan Miguel Malone 05-27-2024 7:07 PM Medications Administered Current Inpatient Medications Acetaminophen (Acetaminophen 325 Mg Tab) 650 mg PO Q4H PRN PRN Reason: Pain or Fever Stop: 06/26/24 23:12 Last Admin: 05/29/24 18:22 Dose: 650 mg Albuterol (Albut/Ipratrop 3mg/0.5mg Neb 3 Ml Vial) 3 ml NEB Q2H PRN; Protocol PRN Reason: dyspnea Stop: 06/26/24 20:35 Amiodarone HCl (Amiodarone 200 Mg Tab) 200 mg PO DAILY [facility]IREE Stop: 06/27/24 08:59 Last Admin: 05/31/24 08:14 Dose: 200 mg Apixaban (Apixaban 5 Mg Tablet) 5 mg PO BID [facility] Stop: 06/26/24 23:12 Last Admin: 05/31/24 08:14 Dose: 5 mg Atorvastatin Calcium (Atorvastatin 40 Mg Tab) 40 mg PO QAM [facility] Stop: 06/27/24 08:59 Last Admin: 05/31/24 08:14 Dose: 40 mg Cyanocobalamin (Cyanocobalamin (B-12) 500 Mcg Tablet) 1,000 mcg PO QAM [facility] Stop: 06/27/24 08:59 Last Admin: 05/31/24 08:14 Dose: 1,000 mcg Doxycycline Hyclate (Doxycycline Hyclate 100 Mg Cap) 100 mg PO BID [facility] Stop: 06/02/24 20:59 Last Admin: 05/31/24 08:15 Dose: 100 mg Fluticasone/Vilanterol (Fluticasone/Vilanterol 200/25mcg 14 Puffs/Inhaler) 1 puffs INH DAILY [facility] Stop: 06/27/24 08:59 Last Admin: 05/31/24 08:15 Dose: 1 puffs Folic Acid (Folic Acid 1 Mg Tab) 1 mg PO QAM [facility] Stop: 06/27/24 13:59 Last Admin: 05/31/24 08:15 Dose: 1 mg Furosemide (Furosemide 20 Mg Tab) 20 mg PO QAM [facility] Stop: 06/28/24 08:59 Last Admin: 05/31/24 08:15 Dose: 20 mg Ceftriaxone Sodium (Rocephin) 2,000 mg in 50 mls @ 100 mls/hr IV Q24H [facility] Stop: 06/02/24 12:14 Last Infusion: 05/30/24 12:43 Dose: Infused Levothyroxine Sodium (Levothyroxine Sodium 50 Mcg Tablet) 50 mcg PO DAILYBB [facility] Stop: 06/27/24 06:29 Last Admin: 05/31/24 06:17 Dose: 50 mcg Lorazepam (Lorazepam 2 Mg/1 Ml Vial) 1 mg IV ONE PRN; Protocol PRN Reason: EtoH Withdrawal AWSS 6-10 Metoprolol Succinate (Metoprolol Succ 25mg Ext Rel Tab) 25 mg PO [place] Stop: 06/27/24 08:59 Last Admin: 05/31/24 08:14 Dose: Not Given Ondansetron HCl (Ondansetron Inj 2 Mg/Ml 2 Ml Vial) 4 mg IV Q6H PRN PRN Reason: Nausea Stop: 06/26/24 23:12 Oxycodone HCl (Oxycodone Hcl Ir 5 Mg Tab (Immediate Release)) 5 mg PO Q4H PRN PRN Reason: Moderate Pain (Scale 4, 5, 6) Stop: 06/10/24 23:12 Prednisone (Prednisone 20 Mg Tab) 20 mg PO DAILY [facility] Stop: 06/01/24 08:59 Last Admin: 05/31/24 08:14 Dose: 20 mg Tamsulosin HCl (Tamsulosin Hcl 0.4 Mg Cap) 0.4 mg PO [facility] Stop: 06/27/24 08:59 Last Admin: 05/31/24 08:14 Dose: 0.4 mg Thiamine HCl (Thiamine Hcl 100 Mg Tab) 100 mg PO [facility] Stop: 06/27/24 13:59 Last Admin: 05/31/24 08:14 Dose: 100 mg Triamcinolone Acetonide (Triamcinolone Acet 0.1% Oint 15 Gm Tube) 1 appln TOP DAILY PRN PRN Reason: ANKLES Stop: 06/26/24 23:12 Umeclidinium [place] (Umeclidinium [place] 62.5mcg/Blister 7 Puffs/Inhaler) 1 puffs INH [facility] Stop: 06/28/24 08:59 Last Admin: 05/31/24 08:15 Dose: 1 puffs PG Care Time/CCT Total # of Minutes Spent Total Time Spent with Patient: Total time spent is greater than 50% in coordination of care (as documented) at patient's floor/unit and/or counseling patient: Advanced Care Planning 79772 Advanced Care Planning 30 Min C[place] [address] SUB INP/OBS CARE 05/21MIN Patient Type Established History Problem Focused Exam Problem Focused Medical Decision Making Low Complexity Diagnoses Palliative care by specialist Z51.5 Counseling regarding advanced directives and goals of care Z71.89 Counseling regarding end of life decision making Z71.89 POLST (Physician Orders for Life-Sustaining Treatment) Z78.9 Additional Codes Advanced Care Planning - 83987 Advanced Care Planning 30 Min: 79287 Advanced Care Planning 30 Min ([id number])
[2024-05-31 11:24] VITALS: BP 123/70; PULSE 62; RESP 20; TEMP 98.1
--- NOTE | 2024-05-31 12:57 | Discharge Summary ---
"Date of Service May 31, 2024 Admission HPI Per Admitting Provider The patient is a 78-year-old male with past medical history including multifocal atrial tachycardia, status post AVR with bioprosthetic valve in 2010, PAF, history of acute heart failure with HFmrEF, long-term anticoagulant use with apixaban, cardiomyopathy, thoracic ascending aortic aneurysm, hypercholesterolemia, hypertension, COPD, and CAD. He presents to the emergency department via EMS after his daughter found him having fallen on the floor about 6 hours previously. Workup in the emergency department included an elevated troponin of 4-38.7, increased creatinine to 1.31, increased CK of 289, and chest x-ray suggestive of pulmonary fibrosis and bilateral lower lobe infiltrates, right greater than left. The patient himself is able to contribute to review of systems and HPI, and reports that he feels pretty much at his baseline at this point His daughter has been concerned that he has had persistent chest congestion and coughing, including since his most recent hospitalization of 04/07-04/21/2024, for which at that time he was treated for acute on chronic systolic heart failure, atrial fibrillation, CAD and COPD exacerbation. Admission Exam Per Admitting Provider The patient is awake, alert and oriented 3, well developed and well nourished, normocephalic and atraumatic, lying in bed and in no acute distress. HEENT--PERRL, EOMI, mucous membranes and oropharynx dry. Neck--supple. No JVD. No bruits. Thyroid normal, trachea midline, no adenopathy. Heart--normal S1 and S2. No murmurs, rubs or gallops. Lungs--crackles at the bases bilaterally, with moist cough. No respiratory distress, no accessory muscle use. Abdomen--normal bowel sounds and soft. Nontender. Nondistended, no hernias or masses, no organomegaly. Extremities--no cyanosis or clubbing. No edema. Dermatologic--normal skin turgor, normal color, no abnormal lymph nodes, no rash. Neurologic--cranial nerves II through XII grossly intact. Rheumatologic--normal range of motion. Psychiatric--normal affect. Principal Diagnosis unwitnessed fall; acute on chronic respiratory failure Discharge Exam Gen: A&Ox3, well appearing patient in NAD HEENT: NC/AT, moist mucus membranes Resp: coarse lung sounds throughout particularly heard on expiration, mildly increased work of breathing, no obvious retractions, no wheeze heard CV: irregularly regular, holosystolic murmur, clinically well perfused GI/Abd: +BS, soft, non-distended, nontender to palpation MSK: b/l LE erythema and coarse dry skin, 1+ pitting edema, 5/5 strength throughout Skin: bruising on the b/l upper extremities consistent with mcc anticoagulation Neuro: no focal deficits, speech intact Psych: appropriate mood and affect Discharge Data Allergies Allergy/AdvReac Type Severity Reaction Status Date / Time bee venom protein (honey bee) Allergy Severe swelling Verified 05/20/24 10:36 pepper (genus Capsicum) Allergy Mild TOBASCO Verified 05/20/24 10:36 SAUCE - TOO MUCH OF WILL CAUSE HIVES ibuprofen AdvReac Intermediate LARGE Verified 05/20/24 10:36 DOSES CAUSE ITCHING AND BLISTERS Consultations 05/27/24 19:08 ED Decision to Admit Stat 05/28/24 13:49 Consult Pulmonology Routine 05/29/24 12:40 Consult Palliative Care Routine Ordered Studies 05/27/24 16:29 CT cervical spine wo con Stat CT head/brain wo con Stat Hospital Course (1) Fall from standing: Mr. Jeter is a 78 y/o with a PMHx of a fib on Eliquis, s/p AVR in 2010, HFmrEF -> HFpEF with pulmonary hypertension and fibrosis, COPD, thoracic ascending aortic aneurysm, HLD, HTN, and CAD presented after an unwitnessed fall. Patient was admitted for further workup and found to have acute on chronic respiratory failure with COPD exacerbation, worsening cardiac and pulmonary function, pneumonia. Found down after about 6 hours. Initially elevated CK and RUSSELL which normalized with light hydration. No fractures or head trauma. PT/OT rec rehab - patient declines but home PT/OT set up. Counseled on safety tips for staying at home. Encourage alcohol cessation as this may contribute to falls. fall precautions recommending life alert or smartwatch to call for help in case of fall (2) Acute on chronic respiratory failure with hypoxia: Multifactorial with multifocal pneumonia, end stage COPD, pulmonary fibrosis, and pulmonary hypertension with right sided heart failure. Reportedly still smoking - encourage cessation. On ICS/LABA and oxygen HS. Added LAMA as well this admission. Pulmonology on board - appreciate recs. Patient was seen by palliative care and elected to change code status to DNR/DNI. Patient to follow with pulmonary on an outpatient basis. Likely end stage COPD/HFmrEF -> HFpEF with pulmonary HTN and right sided heart failure/pulmonary fibrosis with poor prognosis. continue abx - doxy and CTX -> transition to cefdinir 300mg BID for discharge, take through 06/02/24 continue prednisone 20 mg QD - end 06/01/24 continue supportive care - supplemental oxygen, duonebs, IS, flutter valve, etc -> home O2, COPD meds, walker pulm following: recommended to continue Lasix 20mg qAM and follow up as an outpatient palliative following: POLST filled out- no tube feeds, patient desiring no CPR or intubation if cardiac arrest (3) Acute heart failure with preserved ejection fraction (HFpEF, >= 50%): per Echo on 05/28/24: EF 50-55% up from 40-45% in Dec 2023; still recommended to follow up with CHF clinic for optimization of outpatient medication regimen (4) Multifocal pneumonia: (5) PAF (paroxysmal atrial fibrillation): On metoprolol and amiodarone. Eliquis for anticoagulation. Continue home meds. (6) Non-ST elevation [place] (NSTEMI): Trop peaked. No cardiac symptoms. Monitor on tele (7) Combined pulmonary fibrosis and emphysema (CPFE): Plan Chronic: Hypothyroidism - continue levothyroxine B12 deficiency - continue 1000 mcg daily supplement Chronic pain syndrome - continue oxycodone BPH with LUTS - continue tamsulosin Hyperlipidemia - continue atorvastatin Code status: DNR/DNI, patient with decision making capacity at this time, see palliative note for more information regarding MDM DVT ppx: Nuzhat VELAZQUEZ: HH diet, diuresis goal net neg 1L daily Dispo: PT/OT rec rehab, patient declines | likely home with home health 2/4 Total Time Total Time Spent Total Time Spent (In Minutes): 40 Discharge Plan Discharge Items Patient Disposition: Home - Home Health Services Reason For Visit: RUSSELL, RHABDO, NSTEMI, ACUTE CHRONIC RESP FAILURE Discharge Diagnosis: acute hypoxic respiratory failure on COPD, unwitnessed fall Activity: Per Instructions section Non-emergency contact: Primary Care Provider and Grease Buffer Call non-emergency contact if: your symptoms worsen and your pain is not controlled Follow-up/Referrals: Parish Link III, YAMINI [Primary Care Provider] - 06/13/24 4:00 pm (Hospital follow up scheduled June 13 at 4:00) Ann Cowart MD, FCCP [Physician] - 06/14/24 1:45 pm (Hospital follow up sched uled June 14 at 1:45 with Kevin Haley) Diet: Heart Healthy Addtl Attending Provider Instructions: You were seen and treated at [facility] for acute on chronic hypoxic respiratory failure, multifocal pneumonia, acute kidney injury, and congestive heart failure after an unwitnessed fall. Your labs and vital signs have improved and you are now medically stable for d ischarge home with home health services. Continue taking your antibiotics - doxycycline and cefdinir - both twice a day, through 06/02/24. Additionally continue taking prednisone 20mg qAM through tomorrow, 06/01/24. Continue Lasix and spironolactone daily for diuresis - will help encourage excess fluids to be excreted in urine. Continue your home O2 at night and consider wearing it during the day to reduce the likelihood of you fainting and falling due to lack of oxygen to your brain. We also recommend that you discontinue alcohol consumption as this can also be a contributing factor to your falls. We additionally discussed reducing cigarette smoking to reduce risk of further hypoxia, lung damage, and cancer risk. Please follow up with pulmonology and the CHF clinic as an outpatient to continu e monitoring your respiratory/lung and circulatory/heart status. Pending Studies at Discharge: No Stand-Alone Forms: My [facility], Smoking Cessation Medications and DC Order Prescriptions: New doxycycline hyclate 100 mg Capsule 100 mg PO BID 2 Days Qty: 4 0RF prednisone 20 mg Tablet 20 mg PO DAILY 1 Days Qty: 1 0RF cefdinir 300 mg capsule 300 mg PO BID 2 Days Qty: 4 0RF Continued triamcinolone acetonide 0.1 % ointment 1 applic TOPICAL UD PRN (Reason: ANKLES) 30 Days Qty: 30 1RF tamsulosin 0.4 mg capsule 0.4 mg PO QAM Qty: 90 3RF apixaban 5 mg tablet 5 mg PO BID Qty: 180 3RF Hold Instructions: PER SUNDAY [facility] MEDLIST-ADVISED TO F/U W/ PCP WHEN OK TO RESUME spironolactone 25 mg tablet 25 mg PO QAM Qty: 90 3RF levothyroxine [Synthroid] 50 mcg tablet 50 mcg PO DAILYBB Qty: 30 11RF furosemide 20 mg tablet 20 mg PO DAILY PRN (Reason: weight gain, edema, shortness of breath) Qty: 30 3RF amiodarone 200 mg tablet 200 mg PO DAILY Qty: 30 11RF Rx Instructions: 1 tab twice a day for ten days then decrease to 1 tab a day mecobalamin (vitamin B12) 1,000 mcg tablet,disintegrating 1,000 mcg sublingual QAM Rx Instructions: place tablet under tongue and allow to dissolve for at least30 secs before swallowing metoprolol succinate 25 mg tablet extended release 24 hr 25 mg PO QAM Qty: 90 3RF dapagliflozin propanediol [Farxiga] 10 mg tablet 10 mg PO DAILY Qty: 30 2RF oxycodone 5 mg tablet 5 mg PO Q4H PRN (Reason: pain) Qty: 30 0RF fluticasone propion-salmeterol 250-50 mcg/dose blister with device 1 ea INHALATION BID atorvastatin 40 mg tablet 40 mg PO QAM Discharge Orders: Discharge Order- CHF (Routine); Ordered 05/31/24 Ordered By: Isaías Karimi/Other Patient Handouts: COPD Quit Smoking, Preventing Pneumonia, Heart Failure Dc, Pulmonary Hypertension, Preventing Falls Preparation, Prevent Falls Make Health Priority, Heart Failure Care, ED Fall with Uncertain Cause Admission Data Admit Date/Time: 05/27/24 20:42 Attending Provider: Jose Conte Admit Provider: Scott Bowen Primary Care Provider: Parish iLnk III Other Providers: Scott Bowen; Kevin Haley; Rolo Duckworth; Jaret Lal; Ann Cowart; Bela Mari; Regi Souza; Mireya Guido; Mary Casillas Other Interventions: Discharge Summary Assessment (RN) Last Done: 05/31/24 12:59 Supervising Physician Co-Signing Physician Notes Attending attestation Pt seen and examined in concert with Dr. Barton. In agreement with the documented findings as noted in the resident documentation with any exceptions or additions as noted here. Patient reports feeling essentially returned to baseline, able to ambulate around the room without worsening symptoms. On examination, S1/S2 nl RRR no MCG. scattered wheeze/rhonchi. Abd NT/ND BS+ve. Trace b/l LE edema to the midshin Hgb 11.7; WBC 8.69; Cr 0.91 Fall with mild rhabdomyolysis - labs improved on admission, defers supportive care services with understanding of family. Encourage accepted safety measures and avoidance of injury. Acute on chronic hypoxic respiratory failure - returned to baseline O2 use, encourage adherence COPD with exacerbation, end stage, with PNA, pulmonary fibrosis, pulm HTN w/ h/o HF - complete course of abx and prednisone as noted (ending 06/02 and 06/01). POLST completed, palliative care engaged. Else see resident documentation as noted. Total attending physician time spent with this patient's care on the day of discharge: 35 minutes."
== END 2024-05-31 15:00 | disposition home health service (06) | DRG 193 ==
LOC: ED 15:47 → SUATTDRO 20:42 → 2S 20:42

== ENCOUNTER 2024-09-12 13:11 | Inpatient (IN) ==
--- NOTE | 2024-09-12 13:26 | Emergency Department Note ---
Impression & Plan Fall from standing, Skin tear of left upper extremity, Pulmonary edema, Hypoxia, Abrasion of face, Elevated brain natriuretic peptide (BNP) level, Acute exacerbation of CHF (congestive heart failure), Acute hyperkalemia, Elevated troponin ED Provider Note HISTORY OF PRESENT ILLNESS: Patient is a 78-year-old male presenting as a trauma alert. Patient reports he was [facility] an appointment and trying to get into his car when he fell, striking his head and causing skin tears to his left upper extremity. He denies loss of consciousness. He is on Eliquis. Reports his tetanus is up-to-date. Denies any headache or changes in vision. Denies any chest pain, shortness of breath or lightheadedness prior to his fall. He reports that the only thing that hurts is his left arm where his skin tears are wrapped. He denies any numbness or tingling or weakness of his extremities. ROS: as above PHYSICAL EXAM: Vitals: See nursing chart. Constitutional: GCS 15. HENT: Head: Patient has a small abrasion to the left temporal region. Mouth/Throat: Midface stable. No malocclusion. Eyes: EOMI. Pupils are 3 mm, round and reactive bilaterally. Ears: TMs are intact bilaterally. No hematomas. Nose: No nasal septal hematoma. No gross deformity. Neck: C-collar in place. No midline C-spine tenderness. No step-offs. Cardiovascular: RRR. Pulses present in all 4 extremities. Pulmonary/Chest: BS equal bilaterally. No tenderness or ecchymosis. Abdomen: No tenderness or ecchymosis. Musculoskeletal: Pelvis: No instability. Patient is able to straight leg raise bilaterally. Back: No midline tenderness. No step-offs. Extremities: Patient has extensive skin tears and degloving of his left forearm and left hand. Skin: Skin tears as above. Abrasion to the left lateral knee. Neuro: No focal neurological deficits. GCS as above. Psych: Normal mood and affect. MDM: - Vitals signs showed hypertension bradycardia - History obtained via patient. History as above. - ABCs intact. Patient has isolated injury to the head and left upper extremity. - Chronic conditions affecting care: COPD; HTN; HLD; CAD; aortic valve replacement; HFpEF - Differential diagnoses include, but are not limited to: Intracranial hemorrhage; ACS; electrolyte abnormality; rib fracture; - Order placed for continuous cardiac monitoring. At this time, monitor showed rate of 45 bpm with normal sinus rhythm, per my interpretation. - External medical records reviewed. Heart failure visit note dated 07/21/2024 was reviewed. Patient had his Lasix decreased from 40 mg twice daily down to 40 mg daily. On review of patient's chart, his last tetanus shot was on 06/23/2022. - EKG image interpreted by myself showed normal sinus rhythm. Rate bradycardic at 49 bpm. QT 534. No acute ischemic changes. Noted have a bifascicular block. - Laboratory workup interpreted by myself showed normal WBC; normal PT/INR; hyponatremia (Na 128); hyperkalemia (K 5.6); elevated troponin (22.3); normal lipase; normal AST/ALT; elevated BNP (996) - Patient given 4 mg IV morphine for pain management prior to attempting to clean and repair his left forearm. His blood pressure transiently dropped to 70s over 40s. He was placed in reverse Trendelenburg and given a liter of fluids. Saturations did drop slightly after the morphine administration as well and he was placed on 2 L supplemental oxygen. 40 mg IV Lasix was ordered. - CT head wo contrast negative for acute pathology - CT cervical spine wo contrast negative for acute injury - CT chest with IV contrast showed minimally progressive height loss in T9 verbetral body. Noted to have CHF with trace pulmonary edema and trace pleural effusions - CT abdomen/pelvis with IV contrast negative for acute traumatic injury - Patient was weaned off of oxygen while in the emergency department and was saturating 96% on room air. However, with ambulatory trial, his oxygen saturation decreased to 81% and he was started on supplemental oxygen. This is likely secondary to patient's pulmonary edema. He is not wear any supplemental oxygen at baseline at home, so we will have to admit for further diuresis and try to wean him from supplemental oxygen. - Discussion was had with spring encaser about patient's case and need for admission - Hospitalist consulted for admission - Patient admitted to [facility] for further evaluation and management. ASSESSMENT AND PLAN: Diagnosis: Fall from standing; skin tear of left upper extremity; pulmonary edema; hypoxia; abrasion of face; elevated BNP; acute hyperkalemia; elevated troponin; acute CHF exacerbation Plan: admit Past Med/Surg History Problem List (Updated 09/12/24 @ 16:28 by Lara Cueva MD) Elevated troponin (Acute) Acute hyperkalemia (Acute) Acute exacerbation of CHF (congestive heart failure) (Acute) Elevated brain natriuretic peptide (BNP) level (Acute) Abrasion of face (Acute) Hypoxia (Acute) Pulmonary edema (Acute) Skin tear of left upper extremity (Acute) Fall from standing (Acute) Ambulatory dysfunction (Chronic) Acute heart failure with preserved ejection fraction (HFpEF, >= 50%) (Acute) POLST (Physician Orders for Life-Sustaining Treatment) Encounter for assessment of healthcare decision-making capacity Counseling regarding end of life decision making Counseling regarding advanced directives and goals of care Palliative care by specialist 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) Pulmonary hypertension Multifocal pneumonia (Acute) Hypothyroidism (Chronic) Multifocal atrial tachycardia S/P aortic valve replacement with bioprosthetic valve (2010) PAF (paroxysmal atrial fibrillation) Anticoagulant long-term use (Acute) Compression fracture of T8 vertebra Thoracic ascending aortic aneurysm 4.5 cm per 2016 imaging Allergic rhinitis (Chronic) CAD (coronary artery disease) (Chronic) Per cardiology 09/10, episode in 2010 with elevated troponins and "probably STEMI." Pt had cath that reportedly showed no significant blockages, though report was not available for cardio review. Hypercholesterolemia (Chronic) Hypertension (Chronic) COPD (chronic obstructive pulmonary disease) (Chronic) Medical History CHF exacerbation Acute on chronic respiratory failure with hypoxia Acute kidney injury Non-ST elevation CA (NSTEMI) Fall from standing Acute heart failure with mildly reduced ejection fraction (HFmrEF, 41-49%) Carotid artery stenosis Congenital bicuspid aortic valve LVH (left ventricular hypertrophy) due to hypertensive disease Chronic hyponatremia Radiculopathy of lumbar region Spinal stenosis Chronic back pain Hypertension Chronic obstructive pulmonary disease Surgical History History of lumbar fusion H/O carotid endarterectomy (11/04/18) H/O carotid endarterectomy Fusion of spine Hx of cardiac catheterization Hx of bilateral cataract extraction History of total hip arthroplasty History of carpal tunnel release History of tonsillectomy Family History Brother Prostate cancer Father Myocardial infarction Other Cancer No family history of adverse response to anesthesia No family history of bleeding disorder Denies family history of Ovarian cancer Breast cancer Colorectal cancer Social History Smoking Status: Current every day smoker Tobacco Type: Cigarettes Age Started Using Tobacco: 18; packs per day: 0.5; Cigarettes Per Day: 15; Second Hand Exposure: No; Do You Dip or Chew Tobacco: No; Hx Alcohol Use: Yes Alcohol type: hard liquor Alcohol Intake Frequency: 4 or More x per/Week Hx Substance Use: No Preferred Language: Kiswahili Communication Ability: Effective Visual Impairment: No Limitations Hearing Ability: Use of Hearing Aid Street Car Inspector Required: No Beliefs That Will Affect Care: None marital status: Current Living Situation: Spouse 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 Feels Safe at Home: Yes Childhood Exposure to Second-Hand Smoke: Yes Diet: regular Diet Comment: regular Dental Care, Regularly: No Physical Activity Frequency: Does not Exercise Seatbelt Use: always Sunscreen Use: No Assistive Devices: Glasses, Oxygen - Continuous and Walker Allergies Allergies Allergy/AdvReac Type Severity Reaction Status Date / Time bee venom protein (honey bee) Allergy Severe swelling Verified 09/12/24 16:04 pepper (genus Capsicum) Allergy Mild TOBASCO Verified 09/12/24 16:04 SAUCE - TOO MUCH OF WILL CAUSE HIVES ibuprofen AdvReac Intermediate LARGE Verified 09/12/24 16:04 DOSES CAUSE ITCHING AND BLISTERS Home Meds Home Medications Medication Instructions Recorded Confirmed mecobalamin (vitamin B12) 1,000 1,000 mcg sublingual QAM 09/30/21 09/12/24 mcg disintegrating tablet,sublingual atorvastatin 40 mg tablet 40 mg PO QAM 04/07/24 09/12/24 fluticasone 250 mcg-salmeterol 50 1 ea inhalation BID 04/07/24 09/12/24 mcg/dose blistr powdr for inhalation Previous Rx's Medication Instructions Recorded triamcinolone acetonide 0.1 % 1 applic topical UD PRN ANKLES 30 12/01/23 topical ointment days #30 grams tamsulosin 0.4 mg capsule 0.4 mg PO QAM #90 caps 01/13/24 apixaban 5 mg tablet 5 mg PO BID #180 tabs 03/07/24 dapagliflozin propanediol 10 mg 10 mg PO DAILY #30 tabs 05/05/24 tablet (Farxiga) metoprolol succinate 25 mg 25 mg PO QAM #90 tabs 05/05/24 tablet,extended release 24 hr amiodarone 200 mg tablet 200 mg PO DAILY #30 tabs 05/18/24 spironolactone 25 mg tablet 25 mg PO QAM #90 tabs 05/18/24 Wheeled Walker #1 ea 06/14/24 potassium chloride 20 mEq 20 meq PO DAILY #30 tabs 06/23/24 tablet,extended release oxycodone 5 mg tablet 5 mg PO Q4H PRN pain #30 tabs 07/12/24 levothyroxine 88 mcg tablet 88 mcg PO DAILY #30 tabs 07/21/24 (Synthroid) furosemide 40 mg tablet 20 mg (1/2 x 40 mg) PO DAILY PRN 07/28/24 weight gain, edema, shortness of breath #90 tabs Results & Data (ED) Vital Signs Vital Signs - 24 hr 09/12/24 13:15 09/12/24 13:17 09/12/24 13:23 Temperature 36.6 C 36.6 C Temperature Source Oral Pulse Rate 50 L 50 L 53 L Pulse Rate [Exercises] Pulse Rate [Left Apical] Pulse Rate [Recovery] Pulse Rate [Resting] Pulse Rhythm [Left Apical] Pulse Strength [Left Apical] Respiratory Rate 20 20 Respiratory Rate [Exercises] Respiratory Rate [Recovery] Respiratory Rate [Resting] Respiratory Effort / Characteristics Non-Labored Spontaneous Respiratory Depth Normal Respiratory Pattern Regular Blood Pressure 149/71 H 149/71 H Blood Pressure [Right Arm] Blood Pressure Mean 97 Blood Pressure Mean [Right Arm] Pulse Oximetry 92 92 Pulse Oximetry [Exercises] Pulse Oximetry [Recovery] Pulse Oximetry [Resting] Oxygen Delivery Method Room Air Room Air Oxygen Flow Rate 0 Sepsis Recent Fever Within 48 Hours No Sepsis New/Unexplained Change in Mental Status N/A Sepsis Action Taken by Nursing No Action Required 09/12/24 13:31 09/12/24 14:00 09/12/24 14:10 Temperature Temperature Source Pulse Rate 50 L Pulse Rate [Exercises] Pulse Rate [Left Apical] Pulse Rate [Recovery] Pulse Rate [Resting] Pulse Rhythm [Left Apical] Pulse Strength [Left Apical] Respiratory Rate 19 Respiratory Rate [Exercises] Respiratory Rate [Recovery] Respiratory Rate [Resting] Respiratory Effort / Characteristics Respiratory Depth Respiratory Pattern Blood Pressure 127/72 78/46 L Blood Pressure [Right Arm] Blood Pressure Mean 90 54 Blood Pressure Mean [Right Arm] Pulse Oximetry Pulse Oximetry [Exercises] Pulse Oximetry [Recovery] Pulse Oximetry [Resting] Oxygen Delivery Method Oxygen Flow Rate Sepsis Recent Fever Within 48 Hours Sepsis New/Unexplained Change in Mental Status Sepsis Action Taken by Nursing 09/12/24 14:13 09/12/24 14:20 09/12/24 14:25 Temperature Temperature Source Pulse Rate Pulse Rate [Exercises] Pulse Rate [Left Apical] Pulse Rate [Recovery] Pulse Rate [Resting] Pulse Rhythm [Left Apical] Pulse Strength [Left Apical] Respiratory Rate Respiratory Rate [Exercises] Respiratory Rate [Recovery] Respiratory Rate [Resting] Respiratory Effort / Characteristics Respiratory Depth Respiratory Pattern Blood Pressure 80/45 L 99/55 L 99/57 L Blood Pressure [Right Arm] Blood Pressure Mean 52 62 63 Blood Pressure Mean [Right Arm] Pulse Oximetry Pulse Oximetry [Exercises] Pulse Oximetry [Recovery] Pulse Oximetry [Resting] Oxygen Delivery Method Oxygen Flow Rate Sepsis Recent Fever Within 48 Hours Sepsis New/Unexplained Change in Mental Status Sepsis Action Taken by Nursing 09/12/24 14:30 09/12/24 14:58 09/12/24 15:01 Temperature Temperature Source Pulse Rate Pulse Rate [Exercises] Pulse Rate [Left Apical] 48 L 46 L Pulse Rate [Recovery] Pulse Rate [Resting] Pulse Rhythm [Left Apical] Pulse Strength [Left Apical] Respiratory Rate 22 18 Respiratory Rate [Exercises] Respiratory Rate [Recovery] Respiratory Rate [Resting] Respiratory Effort / Characteristics Non-Labored Spontaneous Non-Labored Spontaneous Respiratory Depth Normal Normal Respiratory Pattern Regular Blood Pressure 107/71 Blood Pressure [Right Arm] 126/63 107/76 Blood Pressure Mean 80 Blood Pressure Mean [Right Arm] 84 86 Pulse Oximetry 99 98 Pulse Oximetry [Exercises] Pulse Oximetry [Recovery] Pulse Oximetry [Resting] Oxygen Delivery Method Nasal Cannula Nasal Cannula Oxygen Flow Rate 2 2 Sepsis Recent Fever Within 48 Hours Sepsis New/Unexplained Change in Mental Status Sepsis Action Taken by Nursing 09/12/24 15:06 09/12/24 15:35 09/12/24 15:35 Temperature 36.5 C Temperature Source Oral Pulse Rate 46 L Pulse Rate [Exercises] Pulse Rate [Left Apical] 44 L 50 L Pulse Rate [Recovery] Pulse Rate [Resting] Pulse Rhythm [Left Apical] Regular Pulse Strength [Left Apical] Normal Normal Respiratory Rate 21 18 20 Respiratory Rate [Exercises] Respiratory Rate [Recovery] Respiratory Rate [Resting] Respiratory Effort / Characteristics SOB on Exertion SOB on Exertion Respiratory Depth Normal Normal Respiratory Pattern Regular Regular Blood Pressure Blood Pressure [Right Arm] 104/58 L 104/58 L Blood Pressure Mean Blood Pressure Mean [Right Arm] 73 73 Pulse Oximetry 98 96 96 Pulse Oximetry [Exercises] Pulse Oximetry [Recovery] Pulse Oximetry [Resting] Oxygen Delivery Method Nasal Cannula Room Air Nasal Cannula Oxygen Flow Rate 2 2 Sepsis Recent Fever Within 48 Hours Sepsis New/Unexplained Change in Mental Status Sepsis Action Taken by Nursing 09/12/24 16:10 Temperature Temperature Source Pulse Rate Pulse Rate [Exercises] 47 L Pulse Rate [Left Apical] Pulse Rate [Recovery] 50 L Pulse Rate [Resting] 52 L Pulse Rhythm [Left Apical] Pulse Strength [Left Apical] Respiratory Rate Respiratory Rate [Exercises] 23 Respiratory Rate [Recovery] 22 Respiratory Rate [Resting] 19 Respiratory Effort / Characteristics Respiratory Depth Respiratory Pattern Blood Pressure Blood Pressure [Right Arm] Blood Pressure Mean Blood Pressure Mean [Right Arm] Pulse Oximetry Pulse Oximetry [Exercises] 95 Pulse Oximetry [Recovery] 86 L Pulse Oximetry [Resting] 92 Oxygen Delivery Method Room Air Oxygen Flow Rate Sepsis Recent Fever Within 48 Hours Sepsis New/Unexplained Change in Mental Status Sepsis Action Taken by Nursing Laboratory Data 09/12/24 13:25 09/12/24 14:02 Lab Results 09/12/24 09/12/24 09/12/24 Range/Units 13:25 14:01 14:02 WBC 9.01 (4.8-10.8) K/ul RBC 4.63 L (4.70-6.10) M/uL Hgb 14.8 (14.0-18.0) g/dl POC Hgb 15.0 (14.0-18.0) g/dl Hct 44.7 (42.0-52.0) % POC Hct 44 (42-52) % MCV 96.5 (80.0-100.0) fL MCH 32.0 (25.0-34.0) pg MCHC 33.1 (32.0-36.0) g/dL RDW Std Deviation 56.5 H (36.4-46.3) fL RDW Coeff of Telma 15.9 H (11.5-14.5) % Plt Count 202 (130-400) K/uL MPV 10.1 (9.4-12.4) fL Immature Gran % (Auto) 0.7 % Neut % (Auto) 66.7 % Lymph % (Auto) 17.8 % George % (Auto) 13.0 % Eos % (Auto) 1.0 % Baso % (Auto) 0.8 % Neut # (Auto) 6.02 (1.40-6.50) K/uL Lymph # (Auto) 1.60 (1.20-3.40) K/uL George # (Auto) 1.17 H (0.11-0.59) K/uL Eos # (Auto) 0.09 (0.00-0.50) K/uL Baso # (Auto) 0.07 (0.00-0.20) K/uL Immature Gran # (Auto) 0.06 (0.01-0.20) K/uL PT Cancelled 11.9 INR Cancelled 1.1 APTT Cancelled 37 H PTT Ratio Cancelled 1.4 POC Sodium 131 L (135-144) mmol/L Sodium 128 L (136-145) mmol/L POC Potassium 6.9 H* (3.3-5.0) mmol/L Potassium TNP 5.6 H POC Chloride 100 L (101-112) mmol/L Chloride 98 (98-107) mmol/L Carbon Dioxide 24 (21-32) mmol/L POC Total CO2 25 (24-31) mmol/L Anion Gap 6 (3-11) POC Anion Gap 13.0 L (16-25) mmol/L POC BUN 39 H (7-18) mg/dl BUN 27 H (6-23) mg/dl Creatinine 1.19 (0.6-1.4) mg/dl POC Creatinine 1.2 (0.6-1.3) mg/dl Est Cr Clr Drug Dosing 48.3 ml/min eGFR 63.31 BUN/Creatinine Ratio 22.7 H (10-20) Glucose 77 (70-99(Fasting)) mg/dl POC Glucose (other) 77 (70-99) mg/dl Calcium 9.1 (8.6-10.3) mg/dl POC Ioniz Calcium Patrick 0.96 L (1.12-1.32) mmol/l Total Bilirubin 0.7 (0.2-1.0) mg/dl AST TNP 44 H ALT 39 (7-52) U/L Alkaline Phosphatase 125 H (34-104) U/L Troponin I High Sens 22.3 H (0-20) pg/ml B-Natriuretic Peptide 996 H (0-100) pg/ml Total Protein 7.9 (6.0-8.3) gm/dl Albumin 3.5 (3.4-5.0) gm/dl Globulin 4.4 H (2.5-4.0) gm/dl Albumin/Globulin Ratio 0.8 L (0.9-2) Lipase 14 (11-82) U/L 09/12/24 Range/Units 15:07 WBC (4.8-10.8) K/ul RBC (4.70-6.10) M/uL Hgb (14.0-18.0) g/dl POC Hgb (14.0-18.0) g/dl Hct (42.0-52.0) % POC Hct (42-52) % MCV (80.0-100.0) fL MCH (25.0-34.0) pg MCHC (32.0-36.0) g/dL RDW Std Deviation (36.4-46.3) fL RDW Coeff of Telma (11.5-14.5) % Plt Count (130-400) K/uL MPV (9.4-12.4) fL Immature Gran % (Auto) % Neut % (Auto) % Lymph % (Auto) % George % (Auto) % Eos % (Auto) % Baso % (Auto) % Neut # (Auto) (1.40-6.50) K/uL Lymph # (Auto) (1.20-3.40) K/uL George # (Auto) (0.11-0.59) K/uL Eos # (Auto) (0.00-0.50) K/uL Baso # (Auto) (0.00-0.20) K/uL Immature Gran # (Auto) (0.01-0.20) K/uL PT INR APTT PTT Ratio POC Sodium (135-144) mmol/L Sodium (136-145) mmol/L POC Potassium (3.3-5.0) mmol/L Potassium POC Chloride (101-112) mmol/L Chloride (98-107) mmol/L Carbon Dioxide (21-32) mmol/L POC Total CO2 (24-31) mmol/L Anion Gap (3-11) POC Anion Gap (16-25) mmol/L POC BUN (7-18) mg/dl BUN (6-23) mg/dl Creatinine (0.6-1.4) mg/dl POC Creatinine (0.6-1.3) mg/dl Est Cr Clr Drug Dosing ml/min eGFR BUN/Creatinine Ratio (10-20) Glucose (70-99(Fasting)) mg/dl POC Glucose (other) (70-99) mg/dl Calcium (8.6-10.3) mg/dl POC Ioniz Calcium Patrick (1.12-1.32) mmol/l Total Bilirubin (0.2-1.0) mg/dl AST ALT (7-52) U/L Alkaline Phosphatase (34-104) U/L Troponin I High Sens 21.5 H (0-20) pg/ml B-Natriuretic Peptide (0-100) pg/ml Total Protein (6.0-8.3) gm/dl Albumin (3.4-5.0) gm/dl Globulin (2.5-4.0) gm/dl Albumin/Globulin Ratio (0.9-2) Lipase (11-82) U/L Administered Medications Discontinued Medications Furosemide (Furosemide 40 Mg/4 Ml Vial) 40 mg IV ONE ONE Stop: 09/12/24 16:00 Last Admin: 09/12/24 16:15 Dose: 40 mg Documented By: CHERRY Ioversol (Optiray 320 100ml) 90 ml IV ONCE ONE Stop: 09/12/24 14:49 Last Admin: 09/12/24 14:49 Dose: 90 ml Documented By: SANGITA Morphine Sulfate (Morphine Sulfate 4 Mg/Ml 1 Ml Carp\\Vial) 4 mg IV NOW STA Stop: 09/12/24 13:51 Last Admin: 09/12/24 13:54 Dose: 4 mg Documented By: [facility] Imaging Data Radiologist's Impression: Chest X-Ray 09/12/24 13:20 XR chest 1V portable CLINICAL HISTORY: trauma COMPARISON STUDY: 05/27/2024 FINDINGS: Stable cardiac valve repair. Stable cardiomegaly with mild pulmonary vascular congestion. Stable diffuse pulmonary interstitial prominence. No consolidation or pleural effusion. No pneumothorax. There is a small focal density overlying the left upper lung and one of the views which is less prominent on the other view, possible artifact. IMPRESSION: 1. Possible artifact versus pulmonary opacity at the left upper lung. Suggest follow-up chest CT. 2. No other acute findings seen. ACT 112: Negative or not required by law. Electronically signed by: Jack Dumont M.D. 09/12/2024 1:[address] 09/12/24 13:23 CT cervical spine wo con CLINICAL HISTORY: 78 years-old Male with Trauma. Acute neck trauma COMPARISON: Head CT of same day, CT cervical spine 05/27/2024 TECHNIQUE: Multiple axial CT images of the cervical spine were obtained without contrast. A dose lowering technique was utilized adhering to the principles of ALARA. FINDINGS: Moderate to severe multilevel intervertebral disc space narrowing and facet arthrosis. Grade 1 anterolisthesis C7 on T1 is unchanged secondary to chronic facet disease. Moderate multilevel spondylotic spurring with disc osteophyte complex formations. No acute cervical spine fracture or subluxation. The mastoid air cells are clear. Emphysema with biapical pleural-parenchymal scarring. No pneumothorax. Mild nonspecific esophageal wall thickening. Prominent atherosclerosis of the carotid bulbs. The visualized lung apices appear clear. IMPRESSION: No acute cervical spine fracture or subluxation. ACT 112: Negative or not required by law. The above report was generated using voice recognition software. It may contain grammatical, syntax or spelling errors. Electronically signed by: Branden Larose M.D. 09/12/2024 3:[address] 09/12/24 13:23 CT head/brain wo con CLINICAL HISTORY: 78 years-old Male with Trauma. Acute head trauma TECHNIQUE: Multiple axial CT images of the head were obtained without contrast. A dose lowering technique was utilized adhering to the principles of ALARA. COMPARISON: 05/27/2024 FINDINGS: No acute intracranial hemorrhage, midline shift, intracranial mass, hydrocephalus, territorial ischemia or abnormal extra-axial collection. Involutional changes with chronic microvascular ischemic disease. The calvarium is intact. Evidence of prior lens repair. Small left periorbital contusion. The paranasal sinuses, mastoid air cells, and middle ear cavities are clear. IMPRESSION: No acute intracranial abnormality or calvarial fracture. ACT 112: Negative or not required by law. The above report was generated using voice recognition software. It may contain grammatical, syntax or spelling errors. Electronically signed by: Branden Larose M.D. 09/12/2024 2:[address] 09/12/24 13:[address] WITH CONTRAST HISTORY: trauma; abnormal CXR TECHNIQUE: Multiaxial CT images of the chest were performed following the IV administration of 90 cc of Optiray. A dose lowering technique was utilized adhering to the principles of ALARA. COMPARISON STUDY: 04/13/2024 FINDINGS: There are mild airway secretions. There is mild bronchial wall thickening consistent with bronchitis. There is severe emphysema. There is cardiomegaly with prominence of pulmonary vasculature consistent with CHF. There is pulmonary septal thickening consistent with mild pulmonary edema and there are trace pleural effusions. There is no pneumothorax. No findings seen at the left upper lobe to correlate with the chest x-ray finding, it likely represented artifact from overlapping osseous structures. There is no mediastinal hematoma or thoracic aortic injury. No pulmonary embolism. There are diffuse coronary artery and aortic calcifications. There is prior aortic valve repair. There is mild ectasia of the ascending thoracic aorta measuring 4.5 cm diameter, stable. There are multiple old left rib fractures. There are severe degenerative changes with bursitis at the left shoulder. There is stable mild height loss at multiple mid and lower thoracic vertebral bodies. There is minimally progressive height loss at the T9 vertebral body. Otherwise no acute osseous finding seen. IMPRESSION: 1. Minimally progressive height loss at the T9 vertebral body of uncertain chronicity. 2. Otherwise no acute injury seen in the chest. 3. Severe emphysema and CHF with trace pulmonary edema and trace pleural effusions. ACT 112: Negative or not required by law. Electronically signed by: Jack Dumont M.D. 09/12/2024 3:21 PM Abdomen/Pelvis CT 09/12/24 14:28 CT SCAN OF THE ABDOMEN AND PELVIS WITH IV CONTRAST CLINICAL HISTORY: Trauma. COMPARISON STUDY: CT of the abdomen and pelvis January 16, 2024. Pelvis radiograph May 27, 2024. TECHNIQUE: Following the IV administration of 90 cc of Optiray 320, CT scan of the abdomen and pelvis is performed from the lung bases to the proximal femora. Images are reviewed in the axial, sagittal, and coronal planes. IV contrast was administered without complication. A dose lowering technique was utilized adhering to the principles of ALARA. CT DOSE: 3462.44 mGy.cm FINDINGS: Please note that the chest CT will be reported separately. Cardiomegaly, trace bilateral pleural effusions and pulmonary edema are better depicted on that exam. There are multiple old left-sided rib fractures. No hemoperitoneum or pneumoperitoneum is present. There is no evidence for traumatic injury to the liver, spleen, adrenal glands, kidneys or pancreas. There is no evidence for a bowel obstruction. Images of the pelvis are degraded by streak artifact. Bilateral hip arthroplasties appear intact. There is no evidence for a bowel obstruction. Sigmoid diverticulosis is noted. There is no evidence for acute diverticulitis. There is extensive plaque within the abdominal aorta and branch vessels. No acute lumbar spine fractures are present. IMPRESSION: 1. No acute traumatic findings within the abdomen or pelvis. 2. Cardiomegaly with pulmonary edema and trace bilateral pleural effusions, better depicted on the same day chest CT will be reported separately. 3. Extensive sigmoid diverticulosis. No convincing evidence for acute diverticulitis. ACT 112: Negative or not required by law. Electronically signed by: Ritesh Osorio M.D. 09/12/2024 3:12 PM Discharge Plan Visit Data Chief Complaint: Trauma Stated Complaint: FALL, ED Provider: Lara Cueva Discharge Problem: Fall from standing, Skin tear of left upper extremity, Pulmonary edema, Hypoxia, Abrasion of face, Elevated brain natriuretic peptide (BNP) level, Acute exacerbation of CHF (congestive heart failure), Acute hyperkalemia, Elevated troponin Condition: Fair Forms Stand Alone Forms: My [facility] Prescriptions Prescriptions: No Action triamcinolone acetonide 0.1 % ointment 1 applic TOPICAL UD PRN (Reason: ANKLES) 30 Days Qty: 30 1RF tamsulosin 0.4 mg capsule 0.4 mg PO QAM Qty: 90 3RF apixaban 5 mg tablet 5 mg PO BID Qty: 180 3RF Hold Instructions: PER SUNDAY [facility] MEDLIST-ADVISED TO F/U W/ PCP WHEN OK TO RESUME spironolactone 25 mg tablet 25 mg PO QAM Qty: 90 3RF amiodarone 200 mg tablet 200 mg PO DAILY Qty: 30 11RF potassium chloride 20 mEq tablet extended release 20 meq PO DAILY Qty: 30 2RF oxycodone 5 mg tablet 5 mg PO Q4H PRN (Reason: pain) Qty: 30 0RF levothyroxine [Synthroid] 88 mcg tablet 88 mcg PO DAILY Qty: 30 2RF furosemide 40 mg tablet 20 mg PO DAILY PRN (Reason: weight gain, edema, shortness of breath) Qty: 90 3RF mecobalamin (vitamin B12) 1,000 mcg tablet,disintegrating 1,000 mcg sublingual QAM Rx Instructions: place tablet under tongue and allow to dissolve for at least30 secs before swallowing metoprolol succinate 25 mg tablet extended release 24 hr 25 mg PO QAM Qty: 90 3RF dapagliflozin propanediol [Farxiga] 10 mg tablet 10 mg PO DAILY Qty: 30 2RF (DME) Wheeled Walker Misc See Rx Instructions .Route Qty: 1 0RF Rx Instructions: As directed fluticasone propion-salmeterol 250-50 mcg/dose blister with device 1 ea INHALATION BID atorvastatin 40 mg tablet 40 mg PO QAM Referrals Referrals: Parish Link III, CRNP [Primary Care Provider] -
--- NOTE | 2024-09-12 13:40 | XRay Report ---
XR chest 1V portable CLINICAL HISTORY: trauma COMPARISON STUDY: 05/27/2024 FINDINGS: Stable cardiac valve repair. Stable cardiomegaly with mild pulmonary vascular congestion. S table diffuse pulmonary interstitial prominence. No consolidation or pleural effusion. No pneumothora x. There is a small focal density overlying the left upper lung and one of the views which is less pr ominent on the other view, possible artifact. IMPRESSION: 1. Possible artifact versus pulmonary opacity at the left upper lung. Suggest follow-up chest CT. 2. No other acute findings seen. ACT 112: Negative or not required by law. Electronically signed by: Jack Dumont M.D. 09/12/2024 1:39 PM
[2024-09-12 13:41] LABS: Basophils # (auto) 0.07 K/uL (0.00-0.20); Basophils % (auto) 0.8 %; Eosinophils # (auto) 0.09 K/uL (0.00-0.50); Hematocrit (blood only) 44.7 % (42.0-52.0); Hemoglobin 14.8 g/dl (14.0-18.0); Immature Granulocytes # (auto) 0.06 K/uL (0.01-0.20); Immature Granulocytes % (auto) 0.7 %; Lymphocytes % (auto) 17.8 %; Mean Corpuscular Hgb Conc 33.1 g/dL (32.0-36.0); Mean Corpuscular Volume 96.5 fL (80.0-100.0); Mean Platelet Volume 10.1 fL (9.4-12.4); Monocytes # (auto) 1.17 K/uL (0.11-0.59); Neutrophils # (auto) 6.02 K/uL (1.40-6.50); Neutrophils % (auto) 66.7 %; Platelet Count 202 K/uL (130-400); RDW Coefficient of Variation 15.9 % (11.5-14.5); RDW Standard Deviation 56.5 fL (36.4-46.3); Red Blood Count 4.63 M/uL (4.70-6.10); White Blood Count 9.01 K/ul (4.8-10.8)
[2024-09-12] MEDS: MoRPHine SULFATE 4 MG/ML 1 ML CARP\\VIAL IV STA (13:54)
[2024-09-12 14:15] LABS: iSTAT Creatinine 1.2 mg/dl (0.6-1.3); iSTAT Ionized Calcium 0.96 mmol/l (1.12-1.32); iSTAT Potassium 6.9 mmol/L (3.3-5.0)
[2024-09-12 14:35] LABS: Alanine Aminotransferase 39 U/L (7-52); Albumin Globulin Ratio 0.8 (0.9-2); Albumin Level 3.5 gm/dl (3.4-5.0); Alkaline Phosphatase 125 U/L (34-104); Anion Gap 6 (3-11); BUN Creatinine Ratio 22.7 (10-20); Bilirubin,Total 0.7 mg/dl (0.2-1.0); Blood Urea Nitrogen 27 mg/dl (6-23); Calcium 9.1 mg/dl (8.6-10.3); Carbon Dioxide 24 mmol/L (21-32); Chloride 98 mmol/L (98-107); Creatinine Clr Calc Pharmacy 48.3 ml/min; Globulin 4.4 gm/dl (2.5-4.0); Glucose 77 mg/dl (70-99(Fasting)); Lipase 14 U/L (11-82); Sodium 128 mmol/L (136-145); Total Protein 7.9 gm/dl (6.0-8.3); Troponin I High Sensitivity 22.3 pg/ml (0-20)
[2024-09-12 14:36] LABS: INR 1.1 (0.9-1.1); Partial Thromboplastin Ratio 1.4; Partial Thromboplastin Time 37 Seconds (21-31); Prothrombin Time 11.9 Seconds (9.0-12.0)
[2024-09-12 14:49] LABS: Potassium 5.6 mmol/L (3.5-5.1)
[2024-09-12] MEDS: OPTIRAY 320 100ml IV ONE (14:49)
--- NOTE | 2024-09-12 15:00 | CT Scan Report ---
CT head/brain wo con CLINICAL HISTORY: 78 years-old Male with Trauma. Acute head trauma TECHNIQUE: Multiple axial CT images of the head were obtained without contrast. A dose lowering tech nique was utilized adhering to the principles of ALARA. COMPARISON: 05/27/2024 FINDINGS: No acute intracranial hemorrhage, midline shift, intracranial mass, hydrocephalus, territorial ischem ia or abnormal extra-axial collection. Involutional changes with chronic microvascular ischemic disea se. The calvarium is intact. Evidence of prior lens repair. Small left periorbital contusion. The paranas al sinuses, mastoid air cells, and middle ear cavities are clear. IMPRESSION: No acute intracranial abnormality or calvarial fracture. ACT 112: Negative or not required by law. The above report was generated using voice recognition software. It may contain grammatical, syntax o r spelling errors. Electronically signed by: Branden Larose M.D. 09/12/2024 2:59 PM
--- NOTE | 2024-09-12 15:13 | CT Scan Report ---
CT SCAN OF THE ABDOMEN AND PELVIS WITH IV CONTRAST CLINICAL HISTORY: Trauma. COMPARISON STUDY: CT of the abdomen and pelvis January 16, 2024. Pelvis radiograph May 27 5. TECHNIQUE: Following the IV administration of 90 cc of Optiray 320, CT scan of the abdomen and pelvi s is performed from the lung bases to the proximal femora. Images are reviewed in the axial, sagittal , and coronal planes. IV contrast was administered without complication. A dose lowering technique wa s utilized adhering to the principles of ALARA. CT DOSE: 3462.44 mGy.cm FINDINGS: Please note that the chest CT will be reported separately. Cardiomegaly, trace bilateral pl eural effusions and pulmonary edema are better depicted on that exam. There are multiple old left-simone ed rib fractures. No hemoperitoneum or pneumoperitoneum is present. There is no evidence for traumati c injury to the liver, spleen, adrenal glands, kidneys or pancreas. There is no evidence for a bowel obstruction. Images of the pelvis are degraded by streak artifact. Bilateral hip arthroplasties appea r intact. There is no evidence for a bowel obstruction. Sigmoid diverticulosis is noted. There is no evidence for acute diverticulitis. There is extensive plaque within the abdominal aorta and branch ve ssels. No acute lumbar spine fractures are present. IMPRESSION: 1. No acute traumatic findings within the abdomen or pelvis. 2. Cardiomegaly with pulmonary edema and trace bilateral pleural effusions, better depicted on the chest CT will be reported separately. 3. Extensive sigmoid diverticulosis. No convincing evidence for acute diverticulitis. ACT 112: Negative or not required by law. Electronically signed by: Ritesh Osorio M.D. 09/12/2024 3:12 PM
--- NOTE | 2024-09-12 15:13 | CT Scan Report ---
CT cervical spine wo con CLINICAL HISTORY: 78 years-old Male with Trauma. Acute neck trauma COMPARISON: Head CT of same day, CT cervical spine 05/27/2024 TECHNIQUE: Multiple axial CT images of the cervical spine were obtained without contrast. A dose low ering technique was utilized adhering to the principles of ALARA. FINDINGS: Moderate to severe multilevel intervertebral disc space narrowing and facet arthrosis. Grad e 1 anterolisthesis C7 on T1 is unchanged secondary to chronic facet disease. Moderate multilevel spo ndylotic spurring with disc osteophyte complex formations. No acute cervical spine fracture or sublux ation. The mastoid air cells are clear. Emphysema with biapical pleural-parenchymal scarring. No pneumothorax. Mild nonspecific esophageal wa ll thickening. Prominent atherosclerosis of the carotid bulbs. The visualized lung apices appear shanika ar. IMPRESSION: No acute cervical spine fracture or subluxation. ACT 112: Negative or not required by law. The above report was generated using voice recognition software. It may contain grammatical, syntax o r spelling errors. Electronically signed by: Branden Larose M.D. 09/12/2024 3:10 PM
--- NOTE | 2024-09-12 15:22 | CT Scan Report ---
CHEST CT WITH CONTRAST HISTORY: trauma; abnormal CXR TECHNIQUE: Multiaxial CT images of the chest were performed following the IV administration of 90 cc of Optiray. A dose lowering technique was utilized adhering to the principles of ALARA. COMPARISON STUDY: 04/13/2024 FINDINGS: There are mild airway secretions. There is mild bronchial wall thickening consistent with b ronchitis. There is severe emphysema. There is cardiomegaly with prominence of pulmonary vasculature consistent with CHF. There is pulmonary septal thickening consistent with mild pulmonary edema and th ere are trace pleural effusions. There is no pneumothorax. No findings seen at the left upper lobe to correlate with the chest x-ray finding, it likely represented artifact from overlapping osseous stru ctures. There is no mediastinal hematoma or thoracic aortic injury. No pulmonary embolism. There are diffuse coronary artery and aortic calcifications. There is prior aortic valve repair. There is mild ectasia of the ascending thoracic aorta measuring 4.5 cm diameter, stable. There are multiple old lef t rib fractures. There are severe degenerative changes with bursitis at the left shoulder. There is s table mild height loss at multiple mid and lower thoracic vertebral bodies. There is minimally progre ssive height loss at the T9 vertebral body. Otherwise no acute osseous finding seen. IMPRESSION: 1. Minimally progressive height loss at the T9 vertebral body of uncertain chronicity. 2. Otherwise no acute injury seen in the chest. 3. Severe emphysema and CHF with trace pulmonary edema and trace pleural effusions. ACT 112: Negative or not required by law. Electronically signed by: Jack Dumont M.D. 09/12/2024 3:21 PM
[2024-09-12] MEDS: FUROSEMIDE 40 MG/4 ML VIAL IV ONE (16:15)
--- NOTE | 2024-09-12 16:49 | History & Physical Report ---
Date of Service September 12, 2024 Assessment & Plan (1) Fall: (2) Acute hyperkalemia: (3) Acute heart failure with preserved ejection fraction (HFpEF, >= 50%): (4) Elevated troponin: Plan This patient is a 78-year-old male with a history of HFpEF, right-sided heart failure, severe pulm HTN, pulmonary fibrosis, COPD, multifocal atrial tachycardia, PAF on Eliquis, nonobstructive CAD, TAA, bioprosthetic AVR with moderate-severe aortic stenosis, CHANEL s/p bilateral CEA, chronic hyponatremia, and hypothyroidism who presents to the ED after sustaining a mechanical fall during which he suffered a large skin tear of the left forearm and hand as well as a small skin tear of the left temporal region without loss of consciousness. In the ED, the patient was given 4 mg of IV morphine for significant pain in the arm after which he became hypotensive with a blood pressure in the 70s and hyp oxic. He then attempted to ambulate and dropped his pulse ox to 82% on room air with ambulation. He does not use oxygen at home. Prior to the fall today, he and his daughters at the bedside report that he had actually been doing the best he had in a long time. He has chronic dyspnea on exertion and usually only ambulates 10 to 15 feet before he has to rest. A CT of the head, cervical spine, chest, abdomen, and pelvis was negative for acute fractures. He was mildly hyperkalemic and had hyponatremia. He was given IV Lasix in the ED for heart failure/hypoxemia after being given 500 mL of no rmal saline for the opioid induced hypotension. He will be admitted for observation overnight for hypoxemia likely secondary to a combination of acute on chronic HFpEF as well as opioid induced. #Fall/left upper extremity and left facial skin tears-mechanical fall with wounds with bleeding. CT head/cervical spine/chest/abdomen/pelvis negative for acute issues - PT/OT consults placed - Wound care consult placed for skin tears - Given ongoing bleeding from wounds-hold Eliquis for 24 hours - Follow CBC in the morning - Tylenol for mild pain, oxycodone for moderate to severe pain #Acute on chronic HFpEF/right-sided heart failure/severe pulm HTN/elevated troponin/nonobstructive CAD-with hypoxemia and trace bilateral pleural effusions, severe emphysema, elevated BNP, known cor pulmonale. Suspect hypoxemia related to morphine use and poor inspiratory effort with some component of heart failure. Mildly elevated troponin at 21 and stable at 22 on repeat 2 hours later-ECG not yet done-pending No chest pain. This is likely myocardial demand ischemia - Received 1 dose of IV Lasix in the ER-return to home Lasix 20 mg p.o. once daily for tomorrow - Continue supplemental oxygen to keep pulse ox greater than 89% - Strict I's and O's, low-sodium diet, daily weights - Avoid IV morphine use - Continue home Farxiga, but holding home spironolactone and potassium due to hyperkalemia - Follow BMP, magnesium in the morning and keep electrolytes replete - Trend serial troponin. Echocardiogram performed as an outpatient today with preserved EF, no wall motion abnormalities and with mild aortic stenosis of bioprosthetic valve -Continue home atorvastatin, metoprolol, but holding home Eliquis for bleeding #Acute respiratory failure with hypoxemia/pulmonary fibrosis/COPD-with respiratory failure as above likely secondary to morphine use in the setting of severe pulmonary disease and some more minor component of heart failure. CT chest with trace bilateral effusions and severe emphysema - Continue maintenance inhalers - Diuresing with IV Lasix - Continue supplemental O2 and wean off as tolerated-May need to step prior to discharge #Hyponatremia/hyperkalemia-sodium low at 128, potassium elevated at 5.6, likely secondary to spironolactone and potassium chloride use as well as heart failure - Diuresing with IV Lasix which will improve sodium as well as potassium levels - Follow BMP this evening with repeat troponin to monitor potassium levels - Follow BMP in the morning - Hold home oral potassium and spironolactone #Hypothyroidism-recent TSH mildly elevated and was restarted on home levothyroxine - Continue home levothyroxine dose - Follow TSH as an outpatient #TAA/history of bioprosthetic AVR/history of bilateral CEA/paroxysmal atrial fibrillation-no acute issues, TAA stable on chest CT, echo on 09/12 with mild ao rtic stenosis and functioning valve. And regular rhythm - Holding home apixaban for bleeding - Continue home amiodarone, statin DVT prophylaxis-SCDs, holding home Eliquis Disposition-admit to medical floor with telemetry, PT/OT consults placed History of Present Illness Chief Complaint: Fall, skin tear, hypoxia Primary Care Provider: Parish Link, KENIA, AYMINI This patient is a 78-year-old male with a history of HFpEF, right-sided heart failure, severe pulm HTN, pulmonary fibrosis, COPD multifocal atrial tachycardia, PAF on Eliquis, nonobstructive CAD, TAA, bioprosthetic AVR with moderate-severe aortic stenosis, CHANEL s/p bilateral CEA, chronic hyponatremia, and hypothyroidism who presents to the ED after sustaining a mechanical fall in the parking lot of the [employer] building in front of the hospital after returning to his car from getting an echocardiogram. He reports he switched his cane to his other hand and went to reach for the door and lost his balance and fell over. He landed on the left side of his body and suffered a large skin tear of the left forearm and hand as well as a small skin tear of the left temporal region. He did not lose consciousness. His daughter heard the fall and immediately was present. Multiple staff members from the medical office came immediately to his assistance and help to stop bleeding and get him to an ambulance. In the ED, the patient was given 4 mg of IV morphine for significant pain in the arm after which he became hypotensive with a blood pressure in the 70s and hypoxic. He then attempted to ambulate and dropped his pulse ox to 82% on room air with ambulation. He does not use oxygen at home. Prior to the fall today, he and his daughters at the bedside report that he had actually been doing the best he had in a long time. He has chronic dyspnea on exertion and usually only ambulates 10 to 15 feet before he has to rest. A CT of the head, cervical spine, chest, abdomen, and pelvis was negative for acute fractures. He was mildly hyperkalemic and had hyponatremia. He was given IV Lasix in the ED for heart failure/hypoxemia after being given 500 mL of normal saline for the opioid induced hypotension. He will be admitted for observation overnight for hypoxemia likely secondary to a combination of acute on chronic HFpEF as well as opioid induced. Allergies Allergy/AdvReac Type Severity Reaction Status Date / Time bee venom protein (honey bee) Allergy Severe swelling Verified 09/12/24 16:04 pepper (genus Capsicum) Allergy Mild TOBASCO Verified 09/12/24 16:04 SAUCE - TOO MUCH OF WILL CAUSE HIVES ibuprofen AdvReac Intermediate LARGE Verified 09/12/24 16:04 DOSES CAUSE ITCHING AND BLISTERS Home Medications Medication Instructions Recorded Confirmed Type mecobalamin (vitamin B12) 1,000 1,000 mcg sublingual QAM 09/30/21 09/12/24 History mcg disintegrating tablet,sublingual triamcinolone acetonide 0.1 % 1 applic topical UD PRN ANKLES 30 12/01/23 09/12/24 Rx topical ointment days #30 grams tamsulosin 0.4 mg capsule 0.4 mg PO QAM #90 caps 01/13/24 09/12/24 Rx apixaban 5 mg tablet 5 mg PO BID #180 tabs 03/07/24 09/12/24 Rx atorvastatin 40 mg tablet 40 mg PO QAM 04/07/24 09/12/24 History fluticasone 250 mcg-salmeterol 50 1 ea inhalation BID 04/07/24 09/12/24 History mcg/dose blistr powdr for inhalation dapagliflozin propanediol 10 mg 10 mg PO DAILY #30 tabs 05/05/24 09/12/24 Rx tablet (Farxiga) metoprolol succinate 25 mg 25 mg PO QAM #90 tabs 05/05/24 09/12/24 Rx tablet,extended release 24 hr amiodarone 200 mg tablet 200 mg PO DAILY #30 tabs 05/18/24 09/12/24 Rx spironolactone 25 mg tablet 25 mg PO QAM #90 tabs 05/18/24 09/12/24 Rx Wheeled Walker #1 ea 06/14/24 07/21/24 Rx potassium chloride 20 mEq 20 meq PO DAILY #30 tabs 06/23/24 09/12/24 Rx tablet,extended release oxycodone 5 mg tablet 5 mg PO Q4H PRN pain #30 tabs 07/12/24 09/12/24 Rx levothyroxine 88 mcg tablet 88 mcg PO DAILY #30 tabs 07/21/24 09/12/24 Rx (Synthroid) furosemide 40 mg tablet 20 mg (1/2 x 40 mg) PO DAILY PRN 07/28/24 09/12/24 Rx weight gain, edema, shortness of breath #90 tabs Past Med/Surg History Problem List (Updated 09/12/24 @ 17:54 by Diana Kramer MD) Fall (Acute) Elevated troponin (Acute) Acute hyperkalemia (Acute) Acute exacerbation of CHF (congestive heart failure) (Acute) Elevated brain natriuretic peptide (BNP) level (Acute) Abrasion of face (Acute) Hypoxia (Acute) Pulmonary edema (Acute) Skin tear of left upper extremity (Acute) Fall from standing (Acute) Ambulatory dysfunction (Chronic) Acute heart failure with preserved ejection fraction (HFpEF, >= 50%) (Acute) POLST (Physician Orders for Life-Sustaining Treatment) Encounter for assessment of healthcare decision-making capacity Counseling regarding end of life decision making Counseling regarding advanced directives and goals of care Palliative care by specialist 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) Pulmonary hypertension Multifocal pneumonia (Acute) Hypothyroidism (Chronic) Multifocal atrial tachycardia S/P aortic valve replacement with bioprosthetic valve (2010) PAF (paroxysmal atrial fibrillation) Anticoagulant long-term use (Acute) Compression fracture of T8 vertebra Thoracic ascending aortic aneurysm 4.5 cm per 2016 imaging Allergic rhinitis (Chronic) CAD (coronary artery disease) (Chronic) Per cardiology 09/10, episode in 2010 with elevated troponins and "probably STEMI." Pt had cath that reportedly showed no significant blockages, though report was not available for cardio review. Hypercholesterolemia (Chronic) Hypertension (Chronic) COPD (chronic obstructive pulmonary disease) (Chronic) Medical History CHF exacerbation Acute on chronic respiratory failure with hypoxia Acute kidney injury Non-ST elevation ME (NSTEMI) Fall from standing Acute heart failure with mildly reduced ejection fraction (HFmrEF, 41-49%) Carotid artery stenosis s/p R CEA 09/16/18 Congenital bicuspid aortic valve s/p AVR 2010 LVH (left ventricular hypertrophy) due to hypertensive disease Chronic hyponatremia Radiculopathy of lumbar region Spinal stenosis Chronic back pain Hypertension Chronic obstructive pulmonary disease MILD, DENIES FLARE UPS. FOLLOWS WITH PCP Surgical History History of lumbar fusion H/O carotid endarterectomy (11/04/18) Left Carotid Endarterectomy with Bovine Patch(Left) - Mariano Laboy MD 11/04/18 H/O carotid endarterectomy 09/16/18 [facility] Fusion of spine LUMBAR FUSION Hx of cardiac catheterization no stents Hx of bilateral cataract extraction History of total hip arthroplasty BILATERAL History of carpal tunnel release RIGHT History of tonsillectomy Family History Brother Prostate cancer Father Myocardial infarction Other Cancer No family history of adverse response to anesthesia No family history of bleeding disorder Denies family history of Ovarian cancer Breast cancer Colorectal cancer Social History Smoking Status: Current every day smoker Tobacco Type: Cigarettes Age Started Using Tobacco: 18; packs per day: 0.5; Cigarettes Per Day: 15; Second Hand Exposure: No; Do You Dip or Chew Tobacco: No; Hx Alcohol Use: Yes Alcohol type: hard liquor Alcohol Intake Frequency: 4 or More x per/Week Hx Substance Use: No Preferred Language: [place] Islander Communication Ability: Effective Visual Impairment: No Limitations Hearing Ability: Use of Hearing Aid Electric Operator Required: No Beliefs That Will Affect Care: None marital status: Current Living Situation: Spouse current occupational status: retired 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 [employer] Feels Safe at Home: Yes Childhood Exposure to Second-Hand Smoke: Yes Diet: regular Diet Comment: regular Dental Care, Regularly: No Physical Activity Frequency: Does not Exercise Seatbelt Use: always Sunscreen Use: No Assistive Devices: Glasses, Oxygen - Continuous and Walker Review of Systems Review of Systems: All systems reviewed & are unremarkable except as noted in HPI & below Physical Exam Constitutional: WD/WN, vitals as above Eyes: PERRL, conjunctivae normal, anicteric sclerae ENMT: external ear and nose normal, oropharynx normal Neck: trachea midline, no thyromegaly Respiratory: normal respiratory effort; no cough and not tachypneic Auscultation: + crackles (Velcro-like at bases bilaterally); no rhonchi and no wheezes Cardiovascular: Rate/Rhythm: regular rhythm and + bradycardic Heart Sounds: + murmur (2/6 [place] at the RUSB) Extremities: + edema (Trace pitting edema legs bilaterally) Chest (Breasts): Chest: normal inspection of chest Gastrointestinal (Abdomen): normal bowel sounds, soft, nontender, no hepatosplenomegaly Musculoskeletal: Extremities: extremities normal to inspection; no cyanosis and no clubbing Skin: Trauma: + evidence of skin trauma (Blood soaked through dressing not removed left elbow and forearm/hand) and + abrasion (Small skin tear left temporal region) Neurologic: moves all extremities and awake; no focal motor deficits Psychiatric: A+Ox3, euthymic affect Lymphatic: no lymphedema Results & Data Results & Data Vital Signs (Past 12 Hours) Vital Signs Temp Pulse Pulse Pulse Pulse Pulse Resp 09/12/24 16:10 47 L 50 L 52 L 09/12/24 15:35 36.5 C 50 L 20 09/12/24 15:35 44 L 18 09/12/24 15:06 46 L 21 09/12/24 15:01 09/12/24 14:58 46 L 18 09/12/24 14:30 48 L 22 09/12/24 14:25 09/12/24 14:20 09/12/24 14:13 09/12/24 14:10 09/12/24 14:00 50 L 19 09/12/24 13:31 09/12/24 13:23 53 L 09/12/24 13:17 36.6 C 50 L 20 09/12/24 13:15 36.6 C 50 L 20 Resp Resp Resp BP BP Pulse Ox Pulse Ox 09/12/24 16:10 23 22 19 95 09/12/24 15:35 104/58 L 96 09/12/24 15:35 104/58 L 96 09/12/24 15:06 98 09/12/24 15:01 107/71 09/12/24 14:58 107/76 98 09/12/24 14:30 126/63 99 09/12/24 14:25 99/57 L 09/12/24 14:20 99/55 L 09/12/24 14:13 80/45 L 09/12/24 14:10 78/46 L 09/12/24 14:00 09/12/24 13:31 127/72 09/12/24 13:23 09/12/24 13:17 149/71 H 92 09/12/24 13:15 149/71 H 92 Pulse Ox Pulse Ox O2 Del Method O2 Flow Rate 09/12/24 16:10 86 L 92 Room Air 09/12/24 15:35 Nasal Cannula 2 09/12/24 15:35 Room Air 09/12/24 15:06 Nasal Cannula 2 09/12/24 15:01 09/12/24 14:58 Nasal Cannula 2 09/12/24 14:30 Nasal Cannula 2 09/12/24 14:25 09/12/24 14:20 09/12/24 14:13 09/12/24 14:10 09/12/24 14:00 09/12/24 13:31 09/12/24 13:23 09/12/24 13:17 Room Air 09/12/24 13:15 Room Air 0 Laboratory Results CBC, BMP, LFTs, PT/PTT/INR, troponin, ionized calcium, BNP, lipase reviewed Diagnostic Findings CT head, cervical spine, chest, abdomen, pelvis reviewed: Chest X-Ray 09/12/24 13:20 XR chest 1V portable CLINICAL HISTORY: trauma COMPARISON STUDY: 05/27/2024 FINDINGS: Stable cardiac valve repair. Stable cardiomegaly with mild pulmonary vascular congestion. Stable diffuse pulmonary interstitial prominence. No consolidation or pleural effusion. No pneumothorax. There is a small focal density overlying the left upper lung and one of the views which is less prominent on the other view, possible artifact. IMPRESSION: 1. Possible artifact versus pulmonary opacity at the left upper lung. Suggest follow-up chest CT. 2. No other acute findings seen. ACT 112: Negative or not required by law. Electronically signed by: Jack Dumont M.D. 09/12/2024 1:[address] 09/12/24 13:23 CT cervical spine wo con CLINICAL HISTORY: 78 years-old Male with Trauma. Acute neck trauma COMPARISON: Head CT of same day, CT cervical spine 05/27/2024 TECHNIQUE: Multiple axial CT images of the cervical spine were obtained without contrast. A dose lowering technique was utilized adhering to the principles of ALARA. FINDINGS: Moderate to severe multilevel intervertebral disc space narrowing and facet arthrosis. Grade 1 anterolisthesis C7 on T1 is unchanged secondary to chronic facet disease. Moderate multilevel spondylotic spurring with disc osteophyte complex formations. No acute cervical spine fracture or subluxation. The mastoid air cells are clear. Emphysema with biapical pleural-parenchymal scarring. No pneumothorax. Mild nonspecific esophageal wall thickening. Prominent atherosclerosis of the carotid bulbs. The visualized lung apices appear clear. IMPRESSION: No acute cervical spine fracture or subluxation. ACT 112: Negative or not required by law. The above report was generated using voice recognition software. It may contain grammatical, syntax or spelling errors. Electronically signed by: Branden Larose M.D. 09/12/2024 3:[address] 09/12/24 13:23 CT head/brain wo con CLINICAL HISTORY: 78 years-old Male with Trauma. Acute head trauma TECHNIQUE: Multiple axial CT images of the head were obtained without contrast. A dose lowering technique was utilized adhering to the principles of ALARA. COMPARISON: 05/27/2024 FINDINGS: No acute intracranial hemorrhage, midline shift, intracranial mass, hydrocephalus, territorial ischemia or abnormal extra-axial collection. Involutional changes with chronic microvascular ischemic disease. The calvarium is intact. Evidence of prior lens repair. Small left periorbital contusion. The paranasal sinuses, mastoid air cells, and middle ear cavities are clear. IMPRESSION: No acute intracranial abnormality or calvarial fracture. ACT 112: Negative or not required by law. The above report was generated using voice recognition software. It may contain grammatical, syntax or spelling errors. Electronically signed by: Branden Larose M.D. 09/12/2024 2:[address] 09/12/24 13:[address] WITH CONTRAST HISTORY: trauma; abnormal CXR TECHNIQUE: Multiaxial CT images of the chest were performed following the IV administration of 90 cc of Optiray. A dose lowering technique was utilized adhering to the principles of ALARA. COMPARISON STUDY: 04/13/2024 FINDINGS: There are mild airway secretions. There is mild bronchial wall thickening consistent with bronchitis. There is severe emphysema. There is cardiomegaly with prominence of pulmonary vasculature consistent with CHF. There is pulmonary septal thickening consistent with mild pulmonary edema and there are trace pleural effusions. There is no pneumothorax. No findings seen at the left upper lobe to correlate with the chest x-ray finding, it likely represented artifact from overlapping osseous structures. There is no mediastinal hematoma or thoracic aortic injury. No pulmonary embolism. There are diffuse coronary artery and aortic calcifications. There is prior aortic valve repair. There is mild ectasia of the ascending thoracic aorta measuring 4.5 cm diameter, stable. There are multiple old left rib fractures. There are severe degenerative changes with bursitis at the left shoulder. There is stable mild height loss at multiple mid and lower thoracic vertebral bodies. There is minimally progressive height loss at the T9 vertebral body. Otherwise no acute osseous finding seen. IMPRESSION: 1. Minimally progressive height loss at the T9 vertebral body of uncertain chronicity. 2. Otherwise no acute injury seen in the chest. 3. Severe emphysema and CHF with trace pulmonary edema and trace pleural effusions. ACT 112: Negative or not required by law. Electronically signed by: Jack Dumont M.D. 09/12/2024 3:21 PM Abdomen/Pelvis CT 09/12/24 14:28 CT SCAN OF THE ABDOMEN AND PELVIS WITH IV CONTRAST CLINICAL HISTORY: Trauma. COMPARISON STUDY: CT of the abdomen and pelvis January 16, 2024. Pelvis r adiograph May 27, 2024. TECHNIQUE: Following the IV administration of 90 cc of Optiray 320, CT scan of the abdomen and pelvis is performed from the lung bases to the proximal femora. Images are reviewed in the axial, sagittal, and coronal planes. IV contrast was administered without complication. A dose lowering technique was utilized adhering to the principles of ALARA. CT DOSE: 3462.44 mGy.cm FINDINGS: Please note that the chest CT will be reported separately. Cardiomegaly, trace bilateral pleural effusions and pulmonary edema are better depicted on that exam. There are multiple old left-sided rib fractures. No hemoperitoneum or pneumoperitoneum is present. There is no evidence for traumatic injury to the liver, spleen, adrenal glands, kidneys or pancreas. There is no evidence for a bowel obstruction. Images of the pelvis are degraded by streak artifact. Bilateral hip arthroplasties appear intact. There is no evidence for a bowel obstruction. Sigmoid diverticulosis is noted. There is no evidence for acute diverticulitis. There is extensive plaque within the abdominal aorta and branch vessels. No acute lumbar spine fractures are present. IMPRESSION: 1. No acute traumatic findings within the abdomen or pelvis. 2. Cardiomegaly with pulmonary edema and trace bilateral pleural effusions, better depicted on the same day chest CT will be reported separately. 3. Extensive sigmoid diverticulosis. No convincing evidence for acute diverticulitis. ACT 112: Negative or not required by law. Electronically signed by: Ritesh Osorio M.D. 09/12/2024 3:12 PM ECG Additional Comments: No ECG available for review Code Status & VTE Plan Code Status Full code VTE Prophylaxis Plan VTE Prophylaxis will be ordered: Yes PG Care Time/CCT Total # of Minutes Spent Total Time Spent with Patient: Total time spent is greater than 50% in coordination of care (as documented) at patient's floor/unit and/or counseling patient: Coding Level of Care Code 75853 INT INP/OBS CARE MIN Diagnoses Fall W19.XXXA Encounter type: initial encounter Acute hyperkalemia E87.5 Acute heart failure with preserved ejection fraction (HFpEF, >= 50%) I50.31 Elevated troponin R79.89 (1) Fall Encounter type: initial encounter Qualified Code(s): W19.XXXA - Unspecified fall, initial encounter
[2024-09-12] MEDS ORDERED: ONDANSETRON INJ 2 MG/ML 2 ML VIAL IV PRN (20:40)
[2024-09-12] MEDS ORDERED: oxyCODONE HCL IR 5 MG TAB (IMMEDIATE RELEASE) PO PRN (20:40)
[2024-09-12] MEDS ORDERED: POLYETHYLENE (MIRALAX) 17 GM PACK PO PRN (20:40)
[2024-09-12 21:29] LABS: BUN Creatinine Ratio 19.5 (10-20); Calcium 8.8 mg/dl (8.6-10.3); Creatinine Clr Calc Pharmacy 44.9 ml/min; Potassium 4.6 mmol/L (3.5-5.1)
[2024-09-12 21:56] LABS: Troponin I High Sensitivity 31.8 pg/ml (0-20)
[2024-09-13] MEDS: LEVOTHYROXINE SODIUM 88 MCG TABLET PO SCH (05:36)
[2024-09-13 06:32] LABS: Basophils # (auto) 0.06 K/uL (0.00-0.20); Basophils % (auto) 0.6 %; Eosinophils # (auto) 0.07 K/uL (0.00-0.50); Eosinophils % (auto) 0.7 %; Hematocrit (blood only) 38.7 % (42.0-52.0); Hemoglobin 13.2 g/dl (14.0-18.0); Immature Granulocytes # (auto) 0.05 K/uL (0.01-0.20); Immature Granulocytes % (auto) 0.5 %; Lymphocytes # (auto) 1.03 K/uL (1.20-3.40); Lymphocytes % (auto) 10.2 %; Mean Corpuscular Hemoglobin 32.4 pg (25.0-34.0); Mean Corpuscular Hgb Conc 34.1 g/dL (32.0-36.0); Mean Corpuscular Volume 94.9 fL (80.0-100.0); Monocytes # (auto) 1.25 K/uL (0.11-0.59); Monocytes % (auto) 12.4 %; Neutrophils # (auto) 7.59 K/uL (1.40-6.50); Neutrophils % (auto) 75.6 %; Platelet Count 191 K/uL (130-400); RDW Coefficient of Variation 15.8 % (11.5-14.5); RDW Standard Deviation 55.5 fL (36.4-46.3); Red Blood Count 4.08 M/uL (4.70-6.10); White Blood Count 10.05 K/ul (4.8-10.8)
[2024-09-13 06:44] LABS: BUN Creatinine Ratio 20.1 (10-20); Calcium 8.7 mg/dl (8.6-10.3); Creatinine Clr Calc Pharmacy 41.1 ml/min; Potassium 5.1 mmol/L (3.5-5.1)
[2024-09-13] MEDS: ATORVASTATIN 40 MG TAB PO SCH (08:31)
[2024-09-13] MEDS: CYANOCOBALAMIN (B-12) 500 MCG TABLET PO SCH (08:31)
[2024-09-13] MEDS: METOPROLOL SUCC 25MG EXT REL TAB PO SCH (08:32)
[2024-09-13] MEDS: TAMSULOSIN HCL 0.4 MG CAP PO SCH (08:32)
[2024-09-13] MEDS: AMIODARONE 200 MG TAB PO SCH (08:32)
[2024-09-13] MEDS: FLUTICASONE/VILANTEROL 100/25MCG 14 PUFFS/INHALER INH SCH (08:35)
[2024-09-13] MEDS: FUROSEMIDE 20 MG TAB PO SCH (08:40)
--- NOTE | 2024-09-13 09:28 | Electrocardiogram Report ---
Test Reason : Blood Pressure : */* mmHG Vent. Rate : 49 BPM Atrial Rate : 49 BPM P-R Int : 246 ms QRS Dur : 124 ms QT Int : 534 ms P-R-T Axes : 84 -68 134 degrees QTcB Int : 482 ms Sinus bradycardia with 1st degree A-V block Right bundle branch block Left anterior fascicular block Bifascicular block Nonspecific T wave abnormality Abnormal ECG When compared with ECG of 27-May-2024 17:10, VA interval has increased QRS axis Shifted left Nonspecific T wave abnormality, improved in Inferior leads Nonspecific T wave abnormality has replaced inverted T waves in Lateral leads Confirmed by Nathan Rivas ([id number]) on 09/13/2024 9:28:14 AM Referred By: REFERRED SELF Confirmed By: Nathan Rivas
[2024-09-13] MEDS: ACETAMINOPHEN 325 MG TAB PO PRN (13:24)
--- NOTE | 2024-09-13 16:41 | Hospitalist Progress Note ---
Date of Service September 13, 2024 Assessment & Plan (1) Fall: (2) Acute hyperkalemia: (3) Acute heart failure with preserved ejection fraction (HFpEF, >= 50%): (4) Elevated troponin: Plan This patient is a 78-year-old male with a history of HFpEF, right-sided heart failure, severe pulm HTN, pulmonary fibrosis, COPD, multifocal atrial tachycardia, PAF on Eliquis, nonobstructive CAD, TAA, bioprosthetic AVR with moderate-severe aortic stenosis, CHANEL s/p bilateral CEA, chronic hyponatremia, and hypothyroidism who presents to the ED after sustaining a mechanical fall during which he suffered a large skin tear of the left forearm and hand as well as a small skin tear of the left temporal region without loss of consciousness. In the ED, the patient was given 4 mg of IV morphine for significant pain in the arm after which he became hypotensive with a blood pressure in the 70s and hyp oxic. He then attempted to ambulate and dropped his pulse ox to 82% on room air with ambulation. He does not use oxygen at home. Prior to the fall, he and his daughters at the bedside report that he had actually been doing the best he had in a long time. He has chronic dyspnea on exertion and usually only ambulates 10 to 15 feet before he has to rest. A CT of the head, cervical spine, chest, abdomen, and pelvis was negative for acute fractures. He was mildly hyperkalemic and had hyponatremia. He was given IV Lasix in the ED for heart failure/hypoxemia after being given 500 mL of normal saline for the opioid induced hypotension. He is admitted for hypoxemia likely secondary to a combination of acute on chronic HFpEF as well as opioid induced. #Fall/left upper extremity and left facial skin tears-mechanical fall with wounds with bleeding. CT head/cervical spine/chest/abdomen/pelvis negative for acute issues - PT/OT consults placed-pending - Wound care consult placed for skin tears-appreciate recommendations-needs daily dressing changes after discharge and follow-up with home wound care or wound care center - Can resume home Eliquis now that bleeding has stopped, hemoglobin stable - Tylenol for pain, discontinue opioids as they caused him hypotension #Acute on chronic HFpEF/right-sided heart failure/severe pulm HTN/elevated troponin/nonobstructive CAD-with hypoxemia and trace bilateral pleural effusions, severe emphysema, elevated BNP, known cor pulmonale. Suspect hypoxemia related to morphine use and poor inspiratory effort with some component of heart failure with underlying pulmonary fibrosis. In fact, he likely has been hypoxemic for a long time as he typically only can walk 10 to 15 feet before resting. He is resistant to the idea of using supplemental O2 at home. Mildly elevated troponin at 21 and stable at 22, then 31 on repeat testing, ECG without acute ischemic changes. No chest pain. This is likely myocardial demand ischemia With some soft blood pressures/low BPs, mildly symptomatic - Received 1 dose of IV Lasix in the ER and then resumed home Lasix 20 mg p.o. once daily - Continue supplemental oxygen 3 LNC O2 at rest and 6 LNC with exertion-will ask case management to arrange for home O2 - Strict I's and O's, low-sodium diet, daily weights - Continue home Farxiga, but holding home spironolactone and potassium due to hyperkalemia which is now improved - Echocardiogram performed as an outpatient the day of admission with preserved EF, no wall motion abnormalities and with mild aortic stenosis of bioprosthetic valve -Continue home atorvastatin, metoprolol, and Eliquis #Acute respiratory failure with hypoxemia/pulmonary fibrosis/COPD-with respiratory failure as above likely secondary to morphine use in the setting of severe pulmonary disease and some more minor component of heart failure with underlying pulmonary fibrosis. CT chest with trace bilateral effusions and severe emphysema - Continue maintenance inhalers - Diuresed with IV Lasix and now on home p.o. Lasix - Home O2 to be arranged #Hyponatremia/hyperkalemia-sodium low at 128, potassium elevated at 5.6, likely secondary to spironolactone and potassium chloride use as well as heart failure. Diuresed with Lasix and holding home KCl and spironolactone. Sodium now improved to 132 and potassium down to 5.1. - Continue Lasix 20 Mg p.o. once daily - Patient asked that no further lab draws be done which is fine as electrolytes have improved - Continue to hold oral potassium and spironolactone, and would not restart KCl- will consider restarting spironolactone if blood pressure can tolerate #Hypothyroidism-recent TSH mildly elevated and was restarted on home levothyroxine - Continue home levothyroxine dose - Follow TSH as an outpatient #TAA/history of bioprosthetic AVR/history of bilateral CEA/paroxysmal atrial f ibrillation-no acute issues, TAA stable on chest CT, echo on 09/12 with mild aortic stenosis and functioning valve. He is in a sinus rhythm on telemetry - Okay to resume Eliquis - Continue home amiodarone, statin DVT prophylaxis-SCDs, Eliquis Disposition-continued stay on medical floor with telemetry, PT/OT consults placed and pending, but likely discharged home on 09/14 with home health Admission and Anticipated Discharge Date Admission Date: September 12, 2024 Anticipated date of discharge: 09/14/24 Subjective Patient irritable that he is not leaving today. He was hypotensive. Reports a little bit of lightheadedness with walking in the halls. He is requiring 3 L O2 at rest and 6 L with ambulation as per two-step walk test but says that he will refuse to wear oxygen at home. He will consider it if he can have a concentrator and not have to have portable tanks. Telemetry with sinus bradycardia and PVCs with rates in the 50s to 60s Physical Exam Constitutional: WD/WN, vitals as above Neck: trachea midline, no thyromegaly Respiratory: normal respiratory effort; no cough and not tachypneic Auscultation: + crackles (Velcro-like at bases bilaterally); no rhonchi and no wheezes Cardiovascular: Rate/Rhythm: regular rhythm and + bradycardic Heart Sounds: + murmur (2/6 [place] at the [facility]) Extremities: + edema (Trace pitting edema legs bilaterally) Chest (Breasts): Chest: normal inspection of chest Gastrointestinal (Abdomen): normal bowel sounds, soft, nontender, no hepatosplenomegaly Musculoskeletal: Extremities: extremities normal to inspection; no cyanosis and no clubbing Skin: Trauma: + evidence of skin trauma (Entire left upper extremity dressed and wrapped, clean and dry) and + abrasion (Small skin tear left temporal region) Neurologic: moves all extremities and awake; no focal motor deficits Psychiatric: A+Ox3, euthymic affect Lymphatic: no lymphedema Results & Data Results & Data Vital Signs (Past 12 Hours) Vital Signs Temp Pulse Pulse Pulse Pulse Pulse Pulse 09/13/24 15:31 36.7 C 70 09/13/24 13:23 77 09/13/24 11:11 36.4 C L 59 L 09/13/24 10:49 78 77 71 71 09/13/24 10:41 09/13/24 07:21 36.9 C 72 09/13/24 06:18 68 Pulse Pulse Resp Resp Resp Resp Resp 09/13/24 15:31 18 09/13/24 13:23 09/13/24 11:11 18 09/13/24 10:49 73 72 20 20 20 18 09/13/24 10:41 09/13/24 07:21 18 09/13/24 06:18 Resp Resp BP Pulse Ox Pulse Ox Pulse Ox Pulse Ox 09/13/24 15:31 88/56 L 94 09/13/24 13:23 09/13/24 11:11 87/54 L 94 09/13/24 10:49 18 18 87 L 87 L 90 09/13/24 10:41 09/13/24 07:21 96/58 L 92 09/13/24 06:18 Pulse Ox Pulse Ox Pulse Ox O2 Del Method O2 Flow Rate O2 Flow Rate O2 Flow Rate 09/13/24 15:31 Nasal Cannula 3 09/13/24 13:23 09/13/24 11:11 Nasal Cannula 3 09/13/24 10:49 87 L 90 84 L 3 4 09/13/24 10:41 Nasal Cannula 3 09/13/24 07:21 Nasal Cannula 2.5 09/13/24 06:18 O2 Flow Rate O2 Flow Rate O2 Flow Rate 09/13/24 15:31 09/13/24 13:23 09/13/24 11:11 09/13/24 10:49 6 2 3 09/13/24 10:41 09/13/24 07:21 09/13/24 06:18 Laboratory Results CBC, BMP, troponin reviewed PG Care Time/CCT Total # of Minutes Spent Total Time Spent with Patient: Total time spent is greater than 50% in coordination of care (as documented) at patient's floor/unit and/or counseling patient: Coding Level of Care Code 72698 SUB INP/OBS CARE 2/35MIN Diagnoses Fall W19.XXXA Encounter type: initial encounter Acute hyperkalemia E87.5 Acute heart failure with preserved ejection fraction (HFpEF, >= 50%) I50.31 Elevated troponin R79.89 (1) Fall Encounter type: initial encounter Qualified Code(s): W19.XXXA - Unspecified fall, initial encounter
[2024-09-13] MEDS: APIXABAN 5 MG TABLET PO SCH (19:51)
[2024-09-14 07:20] VITALS: RESP 20
[2024-09-14 11:32] VITALS: BP 91/58; TEMP 97.3; O2SAT 96
--- NOTE | 2024-09-14 12:41 | Discharge Summary ---
Discharge Summary Date of Service September 14, 2024 Principal Dx & Hospital Course #1 = Principal Diagnosis (1) Fall: (2) Acute hyperkalemia: (3) Acute heart failure with preserved ejection fraction (HFpEF, >= 50%): (4) Elevated troponin: Plan This patient is a 78-year-old male with a history of HFpEF, right-sided heart failure, severe pulm HTN, pulmonary fibrosis, COPD, multifocal atrial tachycardia, PAF on Eliquis, nonobstructive CAD, TAA, bioprosthetic AVR with moderate-severe aortic stenosis, CHANEL s/p bilateral CEA, chronic hyponatremia, and hypothyroidism who presents to the ED after sustaining a mechanical fall during which he suffered a large skin tear of the left forearm and hand as well as a small skin tear of the left temporal region without loss of consciousness. In the ED, the patient was given 4 mg of IV morphine for significant pain in the arm after which he became hypotensive with a blood pressure in the 70s and hypoxic. He then attempted to ambulate and dropped his pulse ox to 82% on room air with ambulation. He does not use oxygen at home. Prior to the fall, he and his daughters at the bedside report that he had actually been doing the best he had in a long time. He has chronic dyspnea on exertion and usually only ambulates 10 to 15 feet before he has to rest. A CT of the head, cervical spine, chest, abdomen, and pelvis was negative for acute fractures. He was mildly hyperkalemic and had hyponatremia. He was given IV Lasix in the ED for heart failure/hypoxemia after being given 500 mL of normal saline for the opioid induced hypotension. He was admitted for hypoxemia likely secondary to a severe emphysema and pulmonary fibrosis combined with acute on chronic HFpEF as well as opioid induced. #Fall/left upper extremity and left facial skin tears-mechanical fall with wounds with bleeding. CT head/cervical spine/chest/abdomen/pelvis negative for acute issues - PT/OT consults placed-patient desires to go home and does not want home PT - Wound care consult placed for skin tears-appreciate recommendations-needs daily dressing changes after discharge and follow-up with home wound care or wound care center - Tylenol for pain, discontinue opioids as they caused him hypotension #Acute on chronic HFpEF/right-sided heart failure/severe pulm HTN/elevated troponin/nonobstructive CAD-with hypoxemia and trace bilateral pleural effu sions, severe emphysema, elevated BNP, known cor pulmonale. Suspect hypoxemia related to morphine use and poor inspiratory effort with some component of heart failure with underlying pulmonary fibrosis and severe emphysema. In fact, he likely has been hypoxemic for a long time as he typically only can walk 10 to 15 feet before resting. He is resistant to the idea of using supplemental O2 at home. Mildly elevated troponin at 21 and stable at 22, then 31 on repeat testing, ECG without acute ischemic changes. No chest pain. This is likely myocardial demand ischemia With some soft blood pressures/low BPs, mildly symptomatic - Received 1 dose of IV Lasix in the ER and then resumed home Lasix 20 mg p.o. once daily - Continue supplemental oxygen 3 LNC O2 at rest and 6 LNC with exertion-case m anagement to arrange for home O2-of note, patient reports he will not wear portable oxygen but I highly encouraged him to do so - Continue home Farxiga, but discontinued home spironolactone and potassium due to hyperkalemia-follow BMP as an outpatient - Echocardiogram performed as an outpatient the day of admission with preserved EF, no wall motion abnormalities and with mild aortic stenosis of bioprosthetic valve -Continue home atorvastatin, metoprolol, and Eliquis #Acute respiratory failure with hypoxemia/pulmonary fibrosis/COPD-with respiratory failure as above likely secondary to morphine use in the setting of severe pulmonary disease and some more minor component of heart failure with underlying pulmonary fibrosis. CT chest with trace bilateral effusions and severe emphysema - Continue maintenance inhalers - Diuresed with IV Lasix and now on home p.o. Lasix - Home O2 to be arranged #Hyponatremia/hyperkalemia-sodium low at 128, potassium elevated at 5.6, likely secondary to spironolactone and potassium chloride use as well as heart failure. Diuresed with Lasix and discontinued home KCl and spironolactone. Sodium now improved to 132 and potassium down to 5.1. - Continue Lasix 20 Mg p.o. once daily -Discontinued potassium and spironolactone- consider restarting spironolactone as an outpatient if blood pressure can tolerate #Hypothyroidism-recent TSH mildly elevated and was restarted on home levothyroxine - Continue home levothyroxine dose - Follow TSH as an outpatient #TAA/history of bioprosthetic AVR/history of bilateral CEA/paroxysmal atrial fibrillation-no acute issues, TAA stable on chest CT, echo on 09/12 with mild aortic stenosis and functioning valve. He is in a sinus rhythm on telemetry -Continue Eliquis, amiodarone, statin DVT prophylaxis-SCDs, Eliquis Disposition-discharged home on 09/14. Discussed care with his on the phone on the day of discharge Admission HPI Per Admitting Provider This patient is a 78-year-old male with a history of HFpEF, right-sided heart failure, severe pulm HTN, pulmonary fibrosis, COPD multifocal atrial tachycardia, PAF on Eliquis, nonobstructive CAD, TAA, bioprosthetic AVR with moderate-severe aortic stenosis, CHANEL s/p bilateral CEA, chronic hyponatremia, and hypothyroidism who presents to the ED after sustaining a mechanical fall in the parking lot of the [employer] building in front of the hospital after returning to his car from getting an echocardiogram. He reports he switched his cane to his other hand and went to reach for the door and lost his balance and fell over. He landed on the left side of his body and suffered a large skin tear of the left forearm and hand as well as a small skin tear of the left temporal region. He did not lose consciousness. His daughter heard the fall and immediately was present. Multiple staff members from the medical office came immediately to his assistance and help to stop bleeding and get him to an ambulance. In the ED, the patient was given 4 mg of IV morphine for significant pain in the arm after which he became hypotensive with a blood pressure in the 70s and hypoxic. He then attempted to ambulate and dropped his pulse ox to 82% on room air with ambulation. He does not use oxygen at home. Prior to the fall today, he and his daughters at the bedside report that he had actually been doing the best he had in a long time. He has chronic dyspnea on exertion and usually only ambulates 10 to 15 feet before he has to rest. A CT of the head, cervical spine, chest, abdomen, and pelvis was negative for acute fractures. He was mildly hyperkalemic and had hyponatremia. He was given IV Lasix in the ED for heart failure/hypoxemia after being given 500 mL of normal saline for the opioid induced hypotension. He will be admitted for observation overnight for hypoxemia likely secondary to a combination of acute on chronic HFpEF as well as opioid induced. Discharge Exam Constitutional WD/WN, vitals as above Respiratory normal respiratory effort; no cough and not tachypneic Auscultation: + crackles (Velcro-like at bases bilaterally); no rhonchi and no wheezes Cardiovascular Rate/Rhythm: regular rhythm and + bradycardic Heart Sounds: + murmur (2/6 [place] at the [facility]) Extremities: + edema (Trace pitting edema legs bilaterally) Skin Trauma: + evidence of skin trauma (Entire left upper extremity dressed and wrapped, clean and dry) and + abrasion (Small skin tear left temporal region) Neurologic moves all extremities and awake; no focal motor deficits Lymphatic no lymphedema Discharge Plan Discharge Items Patient Disposition: Home - Home Health Services Reason For Visit: HYPOXIA,FALL Discharge Diagnosis: Fall Left arm wound/skin tear Acute on chronic respiratory failure with hypoxia Condition on Discharge: Fair Activity: Resume your previous activity Non-emergency contact: Primary Care Provider Call non-emergency contact if: you have any medication questions, your symptoms worsen, your pain is not controlled, you have a fever, your wound has increased redness, your wound has increased drainage and your wound pain has increased Follow-up/Referrals: Parish Link III, CRNP [Primary Care Provider] - 09/20/24 9:20 am Diet: Regular Addtl Attending Provider Instructions: You were admitted after suffering a fall with a large skin tear of your left arm. This will require daily wound care and dressing changes. A visiting nurse will also be coming to the house a few times a week to help with wound care. Because of your chronic severe lung disease and some component of congestive heart failure, you will need oxygen permanently. You need to wear 3 L of oxygen at rest and turn it up to 6 L anytime you walk around. It is very important that you wear the oxygen to prevent strain on the heart or heart attack and other damage to organs from low oxygen levels. Your potassium levels were high when you came in. Please do not take the potassium pills or the spironolactone when you go home. Your primary care physician can follow-up on your potassium levels when you go home. Pending Studies at Discharge: No Stand-Alone Forms: [employer], Smoking Cessation Medications and DC Order Prescriptions: Continued triamcinolone acetonide 0.1 % ointment 1 applic TOPICAL UD PRN (Reason: ANKLES) 30 Days Qty: 30 1RF tamsulosin 0.4 mg capsule 0.4 mg PO QAM Qty: 90 3RF apixaban 5 mg tablet 5 mg PO BID Qty: 180 3RF Hold Instructions: PER SUNDAY [facility] MED[facility]-ADVISED TO F/U W/ PCP WHEN OK TO RESUME amiodarone 200 mg tablet 200 mg PO DAILY Qty: 30 11RF levothyroxine [Synthroid] 88 mcg tablet 88 mcg PO DAILY Qty: 30 2RF furosemide 40 mg tablet 20 mg PO DAILY PRN (Reason: weight gain, edema, shortness of breath) Qty: 90 3RF mecobalamin (vitamin B12) 1,000 mcg tablet,disintegrating 1,000 mcg sublingual QAM Rx Instructions: place tablet under tongue and allow to dissolve for at least30 secs before swallowing metoprolol succinate 25 mg tablet extended release 24 hr 25 mg PO QAM Qty: 90 3RF dapagliflozin propanediol [Farxiga] 10 mg tablet 10 mg PO DAILY Qty: 30 2RF (DME) Wheeled Walker Misc See Rx Instructions .Route Qty: 1 0RF Rx Instructions: As directed fluticasone propion-salmeterol 250-50 mcg/dose blister with device 1 ea INHALATION BID atorvastatin 40 mg tablet 40 mg PO QAM Discontinued spironolactone 25 mg tablet 25 mg PO QAM Qty: 90 3RF potassium chloride 20 mEq tablet extended release 20 meq PO DAILY Qty: 30 2RF oxycodone 5 mg tablet 5 mg PO Q4H PRN (Reason: pain) Qty: 30 0RF Discharge Orders: Discharge Order (Routine); Ordered 09/14/24 Ordered By: Diana Kramer Admission Data Admit Date/Time: 09/13/24 19:13 Attending Provider: Diana Kramer Admit Provider: Diana Kramer Primary Care Provider: Parish Link III Other Providers: Diana Kramer; [facility] F[facility]; [facility]; [facility] Stay Data Consultations 09/12/24 16:27 ED Decision to Admit Stat Diagnostic Imagining Performed 09/12/24 13:23 CT cervical spine wo con Stat CT head/brain wo con Stat 09/12/24 13:50 CT chest diagnostic w con Stat 09/12/24 14:28 CT Abd and Pelvis [CT abd pelvis IV con only] Stat Pending Results Patient Have Any Pending Studies at Discharge: No Discharge Instructions Given to Patient (Per Discharging Provider) You were admitted after suffering a fall with a large skin tear of your left arm. This will require daily wound care and dressing changes. A visiting nurse will also be coming to the house a few times a week to help with wound care. Because of your chronic severe lung disease and some component of congestive heart failure, you will need oxygen permanently. You need to wear 3 L of oxygen at rest and turn it up to 6 L anytime you walk around. It is very important that you wear the oxygen to prevent strain on the heart or heart attack and other damage to organs from low oxygen levels. Your potassium levels were high when you came in. Please do not take the potassium pills or the spironolactone when you go home. Your primary care physician can follow-up on your potassium levels when you go home. Total Time Total Time Spent Total Time Spent (In Minutes): 40 minutes Total Time Includes: Examination of the Patient, Discharge Planning and Medication Reconciliation Coding Level of Care Code 63993 INP/OBS DISCH >30 MIN Diagnoses Fall W19.XXXA Encounter type: initial encounter Acute hyperkalemia E87.5 Acute heart failure with preserved ejection fraction (HFpEF, >= 50%) I50.31 Elevated troponin R79.89
[2024-09-14 17:32] VITALS: PULSE 63
== END 2024-09-14 17:59 | disposition home health service (06) | DRG 291 ==
LOC: SUATTDRO → 2N 13:11 → ED 13:11 → 2N 20:33

== ENCOUNTER 2024-11-22 11:18 | Inpatient (IN) ==
--- NOTE | 2024-11-22 12:23 | XRay Report ---
XR chest 1V portable CLINICAL HISTORY: low oxygen saturation/weight gain/lower edema COMPARISON STUDY: 09/12/2024 FINDINGS: Stable cardiac valve repair. Stable cardiomegaly with pulmonary vascular congestion. Stable diffuse pulmonary interstitial prominence. Stable minimal blunting of the costophrenic angles. No pn eumothorax. IMPRESSION: Stable exam with findings of CHF, mild pulmonary edema, and trace pleural effusions. ACT 112: Negative or not required by law. Electronically signed by: Jack Dumont M.D. 11/22/2024 12:22 PM
[2024-11-22 12:35] LABS: Alanine Aminotransferase 29 U/L (7-52); Albumin Globulin Ratio 0.8 (0.9-2); Alkaline Phosphatase 135 U/L (34-104); Anion Gap 7 (3-11); Bilirubin,Total 1.4 mg/dl (0.2-1.0); Blood Urea Nitrogen 37 mg/dl (6-23); Calcium 8.7 mg/dl (8.6-10.3); Carbon Dioxide 30 mmol/L (21-32); Chloride 98 mmol/L (98-107); Globulin 4.1 gm/dl (2.5-4.0); Glucose 100 mg/dl (70-99(Fasting)); Potassium 4.3 mmol/L (3.5-5.1); Sodium 135 mmol/L (136-145); Total Protein 7.5 gm/dl (6.0-8.3)
[2024-11-22 12:37] LABS: Hematocrit (blood only) 38.8 % (42.0-52.0); Hemoglobin 12.6 g/dl (14.0-18.0); Mean Corpuscular Hemoglobin 30.7 pg (25.0-34.0); Mean Corpuscular Volume 94.4 fL (80.0-100.0); Platelet Count 151 K/uL (130-400); RDW Standard Deviation 57.3 fL (36.4-46.3); Red Blood Count 4.11 M/uL (4.70-6.10); White Blood Count 7.54 K/ul (4.8-10.8)
--- NOTE | 2024-11-22 12:37 | Emergency Department Note ---
Impression & Plan Acute hypoxemic respiratory failure, COPD (chronic obstructive pulmonary disease), Acute exacerbation of congestive heart failure ED Provider Note NAME: AILYN OCONNOR AGE: 79 SEX: M : 1945 ARRIVES VIA: Ambulance INFORMANT: Patient, Daughter ED PROVIDER(S): Buck Schmitt MD CHIEF COMPLAINT: Shortness of breath, hypoxia, outpatient referral MEDICAL DECISION MAKING: Patient presents with the above. IV was established and blood work was obtained. Family does report the patient has had an 11 pound weight gain in the last week. Patient with a normal white count mild anemia platelet count is unremarkable. The patient's kidney function slightly worse compared to baseline. Patient's baseline around 1 today is 1.78. Patient's initial troponin is slightly elevated at 48. Patient currently denies any chest pains. BNP is 1250. Patient does have lower extremity edema and associated JVD. The patient was ordered Lasix 40 mg IV. I did speak with the on-call hospitalist service Dr. Stevenson and the patient was admitted to the medicine service. Critical Care: I have personally spent 35 minutes of critical care time in direct management of this patient. This includes bedside care, interpretation of diagnostic studies, and testing, discussion with consultants, patient, and family members, and other require inpatient management activities. This 35 minutes is in excess of all separately billable procedures. Discussion w/ other healthcare providers: Dr. Stevenson inpatient medicine service Prior /Outside records reviewed: I did review part of a primary care visit today from [facility] was noted the patient was hypoxic 78% on room air. Patient was placed on 2 L nasal cannula to good effect. There was concern for possible CHF. Differential diagnosis: Reactive airway disease, pneumonia, pneumothorax, COPD, CHF, ACS, pulmonary embolism, musculoskeletal, GERD as well as other pathologies were considered. Diagnostics, as interpreted by me: ECG: Normal sinus rhythm, rate of 65, normal VT wide QRS right bundle branch block pattern, left axis deviation, T wave versions in the lateral and high lateral leads. T wave inversions. Grossly unchanged from comparison the 2024. Right bundle branch block and left axis also old. Cardiac monitoring: An order was placed for continuous cardiac monitoring. The monitor shows a rate of 67 with irregular irregular rhythm. Patient was placed on pulse oximetry Medical decision rules: None Imaging studies: I informally interpreted the patient's chest x-ray shows pulmonary edema with formal report to follow. HPI: Patient presents due to concern for hypoxia and associated shortness of breath. Daughter is at bedside reports that the patient has been feeling worse over the last several days with associated 11 pound weight gain. The patient does wear his oxygen when it is convenient but should be wearing about 3 L at all times. Patient did have a scheduled appointment today to see the [facility] at which time the patient was noted to be 78% on room air was referred here for further evaluation and treatment. Patient states that he is compliant with his medications does take amiodarone as well as Eliquis for known history of A-fib and does follow with Dr. Rivas. Patient denies any chest pains. He has had cough which has been productive but this is his normal cough as he is a smoker remote history of COPD. Daughter has noted increased with leg swelling. He also did comment that he did have a fall and did have a skin tear to the back of the right hand. No head strike or LOC. PAST MEDICAL HISTORY: See Below PAST SURGICAL HISTORY: See Below SOCIAL HISTORY: See Below HOME MEDICATIONS: See Below ALLERGIES: See Below VITALS: See Below PHYSICAL EXAMINATION: GENERAL: NAD, non-toxic. Nasal cannula in place. EYE EXAM: Normal conjunctiva. PERRL, no anisocoria and EOM's grossly intact w/o pain. OROPHARYNX: Moist mucus membranes, grossly normal dentition. NECK: Trachea midline, no stridor. JVD noted. LUNGS: Diminished breath sounds at the bases with associated bibasilar crackles. Normal chest wall mechanics. HEART: Irregular irregular, no MRG. ABDOMEN: Abdomen soft, non-tender, no masses, no rebound or guarding. BACK: No CVA TTP. SKIN: No rashes and no bruising. UPPER EXTREMITIES: Upper extremities are grossly normal. Small skin tear noted to the dorsal aspect of the right hand. No laceration noted. LOWER EXTREMITIES: Grossly normal, 2+ symmetric lower extremity edema without calf pain or erythema. NEURO EXAM: Awake and alert, follows commands, no obvious facial asymmetry, normal speech, moves all 4 extremities. 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 Hypercholesterolemia (Chronic) Hypertension (Chronic) COPD (chronic obstructive pulmonary disease) (Chronic) Medical History Acute heart failure with preserved ejection fraction (HFpEF, >= 50%) Fall Compression fracture of T8 vertebra CHF exacerbation Acute on chronic respiratory failure with hypoxia Acute kidney injury Non-ST elevation [place] (NSTEMI) Fall from standing Acute heart failure with mildly reduced ejection fraction (HFmrEF, 41-49%) Carotid artery stenosis s/p R CEA 09/16/18 Congenital bicuspid aortic valve s/p AVR 2010 LVH (left ventricular hypertrophy) due to hypertensive disease Chronic hyponatremia Radiculopathy of lumbar region Spinal stenosis Chronic back pain Hypertension Chronic obstructive pulmonary disease MILD, DENIES FLARE UPS. FOLLOWS WITH PCP Surgical History History of lumbar fusion H/O carotid endarterectomy (11/04/18) Left Carotid Endarterectomy with Bovine Patch(Left) - Mariano Laboy MD 11/04/18 H/O carotid endarterectomy 09/16/18 [facility] Fusion of spine LUMBAR FUSION Hx of cardiac catheterization no stents Hx of bilateral cataract extraction History of total hip arthroplasty BILATERAL History of carpal tunnel release RIGHT History of tonsillectomy Family History Brother Prostate cancer Father Myocardial infarction Other Cancer No family history of adverse response to anesthesia No family history of bleeding disorder Denies family history of Ovarian cancer Breast cancer Colorectal cancer Social History Smoking Status: Current every day smoker Tobacco Type: Cigarettes Age Started Using Tobacco: 18; packs per day: 0.5; Cigarettes Per Day: 3/4 pack; Second Hand Exposure: Yes; Do You Dip or Chew Tobacco: No; Hx Alcohol Use: Yes Alcohol type: hard liquor Alcohol Intake Frequency: 4 or More x per/Week Hx Substance Use: No Preferred Language: Nepalese Communication Ability: Effective Visual Impairment: No Limitations Hearing Ability: Use of Hearing Aid Recruiting Associate Required: No Beliefs That Will Affect Care: None marital status: Current Living Situation: Spouse 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 Safe at Home: Yes Childhood Exposure to Second-Hand Smoke: Yes Diet: regular Diet Comment: regular Dental Care, Regularly: No Physical Activity Frequency: Does not Exercise Seatbelt Use: always Sunscreen Use: No Assistive Devices: Cane, Stair Lift and Walker Allergies Allergies Allergy/AdvReac Type Severity Reaction Status Date / Time bee venom protein (honey bee) Allergy Severe swelling Verified 11/22/24 13:52 pepper (genus Capsicum) Allergy Mild TOBASCO Verified 11/22/24 13:52 SAUCE - TOO MUCH OF WILL CAUSE HIVES ibuprofen AdvReac Intermediate LARGE Verified 11/22/24 13:52 DOSES CAUSE ITCHING AND BLISTERS Home Meds Home Medications Medication Instructions Recorded Confirmed mecobalamin (vitamin B12) 1,000 1,000 mcg sublingual QAM 09/30/21 11/22/24 mcg disintegrating tablet,sublingual fluticasone 250 mcg-salmeterol 50 1 ea inhalation BID 04/07/24 11/22/24 mcg/dose blistr powdr for inhalation amiodarone 200 mg tablet 200 mg PO QAM 11/22/24 11/22/24 furosemide 40 mg tablet 60 mg PO DAILY PRN weight gain, 11/22/24 11/22/24 edema, shortness of breath triamcinolone acetonide 0.1 % 1 applic topical DAILY PRN Flare 11/22/24 11/22/24 topical ointment Previous Rx's Medication Instructions Recorded tamsulosin 0.4 mg capsule 0.4 mg PO QAM #90 caps 01/13/24 apixaban 5 mg tablet 5 mg PO BID #180 tabs 03/07/24 Wheeled Walker #1 ea 06/14/24 atorvastatin 40 mg tablet 40 mg PO QAM #90 tabs 09/28/24 Portable Oxygen #1 ea 10/04/24 silver sulfadiazine 1 % topical 1 applic topical BID #400 grams 10/04/24 cream (Silvadene) Oxygen Home #1 ea 10/05/24 levothyroxine 88 mcg tablet 88 mcg PO DAILY #30 tabs 11/07/24 (Synthroid) Results & Data (ED) Vital Signs Vital Signs - 24 hr 11/22/24 11:26 11/22/24 13:11 Temperature 36.7 C Temperature Source Oral Pulse Rate 68 Pulse Rate [Apical] 57 L Respiratory Rate 20 21 Respiratory Effort / Characteristics Non-Labored Spontaneous Non-Labored Spontaneous Respiratory Depth Normal Normal Respiratory Pattern Regular Blood Pressure 113/66 Blood Pressure [Right Arm] 126/65 Blood Pressure Mean 81 Blood Pressure Mean [Right Arm] 85 Blood Pressure Position [Right Arm] Semi-fowlers Pulse Oximetry 98 96 Oxygen Delivery Method Nasal Cannula Room Air Oxygen Flow Rate 3 Sepsis Recent Fever Within 48 Hours No Sepsis New/Unexplained Change in Mental Status N/A Sepsis Action Taken by Nursing No Action Required Home Medications Current Medication List: was personally reviewed by me Laboratory Data Attestation: I reviewed the patient's lab results. 11/22/24 13:59 11/22/24 13:59 Lab Results 11/22/24 Range/Units 11:46 WBC 7.54 (4.8-10.8) K/ul RBC 4.11 L (4.70-6.10) M/uL Hgb 12.6 L (14.0-18.0) g/dl Hct 38.8 L (42.0-52.0) % MCV 94.4 (80.0-100.0) fL MCH 30.7 (25.0-34.0) pg MCHC 32.5 (32.0-36.0) g/dL RDW Std Deviation 57.3 H (36.4-46.3) fL RDW Coeff of Telma 16.7 H (11.5-14.5) % Plt Count 151 (130-400) K/uL MPV 10.6 (9.4-12.4) fL Immature Gran % (Auto) 0.4 % Neut % (Auto) 75.9 % Lymph % (Auto) 11.1 % [place] % (Auto) 11.8 % Eos % (Auto) 0.3 % Baso % (Auto) 0.5 % Neut # (Auto) 5.72 (1.40-6.50) K/uL Lymph # (Auto) 0.84 L (1.20-3.40) K/uL [place] # (Auto) 0.89 H (0.11-0.59) K/uL Eos # (Auto) 0.02 (0.00-0.50) K/uL Baso # (Auto) 0.04 (0.00-0.20) K/uL Immature Gran # (Auto) 0.03 (0.01-0.20) K/uL Polychromasia 1+ Echinocytes 1+ Acanthocytes (Spur) 1+ PT Cancelled INR Cancelled APTT Cancelled PTT Ratio Cancelled Sodium 135 L (136-145) mmol/L Potassium 4.3 (3.5-5.1) mmol/L Chloride 98 (98-107) mmol/L Carbon Dioxide 30 (21-32) mmol/L Anion Gap 7 (3-11) BUN 37 H (6-23) mg/dl Creatinine 1.78 H (0.6-1.4) mg/dl Est Cr Clr Drug Dosing Not Reportable eGFR 38.81 BUN/Creatinine Ratio 20.8 H (10-20) Glucose 100 H (70-99(Fasting)) mg/dl Calcium 8.7 (8.6-10.3) mg/dl Total Bilirubin 1.4 H (0.2-1.0) mg/dl AST 41 H (13-39) U/L ALT 29 (7-52) U/L Alkaline Phosphatase 135 H (34-104) U/L Troponin I High Sens 48.0 H (0-20) pg/ml Total Protein 7.5 (6.0-8.3) gm/dl Albumin 3.4 (3.4-5.0) gm/dl Globulin 4.1 H (2.5-4.0) gm/dl Albumin/Globulin Ratio 0.8 L (0.9-2) Administered Medications Furosemide (Furosemide 40 Mg/4 Ml Vial) 40 mg IV BID17 DESIREE Stop: 12/22/24 16:59 Last Admin: 11/22/24 16:26 Dose: 40 mg Documented By: ANT Heparin Sodium (Porcine) (Heparin Sod 5,000 Unit/0.5 Ml Vial) 5,000 units SQ Q8 ON LICENSE OF [facility] Stop: 12/22/24 13:59 Last Admin: 11/22/24 15:51 Dose: Not Given Documented By: ANT Discontinued Medications Furosemide (Furosemide 40 Mg/4 Ml Vial) 40 mg IV ONE ONE Stop: 11/22/24 13:00 Last Admin: 11/22/24 13:28 Dose: 40 mg Documented By: MMF Imaging Data Radiologist's Impression: Chest X-Ray 11/22/24 11:33 XR chest 1V portable CLINICAL HISTORY: low oxygen saturation/weight gain/lower edema COMPARISON STUDY: 09/12/2024 FINDINGS: Stable cardiac valve repair. Stable cardiomegaly with pulmonary vascular congestion. Stable diffuse pulmonary interstitial prominence. Stable minimal blunting of the costophrenic angles. No pneumothorax. IMPRESSION: Stable exam with findings of CHF, mild pulmonary edema, and trace pleural effusions. ACT 112: Negative or not required by law. Electronically signed by: Jack Dumont M.D. 11/22/2024 12:22 PM Discharge Plan Visit Data Chief Complaint: Illness ED Provider: Buck Schmitt Discharge Problem: Acute hypoxemic respiratory failure, COPD (chronic obstructive pulmonary disease), Acute exacerbation of congestive heart failure Patient Disposition: Admitted As Inpatient Condition: Good Discharge Instructions Interventions: ED Discharge Assessment Last Done: 11/22/24 17:18 Discharge Problem: COPD (chronic obstructive pulmonary disease) Qualifiers: COPD type: unspecified COPD Qualified Code(s): J44.9 - Chronic obstructive pulmonary disease, unspecified Acute exacerbation of congestive heart failure Qualifiers: Heart failure type: unspecified Qualified Code(s): I50.9 - Heart failure, unspecified
[2024-11-22 12:38] LABS: Acanthocytes 1+; Immature Granulocytes # (auto) 0.03 K/uL (0.01-0.20); Immature Granulocytes % (auto) 0.4 %; Polychromasia 1+
[2024-11-22] MEDS: FUROSEMIDE 40 MG/4 ML VIAL IV ONE (13:28)
--- NOTE | 2024-11-22 13:29 | History & Physical Report ---
Date of Service November 22, 2024 Assessment & Plan (1) Hypoxia: (2) Ambulatory dysfunction: (3) CHF exacerbation: Plan 79 male extensive PMH pulmonary fibrosis emphysema pulmonary hypertension pneumonia in the past COPD smoking ambulatory dysfunction [place] chronic back pain spinal stenosis hypothyroidism diastolic CHF multifocal atrial tachycardia PAF status post bioprosthetic AVR thoracic ascending aneurysm CAD hypertension hyperlipidemia carotid artery stenosis chronic hyponatremia who was sent from PCPs office For recent worsening shortness of breath orthopnea lower extremity edema generalized weakness. Acute CHF exacerbation CHF protocol orders IV Lasix 40 twice daily GDMT Trend TNI's TTE TFTs Acute hypoxic respiratory failure secondary to above Wean O2 sat goal 88-94 Cardiorenal RUSSELL Avoid nephrotoxic meds Generalized weakness/ambulatory dysfunction Fall precautions PT OT DVT prophylaxis Disposition admission to telemetry History of Present Illness Chief Complaint: Dyspnea Primary Care Provider: [facility], III, [facility] 79 male extensive PMH pulmonary fibrosis emphysema pulmonary hypertension pn [place] in the past COPD smoking ambulatory dysfunction Falls chronic back pain spinal stenosis hypothyroidism diastolic CHF multifocal atrial tachycardia PAF status post bioprosthetic AVR thoracic ascending aneurysm CAD hypertension hyperlipidemia carotid artery stenosis chronic hyponatremia who was sent from PCPs office For recent worsening shortness of breath orthopnea lower extremity edema generalized weakness. No chest pain nausea lightheadedness or other ischemic, cardiopulmonary or any other symptoms. No recent illness. He otherwise is doing okay. Discussed with ED physician lasix given in ED awaiting completion of home med rec (not reviewed at time of this writing) Allergies Allergy/AdvReac Type Severity Reaction Status Date / Time bee venom protein (honey bee) Allergy Severe swelling Verified 11/22/24 13:52 pepper (genus Capsicum) Allergy Mild TOBASCO Verified 11/22/24 13:52 SAUCE - TOO MUCH OF WILL CAUSE HIVES ibuprofen AdvReac Intermediate LARGE Verified 11/22/24 13:52 DOSES CAUSE ITCHING AND BLISTERS Home Medications Medication Instructions Recorded Confirmed Type mecobalamin (vitamin B12) 1,000 1,000 mcg sublingual QAM 09/30/21 11/22/24 History mcg disintegrating tablet,sublingual tamsulosin 0.4 mg capsule 0.4 mg PO QAM #90 caps 01/13/24 11/22/24 Rx apixaban 5 mg tablet 5 mg PO BID #180 tabs 03/07/24 11/22/24 Rx fluticasone 250 mcg-salmeterol 50 1 ea inhalation BID 04/07/24 11/22/24 History mcg/dose blistr powdr for inhalation Wheeled Walker #1 ea 06/14/24 11/22/24 Rx atorvastatin 40 mg tablet 40 mg PO QAM #90 tabs 09/28/24 11/22/24 Rx Portable Oxygen #1 ea 10/04/24 11/22/24 Rx silver sulfadiazine 1 % topical 1 applic topical BID #400 grams 10/04/24 11/22/24 Rx cream (Silvadene) Oxygen Home #1 ea 10/05/24 11/22/24 Rx levothyroxine 88 mcg tablet 88 mcg PO DAILY #30 tabs 11/07/24 11/22/24 Rx (Synthroid) amiodarone 200 mg tablet 200 mg PO QAM 11/22/24 11/22/24 History furosemide 40 mg tablet 60 mg PO DAILY PRN weight gain, 11/22/24 11/22/24 History edema, shortness of breath triamcinolone acetonide 0.1 % 1 applic topical DAILY PRN Flare 11/22/24 11/22/24 History topical ointment Past Med/Surg History Problem List (Updated 11/22/24 @ 10:48 by YAMINI Keenan III) Hypoxia (Acute) Skin tear of left upper extremity (Acute) Ambulatory dysfunction (Chronic) POLST (Physician Orders for Life-Sustaining Treatment) Encounter for assessment of healthcare decision-making capacity Counseling regarding end of life decision making Counseling regarding advanced directives and goals of care Palliative care by specialist 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 Hypercholesterolemia (Chronic) Hypertension (Chronic) COPD (chronic obstructive pulmonary disease) (Chronic) Medical History (Updated 11/22/24 @ 10:48 by YAMINI Keenan III) Acute heart failure with preserved ejection fraction (HFpEF, >= 50%) Fall Compression fracture of T8 vertebra CHF exacerbation Acute on chronic respiratory failure with hypoxia Acute kidney injury Non-ST elevation [place] (NSTEMI) Fall from standing Acute heart failure with mildly reduced ejection fraction (HFmrEF, 41-49%) Carotid artery stenosis s/p R CEA 09/16/18 Congenital bicuspid aortic valve s/p AVR 2010 LVH (left ventricular hypertrophy) due to hypertensive disease Chronic hyponatremia Radiculopathy of lumbar region Spinal stenosis Chronic back pain Hypertension Chronic obstructive pulmonary disease MILD, DENIES FLARE UPS. FOLLOWS WITH PCP Surgical History History of lumbar fusion H/O carotid endarterectomy (11/04/18) H/O carotid endarterectomy Fusion of spine Hx of cardiac catheterization Hx of bilateral cataract extraction History of total hip arthroplasty History of carpal tunnel release History of tonsillectomy Family History Brother Prostate cancer Father Myocardial infarction Other Cancer No family history of adverse response to anesthesia No family history of bleeding disorder Denies family history of Ovarian cancer Breast cancer Colorectal cancer Social History Smoking Status: Current every day smoker Tobacco Type: Cigarettes Age Started Using Tobacco: 18; packs per day: 0.5; Cigarettes Per Day: 3/4 pack; Second Hand Exposure: Yes; Do You Dip or Chew Tobacco: No; Hx Alcohol Use: Yes Alcohol type: hard liquor Alcohol Intake Frequency: 4 or More x per/Week Hx Substance Use: No Preferred Language: Belarusian Communication Ability: Effective Visual Impairment: No Limitations Hearing Ability: Use of Hearing Aid Customer Greeter Required: No Beliefs That Will Affect Care: None marital status: Current Living Situation: Spouse current occupational status: retired 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 Feels Safe at Home: Yes Childhood Exposure to Second-Hand Smoke: Yes Diet: regular Diet Comment: regular Dental Care, Regularly: No Physical Activity Frequency: Does not Exercise Seatbelt Use: always Sunscreen Use: No Assistive Devices: Cane, Stair Lift and Walker Review of Systems Review of Systems: All systems reviewed & are unremarkable except as noted in HPI & below Physical Exam Constitutional: WD/WN, vitals as above Eyes: + anicteric sclerae; no conjunctival abn ormality ENMT: external ear and nose normal, oropharynx normal Neck: trachea midline, no thyromegaly Respiratory: no respiratory distress Auscultation: + diminished lung sounds (Bilateral lower lobes) and + rhonchi; no crackles and no wheezes Cardiovascular: Rate/Rhythm: regular rate and + irregularly irregular Heart Sounds: + murmur (Grade 3/6 right sternal border) Extremities: + edema (1+ lower extremity edema) Gastrointestinal (Abdomen): normal bowel sounds, soft, nontender, no hepatosplenomegaly Musculoskeletal: Extremities: + abnormal strength (Bilateral lower extremity strength 4/5. ); no cyanosis and no clubbing Gait: + abnormal gait (Ambulating with a wheeled walker) Skin: no rashes, warm and dry Psychiatric: A+Ox3, euthymic affect Lymphatic: no cervical or axillary lymphadenopathy Results & Data Results & Data Vital Signs (Past 12 Hours) Vital Signs Temp Pulse Resp BP Pulse Ox O2 Del Method O2 Flow Rate 11/22/24 11:26 36.7 C 68 20 113/66 98 Nasal Cannula 3 Laboratory Results Abnormal Labs 11/22/24 11:46 RBC 4.11 L Hgb 12.6 L Hct 38.8 L RDW Std Deviation 57.3 H RDW Coeff of Telma 16.7 H Lymph # (Auto) 0.84 L [place] # (Auto) 0.89 H Sodium 135 L BUN 37 H Creatinine 1.78 H BUN/Creatinine Ratio 20.8 H Glucose 100 H Total Bilirubin 1.4 H AST 41 H Alkaline Phosphatase 135 H Globulin 4.1 H Albumin/Globulin Ratio 0.8 L Diagnostic Findings Chest X-Ray 11/22/24 11:33 XR chest 1V portable CLINICAL HISTORY: low oxygen saturation/weight gain/lower edema COMPARISON STUDY: 09/12/2024 FINDINGS: Stable cardiac valve repair. Stable cardiomegaly with pulmonary vascular congestion. Stable diffuse pulmonary interstitial prominence. Stable minimal blunting of the costophrenic angles. No pneumothorax. IMPRESSION: Stable exam with findings of CHF, mild pulmonary edema, and trace pleural effusions. ACT 112: Negative or not required by law. Electronically signed by: Jack Dumont M.D. 11/22/2024 12:22 PM PG Care Time/CCT Total # of Minutes Spent Total Time Spent with Patient: Total time spent is greater than 50% in coordination of care (as documented) at patient's floor/unit and/or counseling patient: Coding Level of Care Code 44534 INT INP/OBS CARE 2/55MIN Diagnoses Hypoxia R09.02 Ambulatory dysfunction R26.2 CHF exacerbation I50.9
[2024-11-22] MEDS ORDERED: ALUMINUM/MAGNESIUM SUSP 30 ML UDC PO PRN (13:51)
[2024-11-22] MEDS ORDERED: ACETAMINOPHEN 325 MG TAB PO PRN (13:51)
[2024-11-22] MEDS ORDERED: ONDANSETRON INJ 2 MG/ML 2 ML VIAL IV PRN (13:51)
[2024-11-22] MEDS ORDERED: MAGNESIUM HYDROXIDE SUSP 30 ML UDC PO PRN (13:51)
[2024-11-22 14:19] LABS: Hematocrit (blood only) 37.7 % (42.0-52.0); Hemoglobin 11.9 g/dl (14.0-18.0); Mean Corpuscular Hemoglobin 29.8 pg (25.0-34.0); Mean Corpuscular Volume 94.3 fL (80.0-100.0); Platelet Count 137 K/uL (130-400); RDW Standard Deviation 56.5 fL (36.4-46.3); Red Blood Count 4.00 M/uL (4.70-6.10); White Blood Count 6.43 K/ul (4.8-10.8)
[2024-11-22 14:33] LABS: Alanine Aminotransferase 28 U/L (7-52); Albumin Globulin Ratio 0.8 (0.9-2); Alkaline Phosphatase 128 U/L (34-104); Anion Gap 7 (3-11); Bilirubin,Total 1.4 mg/dl (0.2-1.0); Blood Urea Nitrogen 37 mg/dl (6-23); Calcium 8.5 mg/dl (8.6-10.3); Carbon Dioxide 30 mmol/L (21-32); Chloride 98 mmol/L (98-107); Globulin 4.0 gm/dl (2.5-4.0); Glucose 99 mg/dl (70-99(Fasting)); Potassium 4.0 mmol/L (3.5-5.1); Sodium 135 mmol/L (136-145); Total Protein 7.0 gm/dl (6.0-8.3)
[2024-11-22 14:44] LABS: INR 1.3 (0.9-1.1); Partial Thromboplastin Time 40 Seconds (21-31); Prothrombin Time 14.0 Seconds (9.0-12.0)
[2024-11-22 14:49] LABS: Thyroid Stimulating Hormone 3.535 uIu/ml (0.300-4.500)
[2024-11-22] MEDS: HEPARIN SOD 5,000 UNIT/0.5 ML VIAL SQ SCH (15:51)
[2024-11-22] MEDS: FUROSEMIDE 40 MG/4 ML VIAL IV SCH (16:26)
--- NOTE | 2024-11-22 17:47 | XCELERA ---
[id number]
[2024-11-23 07:29] LABS: Hematocrit (blood only) 33.0 % (42.0-52.0); Hemoglobin 10.6 g/dl (14.0-18.0); Mean Corpuscular Hemoglobin 29.6 pg (25.0-34.0); Mean Corpuscular Volume 92.2 fL (80.0-100.0); Platelet Count 136 K/uL (130-400); RDW Standard Deviation 56.3 fL (36.4-46.3); Red Blood Count 3.58 M/uL (4.70-6.10); White Blood Count 6.72 K/ul (4.8-10.8)
[2024-11-23 08:01] LABS: Alanine Aminotransferase 20.0 U/L (7-52); Albumin Globulin Ratio 0.8 (0.9-2); Alkaline Phosphatase 108.0 U/L (34-104); Anion Gap 5.0 (3-11); Bilirubin,Total 1.0 mg/dl (0.2-1.0); Blood Urea Nitrogen 32.0 mg/dl (6-23); Calcium 8.1 mg/dl (8.6-10.3); Carbon Dioxide 31.0 mmol/L (21-32); Chloride 101.0 mmol/L (98-107); Creatinine Clr Calc Pharmacy 39.2 ml/min; Globulin 3.2 gm/dl (2.5-4.0); Glucose 72.0 mg/dl (70-99(Fasting)); Potassium 3.6 mmol/L (3.5-5.1); Sodium 137.0 mmol/L (136-145); Total Protein 5.9 gm/dl (6.0-8.3)
--- NOTE | 2024-11-23 09:25 | Hospitalist Progress Note ---
Date of Service November 23, 2024 Assessment & Plan (1) Hypoxia: (2) Ambulatory dysfunction: (3) CHF exacerbation: Plan 79 male extensive PMH pulmonary fibrosis on 3L 02 emphysema pulmonary hypertension pneumonia in the past COPD smoking ambulatory dysfunction Falls chronic back pain spinal stenosis hypothyroidism diastolic CHF multifocal atrial tachycardia PAF status post bioprosthetic AVR thoracic ascending aneurysm CAD hypertension hyperlipidemia carotid artery stenosis chronic hyponatremia who was sent from PCPs office For recent worsening shortness of breath orthopnea lower extremity edema generalized weakness. Acute CHF exacerbation CHF protocol orders IV Lasix 40 twice daily TNI is flat TFTs WNL TTE Normal EF, moderate LVH, severely dilated RV with moderate RV dysfunction, well-seated bioprosthetic aortic valve, moderate TR, borderline pulmonary hypertension, borderline dilated ascending aorta. Compared to prior study RV dilation has increased and now severe GDMT. Borderline bradycardia precludes beta-karol at this time.. Soft BP p recludes JAIRO inhibitor at this time. Cardiology consultation Acute on chronic hypoxic respiratory failure secondary to above Wean O2 sat goal 88-94 Cardiorenal RUSSELL stable Avoid nephrotoxic meds Atrial fibrillation Amiodarone eliquis Hypothyroidism Levothyroxine Generalized weakness/ambulatory dysfunction/falls Fall precautions PT OT DVT prophylaxis Full code Disposition discharge home in 1-2 days Admission and Anticipated Discharge Date Admission Date: November 22, 2024 Subjective Feels better breathing improved no orthopnea. No chest pain nausea lightheadedness or any other symptoms. I's and O's -1.2 L. Weight down from 77 to 72 kg. Discussed with RN Patient reportedly on 3 L at home? On 4 L here at this time satting around 88% Review of Systems Review of Systems: All systems reviewed & are unremarkable except as noted in HPI & below Physical Exam Constitutional: WD/WN, vitals as above Eyes: + anicteric sclerae; no conjunctival abn ormality ENMT: external ear and nose normal, oropharynx normal Neck: trachea midline, no thyromegaly Respiratory: no respiratory distress Auscultation: + diminished lung sounds (Bilateral lower lobes) and + rhonchi; no crackles and no wheezes Cardiovascular: Rate/Rhythm: regular rate and + irregularly irregular Heart Sounds: + murmur (Grade 3/6 right sternal border) Extremities: + edema (1+ lower extremity edema) Gastrointestinal (Abdomen): normal bowel sounds, soft, nontender, no hepatosplenomegaly Musculoskeletal: Extremities: + abnormal strength (Bilateral lower extremity strength 4/5. ); no cyanosis and no clubbing Gait: + abnormal gait (Ambulating with a wheeled walker) Skin: no rashes, warm and dry Psychiatric: A+Ox3, euthymic affect Lymphatic: no cervical or axillary lymphadenopathy Results & Data Results & Data Vital Signs (Past 12 Hours) Vital Signs Temp Pulse Pulse Resp BP Pulse Ox O2 Del Method 11/23/24 08:00 36.6 C 70 18 104/63 92 Nasal Cannula 11/23/24 03:56 36.6 C 64 17 98/60 L 91 Room Air 11/22/24 23:14 33.7 C L 64 18 110/70 91 Nasal Cannula 11/22/24 21:42 58 L O2 Flow Rate 11/23/24 08:00 4 11/23/24 03:56 11/22/24 23:14 4 11/22/24 21:42 Laboratory Results Abnormal Labs 11/22/24 11/22/24 11/22/24 11:46 13:59 21:20 RBC 4.11 L 4.00 L Hgb 12.6 L 11.9 L Hct 38.8 L 37.7 L MCHC 31.6 L RDW Std Deviation 57.3 H 56.5 H RDW Coeff of Telma 16.7 H 16.7 H Lymph # (Auto) 0.84 L [place] # (Auto) 0.89 H PT 14.0 H INR 1.3 H APTT 40 H Sodium 135 L 135 L BUN 37 H 37 H Creatinine 1.78 H 1.69 H BUN/Creatinine Ratio 20.8 H 21.9 H Glucose 100 H Calcium 8.5 L Total Bilirubin 1.4 H 1.4 H AST 41 H Alkaline Phosphatase 135 H 128 H Troponin I High Sens 48.0 H 47.5 H 50.9 H* B-Natriuretic Peptide 1250 H Total Protein Albumin 3.0 L Globulin 4.1 H Albumin/Globulin Ratio 0.8 L 0.8 L 11/23/24 05:26 RBC 3.58 L Hgb 10.6 L Hct 33.0 L MCHC RDW Std Deviation 56.3 H RDW Coeff of Telma 16.8 H Lymph # (Auto) [place] # (Auto) PT INR APTT Sodium BUN 32 H Creatinine 1.58 H BUN/Creatinine Ratio 20.3 H Glucose Calcium 8.1 L Total Bilirubin AST Alkaline Phosphatase 108 H Troponin I High Sens 55.4 H* B-Natriuretic Peptide Total Protein 5.9 L Albumin 2.7 L Globulin Albumin/Globulin Ratio 0.8 L Diagnostic Findings Chest X-Ray 11/22/24 11:33 XR chest 1V portable CLINICAL HISTORY: low oxygen saturation/weight gain/lower edema COMPARISON STUDY: 09/12/2024 FINDINGS: Stable cardiac valve repair. Stable cardiomegaly with pulmonary vascular congestion. Stable diffuse pulmonary interstitial prominence. Stable minimal blunting of the costophrenic angles. No pneumothorax. IMPRESSION: Stable exam with findings of CHF, mild pulmonary edema, and trace pleural effusions. ACT 112: Negative or not required by law. Electronically signed by: Jack Dumont M.D. 11/22/2024 12:22 PM PG Care Time/CCT Total # of Minutes Spent Total Time Spent with Patient: Total time spent is greater than 50% in coordination of care (as documented) at patient's floor/unit and/or counseling patient: Coding Level of Care Code 63036 SUB INP/OBS CARE 2/35MIN Diagnoses Hypoxia R09.02 Ambulatory dysfunction R26.2 CHF exacerbation I50.9
[2024-11-23] MEDS ORDERED: FUROSEMIDE 20 MG TAB PO PRN (09:27)
[2024-11-23] MEDS ORDERED: TRIAMCINOLONE ACET 0.1% OINT 15 GM TUBE TOP PRN (09:27)
[2024-11-23] MEDS: FLUTICASONE/VILANTEROL 200/25MCG 14 PUFFS/INHALER INH SCH (10:39)
[2024-11-23] MEDS: LEVOTHYROXINE SODIUM 88 MCG TABLET PO SCH (10:40)
[2024-11-23] MEDS: CYANOCOBALAMIN (B-12) 500 MCG TABLET PO SCH (10:40)
[2024-11-23] MEDS: TAMSULOSIN HCL 0.4 MG CAP PO SCH (10:40)
[2024-11-23] MEDS: ATORVASTATIN 40 MG TAB PO SCH (10:41)
[2024-11-23] MEDS: SILVER SULFADIAZINE 1% CR 50 GM JAR/TUBE TOP SCH (10:41)
[2024-11-23] MEDS: APIXABAN 5 MG TABLET PO SCH (10:41)
[2024-11-23] MEDS: AMIODARONE 200 MG TAB PO SCH (10:41)
--- NOTE | 2024-11-23 14:54 | Cardiology Consultation ---
Date of Consultation November 23, 2024 Assessment & Plan (1) Heart failure with improved ejection fraction (HFimpEF): (2) CAD (coronary artery disease): (3) PAF (paroxysmal atrial fibrillation): (4) S/P aortic valve replacement with bioprosthetic valve: (5) Tricuspid regurgitation: Plan ASSESSMENT/PLAN: 1. Heart failure with improved EF: Acute on chronic. Still has significant JVD. Renal function improving with diuresis. Continue current diuretic regimen. Strict I's and O's and daily weights. Low-sodium diet, less than 2000 mg daily. If no contraindication, consider SGLT2 inhibitor after diuresis. He had been on Farxiga. Spironolactone discontinued in 2024 following hospitalization due to hyperkalemia. Has been seen in the heart failure program. 2. Right heart failure: RV dysfunction noted on echo. Has significant pulmonary issues. Monitor renal function closely while diuresing. 3. Bicuspid Aortic valve s/p Bioprosthetic aortic valve: Mildly elevated transvalvular gradient. Continue to monitor in the outpatient setting. Recommend annual echo given greater than 10 years from implantation. SBE prophylaxis for dental procedures. 4. Paroxysmal atrial fibrillation: On amiodarone and anticoagulation therapy. Monitor TSH and transaminase levels while on amiodarone. Sinus rhythm here. 5. Cardiomyopathy: LV systolic function has normalized. Had been on spironolactone which was discontinued following August 2024 hospitalization due to hyperkalemia. Had also been on Farxiga and metoprolol succinate, both of which are no longer on his home medication list. 6. Tricuspid regurgitation: Nonsevere. Continue to monitor in the outpatient setting. 7. CAD: Nonobstructive in the past per records. Continue risk factor modification. 8. Shortness of breath: Likely multifactorial given heart failure and his pulmonary issues which include pulmonary fibrosis, emphysema/COPD per records. 9. Disposition: Cardiology will continue to follow. Recommend close follow-up with his primary lawn and tree service spray supervisor, Dr. Rivas, on discharge, as well as heart failure program with Alfreda Burch. Thank you for allowing me to participate in the care of your patient. Please call for any other questions or concerns. Sincerely, Mars Hastings M.D. History of Present Illness Reason for Consultation: CHF Requesting Physician: Belle Stevenson MD Attending Physician: Belle Stevenson MD History of Present Illness Mr. Ibrahim is a very pleasant 79-year-old gentleman with a history significant for heart failure with improved EF, paroxysmal atrial fibrillation, bioprosthetic AVR (2011), dilated ascending aorta, nonobstructive CAD (2011), hypertension, dyslipidemia, bilateral endarterectomy (2018), pulmonary fibrosis, emphysema, COPD, and RV dysfunction. His primary lawn and tree service spray supervisor is Dr. Rivas. He was admitted on 11/22/2024 after being advised by his PCP to go to the ER for hypoxia. He apparently slid out of his chair at home on 11/20/2024 and his called 911. He refused to go to the ER when EMS arrived. He reported a 6 to 10 pound weight gain over the past several weeks. His PCP note reports that he had shortness of breath however today he states that he has chronic shortness of breath, specifically dyspnea on exertion which he believes is stable. He also has chronic lower extremity edema, once again believing it has been stable. He denies orthopnea. He does not maintain a low-sodium diet. He adds salt to eggs and some fruit, and otherwise does not monitor sodium consumption in the foods that he does consume. He uses Lasix 40 mg daily and on occasion uses an additional 20 mg. He does not use extra Lasix often. He denies chest pain, syncope, near syncope, palpitations, melena, hematochezia, hematuria, or other bleeding. While here, he has received 40 mg of IV Lasix twice daily. He has not noted any change in how he feels. He is rather sedentary. He elevates his legs while he sits in the recliner. Review of systems: As above. Family history: No known premature CAD. Social history: Smokes 0.75 pack/day and has smoked up to 1 pack/day in the past. Started smoking at the age of 18. 1-2 shots of alcohol per day. Lives at home with his . Has 5 children (2 biologic daughters, 2 stepsons, 1 stepdaughter). He was unaccompanied. Allergies Allergy/AdvReac Type Severity Reaction Status Date / Time bee venom protein (honey bee) Allergy Severe swelling Verified 11/22/24 13:52 pepper (genus Capsicum) Allergy Mild TOBASCO Verified 11/22/24 13:52 SAUCE - TOO MUCH OF WILL CAUSE HIVES ibuprofen AdvReac Intermediate LARGE Verified 11/22/24 13:52 DOSES CAUSE ITCHING AND BLISTERS Home Medications Medication Instructions Recorded Confirmed Type mecobalamin (vitamin B12) 1,000 1,000 mcg sublingual QAM 09/30/21 11/22/24 History mcg disintegrating tablet,sublingual tamsulosin 0.4 mg capsule 0.4 mg PO QAM #90 caps 01/13/24 11/22/24 Rx apixaban 5 mg tablet 5 mg PO BID #180 tabs 03/07/24 11/22/24 Rx fluticasone 250 mcg-salmeterol 50 1 ea inhalation BID 04/07/24 11/22/24 History mcg/dose blistr powdr for inhalation Wheeled Walker #1 ea 06/14/24 11/22/24 Rx atorvastatin 40 mg tablet 40 mg PO QAM #90 tabs 09/28/24 11/22/24 Rx Portable Oxygen #1 ea 10/04/24 11/22/24 Rx silver sulfadiazine 1 % topical 1 applic topical BID #400 grams 10/04/24 11/22/24 Rx cream (Silvadene) Oxygen Home #1 ea 10/05/24 11/22/24 Rx levothyroxine 88 mcg tablet 88 mcg PO DAILY #30 tabs 11/07/24 11/22/24 Rx (Synthroid) amiodarone 200 mg tablet 200 mg PO QAM 11/22/24 11/22/24 History furosemide 40 mg tablet 60 mg PO DAILY PRN weight gain, 11/22/24 11/22/24 History edema, shortness of breath triamcinolone acetonide 0.1 % 1 applic topical DAILY PRN Flare 11/22/24 11/22/24 History topical ointment Problem List (Updated 11/23/24 @ 15:11 by Devon Hastings MD) Tricuspid regurgitation Heart failure with improved ejection fraction (HFimpEF) Acute exacerbation of congestive heart failure (Acute) Acute hypoxemic respiratory failure (Acute) Hypoxia (Acute) Skin tear of left upper extremity (Acute) Ambulatory dysfunction (Chronic) POLST (Physician Orders for Life-Sustaining Treatment) Encounter for assessment of healthcare decision-making capacity Counseling regarding end of life decision making Counseling regarding advanced directives and goals of care Palliative care by specialist 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 Hypercholesterolemia (Chronic) Hypertension (Chronic) COPD (chronic obstructive pulmonary disease) (Chronic) Patient History Medical History Acute heart failure with preserved ejection fraction (HFpEF, >= 50%) Fall Compression fracture of T8 vertebra CHF exacerbation Acute on chronic respiratory failure with hypoxia Acute kidney injury Non-ST elevation PR (NSTEMI) Fall from standing Acute heart failure with mildly reduced ejection fraction (HFmrEF, 41-49%) Carotid artery stenosis s/p R CEA 09/16/18 Congenital bicuspid aortic valve s/p AVR 2010 LVH (left ventricular hypertrophy) due to hypertensive disease Chronic hyponatremia Radiculopathy of lumbar region Spinal stenosis Chronic back pain Hypertension Chronic obstructive pulmonary disease MILD, DENIES FLARE UPS. FOLLOWS WITH PCP Surgical History History of lumbar fusion H/O carotid endarterectomy (11/04/18) Left Carotid Endarterectomy with Bovine Patch(Left) - Mariano Laboy MD 11/04/18 H/O carotid endarterectomy 09/16/18 [facility] Fusion of spine LUMBAR FUSION Hx of cardiac catheterization no stents Hx of bilateral cataract extraction History of total hip arthroplasty BILATERAL History of carpal tunnel release RIGHT History of tonsillectomy Family History Brother Prostate cancer Father Myocardial infarction Other Cancer No family history of adverse response to anesthesia No family history of bleeding disorder Denies family history of Ovarian cancer Breast cancer Colorectal cancer Social History Smoking Status: Current every day smoker Tobacco Type: Cigarettes Age Started Using Tobacco: 18; packs per day: 0.5; Cigarettes Per Day: 15; Second Hand Exposure: Yes; Do You Dip or Chew Tobacco: No; Tobacco Cessation Education Requested by Patient: No Hx Alcohol Use: Yes Alcohol type: hard liquor Alcohol Intake Frequency: 4 or More x per/Week Hx Substance Use: No Preferred Language: Maltese Communication Ability: Effective Visual Impairment: No Limitations Hearing Ability: Use of Hearing Aid Sheet Rock Hanger Required: No Beliefs That Will Affect Care: None marital status: Current Living Situation: Spouse current occupational status: retired 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 Alert and oriented. HEENT: Anicteric sclera. Neck: JVD to the mandible. Hepatojugular reflux noted. Bilateral carotid bruit versus radiation of cardiac murmur. Normal carotid upstrokes bilaterally. Cardiac: Regular. Normal S1-S2. 2/6 mid peaking systolic ejection murmur. Pulmonary: Decreased breath sounds bilaterally but otherwise clear. Abdomen: Soft, nontender, nondistended, with normoactive bowel sounds. No bruits noted. Extremities: 2+ radial pulses bilaterally. 2+ dorsalis pedis pulses bilaterally. Trace bilateral lower extremity edema. No cyanosis. Results & Data Vital Signs (Past 12 Hours) Vital Signs Temp Pulse Pulse Resp BP Pulse Ox O2 Del Method 11/23/24 14:02 67 11/23/24 11:50 36.9 C 61 20 93/57 L 11/23/24 11:03 61 11/23/24 08:00 Nasal Cannula 11/23/24 08:00 36.6 C 70 18 104/63 92 Nasal Cannula 11/23/24 03:56 36.6 C 64 17 98/60 L 91 Room Air O2 Flow Rate 11/23/24 14:02 11/23/24 11:50 11/23/24 11:03 11/23/24 08:00 3 11/23/24 08:00 4 11/23/24 03:56 Intake & Output 11/21/24 11/22/24 11/23/24 11/24/24 06:59 06:59 06:59 06:59 Intake Total 240 / 240 240 / 240 Output Total 1475 / 1475 701 / 701 Balance -1235 / -1235 -461 / -461 Weight 160 lb 4.417 oz Laboratory Results Laboratory Results - last 24 hr 11/22/24 11/23/24 11/23/24 21:20 05:26 14:17 WBC 6.72 RBC 3.58 L Hgb 10.6 L Hct 33.0 L MCV 92.2 MCH 29.6 MCHC 32.1 RDW Std Deviation 56.3 H RDW Coeff of Telma 16.8 H Plt Count 136 MPV 11.2 Sodium 137 Potassium 3.6 Chloride 101 Carbon Dioxide 31 Anion Gap 5 BUN 32 H Creatinine 1.58 H Est Cr Clr Drug Dosing 39.2 eGFR 44.77 BUN/Creatinine Ratio 20.3 H Glucose 72 Calcium 8.1 L Total Bilirubin 1.0 AST 29 ALT 20 Alkaline Phosphatase 108 H Troponin I High Sens 50.9 H* 55.4 H* 47.7 H Total Protein 5.9 L Albumin 2.7 L Globulin 3.2 Albumin/Globulin Ratio 0.8 L Diagnostic Findings Labs reviewed and notable for mildly elevated high-sensitivity troponin, peaking at 55; elevated BNP; normal potassium, abnormal renal function, mildly above baseline but trending down from presentation, chronic anemia. Chest x-ray 11/22/2024: Diffuse pulmonary interstitial prominence per radiology. Pulmonary vascular congestion. History and physical report reviewed. Echo 11/22/2024: Normal LV size, wall motion. EF 60-65%. Severely dilated RV with moderately reduced systolic function. Bioprosthetic aortic valve with mildly elevated transvalvular gradient (MG 26; PV 3.3). Mild MR. Moderate TR. RVSP 35-40. Borderline dilated ascending aorta; 3.9 cm. ECG personally reviewed from 11/22/2024: Sinus rhythm 65 bpm. RBBB. Lateral T wave abnormality, similar to 09/12/2024 T waves. Medications Administered Current Inpatient Medications Acetaminophen (Acetaminophen 325 Mg Tab) 650 mg PO Q4H PRN PRN Reason: Pain or Fever Stop: 12/22/24 13:50 Al Hydrox/Mg Hydrox/Simethicone (Aluminum/Magnesium Susp 30 Ml Udc) 15 ml PO Q4H PRN PRN Reason: Dyspepsia Stop: 12/22/24 13:50 Amiodarone HCl (Amiodarone 200 Mg Tab) 200 mg PO QAM [facility] Stop: 12/23/24 09:29 Last Admin: 11/23/24 10:41 Dose: 200 mg Apixaban (Apixaban 5 Mg Tablet) 5 mg PO BID DESIREE Stop: 12/23/24 09:29 Last Admin: 11/23/24 10:41 Dose: 5 mg Atorvastatin Calcium (Atorvastatin 40 Mg Tab) 40 mg PO QAM [facility] Stop: 12/23/24 09:29 Last Admin: 11/23/24 10:41 Dose: 40 mg Cyanocobalamin (Cyanocobalamin (B-12) 500 Mcg Tablet) 1,000 mcg PO QAM [facility] Stop: 12/23/24 09:44 Last Admin: 11/23/24 10:40 Dose: 1,000 mcg Fluticasone/Vilanterol (Fluticasone/Vilanterol 200/25mcg 14 Puffs/Inhaler) 1 puffs INH DAILY [facility] Stop: 12/23/24 09:44 Last Admin: 11/23/24 10:39 Dose: Not Given Furosemide (Furosemide 40 Mg/4 Ml Vial) 40 mg IV BID17 [facility] Stop: 12/22/24 16:59 Last Admin: 11/23/24 10:42 Dose: 40 mg Furosemide (Furosemide 20 Mg Tab) 60 mg PO DAILY PRN PRN Reason: weight gain, edema, shortness of breath Stop: 12/23/24 09:26 Levothyroxine Sodium (Levothyroxine Sodium 88 Mcg Tablet) 88 mcg PO DAILYBB [facility] Stop: 12/23/24 09:44 Last Admin: 11/23/24 10:40 Dose: 88 mcg Magnesium Hydroxide (Magnesium Hydroxide Susp 30 Ml Udc) 30 ml PO Q12H PRN PRN Reason: Constipation Stop: 12/22/24 13:50 Ondansetron HCl (Ondansetron Inj 2 Mg/Ml 2 Ml Vial) 4 mg IV Q6H PRN PRN Reason: Nausea Stop: 12/22/24 13:50 Silver Sulfadiazine (Silver Sulfadiazine 1% Cr 50 Gm Jar/Tube) 1 appln TOP BID [facility] Stop: 12/23/24 09:29 Last Admin: 11/23/24 10:41 Dose: Not Given Tamsulosin HCl (Tamsulosin Hcl 0.4 Mg Cap) 0.4 mg PO QAM [facility] Stop: 12/23/24 09:29 Last Admin: 11/23/24 10:40 Dose: 0.4 mg Triamcinolone Acetonide (Triamcinolone Acet 0.1% Oint 15 Gm Tube) 1 appln TOP DAILY PRN PRN Reason: Flare Stop: 12/23/24 09:26 PG Care Time/CCT Total # of Minutes Spent Total Time Spent with Patient: Total time spent is greater than 50% in coordination of care (as documented) at patient's floor/unit and/or counseling patient: Coding Level of Care Code 85591 INT INP/OBS CARE 3/75MIN Diagnoses Heart failure with improved ejection fraction (HFimpEF) I50.20 Coronary artery disease involving saxman coronary artery of saxman heart without angina pectoris I25.10 Coronary Disease-Associated Artery/Lesion type: saxman artery [place] vs. transplanted heart: saxman heart Associated angina: without angina PAF (paroxysmal atrial fibrillation) I48.0 S/P aortic valve replacement with bioprosthetic valve Z95.3 Tricuspid regurgitation I07.1 (2) CAD (coronary artery disease) Coronary Disease-Associated Artery/Lesion type: saxman artery [place] vs. transplanted heart: saxman heart Associated angina: without angina Qualified Code(s): I25.10 - Atherosclerotic heart disease of saxman coronary artery without angina pectoris
[2024-11-24 08:02] VITALS: RESP 20
[2024-11-24 08:40] LABS: Hematocrit (blood only) 34.0 % (42.0-52.0); Hemoglobin 10.9 g/dl (14.0-18.0); Mean Corpuscular Hemoglobin 30.0 pg (25.0-34.0); Mean Corpuscular Volume 93.7 fL (80.0-100.0); Platelet Count 130 K/uL (130-400); RDW Standard Deviation 56.4 fL (36.4-46.3); Red Blood Count 3.63 M/uL (4.70-6.10); White Blood Count 7.45 K/ul (4.8-10.8)
[2024-11-24 08:56] LABS: Alanine Aminotransferase 23.0 U/L (7-52); Albumin Globulin Ratio 0.9 (0.9-2); Alkaline Phosphatase 109.0 U/L (34-104); Anion Gap 5.0 (3-11); Bilirubin,Total 1.0 mg/dl (0.2-1.0); Blood Urea Nitrogen 25.0 mg/dl (6-23); Calcium 8.1 mg/dl (8.6-10.3); Carbon Dioxide 30.0 mmol/L (21-32); Chloride 99.0 mmol/L (98-107); Creatinine Clr Calc Pharmacy 46.5 ml/min; Globulin 3.2 gm/dl (2.5-4.0); Glucose 117.0 mg/dl (70-99(Fasting)); Potassium 3.4 mmol/L (3.5-5.1); Sodium 134.0 mmol/L (136-145); Total Protein 6.0 gm/dl (6.0-8.3)
[2024-11-24 11:41] VITALS: PULSE 66; TEMP 98.1; O2SAT 90
[2024-11-24 14:29] VITALS: BP 116/66
--- NOTE | 2024-11-24 17:31 | Discharge Summary ---
Discharge Summary Date of Service November 24, 2024 Principal Dx & Hospital Course #1 = Principal Diagnosis (1) Hypoxia: (2) Ambulatory dysfunction: (3) CHF exacerbation: Plan 79 years old male with PMH of FULL CODE @ home, former tobacco abuse with subsequent diagnosis of chronic hypoxic respiratory failure and pulmonary fibrosis with pulmonary HNT, dependent on 3 liters/minute O2 via nasal cannula at home [id number], ambulatory dysfunction with falls, chronic back pain with spinal stenosis, hypothyroidism on levothyroxine 88ug PO daily, multifocal atrial tachycardia, PAF on amiodarone 200mg PO qam and eliquis 5mg PO bid, aortic stenosis, status post bioprosthetic AVR, PVD s/p carotid artery stenosis and thoracic ascending aneurysm, CAD, HTN, chronic biventricular systolic CHF with reduced LVEF 40% and mildly reduced RV systolic function (as noted on 10/26/2023, 8:56am TTE, CARDS Dr. Nathan Rivas) with dry baseline weight of 161-163 pounds at home, and chronic euvolemic hyponatremia with baseline Na range, 127 - 135 mmol/L (03/25/2017 - 11/24/2024), who was sent from PCPs office for recent worsening shortness of breath, orthopnea, lower extremity edema, and generalized weakness. Patient was subsequently admitted to the inpatient hospitalist service @ [facility] on 11/22/2024 with the following diagnoses: 1. Acute exacerbation of chronic biventricular systolic CHF with reduced LVEF 40% and mildly reduced RV systolic function (as noted on 10/26/2023, 8:56am TTE, CARDS Dr. Nathan Rivas) with dry baseline weight of 161-163 pounds at home. 2. Acute kidney injury with admission creatinine 1.78 mg/dL (11/22/2024, 11:46am), due to renal hypoperfusion in the setting of acute exacerbation of chronic biventricular systolic CHF with reduced LVEF 40% and mildly reduced RV systolic function (as noted on 10/26/2023, 8:56am TTE, CARDS Dr. Nathan Rivas) with dry baseline weight of 161-163 pounds at home. 3. Acute hypoxic respiratory failure requiring 4 liters/minute O2 via nasal cannula in [facility], superimposed on chronic hypoxic respiratory failure requiring 3 liters/minute O2 via nasal cannula at home. The following medical issues were addressed while the patient remained in [facility] from 11/22/2024 to 11/24/2024: 1. Acute exacerbation of chronic biventricular systolic CHF with reduced LVEF 40% and mildly reduced RV systolic function (as noted on 10/26/2023, 8:56am TTE, CARDS Dr. Nathan Rivas) with dry baseline weight of 161-163 pounds at home. RESOLVED on lasix 40mg IV bid. Patient has a discharge weight of 153 pounds on 11/24/2024. Patient was subsequently discharged back to his home on his home- scheduled lasix 60mg PO daily prn SOB/leg swelling on 11/24/2024. 2. Acute kidney injury with admission creatinine 1.78 mg/dL (11/22/2024, 11:46am), due to renal hypoperfusion in the setting of acute exacerbation of chr onic biventricular systolic CHF with reduced LVEF 40% and mildly reduced RV systolic function (as noted on 10/26/2023, 8:56am TTE, CARDS Dr. Nathan Rivas) with dry baseline weight of 161-163 pounds at home. RESOLVING with discharge creatinine 1.33 mg/dL (11/24/2024, 8:20am) on lasix 40mg IV bid while in [facility]. cf., baseline creatinine range, 0.91 - 1.28 mg/dL 05/28/2024 - 09/20/2024). 3. Acute hypoxic respiratory failure requiring 4 liters/minute O2 via nasal cannula in [facility], superimposed on chronic hypoxic respiratory failure requiring 3 liters/minute O2 via nasal cannula at home. Patient has no complaints of cough, wheeze, SOB, SAENZ, paroxysmal nocturnal dyspnea while in [facility]. Patient will resume his home- scheduled 3 liters/minute O2 via nasal cannula on hospital discharge home on 11/24/2024. Admission HPI Per Admitting Provider 79 male extensive PMH pulmonary fibrosis emphysema pulmonary hypertension pneumonia in the past COPD smoking ambulatory dysfunction Falls chronic back pain spinal stenosis hypothyroidism diastolic CHF multifocal atrial tachycardia PAF status post bioprosthetic AVR thoracic ascending aneurysm CAD hypertension hyperlipidemia carotid artery stenosis chronic hyponatremia who was sent from PCPs office For recent worsening shortness of breath orthopnea lower extremity edema generalized weakness. No chest pain nausea lightheadedness or other ischemic, cardiopulmonary or any other symptoms. No recent illness. He otherwise is doing okay. Discussed with ED physician valerie hamilton in ED awaiting completion of home med rec (not reviewed at time of this writing) Discharge Exam Constitutional General appearance: Comfortable, coherent, cooperative. Wide awake and alert. Not confused, lethargic, or obtunded. Speaks in complete, fluent, and articulate sentences without pause, interruption, cough, or wheeze. HEENT: NC/AT. EOMI. PERRL No rhinorrhea. No pharyngeal discharge. Neck: Supple, no stridor, bruit, goiter, JVD, or HJR. Lymph: No lymphadenopathy. Chest: Symmetric rise and fall with respirations. Non-tender to palpation. Lungs: Clear to auscultation and percussion. No audible wheeze, pectoriloquy, increase in tactile fremitus, or flatness/dullness to percussion at the bases. Heart: RRR, S1S2, no S3 or S4. Grade II/ early systolic murmur @ LLSB without radiation to the carotids, axilla, or back, and which remains invariant in regards to the respiratory cycle. Abd: Soft, non-tender, non-distended. No rebound, guarding, Aguilar's sign, or organomegaly. Bowel sounds auscultated in all 4 quadrants. Ext: No clubbing, cyanosis, or edema. 2+ pedal pulses bilaterally. Skin: No decubitus ulcer, exanthem, or enanthem. Neuro: Alert and oriented in regards to person, place, time, or situation. 5/5 motor strength in all 4 extremities, both proximally and distally. Psych: No suicidal ideation. No homicidal ideation. Discharge Plan Discharge Items Patient Disposition: Home - Self-Care Reason For Visit: CHF AE Discharge Diagnosis: [id number] RV diastolic CH exacerbation Condition on Discharge: Good Activity: Resume your previous activity Lifting: Gradually increase as tolerated Bathing: No limitations Sexual Activity: When tolerated Exercise/Sports: Gradually increase as tolerated Driving/Machine Use: No limitations Weightbearing: Full weightbearing Non-emergency contact: Primary Care Provider and Layer Off Call non-emergency contact if: you have any medication questions and your symptoms worsen Follow-up/Referrals: Parish Link III, CRNP [Primary Care Provider] - 11/30/24 11:40 am Alfreda Burch PA-C [Physician [employer] [employer]] - 11/28/24 11:30 am Diet: Carb Consistent or DM2, Heart Healthy, Low Fat and Low Sodium (2gm) Addtl Attending Provider Instructions: Follow-up with primary care doctor and heart doctor within 1 week Pending Studies at Discharge: No Stand-Alone Forms: My [facility] [employer], Smoking Cessation Medications and DC Order Prescriptions: Continued tamsulosin 0.4 mg capsule 0.4 mg PO QAM Qty: 90 3RF apixaban 5 mg tablet 5 mg PO BID Qty: 180 3RF Hold Instructions: PER SUNDAY [facility]UD[facility] MEDLIST-ADVISED TO F/U W/ PCP WHEN OK TO RESUME atorvastatin 40 mg tablet 40 mg PO QAM Qty: 90 3RF levothyroxine [Synthroid] 88 mcg tablet 88 mcg PO DAILY Qty: 30 5RF mecobalamin (vitamin B12) 1,000 mcg tablet,disintegrating 1,000 mcg sublingual QAM Rx Instructions: place tablet under tongue and allow to dissolve for at least30 secs before swallowing (DME) [facility] See Rx Instructions .Route Qty: 1 0RF Rx Instructions: 3 L of oxygen at rest and increase to 6 L w/ activity- [facility] 09/14/24 silver sulfadiazine [Silvadene] 1 % cream 1 applic topical BID Qty: 400 0RF Rx Instructions: apply a 1.5 mm thickness (DME) Oxygen Home Liters Per Minute See Rx Instructions .Route Qty: 1 0RF Rx Instructions: Lightweight oxygen concentrator, 2 L/M by nasal cannula. AMANDA:99 (DME) Wheeled Walker [place] See Rx Instructions .Route Qty: 1 0RF Rx Instructions: As directed fluticasone propion-salmeterol 250-50 mcg/dose blister with device 1 ea INHALATION BID furosemide 40 mg tablet 60 mg PO DAILY PRN (Reason: weight gain, edema, shortness of breath) amiodarone 200 mg tablet 200 mg PO QAM triamcinolone acetonide 0.1 % ointment 1 applic TOPICAL DAILY PRN (Reason: Flare) Discharge Orders: Discharge Order (Routine); Ordered 11/24/24 Ordered By: Norberto Sawyer Discharge Order- CHF (Routine); Ordered 11/24/24 Ordered By: Norberto Sawyer Admission Data Admit Date/Time: 11/22/24 13:51 Attending Provider: Norberto Sawyer Admit Provider: Belle Stevenson Primary Care Provider: Parish Link III Other Providers: Belle Stevenson; Tanisha Dover; Patrick Sarabia; Avinash Paris; Calvin Newsome; Ronald Mendoza; Richard Lewis; Smita Bhagat; Terri Aleman; Lizbet Hdz; Stefany Harman; Tanisha Webb; Gal Guadarrama; Mike Narayan; Tracey Fonseca; Marylu Miller; Dee Ambriz; Stefanie Myles; Joselo Florian; Anna Looney; Ny Burr; Jose Jha; Ranjeet Santana; Nathan Rivas; Patrick Decker; Michael Mckenzie; Alexandro De La Garza Jr; Devon Hastings; Yolanda Felix; Janie Saeed; Jose Sexton; Jose Díaz; Alfreda Burch; Ronald Beltran; Jenna Arita; Ronald Alvarenga; Wellington Blake; Jason Banuelos; Luke Baird; Ashvin Jackson; Luis Enrique Hammonds; Lola Puentes Other Interventions: Discharge Summary Assessment (RN) Last Done: 11/24/24 14:27 Hospital Stay Data Consultations 11/22/24 13:01 ED Decision to Admit Stat 11/22/24 13:51 Consult Cardiac Rehabilitation Routine 11/23/24 09:35 Consult Cardiology Routine 11/23/24 11:15 Consult Cardiology Routine Pending Results Patient Have Any Pending Studies at Discharge: No Discharge Instructions Given to Patient (Per Discharging Provider) Follow-up with primary care doctor and heart doctor within 1 week Total Time Total Time Spent Total Time Spent (In Minutes): 35 minutes. Of this time period, 19 minutes were spent in coordinating patient's discharge. Coding Level of Care Code 73911 INP/OBS DISCH >30 MIN Diagnoses Hypoxia R09.02 Ambulatory dysfunction R26.2 CHF exacerbation I50.9
--- NOTE | 2024-11-25 23:49 | Electrocardiogram Report ---
Test Reason : Blood Pressure : */* mmHG Vent. Rate : 65 BPM Atrial Rate : 65 BPM P-R Int : 160 ms QRS Dur : 138 ms QT Int : 478 ms P-R-T Axes : 73 -41 219 degrees QTcB Int : 497 ms Normal sinus rhythm Premature atrial complexes Left axis deviation Right bundle branch block T wave abnormality, consider lateral ischemia Abnormal ECG When compared with ECG of 12-Sep-2024 15:41, CA interval has decreased Nonspecific T wave abnormality, improved in Anterior leads Confirmed by Devon Hastings ([id number]) on 11/25/2024 11:48:50 PM Referred By: REFERRED SELF Confirmed By: Devon Hastings
== END 2024-11-24 14:52 | disposition home or self-care (01) | DRG 291 ==
LOC: ED 11:18 → SUATTDRO 13:51 → EDINP 13:51 → 2S 17:18